=== PATIENT | female | born 1955 | race Caucasian/White ===

== ENCOUNTER 2020-04-15 11:22 | Outpatient (REF) | payer OTHER, SELFPAY ==
[2020-04-15 13:52] LABS: Alanine Aminotransferase 26 U/L (0-31); Albumin Level 4.9 g/dL (3.5-5.0); Alkaline Phosphatase 68 U/L (39-117); Anion Gap 16 (12-20); Aspartate Amino Transferase 17 U/L (5-31); Bilirubin Total 0.4 mg/dL (0.0-1.0); Blood Urea Nitrogen 12 mg/dL (9-16); Calcium 10.1 mg/dL (8.4-10.2); Carbon Dioxide 28 mmol/L (22-29); Chloride 99 mmol/L (96-108); Estimated Glomerular Filt Rate > 60; Glucose Random 154 mg/dL (60-115); Potassium 4.6 mmol/l (3.3-5.1); Sodium 138 mmol/L (135-145); Total Protein 7.6 g/dL (6.5-8.0)
[2020-04-15 14:15] LABS: Vitamin D 25-OH Total 42.6 ng/mL (>30)
[2020-04-16 20:11] LABS: Calcium (PTHI) 10.1 mg/dL (8.6-10.4); PTHI 13 pg/mL (14-64)
== END 2020-04-15 11:23 | disposition home or self-care (01) ==
LOC: HO.LAB 11:22
PROVIDERS: PCP Family Medicine; Visit Provider Internal Medicine
DX: E21.0 Primary hyperparathyroidism (principal); E55.9 Vitamin D deficiency, unspecified; M85.89 Other specified disorders of bone density and structure, multiple sites
CPT/HCPCS: 80053; 82306; 83970

== ENCOUNTER → 2020-05-14 09:19 | Outpatient (BNVA) | payer OTHER, SELFPAY | PROVIDERS: PCP Family Medicine; Referring Provider Family Medicine; Visit Provider Nurse Practitioner | DX: K29.61 Other gastritis with bleeding (principal); R11.2 Nausea with vomiting, unspecified; K22.10 Ulcer of esophagus without bleeding; Z78.9 Other specified health status | CPT/HCPCS: 99212 ==

== ENCOUNTER → 2020-06-18 08:42 | Outpatient (BNVA) | payer OTHER, SELFPAY | PROVIDERS: PCP Family Medicine; Visit Provider Nurse Practitioner | DX: Z13.89 Encounter for screening for other disorder (principal) | CPT/HCPCS: Q3014 ==

== ENCOUNTER 2020-06-23 12:44 | Outpatient (REF) | payer OTHER, SELFPAY ==
--- NOTE | 2020-06-23 12:47 | CT_ITS ---
EXAMINATION: CT CHEST WITHOUT CONTRAST CLINICAL INFORMATION: Follow-up pulmonary nodules COMPARISON: Previous chest CT most recent December 2018 TECHNIQUE: Multidetector volumetric CT imaging of the chest was done. Axial MIP volume rendering provided. Sagittal and coronal reformatted images were obtained. This CT examination was performed using dose optimization techniques as appropriate, variously including the following: *Automated exposure control *Adjustment of mA and/or kV according to patient size (this includes techniques or standardized protocols for targeted exams where dose is matched to indication/reason for exam; i.e. extremities or head) *Use of iterative reconstruction technique DLP: 109 mGy-cm FINDINGS: LUNGS: There is evidence of emphysema. There are innumerable small calcified pulmonary nodules that are stable. Largest calcified pulmonary nodule measures 3 mm. There is a 4 mm noncalcified right lower lobe nodule axial image 255 series 5 that is new. This is triangular in shape and is possible this represents an intraparenchymal lymph node. MEDIASTINUM: There are new surgical clips in the superior mediastinum inferior to the thyroid gland. There are no enlarged hilar or mediastinal lymph nodes. The heart does not appear enlarged. There is no pericardial effusion. The thoracic aorta is normal in caliber. PLEURA: There is no pleural effusion. No pleural mass or thickening. AXILLA: No chest wall mass or enlarged axillary lymph nodes are seen. UPPER ABDOMEN: There is a 1.2 cm low-attenuation left adrenal lesion. Hounsfield units without contrast measure 2 and this probably represents a adenoma. This is unchanged. OSSEOUS STRUCTURES: Unremarkable CT/CT chest wo con IMPRESSION: Emphysema. Innumerable small calcified pulmonary nodules that are stable. New 4 mm noncalcified right lower lobe pulmonary nodule. Follow-up chest CT scan recommended.
== END 2020-06-23 12:45 | disposition home or self-care (01) ==
LOC: HO.CT 12:44
PROVIDERS: PCP Family Medicine; Visit Provider Family Medicine
DX: R91.1 Solitary pulmonary nodule (principal)
CPT/HCPCS: 71250

== ENCOUNTER → 2021-03-07 13:17 | Outpatient (BNVA) | payer OTHER, SELFPAY | PROVIDERS: PCP Family Medicine; Visit Provider Internal Medicine | DX: R91.8 Other nonspecific abnormal finding of lung field (principal); J44.9 Chronic obstructive pulmonary disease, unspecified; E21.3 Hyperparathyroidism, unspecified; E55.9 Vitamin D deficiency, unspecified; F17.210 Nicotine dependence, cigarettes, uncomplicated; Z79.899 Other long term (current) drug therapy | CPT/HCPCS: 99202 ==

== ENCOUNTER → 2021-04-06 08:28 | Outpatient (BNVA) | payer OTHER, SELFPAY | PROVIDERS: PCP Family Medicine; Visit Provider Internal Medicine | DX: Z13.89 Encounter for screening for other disorder (principal) | CPT/HCPCS: Q3014 ==

== ENCOUNTER → 2021-04-11 13:29 | Outpatient (BNVA) | payer OTHER, SELFPAY | PROVIDERS: PCP Family Medicine; Visit Provider Internal Medicine ==

== ENCOUNTER 2021-04-11 14:28 | Outpatient (REF) | payer OTHER, SELFPAY ==
--- NOTE | 2021-04-11 17:08 | PFT_ITS ---
INDICATION: COPD. SPIROMETRY: The FEV1 to FVC 33% with an FEV1 of 1.08 L, which is 44% predicted, and FVC of 3.31 L, which is 104% predicted. Post bronchodilators, there was a significant improvement of the FEV1 by 15%. To note, the patient has significant small airways disease with [id number] of 14% predicted. Maximum voluntary ventilation only 41% predicted. LUNG VOLUMES: Total lung capacity 125% predicted with residual volume 168% predicted. DIFFUSION CAPACITY: DLCO of 36% predicted. COMPARISONS: None available. INTERPRETATION: There is an obstructive ventilatory defect consistent with severe COPD. There was a significant response to bronchodilators noted and significant small airways disease. Severe decrease in maximum voluntary ventilation secondary to deconditioning and also worsening dynamic inspiratory capacity. Lung volumes with significant air trapping and hyperinflation due to the COPD. In addition to that, the patient does have severe diffusion impairment. Clinical correlation warranted. MD RANDY Pedroza/MODSpencer / [id number]
== END 2021-04-11 14:29 | disposition home or self-care (01) ==
LOC: HO.RESP 14:28
PROVIDERS: PCP Family Medicine; Visit Provider Internal Medicine
DX: J44.9 Chronic obstructive pulmonary disease, unspecified (principal); R91.8 Other nonspecific abnormal finding of lung field; F17.200 Nicotine dependence, unspecified, uncomplicated
CPT/HCPCS: 94060; 94727; 94729; 99212

== ENCOUNTER → 2021-04-20 13:35 | Outpatient (BNVA) | payer OTHER, SELFPAY | PROVIDERS: PCP Family Medicine; Referring Provider Family Medicine; Visit Provider Internal Medicine Cardiovascular Disease | DX: R06.00 Dyspnea, unspecified (principal) | CPT/HCPCS: 93005; 99212 ==

== ENCOUNTER → 2021-05-12 13:41 | Outpatient (BNVA) | payer OTHER, SELFPAY | PROVIDERS: PCP Family Medicine; Visit Provider Internal Medicine | DX: J44.9 Chronic obstructive pulmonary disease, unspecified (principal); J30.9 Allergic rhinitis, unspecified; R91.8 Other nonspecific abnormal finding of lung field; F17.200 Nicotine dependence, unspecified, uncomplicated; Z79.899 Other long term (current) drug therapy; Z71.6 Tobacco abuse counseling | CPT/HCPCS: 99212 ==

== ENCOUNTER 2021-06-21 12:56 | Outpatient (REF) | payer OTHER, SELFPAY ==
--- NOTE | ~2021-06-21 | MM_ITS ---
EXAMINATION: BONE DENSITOMETRY CLINICAL INDICATION: Other specified disorders of bone density and structure. COMPARISON: Baseline BD dated 06/20/2019. TECHNIQUE: Using a [employer] DXA System (software version: 13.1) manufactured by [employer], dual-energy x-ray absorptiometry was performed of the lumbar spine, left hip and left forearm radius 33%. The images are of good technical quality. Summary results are attached. FINDINGS: AP SPINE L1-L4: Current: BMD 1.133 g/cm2, Z-score 1.2, T-score -0.4, normal, 5.1% increase from baseline (<5% change is not significant). Baseline: BMD 1.078 g/cm2. LEFT FEMUR, NECK: Current: BMD 0.792 g/cm2, Z-score -0.3, T-score -1.8, osteopenia. Baseline: BMD 0.719 g/cm2. LEFT FEMUR, TOTAL: Current: BMD 0.886 g/cm2, Z-score 0.3, T-score -1.0, normal, 10.1% increase from baseline (<5% change is not significant). Baseline: BMD 0.805 g/cm2. LEFT FOREARM RADIUS 33%: BMD 0.758 g/cm2, Z-score -0.1, T-score -1.5, osteopenia, 1.9% increase from baseline (<5% change is not significant). Baseline: BMD 0.744 g/cm2. IDENTIFIED RISK FACTORS: Low calcium intake, tobacco use (current smoker), menopause. HISTORY OF FRACTURE: None listed. MEDICATIONS: None listed. MM/XR DEXA axial skeleton IMPRESSION: 1. DIAGNOSIS: Osteopenia based on the lowest T-score value of -1.8 in the femoral neck applying World Health Organization criteria. 2. 10-YEAR FRACTURE RISK PREDICTION, FRAX: Major osteoporotic fracture (clinical spine, forearm, hip or shoulder) 10.1%. Hip fracture 2.2%. 3. Treatment Recommendations: NOF guidelines recommend consideration for treatment in postmenopausal women and men age 50 and older presenting with the following: -A hip or vertebral (clinical or morphometric) fracture. -T-score less than or equal to -2.5 at the femoral neck or spine after appropriate evaluation to exclude secondary causes. -Low bone mass at the hip or spine and a 10-year fracture probability by FRAX of greater than or equal to 3% for hip fracture or greater than or equal to 20% for major osteoporotic fracture based on the [place] adapted WHO algorithm. 4. Other Recommendations: All treatment decisions require clinical judgment and consideration of individual patient factors, including patient preferences, comorbidities, previous drug use, risk factors not captured in the FRAX model (e.g. frailty, falls, vitamin D deficiency, increased bone turnover, interval significant decline in bone density) and possible under or overestimation of fracture risk by FRAX. Additional medical evaluation for secondary cause of low bone mineral density may be appropriate. FUTURE SCAN RECOMMENDATION: People with diagnosed cases of osteoporosis or at high risk for fracture should have regular bone mineral density tests. For patients eligible for Medicare, routine testing is allowed once every 2 years. The testing frequency can be increased to one year for patients who have rapidly progressing disease, those who are receiving or discontinuing medical therapy to restore bone mass, or have additional risk factors.
== END 2021-06-21 12:57 | disposition home or self-care (01) ==
LOC: HO.MAMMO 12:56
PROVIDERS: Visit Provider Internal Medicine
DX: Z13.820 Encounter for screening for osteoporosis (principal); M85.80 Other specified disorders of bone density and structure, unspecified site; Z78.0 Asymptomatic menopausal state
CPT/HCPCS: 77080

== ENCOUNTER 2021-08-10 12:49 | Outpatient (REF) | payer OTHER, SELFPAY ==
--- NOTE | ~2021-08-10 | CT_ITS ---
EXAMINATION: CT CHEST WITHOUT CONTRAST CLINICAL INFORMATION: Follow-up pulmonary nodules. COMPARISON: Chest 06/23/2020. TECHNIQUE: Multidetector volumetric CT imaging of the chest was done. Axial MIP volume rendering provided. Sagittal and coronal reformatted images were obtained. This CT examination was performed using dose optimization techniques as appropriate, variously including the following: *Automated exposure control *Adjustment of mA and/or kV according to patient size (this includes techniques or standardized protocols for targeted exams where dose is matched to indication/reason for exam; i.e. extremities or head) *Use of iterative reconstruction technique DLP: 173 mGy-cm FINDINGS: FRONT COUNTER ATTENDANT: Hyperinflated lungs. LUNGS: There is centrilobular emphysema without any acute pneumonic consolidation. There are multiple tlhwo-un-ealmil-sized calcified pulmonary nodules throughout both lungs, likely granulomas. There is a noncalcified new spiculated 7 mm lesion superior segment left lower lobe axial image 181/6, a noncalcified 4 mm speculated lesion left upper lobe laterally axial image 212/6, a 6 mm noncalcified nodule right lower lobe superior segment axial image 230/6 and previously it measured same size on last CT 251/5, a second noncalcified nodule on axial image 269/6 adjacent to it measures 5 mm on axial image 240/6. There is an ill-defined nodular density right lower lobe pleural-based measuring 1.6 cm. There are 2 smaller noncalcified nodules in the left lower lobe on axial image 119/6 and 417/6. Mild atelectasis in the lingula is noted. MEDIASTINUM: The thyroid lobes are symmetrical and normal. Central trachea and the bronchi appear widely patent. Benign-appearing lymph nodes in the mediastinum. No pericardial effusion seen. There is no cardiomegaly or calcified coronary vessels. PLEURA: There is no pleural effusion. No pleural mass or thickening. AXILLA: No abnormal lymph nodes. The chest wall is unremarkable. UPPER ABDOMEN: Visualized liver, spleen, pancreas and bilateral adrenal glands are unremarkable. OSSEOUS STRUCTURES: No gross bony abnormality seen. CT/CT chest wo con IMPRESSION: Multiple new noncalcified pulmonary nodules as described above. Multiple calcified granulomas are stable. No abnormal mediastinal or axillary lymphadenopathy seen. Fleischner guidelines were followed.
== END 2021-08-10 12:50 | disposition home or self-care (01) ==
LOC: HO.CT 12:49
PROVIDERS: Visit Provider Internal Medicine
DX: R91.8 Other nonspecific abnormal finding of lung field (principal); J44.9 Chronic obstructive pulmonary disease, unspecified
CPT/HCPCS: 71250

== ENCOUNTER → 2021-08-18 13:01 | Outpatient (BNVA) | payer OTHER, SELFPAY | PROVIDERS: PCP Family Medicine; Visit Provider Internal Medicine | DX: J44.9 Chronic obstructive pulmonary disease, unspecified (principal); J30.9 Allergic rhinitis, unspecified; R91.8 Other nonspecific abnormal finding of lung field; F17.200 Nicotine dependence, unspecified, uncomplicated | CPT/HCPCS: 94618; 99212 ==

== ENCOUNTER 2021-09-01 15:05 | Outpatient (REF) | payer OTHER, SELFPAY ==
--- NOTE | ~2021-09-01 | MM_ITS ---
EXAMINATION: MM SCREENING DIGITAL BREAST TOMOSYNTHESIS, BILATERAL CLINICAL INFORMATION: Screening. Asymptomatic. The lifetime risk of breast cancer based on the Tyrer-Cuzick Model is 5.4%. COMPARISON: Mammography: January 21, 2018 and studies dating back to February 05, 2012 TECHNIQUE: Digital breast tomosynthesis is performed in both the craniocaudal and mediolateral oblique views along with computer-aided detection (CAD). Synthesized 2D images are generated from the tomosynthesis. FINDINGS: There are scattered areas of fibroglandular density (ACR BI-RADS breast composition Category b). There are no significant masses, abnormal calcifications, or other abnormalities. MM/MM tomosynthesis screening BI IMPRESSION: There are no significant changes from prior study. ASSESSMENT: BI-RADS 1: Negative RECOMMENDATION: Routine annual mammography screening. This patient's information was entered into a reminder system with a target due date for their next mammogram.
== END 2021-09-01 15:06 | disposition home or self-care (01) ==
LOC: HO.MAMMO 15:05
PROVIDERS: Visit Provider Family Medicine
DX: Z12.31 Encounter for screening mammogram for malignant neoplasm of breast (principal)
CPT/HCPCS: 77063; 77067

== ENCOUNTER → 2021-10-04 13:43 | Outpatient (BNVA) | payer OTHER, SELFPAY | PROVIDERS: PCP Family Medicine; Visit Provider Internal Medicine | DX: R91.8 Other nonspecific abnormal finding of lung field (principal); R09.02 Hypoxemia; J44.9 Chronic obstructive pulmonary disease, unspecified; J30.9 Allergic rhinitis, unspecified; F17.200 Nicotine dependence, unspecified, uncomplicated; Z71.6 Tobacco abuse counseling | CPT/HCPCS: 99212 ==

== ENCOUNTER → 2021-10-17 13:05 | Outpatient (BNVA) | payer OTHER, SELFPAY | PROVIDERS: PCP Family Medicine; Visit Provider Internal Medicine Cardiovascular Disease | DX: I51.7 Cardiomegaly (principal); R06.00 Dyspnea, unspecified | CPT/HCPCS: 93005; 99212 ==

== ENCOUNTER → 2021-11-28 13:38 | Outpatient (BNVA) | payer OTHER, SELFPAY | PROVIDERS: PCP Family Medicine; Visit Provider Internal Medicine | DX: R91.8 Other nonspecific abnormal finding of lung field (principal); J30.9 Allergic rhinitis, unspecified; J44.9 Chronic obstructive pulmonary disease, unspecified; R09.02 Hypoxemia; F17.210 Nicotine dependence, cigarettes, uncomplicated | CPT/HCPCS: 99212 ==

== ENCOUNTER → 2021-11-30 12:29 | Outpatient (REF) | payer OTHER, SELFPAY ==
--- NOTE | 2021-11-30 12:31 | CA_ITS ---
Transthoracic Echocardiogram Patient (Last, First, Middle): Bonnie Shore P Gender: Female Date of : 1955 Age: 66 Procedure Date: 11/30/2021 Procedure Type: Transthoracic Echocardiogram Location: OP Height: 162.56 cm Weight: 63.5 kg BSA: 1.68 m2 Heart Rate: bpm BP: 108 / 60 mmHg Syrup Filterer: YR/TO Referring MD: Sergo Christensen MD Tree Marker: Sergo Christensen MD Symptoms: R06.00 - Dyspnea, unspecified Study Quality: Fair ECG Rhythm: Sinus Conclusions: - 1. Normal LV systolic function with grade 1 diastolic dysfunction 2. Normal cardiac valvular Doppler 3. Normal RV systolic pressure 4. No gross pericardial effusion Findings Left Ventricle Normal left ventricular size, thickness, and systolic function. The visually estimated ejection fraction is between 60-65%. Spectral Doppler is indicative of an impaired relaxation filling pattern. E/E prime ratio is <8, consistent with normal filling pressures. Evidence suggests grade I (mild) diastolic dysfunction. Right Ventricle Normal right ventricular cavity size and systolic function. Atria The left atrium is normal in size. There is no evidence of interatrial shunt. The right atrium is normal in size. Aortic Valve Normal aortic valve structure and function. There is no aortic valve stenosis. There is no aortic valve regurgitation. Mitral Valve Normal mitral valve structure and function. There is trace mitral valve regurgitation. There is no mitral valve stenosis. Pulmonic Valve The pulmonic valve was not well visualized. Tricuspid Valve Likely normal tricuspid valve structure and function. There is trace tricuspid valve regurgitation. The right ventricular systolic pressure is normal. The right ventricular systolic pressure is 13 mmHg. Normal right atrial pressure. There is no evidence of pulmonary hypertension. Great Vessels All visible segments of the aorta are normal in size. The pulmonary artery was not well visualized. Venous The inferior vena cava is normal in size and collapses greater than 50% with inspiration. Pericardium/Pleural There is no evidence of pericardial effusion. Measurements 2D Linear Measurements IVSd: 0.87 0.6-0.9/0.6-1.0 cm LVIDd: 3.36 3.9-5.3/4.2-5.9 cm LVIDd Index: 2.00 2.4-3.2/2.2-3.1 cm/m2 LVIDs: 2.52 2.0-3.6 cm LVPWd: 0.85 0.7-1.1 cm LA Diam: 2.80 2.7-3.8/3.0-4.0 cm LAIDs Index: 1.67 1.5-2.3 cm/m2 LV Mass: 96.65 67-162/88-224 g LV Mass Index: 57.53 43-95/49-115 g/m2 LVOT Diam: 2.00 3.0+(-)1.3 cm 2D Systolic Function EF 4C: 64.70 >55% EF 2C: 58.80 >55% EF BiP: 62.20 >55% Mitral Valve MV Pk E: 0.62 MV PK A: 0.78 MV Decel Time: 108.00 E/A: 0.80 E'Lateral: 8.27 E'Medial: 6.96 E/E' Med: 9.00 E/E' Lat: 7.50 PHT: 32.00 MVA PHT: 6.88 Decel O'Brien: 5.76 LVOT LVOT Diam: 2.00 LVOT Area: 3.14 Diastolic Function MV Pk E: 0.62 MV Pk A: 0.78 E/A: 0.80 E'Medial: 6.96 E/E' Med: 9.00 E' Laterial: 8.27 E/E' Lat: 7.50 Right Ventricle TAPSE (mm): 19.30 TVS' Gibson: 10.30 Tricuspid Valve TR Pk Gibson: 1.59 TR Pk Grad: 10.00 RA Press: 3.00 RVSP: 13.00 Great Vessels Aorta Sinus of Valsalva: 3.13 2.0-3.[address] Ridge: 2.90 1.7-3.4 cm Ao Asc: 3.10 2.1-3.4 cm Updated in Other Vendor System with Status of Final Olayinka Hernandez MD electronically signed on 12/01/2021 11:41:30 AM with status of Final
== END ==
LOC: HO.CARD 12:29
PROVIDERS: Visit Provider Internal Medicine Cardiovascular Disease
DX: R06.00 Dyspnea, unspecified (principal)
CPT/HCPCS: 93306

== ENCOUNTER 2022-01-10 12:59 | Outpatient (REF) | payer OTHER, SELFPAY ==
--- NOTE | ~2022-01-10 | CT_ITS ---
EXAMINATION: CT CHEST WITHOUT CONTRAST CLINICAL INFORMATION: Abnormal lung findings. COMPARISON: CT chest 08/10/2021. TECHNIQUE: Multidetector volumetric CT imaging of the chest was done. Axial MIP volume rendering provided. Sagittal and coronal reformatted images were obtained. This CT examination was performed using dose optimization techniques as appropriate, variously including the following: *Automated exposure control *Adjustment of mA and/or kV according to patient size (this includes techniques or standardized protocols for targeted exams where dose is matched to indication/reason for exam; i.e. extremities or head) *Use of iterative reconstruction technique DLP: 134 mGy-cm FINDINGS: EPIC BEACON ANALYST: Hyperinflated lungs. LUNGS: There is diffuse centrilobular emphysema. Previously seen. Previously seen 2 nodules adjacent to each other has now significantly increased in size and appears semisolid mass measuring 3 cm on axial image 306/7. There is a 4.4 mm nodule left upper lobe axial image 266/7, previously measured 4 mm. There is a 4 mm nodule right lower lobe adjacent to major fissure axial image 255/7 which has not changed since the previous study. Adjacent to that is a 1.1 cm nodule right lower lobe subpleural-based axial image 271/7 which has increased in size. Previously it measured 5 mm. There are numerous calcified nodules seen throughout both lungs which are stable. MEDIASTINUM: The thyroid lobes are symmetric and normal. The central trachea and bronchi are widely patent. Heart size and the great vessels are normal caliber. There are small shotty lymph nodes in the mediastinum. The largest nodule in the precarinal space measures 1.2 cm and is stable. No pericardial effusion seen. PLEURA: There is no pleural effusion. No pleural mass or thickening. AXILLA: No lymphadenopathy. UPPER ABDOMEN: Visualized liver, spleen and pancreas unremarkable. There is punctate calcification in the body of the pancreas and punctate calculi in the central gallbladder. OSSEOUS STRUCTURES: No lytic or sclerotic process seen. CT/CT chest wo con IMPRESSION: Interval significant increase in the right lower lobe 2 adjacent nodules now appearing as one big mass. There are additional noncalcified pulmonary nodules which are stable. Multiple calcified nodules throughout both lungs likely granulomatous disease is stable. There is a 1.2 cm lymph node right pretracheal space minimally bigger. Recommend biopsy of semisolid mass right lower lobe superior segment. Peripheral appearance and semisolid appearance as well as multiple peripherally-based lung nodules may represent bronchoalveolar or carcinoma with likely metastatic spread unless patient has a known primary elsewhere. Diffuse centrilobular emphysema.
== END 2022-01-10 13:00 | disposition home or self-care (01) ==
LOC: HO.CT 12:59
PROVIDERS: Visit Provider Internal Medicine
DX: R91.8 Other nonspecific abnormal finding of lung field (principal)
CPT/HCPCS: 71250

== ENCOUNTER → 2022-01-27 10:03 | Outpatient (BNVA) | payer OTHER, SELFPAY | PROVIDERS: PCP Family Medicine; Visit Provider Surgery | DX: R91.8 Other nonspecific abnormal finding of lung field (principal); F17.210 Nicotine dependence, cigarettes, uncomplicated | CPT/HCPCS: 99202 ==

== ENCOUNTER 2022-02-07 09:47 | Outpatient (REF) | payer OTHER, SELFPAY ==
--- NOTE | ~2022-02-07 | PE_ITS ---
EXAMINATION: Fluorine-18 FDG PET/CT Scan CLINICAL INDICATION: Initial treatment management. Pulmonary nodule. PROCEDURE: 76 minutes following the intravenous administration of 17.8 mCi of fluorine 18 FDG, images from the base of the skull to the mid thighs were obtained using a combined PET/CT scanner with CT scan based attenuation correction. No oral contrast was administered. No intravenous contrast was administered. Transverse, coronal, sagittal, and volume reconstruction projections were obtained. The patient's blood glucose as determined by a finger stick, was 183 mg/dl immediately prior to injection. Total CT exam dose-length product 1166.56 mGy-cm * These CT images were obtained using dose optimization techniques as appropriate, variously including the following: Automated exposure control * Adjustment of mA and/or kV according to patient size (this includes techniques or standardized protocols for targeted exams where dose is matched to indication/reason for exam; i.e. extremities or head) * Use of iterative reconstruction technique COMPARISON: No previous PET/CT scan is available for comparison. CT scan of the chest dated 01/10/[address] scan of the abdomen and pelvis dated 05/13/2007 are available for comparison. FINDINGS: (Slice numbers described in this report are numbered superiorly to inferiorly with slice #1 in the head) NECK AND VISUALIZED HEAD: No foci of abnormal FDG activity are noted. The distribution of FDG activity is physiological. There is no cervical lymphadenopathy. Metallic surgical clips are present in the left suprasternal notch region and posterolateral to the lower pole of the right thyroid lobe. THORAX: A 3 cm mass posteriorly in the right lower lobe visualized on the 01/10/[address] scan is much smaller in size now measuring 1.0 x 0.7 cm in largest transverse dimension on CT slice 152/223, and showing weak FDG activity, SUVmax 1.5, slice 154/223. Immediately superior to this there is a cluster of subcentimeter nodules, the largest measuring 0.9 x 0.6 cm in largest transverse dimensions and showing weak FDG activity, SUVmax 1.8, slice 159/223. These nodules do not appear significantly changed from 01/10/2022. Multiple additional subcentimeter nodules are present involving all lung sheffield, many but not all of which are calcified. The largest of these is in the superior segment of the left lower lobe and measures 0.8 x 0.5 cm in largest transverse dimensions. All of these are too small to be characterized on the FDG PET images. There are no additional foci of abnormal FDG activity present in the chest. There is no pleural or pericardial fluid, or pneumothorax. Diffuse emphysema is again noted, unchanged in appearance from prior studies. There is no mediastinal, supraclavicular, or axillary lymphadenopathy. A 1.2 x 0.6 cm precarinal lymph node is unchanged in appearance from 01/10/2022 and is not enlarged by size criteria and shows no abnormal FDG activity. ABDOMEN AND PELVIS: No foci of abnormal FDG activity are present in the abdomen or pelvis. There is diffuse FDG activity of varying intensities present throughout the gastrointestinal tract without a suspicious focal component and likely physiological. There is diverticulosis without evidence of diverticulitis. The hollow viscera are otherwise unremarkable. The liver is unremarkable. The spleen is mildly enlarged measuring 12.7 cm in largest dimension in the coronal projection. The gallbladder is unremarkable. There is a 0.5 cm nonobstructing densely calcified calculus in the lower pole of the left kidney. The kidneys are otherwise unremarkable. The adrenal glands and pancreas are unremarkable. There is no retroperitoneal, mesenteric, pelvic or inguinal lymphadenopathy. The pelvic organs are unremarkable. MUSCULOSKELETAL: There are no foci of abnormal FDG activity in the osseous structures. There are mild degenerative changes in the spine but no suspicious sclerotic or lytic lesions are present. VASCULAR: Vascular calcifications are noted. PET/PET CT fusion skull to thigh IMPRESSION: 1. There is been a significant diminution in size of the right lower lobe mass visualized on the 01/10/[address] scan. This is weakly FDG avid. The weak FDG activity and marked change in size suggests this is a resolving inflammatory lesion. Continued monitoring with diagnostic CT imaging in approximately 3 months is recommended for follow-up. 2. Multiple additional subcentimeter pulmonary nodules are present as described above, unchanged from 01/10/2022. These are all too small to be well characterized on the FDG PET images, with weak FDG activity associated with a single nodule within a cluster of nodules in the right lower lobe as described above. Continued monitoring of these also with diagnostic CT imaging in approximately 3 months is recommended. 3. No additional abnormalities suspicious for metastatic or other malignant lesions are noted. 4. Nephrolithiasis.
== END 2022-02-07 09:48 | disposition home or self-care (01) ==
LOC: HO.PET 09:47
PROVIDERS: Visit Provider Surgery
DX: Z13.89 Encounter for screening for other disorder (principal)

== ENCOUNTER 2022-02-09 11:01 | Outpatient (REF) | payer OTHER, SELFPAY ==
--- NOTE | 2022-02-09 13:07 | PFT_ITS ---
Forced vital capacity 93%, FEV1 37%, FEV1/FVC ratio is 31. YHC84-03 11% and MVV 37%. Post bronchodilator therapy, there is a slight improvement in FEV1 and [id number]. Total lung capacity 117% and residual volume 148%. Diffusion capacity 40%. CONCLUSION: Very severe obstructive airway disorder with evidence of hyperinflation and air trapping. Only minimal improvement after bronchodilator therapy is noted. MD TAMIE Scott/ANDREW / [id number]
== END 2022-02-09 11:02 | disposition home or self-care (01) ==
LOC: HO.RESP 11:01
PROVIDERS: PCP Family Medicine; Visit Provider Internal Medicine
DX: R06.00 Dyspnea, unspecified (principal); R91.8 Other nonspecific abnormal finding of lung field; J44.9 Chronic obstructive pulmonary disease, unspecified; F17.200 Nicotine dependence, unspecified, uncomplicated
CPT/HCPCS: 94060; 94727; 94729

== ENCOUNTER 2022-02-24 10:05 | Outpatient (REF) | payer OTHER, SELFPAY ==
[2022-02-24 10:39] LABS: Hematocrit 38.7 % (37.0-47.0); Hemoglobin 13.1 g/dl (12.0-16.0); Mean Corpuscular HGB Conc 33.9 g/dl (31.0-35.0); Mean Corpuscular Volume 85.6 fL (80.0-98.0); Mean Platelet Volume 10.5 fL (9.4-12.3); Platelet Count 169 X10*3/uL (160-400); Red Blood Count 4.52 X10*6/uL (4.20-5.50); Red Cell Distribution Width 13.6 % (11.0-16.0); White Blood Count 8.6 X10*3/uL (4.8-10.8)
[2022-02-24 10:47] LABS: Estimated Average Glucose 180 mg/dL; Hemoglobin A1c % 7.9 %
[2022-02-24 11:07] LABS: Alanine Aminotransferase 29 U/L (0-31); Albumin Level 4.6 g/dL (3.5-5.0); Alkaline Phosphatase 62 U/L (39-117); Aspartate Amino Transferase 19 U/L (5-31); Bilirubin Direct 0.4 mg/dL (0.0-0.5); Bilirubin Total 0.7 mg/dL (0.0-1.0); Cholesterol 65 mg/dL; HDL Cholesterol 34 mg/dL; LDL Cholesterol Calculated 12 mg/dl; Total Protein 7.2 g/dL (6.5-8.0); Triglycerides 95 mg/dL
[2022-02-24 11:16] LABS: Alanine Aminotransferase 29 U/L (0-31); Albumin Level 4.6 g/dL (3.5-5.0); Alkaline Phosphatase 61 U/L (39-117); Anion Gap 17 (12-20); Aspartate Amino Transferase 19 U/L (5-31); Bilirubin Total 0.7 mg/dL (0.0-1.0); Blood Urea Nitrogen 11 mg/dL (9-16); Carbon Dioxide 23 mmol/L (22-29); Chloride 102 mmol/L (96-108); Estimated Glomerular Filt Rate > 60; Glucose Random 217 mg/dL (60-115); Phosphorus 4.2 mg/dL (2.7-4.5); Potassium 4.4 mmol/L (3.3-5.1); Sodium 138 mmol/L (135-145); Total Protein 7.2 g/dL (6.5-8.0)
[2022-02-24 11:32] LABS: Free T4 (Free Thyroxine) 0.88 ng/dL (0.71-1.85)
[2022-02-24 12:12] LABS: Creatinine Urine 102.24 mg/dL; Microalbum/Creatinine Ratio Ur 71.4 ug/mg cr
[2022-02-26 12:52] LABS: Calcium (PTHI) 8.9 mg/dL (8.6-10.4); PTHI 88 pg/mL (16-77)
[2022-02-27 13:42] LABS: Alpha Fetoprotein 2.5 ng/mL
== END 2022-02-24 10:06 | disposition home or self-care (01) ==
LOC: HO.LAB 10:05
PROVIDERS: Internal Medicine; PCP Family Medicine; Visit Provider Family Medicine
DX: E11.9 Type 2 diabetes mellitus without complications (principal); E55.9 Vitamin D deficiency, unspecified; I10 Essential (primary) hypertension; K76.0 Fatty (change of) liver, not elsewhere classified; R91.8 Other nonspecific abnormal finding of lung field
CPT/HCPCS: 36415; 80053; 80061; 80076; 82043; 82105; 82248; 82306; 83036; 83970; 84100; 84439; 84443; 85027; 99212

== ENCOUNTER → 2022-04-04 13:45 | Outpatient (BNVA) | payer OTHER, SELFPAY | PROVIDERS: PCP Family Medicine; Visit Provider Internal Medicine | DX: E21.3 Hyperparathyroidism, unspecified (principal); E55.9 Vitamin D deficiency, unspecified; M85.80 Other specified disorders of bone density and structure, unspecified site | CPT/HCPCS: 99212 ==

== ENCOUNTER 2022-04-04 14:30 | Emergency (ER) | payer OTHER, SELFPAY ==
--- NOTE | ~2022-04-04 | XR_ITS ---
EXAMINATION: XR CHEST CLINICAL INFORMATION: Short of breath. COPD. COMPARISON: 11/09/2019 TECHNIQUE: Frontal view of the chest was obtained. FINDINGS: Median sternotomy wires overlie the chest. The lungs are well expanded. There is no focal consolidation, edema, or effusion. No pneumothorax. The cardiomediastinal silhouette is within normal limits. No acute osseous abnormality. XR/XR chest 1V IMPRESSION: No acute pulmonary finding.
[2022-04-04 14:41] VITALS: BP 138/72; BP 141/70; PULSE 105; PULSE 107; RESP 20; TEMP 37; O2SAT 92; O2SAT 93; BMI 25.7
--- NOTE | 2022-04-04 14:48 | ECG_ITS ---
Test Reason : tachycardia Blood Pressure : / mmHG Vent. Rate : 096 BPM Atrial Rate : 096 BPM P-R Int : 230 ms QRS Dur : 080 ms QT Int : 364 ms P-R-T Axes : 077 068 042 degrees QTc Int : 459 ms Sinus rhythm with 1st degree A-V block Otherwise normal ECG When compared with ECG of 09-NOV-2019 12:30, No significant change was found Referred By: Celena Crews Electronically Signed By:ARCHANA HASTINGS
--- NOTE | 2022-04-04 14:50 | ED.SOB ---
HPI - SOB/Dyspnea General Chief Complaint: Dyspnea Stated Complaint: HIGH HEART RATE Time Seen by Provider: 04/04/22 14:41 Source: patient and EMS Mode of arrival: EMS Limitations: no limitations History of Present Illness HPI Narrative: Patient comes to the emergency room from Dr. Siddiqi's office. Patient was in for routine follow-up for hyperparathyroidism. Patient reported that she has been feeling very short of breath with any exertion for the last couple weeks. Patient is known to have COPD, she stop smoking. Patient denies any fever or chills, no increased sputum. However, patient states that she has been using her inhaler and nebulizationsand it is more often. Patient denies chest pain or abdominal pain Related Data Home Medications Medication Instructions Recorded Confirmed albuterol sulfate 2.5 mg/3 mL mg inhalation 03/07/21 04/04/22 (0.083 %) solution for nebulization blood sugar diagnostic (FreeStyle #10 ea 03/07/21 04/04/22 Lite Strips) blood-glucose meter (FreeStyle #1 ea 03/07/21 04/04/22 [place] Lite kit) cetirizine 10 mg tablet 10 mg PO DAILY 03/07/21 04/04/22 docusate sodium 100 mg capsule 100 mg PO BID PRN constipation 03/07/21 04/04/22 lisinopril 2.5 mg tablet 2.5 mg PO DAILY 03/07/21 04/04/22 metformin 500 mg tablet 1,000 mg PO 03/07/21 04/04/22 methadone 10 mg tablet 35 mg PO DAILY 03/07/21 04/04/22 rosuvastatin 40 mg tablet (Crestor) 40 mg PO DAILY 03/07/21 04/04/22 triamcinolone acetonide 55 mcg 2 spray intranasal DAILY 03/07/21 04/04/22 nasal spray aerosol (Nasacort) umeclidinium 62.5 mcg/actuation 1 inh inhalation DAILY 03/07/21 04/04/22 blister powder for inhalation (Incruse Ellipta) zolpidem 10 mg tablet 10 mg PO BEDTIME PRN insomnia 03/07/21 04/04/22 naproxen 500 mg tablet (Naprosyn) 500 mg PO BID PRN 04/11/21 04/04/22 albuterol sulfate 90 mcg/actuation 2 puff inhalation Q4H PRN 10/17/21 04/04/22 aerosol inhaler fluticasone 100 mcg-salmeterol 50 1 inh inhalation BID 04/04/22 04/04/22 mcg/dose blistr powdr for inhalation (Wixela Inhub) fluticasone propionate 220 2 puff inhalation BID 04/04/22 04/04/22 mcg/actuation HFA aerosol inhaler (Flovent HFA) sennosides 8.6 mg tablet (Natural 8.6 mg PO BEDTIME 04/04/22 04/04/22 Senna Laxative) Previous Rx's Medication Instructions Recorded famotidine 20 mg tablet (Pepcid) 40 mg PO DAILY #60 tabs 05/14/20 fluticasone 500 mcg-salmeterol 50 1 ea PO BID #60 ea 02/02/22 mcg/dose blistr powdr for inhalation (Wixela Inhub) azithromycin 250 mg tablet See Rx Instructions PO .COMPLEX #6 04/04/22 tabs cholecalciferol (vitamin D3) 1,250 1,250 mcg PO QWEEK 8 weeks #8 caps 04/04/22 mcg (50,000 unit) capsule cholecalciferol (vitamin D3) 50 50 mcg PO DAILY 30 days #30 caps 04/04/22 mcg (2,000 unit) capsule prednisone 50 mg tablet 50 mg PO DAILY #5 tabs 04/04/22 Allergies Allergy/AdvReac Type Severity Reaction Status Date / Time No Known Allergies Allergy Verified 04/04/22 13:54 [No Known Allergies*] Review of Systems Review of Systems: Constitutional : No Weight loss, No Fever, No Chills, No Night Sweats, No Fatigue, No Malaise ENT/Mouth : No Hearing loss, No Ear Pain, No Nasal Congestion, No Sinus Pain, No Hoarseness, No sore throat, No Rhinorrhea, No Swallowing Difficulty Eyes: No Eye Pain, No Swelling, No Redness, No Foreign Body, No Discharge, No Vision Changes Cardiovascular : No Chest Pain, No SOB, complaining of Dyspnea on Exertion, No Orthopnea, No Edema, No Palpitations Respiratory : Complaining of chronic cough, dyspnea on exertion, no orthopnea Gastrointestinal : No Nausea, No Vomiting, No Diarrhea, No Constipation, No abdominal Pain, No Hematochezia, No Melena Genitourinary : no irregular bleeding, No Dysuria, No Urinary Frequency, No Hematuria, No Urinary Incontinence, No Urgency, No Flank Pain, No Urinary Flow Changes, No Hesitancy Musculoskeletal : No joint pain, No Myalgias, No Joint Swelling Skin : No Skin Lesions, No rash Neuro : No Weakness, No Numbness, No Paresthesias, No Loss of Consciousness, No Dizziness, No Headache Psych : No Anxiety/Panic, No Depression, No SI/HI/AH/VH, No Social Issues, Heme/Lymph: No Bruising, No Bleeding,No Lymphadenopathy Endocrine : No Polyuria, No Polydipsia, No Temperature Intolerance [facility] Past Medical History Medical History Allergic rhinitis COPD (chronic obstructive pulmonary disease) Diabetes mellitus type 2, controlled Exercise hypoxemia History of colonic polyps Hyperlipidemia Hyperparathyroidism Methadone maintenance therapy patient Osteopenia (~2018) Personal history of nicotine dependence Pulmonary nodules Statin intolerance Vitamin D deficiency Surgical History History of History of colonoscopy History of esophagogastroduodenoscopy (EGD) History of parathyroidectomy History of tonsillectomy History of tubal ligation History of vocal cord polypectomy Family History Family History Father Myocardial infarction Heart disease Lung disease Mother COPD (chronic obstructive pulmonary disease) Tumor of thyroid Maternal Aunt Cancer Stomach cancer Maternal Aunt Stomach cancer Sister Gallstones Acute pancreatitis Myocardial infarction Social History Social History Alcohol intake: never Patient Tobacco Use Status: Current everyday Tobacco user Cigarette Packs Per Day: 0.5 Cigarettes Per Day: 10.0 Years Smoked: 50 +/- Advance Directives: No Physical Exam Vital Signs: Vital Signs: Last Vital Signs Temp 98.6 F 04/04/22 14:41 Pulse 100 04/04/22 18:54 Resp 22 H 04/04/22 18:54 BP 121/48 L 04/04/22 16:52 Pulse Ox 93 04/04/22 18:54 O2 Del Method 04/04/22 18:54 O2 Flow Rate 2 04/04/22 16:52 BMI result Body Mass Index 25.7 Const: Other: Appearance: Alert. Oriented X3. No acute distress. Eyes: Pupils equal, round and reactive to light. ENT: Pharynx normal. Neck: Normal inspection. Neck supple. No lymph nodes noted. No crepitus CVS: Normal heart rate and rhythm. Pulses normal. Normal S1 and S2 Respiratory: No respiratory distress. Patient has significantly diminished breath sounds, no wheezing Abdomen: Soft and nontender. No rigidity. No distention. Skin: Skin warm and dry. Normal skin color. Normal skin turgor. Extremities: No lower extremity edema. No Lacerations. No Rash Neuro: Oriented X 3. No motor deficit. No sensory deficit. Moving all extremities. No slurred speech. CN 2 through 12 grossly intact Psych: calm, cooperative, normal affect Course Course Course Narrative: Patient is getting a breathing treatment at this time, all of labs and imaging pending. Patient received 5 units of insulin for hyperglycemia Patient's white blood cell count within normal limits, normal blood pressure, no fever. Lactic acid is 2.9 likely secondary to nebulization treatments. Sepsis is not suspected chest x-ray pending. Chest x-ray negative. Patient was ambulated around the emergency room, oxygen saturation stayed between 92-94% on room air, no desaturations, no significant shortness of breath. Patient ready for discharge. MDM - SOB/Dyspnea Lab Data Result diagrams: 04/04/22 15:24 04/04/22 15:24 Labs: Lab Results 04/04/22 04/04/22 04/04/22 Range/Units 15:24 15:24 15:24 WBC 6.9 (4.8-10.8) X10*3/uL RBC 4.44 (4.20-5.50) X10*6/uL Hgb 12.7 (12.0-16.0) g/dl Hct 38.2 (37.0-47.0) % MCV 86.0 (80.0-98.0) fL MCH 28.6 (27.0-33.0) pg MCHC 33.2 (31.0-35.0) g/dl RDW 13.7 (11.0-16.0) % Plt Count 146 L (160-400) X10*3/uL MPV 10.2 (9.4-12.3) fL Immature Gran % (Auto) 0.4 (0.0-0.4) % Neut % (Auto) 61.2 (45-73) % Lymph % (Auto) 25.6 (20-40) % [place] % (Auto) 11.2 H (2-11) % Eos % (Auto) 1.2 (0-4) % Baso % (Auto) 0.4 (0-2) % Lymph # (Auto) 1.8 (1.2-4.9) X10*3/uL [place] # (Auto) 0.8 (0.1-1.2) X10*3/uL Eos # (Auto) 0.1 (0.0-0.4) X10*3/uL Baso # (Auto) 0.0 (0.0-0.2) X10*3/uL Abs Immat Gran (auto) 0.03 (0.00-0.03) X10*3/uL Absolute Neuts (auto) 4.2 (2.0-8.3) x10*3/uL Absolute Nucleated RBC 0.000 (0.0-0.012) X10*3/uL Nucleated RBC % (auto) 0.0 (0.0-0.2) /100WBC PT 12.7 (10.0-13.1) SEC INR 1.1 (0.9-1.1) VBG pH (7.32-7.43) VBG pCO2 mmHg VBG pO2 mmHg VBG HCO3 (22-26) mmol/L VBG O2 Saturation % VBG Base Excess mmol/L Sodium 139 (135-145) mmol/L Potassium 4.5 (3.3-5.1) mmol/L Chloride 98 (96-108) mmol/L Carbon Dioxide 26 (22-29) mmol/L Anion Gap 20 (12-20) BUN 12 (9-16) mg/dL Creatinine 0.81 (0.5-1.4) mg/dL Estim Creat Clear Calc 64.7 Estimated GFR > 60 POC Glucose (60-115) mg/dL Random Glucose 366 H* (60-115) mg/dL Lactic Acid (0.5-2.0) mmol/L Calcium 9.6 D (8.4-10.2) mg/dL Total Bilirubin 0.6 (0.0-1.0) mg/dL Direct Bilirubin 0.3 (0.0-0.5) mg/dL AST 18 (5-31) U/L ALT 27 (0-31) U/L Alkaline Phosphatase 75 D (39-117) U/L Troponin I High Sens (<3.5-17.0) ng/L B-Natriuretic Peptide (<100) pg/mL Total Protein 7.4 (6.5-8.0) g/dL Albumin 4.6 (3.5-5.0) g/dL COVID-19 (SEN) (Negative) COVID-19 Clin Com 04/04/22 04/04/22 04/04/22 Range/Units 15:24 15:24 15:30 WBC (4.8-10.8) X10*3/uL RBC (4.20-5.50) X10*6/uL Hgb (12.0-16.0) g/dl Hct (37.0-47.0) % MCV (80.0-98.0) fL MCH (27.0-33.0) pg MCHC (31.0-35.0) g/dl RDW (11.0-16.0) % Plt Count (160-400) X10*3/uL MPV (9.4-12.3) fL Immature Gran % (Auto) (0.0-0.4) % Neut % (Auto) (45-73) % Lymph % (Auto) (20-40) % [place] % (Auto) (2-11) % Eos % (Auto) (0-4) % Baso % (Auto) (0-2) % Lymph # (Auto) (1.2-4.9) X10*3/uL [place] # (Auto) (0.1-1.2) X10*3/uL Eos # (Auto) (0.0-0.4) X10*3/uL Baso # (Auto) (0.0-0.2) X10*3/uL Abs Immat Gran (auto) (0.00-0.03) X10*3/uL Absolute Neuts (auto) (2.0-8.3) x10*3/uL Absolute Nucleated RBC (0.0-0.012) X10*3/uL Nucleated RBC % (auto) (0.0-0.2) /100WBC PT (10.0-13.1) SEC INR (0.9-1.1) VBG pH 7.31 L (7.32-7.43) VBG pCO2 58 mmHg VBG pO2 35 mmHg VBG HCO3 30 H (22-26) mmol/L VBG O2 Saturation 49.0 % VBG Base Excess 2.4 mmol/L Sodium (135-145) mmol/L Potassium (3.3-5.1) mmol/L Chloride (96-108) mmol/L Carbon Dioxide (22-29) mmol/L Anion Gap (12-20) BUN (9-16) mg/dL Creatinine (0.5-1.4) mg/dL Estim Creat Clear Calc Estimated GFR POC Glucose (60-115) mg/dL Random Glucose (60-115) mg/dL Lactic Acid 2.9 H* (0.5-2.0) mmol/L Calcium (8.4-10.2) mg/dL Total Bilirubin (0.0-1.0) mg/dL Direct Bilirubin (0.0-0.5) mg/dL AST (5-31) U/L ALT (0-31) U/L Alkaline Phosphatase (39-117) U/L Troponin I High Sens < 3.5 (<3.5-17.0) ng/L B-Natriuretic Peptide < 10 (<100) pg/mL Total Protein (6.5-8.0) g/dL Albumin (3.5-5.0) g/dL COVID-19 (SEN) (Negative) COVID-19 Clin Com 04/04/22 04/04/22 Range/Units 15:42 16:48 WBC (4.8-10.8) X10*3/uL RBC (4.20-5.50) X10*6/uL Hgb (12.0-16.0) g/dl Hct (37.0-47.0) % MCV (80.0-98.0) fL MCH (27.0-33.0) pg MCHC (31.0-35.0) g/dl RDW (11.0-16.0) % Plt Count (160-400) X10*3/uL MPV (9.4-12.3) fL Immature Gran % (Auto) (0.0-0.4) % Neut % (Auto) (45-73) % Lymph % (Auto) (20-40) % [place] % (Auto) (2-11) % Eos % (Auto) (0-4) % Baso % (Auto) (0-2) % Lymph # (Auto) (1.2-4.9) X10*3/uL [place] # (Auto) (0.1-1.2) X10*3/uL Eos # (Auto) (0.0-0.4) X10*3/uL Baso # (Auto) (0.0-0.2) X10*3/uL Abs Immat Gran (auto) (0.00-0.03) X10*3/uL Absolute Neuts (auto) (2.0-8.3) x10*3/uL Absolute Nucleated RBC (0.0-0.012) X10*3/uL Nucleated RBC % (auto) (0.0-0.2) /100WBC PT (10.0-13.1) SEC INR (0.9-1.1) VBG pH (7.32-7.43) VBG pCO2 mmHg VBG pO2 mmHg VBG HCO3 (22-26) mmol/L VBG O2 Saturation % VBG Base Excess mmol/L Sodium (135-145) mmol/L Potassium (3.3-5.1) mmol/L Chloride (96-108) mmol/L Carbon Dioxide (22-29) mmol/L Anion Gap (12-20) BUN (9-16) mg/dL Creatinine (0.5-1.4) mg/dL Estim Creat Clear Calc Estimated GFR POC Glucose 305 H (60-115) mg/dL Random Glucose (60-115) mg/dL Lactic Acid (0.5-2.0) mmol/L Calcium (8.4-10.2) mg/dL Total Bilirubin (0.0-1.0) mg/dL Direct Bilirubin (0.0-0.5) mg/dL AST (5-31) U/L ALT (0-31) U/L Alkaline Phosphatase (39-117) U/L Troponin I High Sens (<3.5-17.0) ng/L B-Natriuretic Peptide (<100) pg/mL Total Protein (6.5-8.0) g/dL Albumin (3.5-5.0) g/dL COVID-19 (SEN) Negative (Negative) COVID-19 Clin Com See Note Imaging Data Chest x-ray: Radiologist's impression: FINDINGS: Median sternotomy wires overlie the chest. The lungs are well expanded. There is no focal consolidation, edema, or effusion. No pneumothorax. The cardiomediastinal silhouette is within normal limits. No acute osseous abnormality. XR/XR chest 1V IMPRESSION: No acute pulmonary finding. Discharge Plan Discharge Clinical Impression: COPD (chronic obstructive pulmonary disease), Hyperglycemia Patient Disposition: Home, Self-Care Instructions: COPD (Chronic Obstructive Pulmonary Disease) (ED) Additional Instructions: Please follow-up with your primary care physician tomorrow. If you have any worsening or new symptoms, please return to the emergency room or call 911 Prescriptions: New prednisone 50 mg tablet 50 mg PO DAILY Qty: 5 0RF azithromycin 250 mg tablet See Rx Instructions .ROUTE .COMPLEX Qty: 6 0RF Rx Instructions: For 250 mg dose pack: take 500 mg today (day 1), then 250 mg for 4 days (days 2-5) No Action famotidine [Pepcid] 20 mg tablet 40 mg PO DAILY Qty: 60 6RF fluticasone propion-salmeterol [Wixela Inhub] 500-50 mcg/dose blister with device 1 ea PO BID Qty: 60 3RF lisinopril 2.5 mg tablet 2.5 mg PO DAILY cetirizine 10 mg tablet 10 mg PO DAILY Incruse Ellipta 62.5 mcg/actuation blister with device 1 inh inhalation DAILY albuterol sulfate 2.5 mg /3 mL (0.083 %) solution for nebulization inhalation docusate sodium 100 mg capsule 100 mg PO BID PRN (Reason: constipation) metformin 500 mg tablet 1,000 mg PO (DME) blood-glucose meter [FreeStyle [place] Lite] Kit See Rx Instructions Not Applicable DAILY Qty: 1 Rx Instructions: As directed zolpidem 10 mg tablet 10 mg PO BEDTIME PRN (Reason: insomnia) (DME) FreeStyle Lite Strips Strip See Rx Instructions Not Applicable BID Qty: 10 Rx Instructions: As directed methadone 10 mg tablet 35 mg PO DAILY triamcinolone acetonide [Nasacort] 55 mcg aerosol,spray 2 spray intranasal DAILY Rx Instructions: administer into each nostril rosuvastatin [Crestor] 40 mg tablet 40 mg PO DAILY naproxen [Naprosyn] 500 mg tablet 500 mg PO BID PRN sennosides [Natural Senna Laxative] 8.6 mg tablet 8.6 mg PO BEDTIME fluticasone propion-salmeterol [Wixela Inhub] 100-50 mcg/dose blister with device 1 inh inhalation BID fluticasone propionate [Flovent HFA] 220 mcg/actuation HFA aerosol inhaler 2 puff inhalation BID cholecalciferol (vitamin D3) 50 mcg (2,000 unit) capsule 50 mcg PO DAILY 30 Days Qty: 30 11RF cholecalciferol (vitamin D3) 1,250 mcg (50,000 unit) capsule 1,250 mcg PO QWEEK 56 Days Qty: 8 0RF albuterol sulfate 90 mcg/actuation HFA aerosol inhaler 2 puff inhalation Q4H PRN
[2022-04-04 15:04] VITALS: PULSE 101; RESP 15; O2SAT 96
[2022-04-04] MEDS: Albuterol Sulfate (0.083%) 2.5 MG/3 ML VIAL.NEB 10 MG INHALE (15:04)
[2022-04-04] MEDS: 0.9 % Sodium Chloride 1,000 ML 999 ML IVCONT (15:30)
[2022-04-04 15:31] LABS: MANUAL DIFF FLAG NO
[2022-04-04] MEDS: methylPREDNISolone Sod Succ 125 MG/2 ML VIAL IVPUSH (15:31)
[2022-04-04 15:36] LABS: VBG Base Excess 2.4 mmol/L; VBG HCO3 30 mmol/L (22-26); VBG pCO2 58 mmHg; VBG pH 7.31 (7.32-7.43); VBG pO2 35 mmHg
[2022-04-04 15:37] LABS: Venous Blood Gas Refer to POC result
[2022-04-04 15:38] LABS: Basophils Percent Auto 0.4 % (0-2); Eosinophils Absolute Auto 0.1 X10*3/uL (0.0-0.4); Eosinophils Percent Auto 1.2 % (0-4); Hematocrit 38.2 % (37.0-47.0); Hemoglobin 12.7 g/dl (12.0-16.0); Imm Gran Abs Auto 0.03 X10*3/uL (0.00-0.03); Imm Gran Pct Auto 0.4 % (0.0-0.4); Lymphocytes Absolute Auto 1.8 X10*3/uL (1.2-4.9); Lymphocytes Percent Auto 25.6 % (20-40); Mean Corpuscular HGB Conc 33.2 g/dl (31.0-35.0); Mean Corpuscular Hemoglobin 28.6 pg (27.0-33.0); Mean Platelet Volume 10.2 fL (9.4-12.3); Monocytes Absolute Auto 0.8 X10*3/uL (0.1-1.2); Monocytes Percent Auto 11.2 % (2-11); Neutrophils Absolute Auto 4.2 x10*3/uL (2.0-8.3); Neutrophils Percent Auto 61.2 % (45-73); Platelet Count 146 X10*3/uL (160-400); Red Blood Count 4.44 X10*6/uL (4.20-5.50); Red Cell Distribution Width 13.7 % (11.0-16.0); White Blood Count 6.9 X10*3/uL (4.8-10.8)
[2022-04-04 15:49] LABS: Lactic Acid 2.9 mmol/L (0.5-2.0)
[2022-04-04 15:54] LABS: B Type Natriuretic Peptide < 10 pg/mL (<100); Troponin-I High Sensitivity < 3.5 ng/L (<3.5-17.0)
[2022-04-04 15:58] LABS: INTERNATIONAL NORM RATIO 1.1 (0.9-1.1); Prothrombin Time 12.7 SEC (10.0-13.1)
[2022-04-04 16:00] LABS: Alanine Aminotransferase 27 U/L (0-31); Albumin Level 4.6 g/dL (3.5-5.0); Alkaline Phosphatase 75 U/L (39-117); Anion Gap 20 (12-20); Aspartate Amino Transferase 18 U/L (5-31); Bilirubin Direct 0.3 mg/dL (0.0-0.5); Bilirubin Total 0.6 mg/dL (0.0-1.0); Blood Urea Nitrogen 12 mg/dL (9-16); Calcium 9.6 mg/dL (8.4-10.2); Carbon Dioxide 26 mmol/L (22-29); Chloride 98 mmol/L (96-108); Creatinine Clr Calc Pharmacy 64.7; Estimated Glomerular Filt Rate > 60; Glucose Random 366 mg/dL (60-115); Potassium 4.5 mmol/L (3.3-5.1); Sodium 139 mmol/L (135-145); Total Protein 7.4 g/dL (6.5-8.0)
[2022-04-04 16:20] LABS: COVID-19 Test Negative (Negative)
[2022-04-04 16:51] LABS: Glucose, Whole Blood 305 mg/dL (60-115)
[2022-04-04 16:52] VITALS: BP 121/48; PULSE 105; RESP 20; O2SAT 95
[2022-04-04] MEDS: Insulin Regular, Human 100 UNIT/ML 3 ML VIAL 10 UNIT IVPUSH (16:53)
[2022-04-04 17:29] LABS: Reflex Lactate? Lactic Acid Added
[2022-04-04 18:54] VITALS: PULSE 100; RESP 22; O2SAT 93
[2022-04-04 19:02] VITALS: BP 105/49; PULSE 106; O2SAT 91
[2022-04-04 19:10] LABS: Glucose, Whole Blood 341 mg/dL (60-115)
== END 2022-04-04 19:34 | disposition home or self-care (01) ==
PROVIDERS: Emergency Provider Emergency Medicine; PCP Family Medicine
DX: J44.9 Chronic obstructive pulmonary disease, unspecified (principal); E11.65 Type 2 diabetes mellitus with hyperglycemia; R06.02 Shortness of breath; F17.210 Nicotine dependence, cigarettes, uncomplicated; Z20.822 Contact with and (suspected) exposure to COVID-19; Z71.6 Tobacco abuse counseling; Z79.899 Other long term (current) drug therapy
CPT/HCPCS: 36415; 71045; 80048; 80076; 82803; 82947; 83605; 83880; 84484; 85025; 85610; 87040; 87635; 93005; 94640; 96361; 96374; 96375; 99284; 99285; J2930

== ENCOUNTER → 2022-04-19 14:03 | Outpatient (BNVA) | payer OTHER, SELFPAY | PROVIDERS: PCP Family Medicine; Referring Provider Family Medicine; Visit Provider Internal Medicine Cardiovascular Disease | DX: R00.0 Tachycardia, unspecified (principal); I51.7 Cardiomegaly; R06.00 Dyspnea, unspecified; J44.9 Chronic obstructive pulmonary disease, unspecified | CPT/HCPCS: 93005; 99212 ==

== ENCOUNTER 2022-06-16 13:36 | Outpatient (REF) | payer OTHER, SELFPAY ==
--- NOTE | ~2022-06-16 | CT_ITS ---
EXAMINATION: CT CHEST WITHOUT CONTRAST CLINICAL INFORMATION: Right lower lobe mass. COMPARISON: PET/CT 02/07/[address] chest 01/10/2022. TECHNIQUE: Multidetector volumetric CT imaging of the chest was done. Axial MIP volume rendering provided. Sagittal and coronal reformatted images were obtained. This CT examination was performed using dose optimization techniques as appropriate, variously including the following: *Automated exposure control *Adjustment of mA and/or kV according to patient size (this includes techniques or standardized protocols for targeted exams where dose is matched to indication/reason for exam; i.e. extremities or head) *Use of iterative reconstruction technique DLP: 122 mGy-cm FINDINGS: NUT ORCHARDIST: Hyperinflated lungs without any acute process. LUNGS: There is diffuse centrilobular emphysematous changes of both lungs. There are several 2-3 mm calcified nodules seen throughout both lungs. The index semisolid 3 cm nodule right lower lobe on the previous exam 304/7, now measures as a solitary small nodule as 4 mm on axial image 300/5. Previously seen 1.1 cm subpleural nodule right lower lobe image 272/7 now measures 1 cm on axial image 272/5. Two smaller nodules in the right lower lobe superior segment measuring 4 mm axial image 241/5 and axial image 250/5 are stable. A 7 mm nodule left lower lobe superior segment image 174/5 is same size as before. There are two new nodules a 10 x 0.5 mm nodule right upper lobe axial image 121/5 and a subpleural-based 1 cm nodule right lower lobe axial image 367/5. MEDIASTINUM: The thyroid lobes are asymmetrical but normal. The central trachea and the bronchi are widely patent. Heart size and the great vessels are normal caliber. Small mediastinal lymph nodes are stable. CORONARY ARTERY CALCIFICATION: None visualized on this study. PLEURA: There is no pleural effusion. No pleural mass or thickening. AXILLA: No lymphadenopathy. UPPER ABDOMEN: Visualized liver, spleen, pancreas and right adrenal gland are unremarkable. There is left adrenal 8 mm nodule. OSSEOUS STRUCTURES: No aggressive lytic or sclerotic process. CT/CT chest wo IV con IMPRESSION: The index semisolid nodule right lower lobe on previous exam has significantly improved. The adjacent reticular stranding as well has improved. There is now a small 4 mm pulmonary nodule in its place . There are additional smaller nodules seen previously in both lower lobes which are stable. There are two new solid nodules measuring 1 cm in the right upper lobe and right lower lobe. Multiple calcified 2-3 mm nodules are stable. Small mediastinal lymph nodes are stable.
== END 2022-06-16 13:37 | disposition home or self-care (01) ==
LOC: HO.CT 13:36
PROVIDERS: Visit Provider Surgery
DX: R91.8 Other nonspecific abnormal finding of lung field (principal)
CPT/HCPCS: 71250

== ENCOUNTER → 2022-06-23 10:20 | Outpatient (BNVA) | payer OTHER, SELFPAY | PROVIDERS: PCP Family Medicine; Visit Provider Surgery | DX: R91.8 Other nonspecific abnormal finding of lung field (principal) | CPT/HCPCS: 99212 ==

== ENCOUNTER 2022-07-20 06:54 | Day surgery (SDC) | payer OTHER, SELFPAY ==
[2022-07-17 14:20] VITALS: BMI 23.1
--- NOTE | 2022-07-19 08:48 | P.CONAN_ITS ---
Documented by User: Kati Schreiber NP 07/19/22 08:53 [facility] Active Problems Active Problems: All Active Problems (Updated 04/19/22 @ 18:12 by Sergo Christensen MD) Sinus tachycardia (Acute) Right lower lobe lung mass (Acute) Pulmonary nodules (Acute) COPD (chronic obstructive pulmonary disease) (Acute) Exercise hypoxemia (Acute) Dyspnea on exertion (Acute) Personal history of nicotine dependence (Acute) Biatrial enlargement (Acute) Allergic rhinitis (Acute) Osteopenia (Acute ~2019) Erosive gastritis with hemorrhage (Acute) Nausea and vomiting (Acute) Erosive esophagitis (Acute) Vitamin D deficiency (Acute) Past Medical History Medical History Allergic rhinitis COPD (chronic obstructive pulmonary disease) Diabetes mellitus type 2, controlled Exercise hypoxemia History of colonic polyps Hyperlipidemia Hyperparathyroidism Methadone maintenance therapy patient Osteopenia (~2019) Personal history of nicotine dependence Pulmonary nodules Statin intolerance Vitamin D deficiency Family History Family History Father Myocardial infarction Heart disease Lung disease Mother COPD (chronic obstructive pulmonary disease) Tumor of thyroid Maternal Aunt Cancer Stomach cancer Maternal Aunt Stomach cancer Sister Gallstones Acute pancreatitis Myocardial infarction Surgical History Surgical History History of History of colonoscopy History of esophagogastroduodenoscopy (EGD) History of parathyroidectomy History of tonsillectomy History of tubal ligation History of vocal cord polypectomy Social History Social History Are you a primary home care and home health aides teacher to a significant other at home: No Do you presently have visiting nurse or other home services: Yes ([employer] 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) Alcohol intake: never Patient Tobacco Use Status: Former Tobacco user Quit Date: 12/2021 Tobacco use type: Cigarette Cigarette Packs Per Day: 0.5 Cigarettes Per Day: 10.0 Years Smoked: 50 Smoked in Last 30 Days: No Have you been hit, kicked, punched, or otherwise hurt by someone within the past year? If so, by whom?: No Are you DNR?: No Advance Directives: No (will bring dos) Advance Directives Information Provided: Yes Advance Directives on File: No Recently lost weight without trying: No Nutrition Risks: Dental problems Meds Allergies Allergy/AdvReac Type Severity Reaction Status Date / Time No Known Allergies Allergy Verified 07/17/22 14:20 [No Known Allergies*] Home Medications Medication Instructions Recorded Confirmed Last Taken Type albuterol sulfate 2.5 mg/3 mL mg inhalation 03/07/21 06/23/22 Unknown History (0.083 %) solution for nebulization blood sugar diagnostic (FreeStyle #10 ea 03/07/21 06/23/22 Unknown History Lite Strips) blood-glucose meter (FreeStyle #1 ea 03/07/21 06/23/22 Unknown History [place] Lite kit) cetirizine 10 mg tablet 10 mg PO DAILY 03/07/21 07/17/22 Unknown History docusate sodium 100 mg capsule 100 mg PO BID PRN constipation 03/07/21 07/17/22 Unknown History lisinopril 2.5 mg tablet 2.5 mg PO DAILY 03/07/21 07/17/22 Unknown History rosuvastatin 40 mg tablet (Crestor) 40 mg PO DAILY 03/07/21 07/17/22 Unknown History triamcinolone acetonide 55 mcg 2 spray intranasal DAILY 03/07/21 07/17/22 Unknown History nasal spray aerosol (Nasacort) umeclidinium 62.5 mcg/actuation 1 inh inhalation DAILY 03/07/21 07/17/22 Unknown History blister powder for inhalation (Incruse Ellipta) zolpidem 10 mg tablet 10 mg PO BEDTIME PRN insomnia 03/07/21 07/17/22 Unknown History naproxen 500 mg tablet (Naprosyn) 500 mg PO BID PRN 04/11/21 06/23/22 Unknown History albuterol sulfate 90 mcg/actuation 2 puff inhalation Q4H PRN 10/17/21 07/17/22 Unknown History aerosol inhaler Shortness Of Breath Or Wheezing fluticasone propionate 220 2 puff inhalation BID 04/04/22 07/17/22 Unknown History mcg/actuation HFA aerosol inhaler (Flovent HFA) sennosides 8.6 mg tablet (Natural 8.6 mg PO BID 04/04/22 07/17/22 Unknown History Senna Laxative) metformin 500 mg tablet 1,000 mg PO DAILY 04/19/22 07/17/22 Unknown History methadone 10 mg tablet 40 mg PO DAILY 04/19/22 07/17/22 Unknown History omeprazole 40 mg capsule,delayed 40 mg PO DAILY 04/19/22 07/17/22 Unknown History release aspirin 81 mg chewable tablet 81 mg PO DAILY 07/17/22 07/17/22 07/17/22 08:00 History Exam Exam Date and Time: July 19, 2022 0848 Height,Weight and Vital Signs: Height 5 ft 4 in Weight 61.235 kg Pertinent Lab Results Pertinent Lab Results: Laboratory Tests 04/04/22 04/04/22 15:24 15:24 WBC 6.9 Hgb 12.7 Hct 38.2 Plt Count 146 L Sodium 139 Potassium 4.5 Chloride 98 Carbon Dioxide 26 BUN 12 Creatinine 0.81 Narrative Narrative: EKG 04/2022 sinus tachycardia 170 beats per minute, normal axis, biatrial enlargement, QT interval is 429 milliseconds ECHO 11/2021 Conclusions: - 1. Normal LV systolic function with grade 1 diastolic? dysfunction? 2. Normal cardiac valvular Doppler ? 3. Normal RV systolic pressure ? 4. No gross pericardial effusion ?? Assessment and Plan Assessment Anesthesia Assessment: Chart Reviewed Documented by User: Jeannine Ivy MD 07/20/22 07:52 PMF Past Medical History Medical History Allergic rhinitis COPD (chronic obstructive pulmonary disease) Diabetes mellitus type 2, controlled Exercise hypoxemia History of colonic polyps Hyperlipidemia Hyperparathyroidism Methadone maintenance therapy patient Osteopenia (~2018) Personal history of nicotine dependence Pulmonary nodules Statin intolerance Vitamin D deficiency Functional capacity: independent ambulation Patient : No Family History Family History Father Myocardial infarction Heart disease Lung disease Mother COPD (chronic obstructive pulmonary disease) Tumor of thyroid Maternal Aunt Cancer Stomach cancer Maternal Aunt Stomach cancer Sister Gallstones Acute pancreatitis Myocardial infarction Family history of problems with anesthesia: No Surgical History Surgical History History of History of colonoscopy History of esophagogastroduodenoscopy (EGD) History of parathyroidectomy History of tonsillectomy History of tubal ligation History of vocal cord polypectomy History of Problems with Anesthesia: No Social History Social History Are you a primary home care and home health aides teacher to a significant other at home: No Do you presently have visiting nurse or other home services: Yes ([employer] SPECIALIST 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) Alcohol intake: never Patient Tobacco Use Status: Former Tobacco user Quit Date: 12/2021 Tobacco use type: Cigarette Cigarette Packs Per Day: 0.5 Cigarettes Per Day: 10.0 Years Smoked: 50 Smoked in Last 30 Days: No Have you been hit, kicked, punched, or otherwise hurt by someone within the past year? If so, by whom?: No Are you DNR?: No Advance Directives: No (will bring dos) Advance Directives Information Provided: Yes Advance Directives on File: No Recently lost weight without trying: No Nutrition Risks: Dental problems Meds Allergies Allergy/AdvReac Type Severity Reaction Status Date / Time No Known Allergies Allergy Verified 07/17/22 14:20 [No Known Allergies*] Home Medications Medication Instructions Recorded Confirmed Last Taken Type albuterol sulfate 2.5 mg/3 mL mg inhalation 03/07/21 06/23/22 Unknown History (0.083 %) solution for nebulization blood sugar diagnostic (FreeStyle #10 ea 03/07/21 06/23/22 Unknown History Lite Strips) blood-glucose meter (FreeStyle #1 ea 03/07/21 06/23/22 Unknown History [place] Lite kit) cetirizine 10 mg tablet 10 mg PO DAILY 03/07/21 07/17/22 Unknown History docusate sodium 100 mg capsule 100 mg PO BID PRN constipation 03/07/21 07/17/22 Unknown History lisinopril 2.5 mg tablet 2.5 mg PO DAILY 03/07/21 07/17/22 Unknown History rosuvastatin 40 mg tablet (Crestor) 40 mg PO DAILY 03/07/21 07/17/22 Unknown History triamcinolone acetonide 55 mcg 2 spray intranasal DAILY 03/07/21 07/17/22 Unknown History nasal spray aerosol (Nasacort) umeclidinium 62.5 mcg/actuation 1 inh inhalation DAILY 03/07/21 07/17/22 Unknown History blister powder for inhalation (Incruse Ellipta) zolpidem 10 mg tablet 10 mg PO BEDTIME PRN insomnia 03/07/21 07/17/22 Unknown History naproxen 500 mg tablet (Naprosyn) 500 mg PO BID PRN 04/11/21 06/23/22 Unknown History albuterol sulfate 90 mcg/actuation 2 puff inhalation Q4H PRN 10/17/21 07/17/22 Unknown History aerosol inhaler Shortness Of Breath Or Wheezing fluticasone propionate 220 2 puff inhalation BID 04/04/22 07/17/22 Unknown History mcg/actuation HFA aerosol inhaler (Flovent HFA) sennosides 8.6 mg tablet (Natural 8.6 mg PO BID 04/04/22 07/17/22 Unknown History Senna Laxative) metformin 500 mg tablet 1,000 mg PO DAILY 04/19/22 07/17/22 Unknown History methadone 10 mg tablet 40 mg PO DAILY 04/19/22 07/17/22 Unknown History omeprazole 40 mg capsule,delayed 40 mg PO DAILY 04/19/22 07/17/22 Unknown History release aspirin 81 mg chewable tablet 81 mg PO DAILY 07/17/22 07/17/22 07/17/22 08:00 History Exam Airway Mallampati Class: II TM Dist: >3cm Neck ROM: Full Heart: RRR Lungs: CTA Assessment and Plan Final Anesthetic Review Family History of Problems with Anesthesia: No History of Problems with Anesthesia: No ASA Class: III Final Preanesthetic Review: Meds/Allgs Chart Reviewed, Consent Obtained/Reviewed and Anes Risks/Benef Reviewed Patient Risk: Intermediate Procedure Risk: Low Anesthetic Plan Anesthetic Plan: GA Disposition: Standard PACU
[2022-07-20 07:44] VITALS: BP 125/78; PULSE 108; RESP 20; TEMP 36.8; O2SAT 97
[2022-07-20 07:46] LABS: Amphetamine Screen Urine Not Detected (Not Detect); Barbiturates, Urine Not Detected (Not Detect); Benzodiazepines Screen Urine Not Detected (Not Detect); Cannabinoid Screen Urine Not Detected (Not Detect); Cocaine Screen Urine Not Detected (Not Detect); Fentanyl, urine Not Detected (Not Detect); Opiate Screen Urine Not Detected (Not Detect); Phencyclidine Screen Urine Not Detected (Not Detect)
[2022-07-20 07:47] LABS: Glucose, Whole Blood 207 mg/dL (60-115)
--- NOTE | 2022-07-20 07:59 | MHC.SHP ---
Pre-Procedural Eval Section A Date of Service: 07/20/22 The patient is an INPATIENT: No Changes since office visit: No Cold of Flu in the past 2 weeks, No New Medical Problems, No Changes in Medication and No Patient answered all questions The History & Physical has been completed within 30 days and I have reviewed it.: No Section B Chief Complaint: Other nonspecific abnormal finding of lung field Details of Present Illness: 67 y/o woman with waxing and waning pulmonary nodules Relevant Family History (Specify if Yes): No Relevant Social History: None Present Medications: see Short Stay Collaborative assessment Medical History: Significant History Allergies: Allergies Allergy/AdvReac Type Severity Reaction Status Date / Time No Known Allergies Allergy Verified 07/17/22 14:20 [No Known Allergies*] Review of Systems Sugical H&P ROS: Negative: Constitution, Cardiovascular, Respiratory, Neurological, Psychiatric, Hem-Onc, Allergic/Immunologic and Gastrointestinal Exam Surgical H&P Exam: Normal: HEENT, Normal: Heart, Normal: Lungs, Normal: Extremities, Normal: Abdomen and Normal: Skin Plan Diagnosis/Plan: Change (Pulmonary nodules, will plan to perform bronchoscopy) I have reviewed the history and physical and performed a pertinent physical examination on my patient. No changes have occurred unless specified. Time Spent With Patient Time: Total time managing care of this patient today ____ minutes.
[2022-07-20] MEDS: Lactated Ringers 1,000 ML 100 ML IVCONT (08:01)
[2022-07-20 09:26] VITALS: BP 103/45; PULSE 116; RESP 16; TEMP 36.2; O2SAT 97
[2022-07-20 09:31] VITALS: BP 107/54; PULSE 101; RESP 17; O2SAT 96
[2022-07-20 09:36] VITALS: BP 103/54; PULSE 96; RESP 17; O2SAT 94
[2022-07-20 09:41] VITALS: BP 99/50; PULSE 105; RESP 18; O2SAT 95
--- NOTE | 2022-07-20 09:50 | HO.POSTANES ---
Post Anesthesia Evaluation Post Anesthesia Evaluation Vital Signs: Vital Signs Temp Pulse Resp BP Pulse Ox O2 Del Method O2 Flow Rate 07/20/22 09:41 105 H 18 99/50 L 95 Nasal Cannula 2 07/20/22 09:36 96 17 103/54 L 94 Shovel Mask 10 07/20/22 09:31 101 H 17 107/54 L 96 Shovel Mask 10 07/20/22 09:26 97.2 F 116 H 16 103/45 L 97 Nasal Cannula 2 07/20/22 07:44 98.2 F 108 H 20 125/78 97 Nasal Cannula FiO2 07/20/22 09:41 07/20/22 09:36 35 07/20/22 09:31 35 07/20/22 09:26 07/20/22 07:44 Anesthesia: General LMA Mental Status: Awake Pain Control: Satisfactory Nausea/Vomiting: None Hydration: Adequate Anesthesia-Related Issues: No Anes. Related Issues
[2022-07-20 10:00] VITALS: BP 126/63; PULSE 106; RESP 18; O2SAT 95
--- NOTE | 2022-07-20 10:08 | P.BOP_ITS ---
Brief Operative Note Date of Service: 07/20/22 Pre-op diagnosis: pulmonary nodules Post-op diagnosis: other (suppurative bronchitis, abnormal vocal cords, pulmonary nodules) Procedure: Bronchoscopy with washings and brushings Implants: Surgeon: Oc You MD Anesthesia: GLMA Was an Quality System Manager used for this Procedure?: No Estimated blood loss (mL): 0 Condition: stable Disposition: same day
--- NOTE | 2022-07-20 21:07 | OP_ITS ---
SURGEON: Oc You MD PREOPERATIVE DIAGNOSIS: Pulmonary nodules. POSTOPERATIVE DIAGNOSIS: PROCEDURE PERFORMED: ESTIMATED BLOOD LOSS: COMPLICATIONS: ANESTHESIA: LMA. ASSISTANTS: SPECIMENS: PROCEDURE: Bronchoscopy. POSTOPERATIVE DIAGNOSES: Suppurative bronchitis, pulmonary nodules in addition to abnormal vocal cords. SAFETY ADVISOR: None. DESCRIPTION OF PROCEDURE: After the patient was adequately sedated, LMA in place. Flexible digital bronchoscope was inserted over the LMA to the level of the vocal cords. The vocal cords were moving symmetrically to the midline, although appeared to be irregular in appearance. After instilling additional lidocaine, the bronchoscope was then passed through vocal cords to the level of the trachea. A significant amount of purulent secretions at the level of the mid trachea. Lidocaine was administered at that point. The bronchoscope was navigated to the entire tracheobronchial tree. The patient has significantly friable airways from her bronchitis, moderate degree to extensive purulent secretions throughout the airways bilaterally and also in the central airways. Again, no endobronchial lesions noted. The bronchoscope was navigated to the right lower lobe where both cytologic and micro brush was introduced into that area and sent to the appropriate locations. Then, using saline therapeutic cleaning of the airways were completed. Therapeutic suctioning of all the mucus from all the subsegments with significant plugging of the airways. After the clearing of the mucus, the airways again were expected again. No endobronchial lesions noted. The bronchoscope was then removed. The total endoscopic time approximately 50 minutes. Patient tolerated the procedure well, vital signs were stable. INTERPRETATION: 1. Successful therapeutic suctioning of the airways. 2. Status post bilateral bronchial washings. 3. Status post right lower lobe cytologic and microscopic brushings. No complications noted. Oc You MD MR/MODL / [id number]
== END 2022-07-20 10:25 | disposition home or self-care (01) ==
PROVIDERS: Nurse Practitioner; PCP Family Medicine; Visit Provider Hospitalist
PROC: 0BJ08ZZ Inspection of Tracheobronchial Tree, Via Natural or Artificial Opening Endoscopic (ICD-10-PCS; CPT 31622; principal; 2022-07-20 08:30)
DX: J41.1 Mucopurulent chronic bronchitis (principal); R91.8 Other nonspecific abnormal finding of lung field; J38.3 Other diseases of vocal cords; R09.02 Hypoxemia; E11.9 Type 2 diabetes mellitus without complications; E78.5 Hyperlipidemia, unspecified; Z79.51 Long term (current) use of inhaled steroids; Z79.84 Long term (current) use of oral hypoglycemic drugs; Z79.899 Other long term (current) drug therapy; Z79.891 Long term (current) use of opiate analgesic; Z87.891 Personal history of nicotine dependence; Z99.81 Dependence on supplemental oxygen
CPT/HCPCS: 31623; 31645; 80307; 82947; 87070; 87077; 87102; 87147; 87185; 87186; 87205; 88112; 88305; J0171; J1100; J2250; J2370; J2405; J3010

== ENCOUNTER → 2022-07-24 15:00 | Outpatient (BNVA) | payer OTHER, SELFPAY | PROVIDERS: PCP Family Medicine; Visit Provider Internal Medicine | DX: J41.1 Mucopurulent chronic bronchitis (principal); A49.01 Methicillin susceptible Staphylococcus aureus infection, unspecified site; R09.02 Hypoxemia; R91.8 Other nonspecific abnormal finding of lung field; J30.9 Allergic rhinitis, unspecified; F17.210 Nicotine dependence, cigarettes, uncomplicated; Z79.891 Long term (current) use of opiate analgesic | CPT/HCPCS: 99212 ==

== ENCOUNTER 2022-09-12 14:57 | Outpatient (REF) | payer OTHER, SELFPAY ==
--- NOTE | ~2022-09-12 | MM_ITS ---
EXAMINATION: MM SCREENING DIGITAL BREAST TOMOSYNTHESIS, BILATERAL CLINICAL INFORMATION: Screening. Asymptomatic. The lifetime risk of breast cancer based on the Tyrer-Cuzick Model is 5%. COMPARISON: Mammography: 09/01/2021, 01/21/2018, 04/11/2016 TECHNIQUE: Digital breast tomosynthesis is performed in both the craniocaudal and mediolateral oblique views along with computer-aided detection (CAD). Synthesized 2D images are generated from the tomosynthesis. FINDINGS: There are scattered areas of fibroglandular density (ACR BI-RADS breast composition Category b). There are no significant masses, abnormal calcifications, or other abnormalities. Parenchymal pattern is similar to prior studies. There is no developing density or architectural abnormality. The axilla and skin contours are unremarkable. No significant changes. MM/MM tomosynthesis screening BI IMPRESSION: No mammographic evidence of malignancy. ASSESSMENT: BI-RADS 1: Negative RECOMMENDATION: Routine annual mammography screening. This patient's information was entered into a reminder system with a target due date for their next mammogram.
== END 2022-09-12 14:58 | disposition home or self-care (01) ==
LOC: HO.MAMMO 14:57
PROVIDERS: PCP Family Medicine; Visit Provider Family Medicine
DX: Z12.31 Encounter for screening mammogram for malignant neoplasm of breast (principal)
CPT/HCPCS: 77063; 77067

== ENCOUNTER → 2022-09-14 14:55 | Outpatient (BNVA) | payer OTHER, SELFPAY | PROVIDERS: PCP Family Medicine; Visit Provider Internal Medicine | DX: J44.9 Chronic obstructive pulmonary disease, unspecified (principal); R91.8 Other nonspecific abnormal finding of lung field; R09.02 Hypoxemia; J30.9 Allergic rhinitis, unspecified | CPT/HCPCS: 99212 ==

== ENCOUNTER → 2022-10-11 09:41 | Outpatient (BNVA) | payer OTHER, SELFPAY | PROVIDERS: PCP Family Medicine; Visit Provider Physician Assistant | DX: M70.20 Olecranon bursitis, unspecified elbow (principal) | CPT/HCPCS: 99202 ==

== ENCOUNTER 2022-10-13 09:38 | Outpatient (REF) | payer OTHER, SELFPAY ==
--- NOTE | ~2022-10-13 | US_ITS ---
EXAMINATION: US ABDOMEN COMPLETE CLINICAL INFORMATION: Fatty liver. COMPARISON: Renal ultrasound 08/07/2019. Ultrasound abdomen complete 01/21/2018. TECHNIQUE: Real-time imaging of the abdominal viscera. FINDINGS: PANCREAS: Normal. ABDOMINAL AORTA: The proximal, mid, and distal segments are normal in caliber. INFERIOR VENA CAVA: Visualized portions are normal. LIVER: The liver is normal in size. The liver contour is normal. Increased parenchymal echogenicity with area of sparing adjacent to gallbladder fossa. No focal hepatic lesion. There is no intrahepatic biliary duct dilatation seen. GALLBLADDER: Echogenic bile. The gallbladder is physiologically distended without evidence of stones, polyps, wall thickening or pericholecystic fluid. COMMON BILE DUCT: Mildly dilated measuring 0.8 cm in diameter. RIGHT KIDNEY: Normal. No hydronephrosis. No renal calculi or focal parenchymal lesions. The kidney measures 9.3 cm in maximum dimension. LEFT KIDNEY: Normal. No hydronephrosis. No renal calculi or focal parenchymal lesions. The kidney measures 10.2 cm in maximum dimension. SPLEEN: Normal. The spleen measures 12.0 cm in maximum dimension. FREE FLUID: None. US/US abdomen complete IMPRESSION: 1. Increased hepatic parenchymal echogenicity suggesting hepatic steatosis with areas of focal sparing adjacent to gallbladder fossa. 2. Echogenic sludge in the gallbladder. No evidence of acute cholecystitis by ultrasound. 3. The common bile duct is mildly dilated. If an obstructive abnormality such as choledocholithiasis is suspected, correlation with MRCP could be obtained.
[2022-10-13 11:03] LABS: Alanine Aminotransferase 24 U/L (0-31); Albumin Level 4.6 g/dL (3.5-5.0); Alkaline Phosphatase 72 U/L (39-117); Anion Gap 15 (12-20); Aspartate Amino Transferase 18 U/L (5-31); Bilirubin Total 0.6 mg/dL (0.0-1.0); Blood Urea Nitrogen 13 mg/dL (9-16); Calcium 9.2 mg/dL (8.4-10.2); Carbon Dioxide 27 mmol/L (22-29); Chloride 103 mmol/L (96-108); Estimated Glomerular Filt Rate > 60; Glucose Random 181 mg/dL (60-115); Phosphorus 3.9 mg/dL (2.7-4.5); Potassium 4.7 mmol/L (3.3-5.1); Sodium 140 mmol/L (135-145); Total Protein 6.9 g/dL (6.5-8.0)
[2022-10-13 11:18] LABS: Vitamin D 25-OH Total 74.8 ng/mL (>30)
[2022-10-17 08:04] LABS: Calcium (PTHI) 9.6 mg/dL (8.6-10.4); PTHI 25 pg/mL (16-77)
== END 2022-10-13 09:39 | disposition home or self-care (01) ==
LOC: HO.US 09:38
PROVIDERS: Absent Provider Internal Medicine; PCP Family Medicine; Visit Provider Family Medicine
DX: M85.80 Other specified disorders of bone density and structure, unspecified site (principal); E55.9 Vitamin D deficiency, unspecified; K76.0 Fatty (change of) liver, not elsewhere classified
CPT/HCPCS: 36415; 76700; 80053; 82306; 83970; 84100

== ENCOUNTER 2023-01-15 14:53 | Outpatient (AMB) | payer OTHER, SELFPAY ==
[2023-01-15 15:19] VITALS: BP 110/62; PULSE 104; O2SAT 94; BMI 24.5
--- NOTE | 2023-01-15 15:19 | MHC.OFFVIS ---
Intake Vital Signs 01/15/23 15:19 Height 5 ft 4 in Weight 143 lb BMI 24.5 BP 110/62 Blood Pressure Location Lt brachial Position Sitting Pulse 104 H Pulse Source Pulse Oximeter Pulse Oximetry (%) 94 Oxygen Delivery Method Room Air Intake Visit Reasons: COPD Intake Note: pt is here for follow up and states she had a ruff 2 weeks with weather but better today, she is wondering about repeat ct scan, and biopsy results again, can you explain all those results again to pt. Moisture Meter Operator Required: No Allergies No Known Allergies [No Known Allergies*] Allergy (Verified 01/15/23 15:42) Medication List - Last Reconciled 01/15/23 by Merna Purcell MD albuterol sulfate mg inhalation albuterol sulfate 90 mcg/actuation 2 puffs inhalation Q4H PRN aspirin 81 mg PO DAILY blood sugar diagnostic (FreeStyle Lite Strips) As directed blood-glucose meter (FreeStyle [place] Lite kit) As directed cetirizine 10 mg PO DAILY docusate sodium 100 mg PO BID PRN fluticasone propion-salmeterol 500-50 mcg/dose (Wixela Inhub) 1 ea inhalation BID lisinopril 2.5 mg PO DAILY metformin 1,000 mg PO DAILY methadone 40 mg PO DAILY naproxen (Naprosyn) 500 mg PO BID PRN omeprazole 40 mg PO DAILY rosuvastatin (Crestor) 40 mg PO DAILY sennosides (Natural Senna Laxative) 8.6 mg PO BID triamcinolone acetonide (Nasacort) 2 sprays intranasal DAILY umeclidinium 62.5 mcg/actuation (Incruse Ellipta) 1 inh inhalation DAILY zolpidem 10 mg PO BEDTIME PRN Do you need a note to return to daycare/school/sports/work: No HPI COPD HPI Details This 67 years old female, past smoker, with diagnosis of COPD, and multiple lung nodules, . Comes for follow-up after 3 months She has had bronchoscopy with bronchial washing in July 2022 and the results were benign, negative for malignant cells, suggesting inflammatory process. Last CT scan of the chest in June 2022 showed that the pulmonary nodule in right lower lobe had significantly improved and there was a 4 mm pulmonary nodule in its place. Two new nodules 1 cm in size in the right upper lobe and right lower lobe were noted. Multiple calcified 2-3 mm nodules were all stable. Patient continues to be concerned about these nodules. Breathing has been fairly stable, except for increased shortness of breath and chest congestion during the past several weeks in hot and humid weather, Luckily she has had no chest infection. She does not smoke anymore.( QUIT IN DECEMBER 2021 ) [facility] Medical History Allergic rhinitis Chronic suppurative bronchitis COPD (chronic obstructive pulmonary disease) Diabetes mellitus type 2, controlled Exercise hypoxemia History of colonic polyps Hyperlipidemia Hyperparathyroidism Methadone maintenance therapy patient Osteopenia (~2019) Personal history of nicotine dependence Pulmonary nodules Statin intolerance Vitamin D deficiency Surgical History History of History of colonoscopy History of esophagogastroduodenoscopy (EGD) History of parathyroidectomy History of tonsillectomy History of tubal ligation History of vocal cord polypectomy Family History Father Myocardial infarction Heart disease Lung disease Mother COPD (chronic obstructive pulmonary disease) Tumor of thyroid Maternal Aunt Cancer Stomach cancer Maternal Aunt Stomach cancer Sister Gallstones Acute pancreatitis Myocardial infarction Social History Are you a primary manager care management to a significant other at home: No Do you presently have visiting nurse or other home services: Yes (MEDICAL IMAGING DIRECTOR 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) Alcohol intake: never Patient Tobacco Use Status: Former Tobacco user Quit Date: 12/2021 Tobacco use type: Cigarette Cigarette Packs Per Day: 0.5 Cigarettes Per Day: 10.0 Years Smoked: 50 Current occupational status: unemployed Current occupation: right handed Review of Systems Const All systems reviewed & are unremarkable except as noted in HPI and below Eyes Reports no additional complaints ENT Reports nasal congestion (Intermittent especially in the morning) Card Denies chest pain, Denies irregular heart rhythm and Denies leg edema Resp Reports as per HPI GI Reports no additional complaints Reports no additional complaints and Reports urinary urgency Musc Reports back pain Skin/Breast Reports system reviewed and no additional complaints, except as documented Neuro Reports no additional complaints Psych Reports anxiety Physical Exam Vital Signs: Last Vital Signs Pulse 104 H 01/15/23 15:19 BP 110/62 01/15/23 15:19 Pulse Ox 94 01/15/23 15:19 Oxygen Delivery Method Room Air 01/15/23 15:19 BMI result Body Mass Index 24.5 Const General: comfortable, no acute distress, alert and awake Orientation/consciousness: patient oriented x3 HEENT Head: Yes normal to inspection General nose exam: No nasal polyps present and No nasal discharge present Face and sinus: Yes sinuses nontender Mouth: oropharynx normal Throat: Yes posterior oropharynx normal Eyes General: appearance normal, both eyes and all related structures Neck Neck: Yes normal visual inspection, Yes no lymphadenopathy, Yes trachea midline and Yes no JVD Thyroid: Thyroid normal Chest Chest palpation & inspection: normal inspection of the chest, normal palpation of entire chest wall and no tenderness Resp Other: PERCUSSION NOTE RESONANT, BREATH SOUNDS ARE DISTANT ON BOTH SIDES WITH PROLONGED EXPIRATORY PHASE. BUT NO WHEEZES RHONCHI OR CREPITATIONS ARE HEARD TODAY. Cardio Palpation: normal PMI Rate: regular rate Rhythm: regular rhythm Heart sounds: no gallops and no murmurs GI Palpation (GI): Soft to palpation, nontender, No hepatosplenomegaly present and no masses Auscultation: normal bowel sounds Back/Spine/Pelvis Thoracic/Lumbar Spine: thoracic and lumbar spine normal to inspection Skin General skin exam: no rashes or lesions noted Neuro General: patient oriented x3 and no focal motor deficits Cranial nerves: Yes CN's II-XII intact bilaterally Extrem General: Yes normal to inspection, Yes no clubbing, cyanosis or edema and Yes no calf tenderness Psych Appearance: grossly normal and well kempt Speech and movement: Normal speech and movement present Results Reviewed Results Reviewed: Results of the most recent CT scan of the chest and bronchoscopy were reviewed with the patient. Assessment & Plan Assessment & Plan (1) COPD (chronic obstructive pulmonary disease): Comment: PATIENT DOES HAVE CHRONIC OBSTRUCTIVE PULMONARY DISEASE RELATED TO HER LONG-TIME SMOKING. TX: WIXELA 500-51 INHALATION B.I.D. INCRUSE ELLIPTA 1 INHALATION DAILY ALBUTEROL HFA 2 PUFFS Q 4-6 HOURS P.R.N.. ALBUTEROL HFA 2 PUFFS Q 6 HRS PRN Code(s): J44.9 - Chronic obstructive pulmonary disease, unspecified (2) Pulmonary nodules: Comment: PATIENT IS THE BEING FOLLOWED BY, ANNUAL LUNG SCREENING PROGRAM. PULMONARY NODULES SEEM TO BE BENIGN AT THIS TIME ACTUALLY ONE PARTICULAR NODULE IN THE RIGHT LOWER LOBE HAS DECREASED IN SIZE. BEING WATCHED FOR 2 NEW NODULES, 1 CM IN SIZE, IN RIGHT UPPER LOBE AND RIGHT LOWER LOBE. Code(s): R91.8 - Other nonspecific abnormal finding of lung field (3) Exercise hypoxemia: Comment: SHE IS KNOWN TO HAVE EXERCISE INDUCED HYPOXEMIA. TX: Continue to use O2 2 L/minute when outdoors, and when doing any physical activity in the house. Code(s): R09.02 - Hypoxemia (4) Allergic rhinitis: Comment: She has a mild degree of allergic rhinitis. She may use Cetrizine 10 mg once a day on a p.r.n. basis. Code(s): J30.9 - Allergic rhinitis, unspecified (5) Chronic suppurative bronchitis: Comment: PER BRONCHOSCOPY SHE DID HAVE LOT OF SECRETIONS AND THE CULTURE GREW COMBINATION OF STAPH AUREUS AND HAEM.INFUENZI . PATIENT WAS TREATED WITH DOXYCYCLINE 100 B.I.D. TO CONTINUE FOR 3 WEEKS. Code(s): J41.1 - Mucopurulent chronic bronchitis Coding Level of Care Code Est Pt Level 4 (52436) Diagnoses COPD (chronic obstructive pulmonary disease) J44.9 Pulmonary nodules R91.8 Exercise hypoxemia R09.02 Allergic rhinitis J30.9 Chronic suppurative bronchitis J41.1
== END 2023-01-15 15:53 | disposition home or self-care (01) ==
PROVIDERS: PCP Family Medicine; Visit Provider Internal Medicine
DX: J44.9 Chronic obstructive pulmonary disease, unspecified (principal); R91.8 Other nonspecific abnormal finding of lung field; R09.02 Hypoxemia; J30.9 Allergic rhinitis, unspecified; J41.1 Mucopurulent chronic bronchitis
CPT/HCPCS: 99214

== ENCOUNTER → 2023-01-15 14:53 | Outpatient (BNVA) | payer OTHER, SELFPAY | PROVIDERS: Visit Provider Internal Medicine | DX: J44.9 Chronic obstructive pulmonary disease, unspecified (principal); J41.1 Mucopurulent chronic bronchitis; R91.8 Other nonspecific abnormal finding of lung field; R09.02 Hypoxemia; J30.9 Allergic rhinitis, unspecified | CPT/HCPCS: 99212 ==

== ENCOUNTER 2023-01-22 08:58 | Outpatient (AMB) | payer OTHER, SELFPAY ==
--- NOTE | 2023-01-22 08:58 | MHC.OFFVIS ---
Intake Intake Visit Reasons: F/U Osteoporosis and Hyperparathyroidism Allergies No Known Allergies [No Known Allergies*] Allergy (Verified 01/22/23 09:42) Medication List - Last Reconciled 01/22/23 by Chata Walker, DO albuterol sulfate mg inhalation albuterol sulfate 90 mcg/actuation 2 puffs inhalation Q4H PRN aspirin 81 mg PO DAILY blood sugar diagnostic (FreeStyle Lite Strips) As directed blood-glucose meter (FreeStyle [place] Lite kit) As directed cetirizine 10 mg PO DAILY docusate sodium 100 mg PO BID PRN fluticasone propion-salmeterol 500-50 mcg/dose (Wixela Inhub) 1 ea inhalation BID lisinopril 2.5 mg PO DAILY metformin 1,000 mg PO DAILY methadone 40 mg PO DAILY naproxen (Naprosyn) 500 mg PO BID PRN omeprazole 40 mg PO DAILY rosuvastatin (Crestor) 40 mg PO DAILY sennosides (Natural Senna Laxative) 8.6 mg PO BID triamcinolone acetonide (Nasacort) 2 sprays intranasal DAILY umeclidinium 62.5 mcg/actuation (Incruse Ellipta) 1 inh inhalation DAILY zolpidem 10 mg PO BEDTIME PRN HPI HPI Comments History of Present Illness Details 67 YO F with PMHx T2DM, HTN, HLD who is seen in F/U for Hyperparathyroidism who is now s/p parathyroidectomy. ?First noted to have high calcium January 2019 with Total Calcium of 10.7. Labs were repeated 03/28/19 with Total Calcium 10.9, no Albumin assessed, PTH of 39, Cr of 0.68 with GFR >60, and iCAL of 5.4. Vitamin D was checked 01/27/19 and was 35.1. She does have a history of hypovitaminosis D and required high dose replacement. In the past (2006) she had low calcium levels. ?Labs were then repeated and this confirmed Primary Hyperparathyroidism 06/12/19 with Total Calcium 10.8. Albumin 4.9, iCal 5.7, PTH 44, Vitamin D 40.6. 24 hour urine Calcium was also elevated to 355. ?She was referred to Dr. Ziggy Milian and underwent a surgical parathyroidectomy 02/16/2020. 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 Intraoperative PTH declined from 50-15, indicating cure. ?Currently not using Calcium. She has 2 servings of dietary calcium daily. Not taking Vitamin D. She completed high dose replacement. PTH was found to be elevated with low Vitamin D postoperatively. She completed high dose Vitamin D replacement and her PTH normalized. ?Kidney stones: ?Denies ?Osteoporosis: ?Has Osteopenia. ?History of [place] use: ?Never used ?Biotin use: ?Denies ?Family history of high calcium or kidney stones: ?Brother with 1 episode of kidney stones ?Renal imaging: ?2017 US abdomen with no evidence of nephrolithiasis ?DEXA: 06/21/2021 FINDINGS: AP SPINE L1-L4: Current: BMD 1.133 g/cm2, Z-score 1.2, T-score -0.4, normal, 5.1% increase from baseline (<5% change is not significant). Baseline: BMD 1.078 g/cm2. LEFT FEMUR, NECK: Current: BMD 0.792 g/cm2, Z-score -0.3, T-score -1.8, osteopenia. Baseline: BMD 0.719 g/cm2. LEFT FEMUR, TOTAL: Current: BMD 0.886 g/cm2, Z-score 0.3, T-score -1.0, normal, 10.1% increase from baseline (<5% change is not significant). Baseline: BMD 0.805 g/cm2. LEFT FOREARM RADIUS 33%: BMD 0.758 g/cm2, Z-score -0.1, T-score -1.5, osteopenia, 1.9% increase from baseline (<5% change is not significant). Baseline: BMD 0.744 g/cm2. ? Labs: Laboratory Tests 10/13/22 10/13/22 10:23 10:23 Creatinine 0.66 Estimated GFR > 60 Calcium 9.2 Albumin 4.6 25-OH Vitamin D To jacoby 74.8 PTH Intact 25 Calcium (PTH Intac t) 9.6 PFSH Medical History Allergic rhinitis Chronic suppurative bronchitis COPD (chronic obstructive pulmonary disease) Diabetes mellitus type 2, controlled Exercise hypoxemia History of colonic polyps Hyperlipidemia Hyperparathyroidism Methadone maintenance therapy patient Osteopenia (~2018) Personal history of nicotine dependence Pulmonary nodules Statin intolerance Vitamin D deficiency Surgical History History of History of colonoscopy History of esophagogastroduodenoscopy (EGD) History of parathyroidectomy History of tonsillectomy History of tubal ligation History of vocal cord polypectomy Family History Father Myocardial infarction Heart disease Lung disease Mother COPD (chronic obstructive pulmonary disease) Tumor of thyroid Maternal Aunt Cancer Stomach cancer Maternal Aunt Stomach cancer Sister Gallstones Acute pancreatitis Myocardial infarction Social History Are you a primary career discovery teacher to a significant other at home: No Do you presently have visiting nurse or other home services: Yes (THERAPEUTIC SUPPORT STAFF 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) Alcohol intake: never Patient Tobacco Use Status: Former Tobacco user Quit Date: 12/2021 Tobacco use type: Cigarette Cigarette Packs Per Day: 0.5 Cigarettes Per Day: 10.0 Years Smoked: 50 Current occupational status: unemployed Current occupation: right handed Assessment & Plan Assessment & Plan (1) Hyperparathyroidism: Code(s): E21.3 - Hyperparathyroidism, unspecified Plan: Patient with a history of hyperparathyroidism, S/P parathyroidectomy 02/16/2020. Labs revealedevidence of secondary hyperparathyroidism which resolved with high dose Vitamin D replacement. She is now off Vitamin D. Will repeat levels now to reassess. She will then F/U with her PCP for further management as no further Endocrine intervention is required. All of her questions were answered. She is in agreement with this plan of care. I spent 20 minutes in reviewing the record, seeing the patient and documenting in the medical record, including 5 minutes on the phone with the Patient. (2) Vitamin D deficiency: Code(s): E55.9 - Vitamin D deficiency, unspecified Plan: Will repeat levels now to reassess. (3) Osteopenia: Onset Date: ~2018 Code(s): M85.80 - Other specified disorders of bone density and structure, unspecified site Plan: BMD did reveal significant improvements in the hip. Will continue to monitor off treatment at this time as she is no longer in the osteoporotic range. Orders: Orders Comprehensive Met. Panel 10/13/22 M85.80 - Other specified disorders of bone density and structure, unspecified site Phosphorus 10/13/22 M85.80 - Other specified disorders of bone density and structure, unspecified site PTHI 10/13/22 M85.80 - Other specified disorders of bone density and structure, unspecified site Vitamin D 25-OH Total 10/13/22 E55.9 - Vitamin D deficiency, unspecified Comprehensive Met. Panel Today M85.80 - Other specified disorders of bone density and structure, unspecified site Phosphorus Today M85.80 - Other specified disorders of bone density and structure, unspecified site PTHI Today M85.80 - Other specified disorders of bone density and structure, unspecified site Vitamin D 25-OH Total Today E55.9 - Vitamin D deficiency, unspecified Telehealth Telehealth Location of provider rendering services: practice address Location of patient: address on file Patient Identification confirmed using: Name, : Yes Telehealth method: voice only Patient verbally consented to treatment: Yes Patient verbally consented to billing insurance company: Yes Patient informed of any privacy concerns related to visit: Yes Coding Level of Care Code Tele Est Pt Level 3 (41375) Diagnoses Hyperparathyroidism E21.3 Vitamin D deficiency E55.9 Osteopenia M85.80
== END 2023-01-23 16:30 | disposition home or self-care (01) ==
LOC: HO.ENCR 08:58
PROVIDERS: PCP Family Medicine; Visit Provider Internal Medicine
DX: E21.3 Hyperparathyroidism, unspecified (principal); E55.9 Vitamin D deficiency, unspecified; M85.80 Other specified disorders of bone density and structure, unspecified site
CPT/HCPCS: 99443

== ENCOUNTER → 2023-01-22 08:58 | Outpatient (BNVA) | payer OTHER, SELFPAY | PROVIDERS: PCP Family Medicine; Visit Provider Internal Medicine ==

== ENCOUNTER 2023-02-05 09:24 | Outpatient (REF) | payer OTHER, SELFPAY ==
--- NOTE | ~2023-02-05 | US_ITS ---
EXAMINATION: US ABDOMEN COMPLETE CLINICAL INFORMATION: Dilated CBD, follow up. COMPARISON: Ultrasound abdomen complete 10/13/2022. Ultrasound retroperitoneal limited (renal only) 08/07/2019. TECHNIQUE: Real-time imaging of the abdominal viscera. FINDINGS: PANCREAS: The pancreatic duct measures 0.2 cm. ABDOMINAL AORTA: The proximal, mid, and distal segments are normal in caliber. INFERIOR VENA CAVA: Visualized portions are normal. LIVER: The liver is normal in size. The liver contour is normal. There is increased liver echogenicity. No focal hepatic lesion. There is no intrahepatic biliary duct dilatation seen. GALLBLADDER: There is echogenic bile in the fundus. The gallbladder is physiologically distended without evidence of stones, polyps, wall thickening or pericholecystic fluid. COMMON BILE DUCT: Normal in caliber measuring 0.5 cm in diameter. RIGHT KIDNEY: Normal. No hydronephrosis. No renal calculi or focal parenchymal lesions. The kidney measures 10.3 cm in maximum dimension. LEFT KIDNEY: Normal. No hydronephrosis. No renal calculi or focal parenchymal lesions. The kidney measures 11.3 cm in maximum dimension. SPLEEN: Normal. The spleen measures 12.2 cm in maximum dimension. FREE FLUID: None. US/US abdomen complete IMPRESSION: Echogenic bile but no gallstones. Mild hepatic steatosis without focal lesion. Rest of the abdominal ultrasound is unremarkable.
== END 2023-02-05 09:25 | disposition home or self-care (01) ==
LOC: HO.US 09:24
PROVIDERS: PCP Family Medicine; Visit Provider Family Medicine
DX: R93.5 Abnormal findings on diagnostic imaging of other abdominal regions, including retroperitoneum (principal)
CPT/HCPCS: 76700

== ENCOUNTER 2023-04-25 12:30 | Outpatient (AMB) | payer OTHER, SELFPAY ==
--- NOTE | 2023-04-25 12:46 | MHC.OFFVIS ---
Intake Vital Signs 04/25/23 12:47 Height 5 ft 4 in Weight 143 lb 4.807 oz BMI 24.6 BP 120/70 Blood Pressure Location Lt brachial Position Sitting Pulse 107 H Intake Visit Reasons: 1 yr f/up Intake Note: 1 year follow-up with ekg feeling ok Director Of Managed Care Required: No Allergies No Known Allergies [No Known Allergies*] Allergy (Verified 01/22/23 09:42) Medication List - Last Reconciled 04/25/23 by Sergo Christensen MD albuterol sulfate mg inhalation albuterol sulfate 90 mcg/actuation 2 puffs inhalation Q4H PRN aspirin 81 mg PO DAILY blood sugar diagnostic (FreeStyle Lite Strips) As directed blood-glucose meter (FreeStyle [place] Lite kit) As directed cetirizine 10 mg PO DAILY docusate sodium 100 mg PO BID PRN fluticasone propion-salmeterol 500-50 mcg/dose (Wixela Inhub) 1 ea inhalation BID lisinopril 2.5 mg PO DAILY metformin 1,000 mg PO DAILY methadone 40 mg PO DAILY naproxen (Naprosyn) 500 mg PO BID PRN omeprazole 40 mg PO DAILY rosuvastatin (Crestor) 40 mg PO DAILY sennosides (Natural Senna Laxative) 8.6 mg PO BID triamcinolone acetonide (Nasacort) 2 sprays intranasal DAILY umeclidinium 62.5 mcg/actuation (Incruse Ellipta) 1 inh inhalation DAILY zolpidem 10 mg PO BEDTIME PRN HPI HPI Comments History of Present Illness Details 68-year-old female with background history of tobacco abuse and COPD. she is here for follow-up. She has severe COPD and had exercise related hypoxemia and has been started on oxygen therapy. She has advanced COPD. She has stopped smoking at this stage. She has recent ER visit for COPD exacerbation. She is tachycardic. She is not feeling any palpitations. She is saying her breathing is at baseline. She is using oxygen as needed as before. She does not use oxygen at night. 04/25/2023: She returns for follow-up. She is saying her breathing is at baseline. No chest discomfort. She has advanced COPD and is on supplemental oxygen. She is following with pulmonology. [facility] Medical History Allergic rhinitis Chronic suppurative bronchitis COPD (chronic obstructive pulmonary disease) Diabetes mellitus type 2, controlled Exercise hypoxemia History of colonic polyps Hyperlipidemia Hyperparathyroidism Methadone maintenance therapy patient Osteopenia (~2019) Personal history of nicotine dependence Pulmonary nodules Statin intolerance Vitamin D deficiency Surgical History History of History of colonoscopy History of esophagogastroduodenoscopy (EGD) History of parathyroidectomy History of tonsillectomy History of tubal ligation History of vocal cord polypectomy Family History Father Myocardial infarction Heart disease Lung disease Mother COPD (chronic obstructive pulmonary disease) Tumor of thyroid Maternal Aunt Cancer Stomach cancer Maternal Aunt Stomach cancer Sister Gallstones Acute pancreatitis Myocardial infarction Social History Are you a primary home care music therapist to a significant other at home: No Do you presently have visiting nurse or other home services: Yes (DIEING 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 MACHINE OPERATOR 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) Alcohol intake: never Patient Tobacco Use Status: Former Tobacco user Quit Date: 12/2021 Tobacco use type: Cigarette Cigarette Packs Per Day: 0.5 Cigarettes Per Day: 10.0 Years Smoked: 50 Current occupational status: unemployed Current occupation: right handed Review of Systems Const Denies chills, Denies fatigue, Denies fever(s), Denies frequent falls, Denies weakness, Denies weight gain and Denies weight loss ENT Denies dizziness Card Denies chest pain, Denies leg edema, Denies lightheadedness, Denies palpitations, Denies dyspnea, Denies dyspnea on exertion, Denies orthopnea and Denies other (loss of consciousness) Resp Denies cough, Denies dyspnea and Denies dyspnea on exertion GI Denies hematochezia and Denies change in stool character Musc Denies abnormal gait, Denies muscle weakness, Denies numbness, Denies radiating pain into limb and Denies tingling Neuro Denies abnormal gait, Denies dizziness, Denies frequent falls, Denies numbness, Denies tingling and Denies weakness Endo Denies fatigue and Denies palpitations Physical Exam Vital Signs: Last Vital Signs Pulse 107 H 04/25/23 12:47 BP 120/70 04/25/23 12:47 BMI result Body Mass Index 24.6 GENERAL APPEARANCE: in no acute distress, pleasant. NECK: no carotid bruit, no jugular venous distention. SKIN: no suspicious lesions, warm and dry. HEART: no murmurs, regular rate and rhythm. LUNGS: Diminished breath sounds bilaterally. ABDOMEN: soft, nontender. EXTREMITIES: no edema. PERIPHERAL PULSES: equal. NEUROLOGIC: No gross deficits, AAO X 3 Office Procedures EKG Details: Sinus tachycardia 107 beats per minute, right atrial enlargement, cannot rule out septal infarct, QTC 448 milliseconds. [id number], Complete Assessment & Plan Assessment & Plan (1) COPD (chronic obstructive pulmonary disease): Code(s): J44.9 - Chronic obstructive pulmonary disease, unspecified (2) Dyspnea on exertion: Code(s): R06.00 - Dyspnea, unspecified (3) Sinus tachycardia: Code(s): R00.0 - Tachycardia, unspecified (4) Biatrial enlargement: Code(s): I51.7 - Cardiomegaly Plan Pleasant 68-year-old female who is here for follow-up. She has COPD and is on oxygen. Dyspnea on exertion is likely due to COPD. Her echocardiography has not shown any evidence of pulmonary hypertension. Denying any chest discomfort. She is stable from cardiovascular point of view. Her main issue is COPD and dyspnea is mostly due to that. I have explained to her that she will benefit from pulmonary rehabilitation and she will discuss this with Dr. Purcell. Thank you for allowing me to participate in the care of your patient. Please feel free to contact me if you have any questions. Coding Level of Care Code Est Pt Level 3 (79254) Diagnoses COPD (chronic obstructive pulmonary disease) J44.9 Dyspnea on exertion R06.00 Sinus tachycardia R00.0 Biatrial enlargement I51.7 CPT Codes EKG - CPT: 65913-[id number], Complete ([id number])
[2023-04-25 12:47] VITALS: BP 120/70; PULSE 107; BMI 24.6
== END 2023-04-25 13:06 | disposition home or self-care (01) ==
PROVIDERS: PCP Family Medicine; Visit Provider Internal Medicine Cardiovascular Disease
DX: J44.9 Chronic obstructive pulmonary disease, unspecified (principal); R06.00 Dyspnea, unspecified; R00.0 Tachycardia, unspecified; I51.7 Cardiomegaly
CPT/HCPCS: 93010; 99213

== ENCOUNTER 2023-04-25 12:30 | Outpatient (REF) | payer OTHER, SELFPAY ==
[2023-04-25 14:51] LABS: Vitamin D 25-OH Total 21.9 ng/mL (>30)
[2023-04-25 14:55] LABS: Anion Gap 16 (12-20)
[2023-04-25 15:00] LABS: Alanine Aminotransferase 39 U/L (0-31); Albumin Level 4.8 g/dL (3.5-5.0); Alkaline Phosphatase 58 U/L (39-117); Aspartate Amino Transferase 31 U/L (5-31); Bilirubin Total 0.5 mg/dL (0.0-1.0); Blood Urea Nitrogen 13 mg/dL (9-16); Calcium 10.1 mg/dL (8.4-10.2); Carbon Dioxide 26 mmol/L (22-29); Chloride 100 mmol/L (96-108); Estimated Glomerular Filt Rate > 60; Glucose Random 217 mg/dL (60-115); Phosphorus 4.1 mg/dL (2.7-4.5); Potassium 5.1 mmol/L (3.3-5.1); Sodium 137 mmol/L (135-145)
[2023-04-27 18:32] LABS: Calcium (PTHI) 9.8 mg/dL (8.6-10.4); PTHI 35 pg/mL (16-77)
== END 2023-04-25 12:31 | disposition home or self-care (01) ==
LOC: HO.LAB 12:30
PROVIDERS: Absent Provider Internal Medicine; PCP Family Medicine; Visit Provider Internal Medicine Cardiovascular Disease
DX: J44.9 Chronic obstructive pulmonary disease, unspecified (principal); R00.0 Tachycardia, unspecified; I51.7 Cardiomegaly; M85.80 Other specified disorders of bone density and structure, unspecified site; E55.9 Vitamin D deficiency, unspecified; Z79.899 Other long term (current) drug therapy; Z99.81 Dependence on supplemental oxygen; Z87.891 Personal history of nicotine dependence
CPT/HCPCS: 36415; 80053; 82306; 83970; 84100; 93005; 99212

== ENCOUNTER 2023-05-01 14:01 | Outpatient (AMB) | payer OTHER, SELFPAY ==
[2023-05-01 14:17] VITALS: BP 120/70; PULSE 97; O2SAT 94; BMI 24.7
--- NOTE | 2023-05-01 14:17 | A.OFFVIS_ITS ---
Intake Vital Signs 05/01/23 14:17 Height 5 ft 4 in Weight 144 lb BMI 24.7 BP 120/70 Blood Pressure Location Lt brachial Position Sitting Pulse 97 Pulse Oximetry (%) 94 Oxygen Delivery Method Nasal Cannula Oxygen Flow Rate 1 Intake Visit Reasons: copd Intake Note: pt is here for follow up and states she is doing okay with breathing, can go off her oxygen at times, she always brings it with her. She is wondering if she would be a candidate of pulmonary rehab. [employer] Book Board Attendant Required: No Allergies No Known Allergies [No Known Allergies*] Allergy (Verified 05/01/23 14:43) Medication List - Last Reconciled 05/01/23 by Merna Purcell MD albuterol sulfate mg inhalation albuterol sulfate 90 mcg/actuation 2 puffs inhalation Q4H PRN aspirin 81 mg PO DAILY blood sugar diagnostic (FreeStyle Lite Strips) As directed blood-glucose meter (FreeStyle [place] Lite kit) As directed cetirizine 10 mg PO DAILY docusate sodium 100 mg PO BID PRN fluticasone propion-salmeterol 500-50 mcg/dose (Wixela Inhub) 1 ea inhalation BID lisinopril 2.5 mg PO DAILY metformin 1,000 mg PO BID methadone 40 mg PO DAILY naproxen (Naprosyn) 500 mg PO BID PRN omeprazole 40 mg PO DAILY rosuvastatin (Crestor) 40 mg PO DAILY sennosides (Natural Senna Laxative) 8.6 mg PO DAILY triamcinolone acetonide (Nasacort) 2 sprays intranasal DAILY PRN umeclidinium 62.5 mcg/actuation (Incruse Ellipta) 1 inh inhalation DAILY zolpidem 10 mg PO BEDTIME PRN Do you need a note to return to daycare/school/sports/work: No HPI copd HPI Details This 68 years old female, is a case of severe obstructive pulmonary disorder, She is on maximal medical treatment including oxygen supplementation. Currently remains stable but gets short of breath on minimal exertion. She has intermittent cough. Feels Deconditioned and is requesting to go for pulmonary rehab program. At present does not have any infection. She uses O2 2 L/minute with any outdoor excursions, and also intermittently at home. Unfortunately still smoking about 10 cigarettes a day. [facility] Medical History Chronic suppurative bronchitis Personal history of nicotine dependence History of colonic polyps Methadone maintenance therapy patient Hyperlipidemia Diabetes mellitus type 2, controlled Exercise hypoxemia Allergic rhinitis Osteopenia (~2019) Pulmonary nodules COPD (chronic obstructive pulmonary disease) Statin intolerance Hyperparathyroidism Vitamin D deficiency Surgical History History of vocal cord polypectomy History of tubal ligation History of History of tonsillectomy History of parathyroidectomy History of colonoscopy History of esophagogastroduodenoscopy (EGD) Family History Father Myocardial infarction Heart disease Lung disease Mother COPD (chronic obstructive pulmonary disease) Tumor of thyroid Maternal Aunt Cancer Stomach cancer Maternal Aunt Stomach cancer Sister Gallstones Acute pancreatitis Myocardial infarction Social History Are you a primary animal caretaker supervisor to a significant other at home: No Do you presently have visiting nurse or other home services: Yes ([employer] 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) Alcohol intake: never Patient Tobacco Use Status: Former Tobacco user Quit Date: 12/2021 Tobacco use type: Cigarette Cigarette Packs Per Day: 0.5 Cigarettes Per Day: 10.0 Years Smoked: 50 Current occupational status: unemployed Current occupation: right handed Review of Systems Const All systems reviewed & are unremarkable except as noted in HPI and below Eyes Reports no additional complaints ENT Reports nasal congestion (Intermittent especially in the morning) Card Denies chest pain, Denies irregular heart rhythm and Denies leg edema Resp Reports as per HPI GI Reports no additional complaints Reports no additional complaints and Reports urinary urgency Musc Reports back pain Skin/Breast Reports system reviewed and no additional complaints, except as documented Neuro Reports no additional complaints Psych Reports anxiety Physical Exam Vital Signs: Last Vital Signs Pulse 97 05/01/23 14:17 BP 120/70 05/01/23 14:17 Pulse Ox 94 05/01/23 14:17 Oxygen Delivery Method Nasal Cannula 05/01/23 14:17 Oxygen Flow Rate 1 05/01/23 14:17 BMI result Body Mass Index 24.7 Const General: comfortable, no acute distress, alert and awake Orientation/consciousness: patient oriented x3 HEENT Head: Yes normal to inspection General nose exam: No nasal polyps present and No nasal discharge present Face and sinus: Yes sinuses nontender Mouth: oropharynx normal Throat: Yes posterior oropharynx normal Eyes General: appearance normal, both eyes and all related structures Neck Neck: Yes normal visual inspection, Yes no lymphadenopathy, Yes trachea midline and Yes no JVD Thyroid: Thyroid normal Chest Chest palpation & inspection: normal inspection of the chest, normal palpation of entire chest wall and no tenderness Resp Other: PERCUSSION NOTE RESONANT, BREATH SOUNDS ARE DISTANT ON BOTH SIDES WITH PROLONGED EXPIRATORY PHASE. BUT NO WHEEZES RHONCHI OR CREPITATIONS ARE HEARD TODAY. Cardio Palpation: normal PMI Rate: regular rate Rhythm: regular rhythm Heart sounds: no gallops and no murmurs GI Palpation (GI): Soft to palpation, nontender, No hepatosplenomegaly present and no masses Auscultation: normal bowel sounds Back/Spine/Pelvis Thoracic/Lumbar Spine: thoracic and lumbar spine normal to inspection Skin General skin exam: no rashes or lesions noted Neuro General: patient oriented x3 and no focal motor deficits Cranial nerves: Yes CN's II-XII intact bilaterally Extrem General: Yes normal to inspection, Yes no clubbing, cyanosis or edema and Yes no calf tenderness Psych Appearance: grossly normal and well kempt Speech and movement: Normal speech and movement present Results Reviewed Results Reviewed: PULMONARY FUNCTION TEST ON 07/14/2016 WAS CONSISTENT WITH VERY SEVERE OBSTRUCTIVE AIRWAY DISORDER AND GOOD RESPONSE TO BRONCHODILATOR THERAPY. ASTHMA/COPD OVERLAP SYNDROME. PULMONARY FUNCTION TEST ON 02/09/2022 : AGAIN VERY SEVERE OBSTRUCTIVE AIRWAY DISORDER AND MINIMAL RESPONSE TO BRONCHODILATOR THERAPY. THERE WAS EVIDENCE OF HYPERINFLATION AND AIR TRAPPING, AND DLCO ONLY 40 Assessment & Plan Assessment & Plan (1) COPD (chronic obstructive pulmonary disease): Comment: SHE IS KNOWN TO HAVE SEVERE OBSTRUCTIVE SLEEP APNEA FOR THE PAST MANY YEARS. AT PRESENT RELATIVELY STABLE BUT HER FUNCTIONAL CAPACITY IS QUITE LOW. TX : INCRUSE ELLIPTA 1 INHALATION DAILY WIXELA 500-51 INHALATION B.I.D. ALBUTEROL HFA 2 PUFFS Q 4-6 HOURS P.R.N. Code(s): J44.9 - Chronic obstructive pulmonary disease, unspecified (2) Dyspnea on exertion: Comment: SHE HAS INCREASED DYSPNEA ON EXERTION WHICH IS SECONDARY TO ADVANCED CHRONIC OBSTRUCTIVE PULMONARY DISEASE. SHE IS SOMEWHAT DE-CONDITIONED , AND WOULD BENEFIT FROM PULMONARY REHAB PROGRAM. I WILL REFER HER FOR THE REHAB PROGRAM. Code(s): R06.00 - Dyspnea, unspecified (3) Chronic suppurative bronchitis: Comment: PER BRONCHOSCOPY SHE DID HAVE LOT OF SECRETIONS AND THE CULTURE GREW COMBINATION OF STAPH AUREUS AND HAEM.INFUENZI . PATIENT WAS TREATED WITH DOXYCYCLINE 100 B.I.D. TO CONTINUE FOR 3 WEEKS. AT PRESENT THERE IS NO ACTIVE INFECTION. Code(s): J41.1 - Mucopurulent chronic bronchitis (4) Pulmonary nodules: Comment: PATIENT IS THE BEING FOLLOWED BY, ANNUAL LUNG SCREENING PROGRAM. PULMONARY NODULES SEEM TO BE BENIGN AT THIS TIME ACTUALLY ONE PARTICULAR NODULE IN THE RIGHT LOWER LOBE HAS DECREASED IN SIZE. BEING WATCHED FOR 2 NEW NODULES, 1 CM IN SIZE, IN RIGHT UPPER LOBE AND RIGHT LOWER LOBE. Code(s): R91.8 - Other nonspecific abnormal finding of lung field Orders: Orders Pulmonary Rehab Today J44.9 - Chronic obstructive pulmonary disease, unspecified, R06.00 - Dyspnea, unspecified, R09.02 - Hypoxemia Coding Level of Care Code Est Pt Level 3 (57821) Diagnoses COPD (chronic obstructive pulmonary disease) J44.9 Dyspnea on exertion R06.00 Chronic suppurative bronchitis J41.1 Pulmonary nodules R91.8
== END 2023-05-01 14:44 | disposition home or self-care (01) ==
PROVIDERS: PCP Family Medicine; Visit Provider Internal Medicine
DX: J44.9 Chronic obstructive pulmonary disease, unspecified (principal); R06.00 Dyspnea, unspecified; R91.8 Other nonspecific abnormal finding of lung field
CPT/HCPCS: 99213

== ENCOUNTER → 2023-05-01 14:01 | Outpatient (BNVA) | payer OTHER, SELFPAY | PROVIDERS: PCP Family Medicine; Visit Provider Internal Medicine | DX: J44.9 Chronic obstructive pulmonary disease, unspecified (principal); J41.1 Mucopurulent chronic bronchitis; R91.8 Other nonspecific abnormal finding of lung field; R06.00 Dyspnea, unspecified | CPT/HCPCS: 99212 ==

== ENCOUNTER 2023-05-16 09:35 | Outpatient (REF) | payer OTHER, SELFPAY ==
[2023-05-16 14:23] LABS: Vitamin B12 320 pg/mL (200-900)
== END 2023-05-16 09:36 | disposition home or self-care (01) ==
LOC: HO.HMGCLDS 09:35
PROVIDERS: PCP Family Medicine; Visit Provider Family Medicine
DX: E11.9 Type 2 diabetes mellitus without complications (principal)
CPT/HCPCS: 36415; 82607

== ENCOUNTER 2023-07-16 13:31 | Outpatient (AMB) | payer OTHER, SELFPAY ==
[2023-07-16 13:43] VITALS: BP 130/60; PULSE 107; O2SAT 95; BMI 24.0
--- NOTE | 2023-07-16 13:43 | A.OFFVIS_ITS ---
Intake Vital Signs 07/16/23 13:43 Height 5 ft 4 in Weight 139 lb 15.896 oz BMI 24.0 BP 130/60 Blood Pressure Location Lt brachial Position Sitting Pulse 107 H Pulse Source Pulse Oximeter Pulse Oximetry (%) 95 Oxygen Delivery Method Nasal Cannula Oxygen Flow Rate 2 Intake Visit Reasons: copd Intake Note: pt is here for follow and would like a good explanation on what is going on with her lungs, she feels the issue that started with pain on right side and feels like her lungs are pressing on her ribs and would like to know why, and does she need a repeat ct scan? [employer] P[employer] Inspector Required: No Allergies No Known Allergies [No Known Allergies*] Allergy (Verified 07/16/23 14:18) Medication List - Last Reconciled 07/16/23 by Merna Purcell MD albuterol sulfate mg inhalation albuterol sulfate 90 mcg/actuation 2 puffs inhalation Q4H PRN aspirin 81 mg PO DAILY blood sugar diagnostic (FreeStyle Lite Strips) As directed blood-glucose meter (FreeStyle [place] Lite kit) As directed cetirizine 10 mg PO DAILY docusate sodium 100 mg PO BID PRN fluticasone propion-salmeterol 500-50 mcg/dose (Wixela Inhub) 1 ea inhalation BID lisinopril 2.5 mg PO DAILY metformin 1,000 mg PO BID methadone 40 mg PO DAILY naproxen (Naprosyn) 500 mg PO BID PRN omeprazole 40 mg PO DAILY rosuvastatin (Crestor) 40 mg PO DAILY sennosides (Natural Senna Laxative) 8.6 mg PO DAILY triamcinolone acetonide (Nasacort) 2 sprays intranasal DAILY PRN umeclidinium 62.5 mcg/actuation (Incruse Ellipta) 1 inh inhalation DAILY zolpidem 10 mg PO BEDTIME PRN Do you need a note to return to daycare/school/sports/work: No HPI copd HPI Details 68 years old female, with diagnosis of a dvanced chronic obstructive pulmonary disease, and pulmonary nodules, is here for follow-up. She is participating in pulmonary rehab program and feels much better. Continues to use her regular medical regimen which keeps COPD under control. She is also using O2 2 L/minute 24 hours a day. She is concerned about the pulmonary nodules, for which she has been followed up by Dr. Mikel Yates , who has now moved to [facility]. Last CT scan of the chest was in June 2022, showing that previous nodules had improved in size, But she was left with 2 pulmonary nodules 1 cm in size 1 in the right upper lobe and 2nd 1 in the right lower lobe, which were of concern. Patient had bronchoscopy and bronchial washing by Dr. Oc You. In July 2022. The findings were benign, no evidence of malignant cells. She did have some finding of him of Hemph influenza and staph aureous , treated with 3 weeks course of doxycycline. ,At present she is doing very well , with her usual mild cough, and shortness of breath on exertion. [facility] [place] Medical History Chronic suppurative bronchitis Personal history of nicotine dependence History of colonic polyps Methadone maintenance therapy patient Hyperlipidemia Diabetes mellitus type 2, controlled Exercise hypoxemia Allergic rhinitis Osteopenia (~2018) Pulmonary nodules COPD (chronic obstructive pulmonary disease) Statin intolerance Hyperparathyroidism Vitamin D deficiency Surgical History History of vocal cord polypectomy History of tubal ligation History of History of tonsillectomy History of parathyroidectomy History of colonoscopy History of esophagogastroduodenoscopy (EGD) Family History Father Myocardial infarction Heart disease Lung disease Mother COPD (chronic obstructive pulmonary disease) Tumor of thyroid Maternal Aunt Cancer Stomach cancer Maternal Aunt Stomach cancer Sister Gallstones Acute pancreatitis Myocardial infarction Social History Are you a primary home care administrator to a significant other at home: No Do you presently have visiting nurse or other home services: Yes (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 RETINAL [employer]IOGRAPHER 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) Alcohol intake: never Patient Tobacco Use Status: Former Tobacco user Quit Date: 12/2021 Tobacco use type: Cigarette Cigarette Packs Per Day: 0.5 Cigarettes Per Day: 10.0 Years Smoked: 50 Current occupational status: unemployed Current occupation: right handed Review of Systems Const All systems reviewed & are unremarkable except as noted in HPI and below Eyes Reports no additional complaints ENT Reports nasal congestion (Intermittent especially in the morning) Card Denies chest pain, Denies irregular heart rhythm and Denies leg edema Resp Reports as per HPI GI Reports no additional complaints Reports no additional complaints and Reports urinary urgency Musc Reports back pain Skin/Breast Reports system reviewed and no additional complaints, except as documented Neuro Reports no additional complaints Psych Reports anxiety Physical Exam Vital Signs: Last Vital Signs Pulse 107 H 07/16/23 13:43 BP 130/60 07/16/23 13:43 Pulse Ox 95 07/16/23 13:43 Oxygen Delivery Method Nasal Cannula 07/16/23 13:43 Oxygen Flow Rate 2 07/16/23 13:43 BMI result Body Mass Index 24.0 Const General: comfortable, no acute distress, alert and awake Orientation/consciousness: patient oriented x3 HEENT Head: Yes normal to inspection General nose exam: No nasal polyps present and No nasal discharge present Face and sinus: Yes sinuses nontender Mouth: oropharynx normal Throat: Yes posterior oropharynx normal Eyes General: appearance normal, both eyes and all related structures Neck Neck: Yes normal visual inspection, Yes no lymphadenopathy, Yes trachea midline and Yes no JVD Thyroid: Thyroid normal Chest Chest palpation & inspection: normal inspection of the chest, normal palpation of entire chest wall and no tenderness Resp Other: PERCUSSION NOTE RESONANT, BREATH SOUNDS ARE DISTANT ON BOTH SIDES WITH PROLONGED EXPIRATORY PHASE. BUT NO WHEEZES RHONCHI OR CREPITATIONS ARE HEARD TODAY. Cardio Palpation: normal PMI Rate: regular rate Rhythm: regular rhythm Heart sounds: no gallops and no murmurs GI Palpation (GI): Soft to palpation, nontender, No hepatosplenomegaly present and no masses Auscultation: normal bowel sounds Back/Spine/Pelvis Thoracic/Lumbar Spine: thoracic and lumbar spine normal to inspection Skin General skin exam: no rashes or lesions noted Neuro General: patient oriented x3 and no focal motor deficits Cranial nerves: Yes CN's II-XII intact bilaterally Extrem General: Yes normal to inspection, Yes no clubbing, cyanosis or edema and Yes no calf tenderness Psych Appearance: grossly normal and well kempt Speech and movement: Normal speech and movement present Results Reviewed Results Reviewed: I reviewed the findings of her previous CT scan in June 2022, as well as findings of bronchoscopy in July 2022. Assessment & Plan Assessment & Plan (1) COPD (chronic obstructive pulmonary disease): Comment: SHE IS KNOWN TO HAVE SEVERE OBSTRUCTIVE SLEEP APNEA FOR THE PAST MANY YEARS. AT PRESENT RELATIVELY STABLE BUT HER FUNCTIONAL CAPACITY HAS IMPROVED SINCE SHE IS IN PULMONARY REHAB PROGRAM. Code(s): J44.9 - Chronic obstructive pulmonary disease, unspecified Plan: CONTINUE : WIXELA 500-51 INHALATION B.I.D. INCRUSE ELLIPTA 1 INHALATION DAILY ALBUTEROL HFA 2 PUFFS Q 4-6 HOURS P.R.N./ ALTERNATING WITH ALBUTEROL SOLUTION IN THE NEBULIZER Q 4-6 HOURS P.R.N.. CONTINUE. PULMONARY REHAB PROGRAM (2) Pulmonary nodules: Comment: PATIENT HAS HAD PULMONARY NODULES IN BOTH LUNGS. PREVIOUS CT SCAN IN JUNE 2022 HAD SHOWN SOME NODULES IMPROVED IN SIZE, SUGGESTING INFLAMMATORY ETIOLOGY. STILL BEING WATCHED FOR 2 NEW NODULES, 1 CM IN SIZE, IN RIGHT UPPER LOBE AND RIGHT LOWER LOBE. IT IS MORE THAN 1 YEAR I WILL ORDER A REPEAT CT SCAN OF THE CHEST. Code(s): R91.8 - Other nonspecific abnormal finding of lung field Plan: ABOVE (3) Exercise hypoxemia: Comment: SHE IS KNOWN TO HAVE EXERCISE INDUCED HYPOXEMIA. TX: Continue to use O2 2 L/minute when outdoors, and when doing any physical activity in the house. Code(s): R09.02 - Hypoxemia Plan: ADVISE CAN YOU USING OXYGEN 2 L/MINUTE, WHEN DOING ANY PHYSICAL WORK Orders: Orders CT chest wo IV con Today J44.9 - Chronic obstructive pulmonary disease, unspecified, R91.8 - Other nonspecific abnormal finding of lung field Coding Level of Care Code Est Pt Level 4 (80478) Diagnoses COPD (chronic obstructive pulmonary disease) J44.9 Pulmonary nodules R91.8 Exercise hypoxemia R09.02
== END 2023-07-16 14:18 | disposition home or self-care (01) ==
PROVIDERS: PCP Family Medicine; Visit Provider Internal Medicine
DX: J44.9 Chronic obstructive pulmonary disease, unspecified (principal); R91.8 Other nonspecific abnormal finding of lung field; R09.02 Hypoxemia
CPT/HCPCS: 99214

== ENCOUNTER → 2023-07-16 13:31 | Outpatient (BNVA) | payer OTHER, SELFPAY | PROVIDERS: PCP Family Medicine; Visit Provider Internal Medicine | DX: J44.9 Chronic obstructive pulmonary disease, unspecified (principal); R91.8 Other nonspecific abnormal finding of lung field; R09.02 Hypoxemia | CPT/HCPCS: 99212 ==

== ENCOUNTER 2023-08-13 07:26 | Outpatient (REF) | payer OTHER, SELFPAY ==
--- NOTE | ~2023-08-13 | CT_ITS ---
EXAMINATION: CT CHEST WITHOUT CONTRAST CLINICAL INFORMATION: Follow-up pulmonary nodules. COMPARISON: 06/16/2022 TECHNIQUE: Multidetector volumetric CT imaging of the chest was done. Axial MIP volume rendering provided. Sagittal and coronal reformatted images were obtained. This CT examination was performed using dose optimization techniques as appropriate, variously including the following: *Automated exposure control *Adjustment of mA and/or kV according to patient size (this includes techniques or standardized protocols for targeted exams where dose is matched to indication/reason for exam; i.e. extremities or head) *Use of iterative reconstruction technique DLP: 141 mGy-cm FINDINGS: LUNGS: Moderate to marked centrilobular emphysema. Numerous calcified pulmonary nodules. Central airways are patent. 3 mm nodule right upper lobe on image 201. Spiculated nodule superior segment left lower lobe measuring 6 mm on image 258. 4 mm nodule right lower lobe on image 327. 4 mm nodule right lower lobe on image 337. 1.0 cm right lower lobe nodule on image 336. 5 mm right lower lobe nodule on image 396. 4 mm right lower lobe nodule on image 384. 1.0 cm subpleural nodule right lower lobe on image 377. 8 mm right lower lobe nodule on image 363. 5 mm left lower lobe nodule on image 368. 9 mm elongated nodule right lower lobe on image 517. 3 mm nodule right lower lobe on image 465. MEDIASTINUM: No bulky axillary, hilar or mediastinal lymphadenopathy. Great vessels are of normal caliber. Heart size is normal. No pericardial effusion. Surgical clips in the anterior neck inferior to the thyroid gland. CORONARY ARTERY CALCIFICATION: None visualized on this study. PLEURA: There is no pleural effusion. No pleural mass or thickening. UPPER ABDOMEN: Unremarkable. OSSEOUS STRUCTURES: No destructive bone lesions. CT/CT chest wo IV con IMPRESSION: Waxing and waning bilateral pulmonary nodules. The largest nodules measure 1 cm in the right lower lobe. A 6 mm spiculated nodule in the superior segment left lower lobe appears slightly smaller. Continued close imaging surveillance is advised. PET/CT may be considered to assess FDG avidity.
== END 2023-08-13 07:27 | disposition home or self-care (01) ==
LOC: HO.CT 07:26
PROVIDERS: PCP Family Medicine; Visit Provider Internal Medicine
DX: J44.9 Chronic obstructive pulmonary disease, unspecified (principal); R91.8 Other nonspecific abnormal finding of lung field
CPT/HCPCS: 71250

== ENCOUNTER 2023-09-25 15:21 | Outpatient (REF) | payer OTHER, SELFPAY | END 2023-09-25 15:22 | disposition home or self-care (01) | LOC: HO.MAMMO 15:21 | PROVIDERS: PCP Family Medicine; Visit Provider Family Medicine | DX: Z12.31 Encounter for screening mammogram for malignant neoplasm of breast (principal) | CPT/HCPCS: 77063; 77067 ==

== ENCOUNTER → 2023-09-25 15:45 | Outpatient (BNV) | payer OTHER, SELFPAY | PROVIDERS: PCP Family Medicine; Visit Provider Radiology Diagnostic Radiology | DX: Z12.31 Encounter for screening mammogram for malignant neoplasm of breast (principal) | CPT/HCPCS: 77063; 77067 ==

== ENCOUNTER 2023-10-08 13:30 | Outpatient (AMB) | payer OTHER, SELFPAY ==
[2023-10-08 13:46] VITALS: BP 104/62; PULSE 107; O2SAT 96; BMI 23.5
--- NOTE | 2023-10-08 13:46 | A.OFFVIS_ITS ---
Intake Vital Signs 10/08/23 13:46 Height 5 ft 4 in Weight 136 lb 10.986 oz BMI 23.5 BP 104/62 Blood Pressure Location Lt brachial Position Sitting Pulse 107 H Pulse Source Pulse Oximeter Pulse Oximetry (%) 96 Oxygen Delivery Method Nasal Cannula Oxygen Flow Rate 2 Intake Visit Reasons: copd Intake Note: pt is here for follow up and states she has been feeling really good. 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 Allergies No Known Allergies [No Known Allergies*] Allergy (Verified 10/08/23 14:23) Medication List - Last Reconciled 10/08/23 by Merna Purcell MD albuterol sulfate mg inhalation albuterol sulfate 90 mcg/actuation 2 puffs inhalation Q4H PRN aspirin 81 mg PO DAILY blood sugar diagnostic (FreeStyle Lite Strips) As directed blood-glucose meter (FreeStyle [place] Lite kit) As directed cetirizine 10 mg PO DAILY docusate sodium 100 mg PO BID PRN empagliflozin (Jardiance) 10 mg PO DAILY fluticasone propion-salmeterol 500-50 mcg/dose (Wixela Inhub) 1 ea inhalation BID lisinopril 2.5 mg PO DAILY metformin 1,000 mg PO BID methadone 40 mg PO DAILY naproxen (Naprosyn) 500 mg PO BID PRN omeprazole 40 mg PO DAILY rosuvastatin (Crestor) 40 mg PO DAILY sennosides (Natural Senna Laxative) 8.6 mg PO DAILY triamcinolone acetonide (Nasacort) 2 sprays intranasal DAILY PRN umeclidinium 62.5 mcg/actuation (Incruse Ellipta) 1 inh inhalation DAILY zolpidem 10 mg PO BEDTIME PRN Do you need a note to return to daycare/school/sports/work: No HPI copd HPI Details MACO IS 68 YEARS OLD FEMALE WITH ADVANCED CHRONIC OBSTRUCTIVE PULMONARY DISEASE AND OXYGEN DEPENDENT. She comes after 3 months for follow-up. Overall she is doing better and has remained stable. She stopped going for pulmonary rehab because she is afraid that she gets over tired. She is trying to do exercises at home. She has only occasional cough. Gets short of breath if she walks fast. She remains on oxygen 24 hours a day. She is using her inhalers regularly, and uses the albuterol only as needed. [facility] Medical History Chronic suppurative bronchitis Personal history of nicotine dependence History of colonic polyps Methadone maintenance therapy patient Hyperlipidemia Diabetes mellitus type 2, controlled Exercise hypoxemia Allergic rhinitis Osteopenia (~2019) Pulmonary nodules COPD (chronic obstructive pulmonary disease) Statin intolerance Hyperparathyroidism Vitamin D deficiency Surgical History History of vocal cord polypectomy History of tubal ligation History of History of tonsillectomy History of parathyroidectomy History of colonoscopy History of esophagogastroduodenoscopy (EGD) Family History Father Myocardial infarction Heart disease Lung disease Mother COPD (chronic obstructive pulmonary disease) Tumor of thyroid Maternal Aunt Cancer Stomach cancer Maternal Aunt Stomach cancer Sister Gallstones Acute pancreatitis Myocardial infarction Social History Are you a primary customer care associate to a significant other at home: No Do you presently have visiting nurse or other home services: Yes (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) Alcohol intake: never Patient Tobacco Use Status: Former Tobacco user Quit Date: 12/2021 Tobacco use type: Cigarette Cigarette Packs Per Day: 0.5 Cigarettes Per Day: 10.0 Years Smoked: 50 Current occupational status: unemployed Current occupation: right handed Review of Systems Const All systems reviewed & are unremarkable except as noted in HPI and below Eyes Reports no additional complaints ENT Reports nasal congestion (Intermittent especially in the morning) Card Denies chest pain, Denies irregular heart rhythm and Denies leg edema Resp Reports as per HPI GI Reports no additional complaints Reports no additional complaints and Reports urinary urgency Musc Reports back pain Skin/Breast Reports system reviewed and no additional complaints, except as documented Neuro Reports no additional complaints Psych Reports anxiety Physical Exam Vital Signs: Last Vital Signs Pulse 107 H 10/08/23 13:46 BP 104/62 10/08/23 13:46 Pulse Ox 96 10/08/23 13:46 Oxygen Delivery Method Nasal Cannula 10/08/23 13:46 Oxygen Flow Rate 2 10/08/23 13:46 BMI result Body Mass Index 23.5 Const General: comfortable, no acute distress, alert and awake Orientation/consciousness: patient oriented x3 HEENT Head: Yes normal to inspection General nose exam: No nasal polyps present and No nasal discharge present Face and sinus: Yes sinuses nontender Mouth: oropharynx normal Throat: Yes posterior oropharynx normal Eyes General: appearance normal, both eyes and all related structures Neck Neck: Yes normal visual inspection, Yes no lymphadenopathy, Yes trachea midline and Yes no JVD Thyroid: Thyroid normal Chest Chest palpation & inspection: normal inspection of the chest, normal palpation of entire chest wall and no tenderness Resp Other: PERCUSSION NOTE RESONANT, BREATH SOUNDS ARE DISTANT ON BOTH SIDES WITH PROLONGED EXPIRATORY PHASE. BUT NO WHEEZES RHONCHI OR CREPITATIONS ARE HEARD TODAY. Cardio Palpation: normal PMI Rate: regular rate Rhythm: regular rhythm Heart sounds: no gallops and no murmurs GI Palpation (GI): Soft to palpation, nontender, No hepatosplenomegaly present and no masses Auscultation: normal bowel sounds Back/Spine/Pelvis Thoracic/Lumbar Spine: thoracic and lumbar spine normal to inspection Skin General skin exam: no rashes or lesions noted Neuro General: patient oriented x3 and no focal motor deficits Cranial nerves: Yes CN's II-XII intact bilaterally Extrem General: Yes normal to inspection, Yes no clubbing, cyanosis or edema and Yes no calf tenderness Psych Appearance: grossly normal and well kempt Speech and movement: Normal speech and movement present Results Reviewed Results Reviewed: CT SCAN OF THE CHEST ON 08/13, SHOWED SMALL VEXING AND WANING PULMONARY NODULES, . 2 LARGER NODULES WERE FOLLOWS 1 CM RIGHT LOWER LOBE, UNCHANGED. 6 MM SPICULATED NODULE IN LEFT LOWER LOBE SLIGHTLY SMALLER THAN BEFORE. Assessment & Plan Assessment & Plan (1) COPD (chronic obstructive pulmonary disease): Comment: SHE IS KNOWN TO HAVE SEVERE OBSTRUCTIVE SLEEP APNEA FOR THE PAST MANY YEARS. AT PRESENT RELATIVELY STABLE BUT HER FUNCTIONAL CAPACITY did improve when she was in pulmonary rehab program but she quit before completing the whole course. She claims that she is doing well on her current medical regimen. Code(s): J44.9 - Chronic obstructive pulmonary disease, unspecified Plan: WIXELA 500-51 INHALATION B.I.D. .INCRUSE ELLIPTA 1 INHALATION DAILY ALBUTEROL HFA 2 PUFFS Q 4-6 HOURS P.R.N. (2) Pulmonary nodules: Comment: PATIENT HAS HAD PULMONARY NODULES IN BOTH LUNGS. PREVIOUS CT SCAN IN JUNE 2022 HAD SHOWN SOME NODULES IMPROVED IN SIZE, SUGGESTING INFLAMMATORY ETIOLOGY. STILL BEING WATCHED FOR 2 NEW NODULES, 1 CM IN SIZE, IN RIGHT UPPER LOBE AND IS 6 MM SPICULATED NODULE IN THE SUPERIOR SEGMENT OF LEFT LOWER LOBE, Code(s): R91.8 - Other nonspecific abnormal finding of lung field Plan: CONTINUE CLOSE FOLLOW-UP (3) Allergic rhinitis: Comment: She has a mild degree of allergic rhinitis. Code(s): J30.9 - Allergic rhinitis, unspecified Plan: She may use Cetrizine 10 mg once a day on a p.r.n. basis. (4) Personal history of nicotine dependence: Comment: (onset ~16, 1ppd x 50yrs, 50pyh - quit 12/2021) Code(s): Z87.891 - Personal history of nicotine dependence Plan: COMMENDED FOR HAVING STOP SMOKING COMPLETELY AND URGE THAT SHE SHOULD NOT GO BACK TO SMOKING AT ALL. Coding Level of Care Code Est Pt Level 3 (98976) Diagnoses COPD (chronic obstructive pulmonary disease) J44.9 Pulmonary nodules R91.8 Allergic rhinitis J30.9 Personal history of nicotine dependence Z87.891
== END 2023-10-08 14:22 | disposition home or self-care (01) ==
PROVIDERS: PCP Family Medicine; Visit Provider Internal Medicine
DX: J44.9 Chronic obstructive pulmonary disease, unspecified (principal); R91.8 Other nonspecific abnormal finding of lung field; J30.9 Allergic rhinitis, unspecified; Z87.891 Personal history of nicotine dependence
CPT/HCPCS: 99213

== ENCOUNTER → 2023-10-08 13:30 | Outpatient (BNVA) | payer OTHER, SELFPAY | PROVIDERS: PCP Family Medicine; Visit Provider Internal Medicine | DX: J44.9 Chronic obstructive pulmonary disease, unspecified (principal); R91.8 Other nonspecific abnormal finding of lung field; J30.9 Allergic rhinitis, unspecified; Z87.891 Personal history of nicotine dependence; Z99.81 Dependence on supplemental oxygen | CPT/HCPCS: 99212 ==

== ENCOUNTER 2023-10-15 10:55 | Outpatient (REF) | payer OTHER, SELFPAY ==
[2023-10-15 14:05] LABS: Basophils Percent Auto 0.3 % (0-2); Eosinophils Absolute Auto 0.3 X10*3/uL (0.0-0.4); Eosinophils Percent Auto 3.2 % (0-4); Hematocrit 40.7 % (37.0-47.0); Hemoglobin 13.3 g/dl (12.0-16.0); Imm Gran Abs Auto 0.03 X10*3/uL (0.00-0.03); Imm Gran Pct Auto 0.3 % (0.0-0.4); Lymphocytes Absolute Auto 2.3 X10*3/uL (1.2-4.9); Lymphocytes Percent Auto 26.7 % (20-40); MANUAL DIFF FLAG SCAN; Mean Corpuscular HGB Conc 32.7 g/dl (31.0-35.0); Mean Corpuscular Hemoglobin 27.5 pg (27.0-33.0); Mean Corpuscular Volume 84.1 fL (80.0-98.0); Mean Platelet Volume 11.5 fL (9.4-12.3); Monocytes Absolute Auto 0.8 X10*3/uL (0.1-1.2); Monocytes Percent Auto 9.1 % (2-11); Neutrophils Absolute Auto 5.2 x10*3/uL (2.0-8.3); Neutrophils Percent Auto 60.4 % (45-73); PLT CLUMP 1; Red Blood Count 4.84 X10*6/uL (4.20-5.50); Red Cell Distribution Width 14.8 % (11.0-16.0); SCAN SMEAR FLAG 1
[2023-10-15 14:08] LABS: White Blood Count 8.6 X10*3/uL (4.8-10.8)
[2023-10-15 14:10] LABS: Estimated Average Glucose 105 mg/dL; Hemoglobin A1c % 5.3 % (<6.0)
[2023-10-15 14:27] LABS: Platelet Count 186 X10*3/uL (160-400)
[2023-10-15 14:28] LABS: SLIDE REVIEW VERIFIED
[2023-10-15 14:41] LABS: Alanine Aminotransferase 20 U/L (0-31); Albumin Level 4.5 g/dL (3.5-5.0); Alkaline Phosphatase 63 U/L (39-117); Anion Gap 15 (12-20); Aspartate Amino Transferase 17 U/L (5-31); Bilirubin Direct 0.2 mg/dL (0.0-0.5); Bilirubin Total 0.4 mg/dL (0.0-1.0); Blood Urea Nitrogen 20 mg/dL (9-16); Calcium 9.5 mg/dL (8.4-10.2); Carbon Dioxide 23 mmol/L (22-29); Chloride 104 mmol/L (96-108); Cholesterol 81 mg/dL (<200); Estimated Glomerular Filt Rate > 60; Glucose Random 138 mg/dL (60-115); HDL Cholesterol 32 mg/dL (>40); LDL Cholesterol Calculated 30 mg/dL (<100); Phosphorus 4.1 mg/dL (2.7-4.5); Potassium 4.3 mmol/L (3.3-5.1); Sodium 138 mmol/L (135-145); Total Protein 8.1 g/dL (6.5-8.0); Triglycerides 97 mg/dL (<150)
[2023-10-15 14:42] LABS: Free T4 (Free Thyroxine) 0.82 ng/dL (0.71-1.85); Vitamin D 25-OH Total 18.3 ng/mL (>30)
[2023-10-18 20:53] LABS: Alpha Fetoprotein 2.4 ng/mL
== END 2023-10-15 10:56 | disposition home or self-care (01) ==
LOC: HO.HMGCLDS 10:55
PROVIDERS: PCP Family Medicine; Visit Provider Family Medicine
DX: E11.9 Type 2 diabetes mellitus without complications (principal); I10 Essential (primary) hypertension; K76.0 Fatty (change of) liver, not elsewhere classified
CPT/HCPCS: 36415; 80048; 80061; 80076; 82105; 82306; 83036; 84100; 84439; 84443; 85025

== ENCOUNTER 2023-10-18 14:06 | Outpatient (REF) | payer OTHER, SELFPAY ==
[2023-10-24 15:46] LABS: Creatinine Urine 57.76 mg/dL; Microalbum/Creatinine Ratio Ur 27.7 ug/mg cr (<30)
== END 2023-10-18 14:07 | disposition home or self-care (01) ==
LOC: HO.HMGCLNP 14:06
PROVIDERS: Visit Provider Family Medicine
DX: Z13.89 Encounter for screening for other disorder (principal)
CPT/HCPCS: 82043; 82570

== ENCOUNTER 2023-12-31 13:44 | Outpatient (AMB) | payer OTHER, SELFPAY ==
[2023-12-31 14:20] VITALS: BP 118/68; PULSE 118; O2SAT 94
--- NOTE | 2023-12-31 14:20 | A.OFFVIS_ITS ---
Vital Signs 12/31/23 14:20 BP 118/68 Blood Pressure Location Lt brachial Position Sitting Pulse 118 H Pulse Source Pulse Oximeter Pulse Oximetry (%) 94 Oxygen Delivery Method Nasal Cannula Oxygen Flow Rate 2 Intake Visit Reasons: 6minute walk for poc Intake Note: 6 min walk for poc. Patient uses O2 at 2L continuously. Tank Washer Required: No Accompanied by: Self / Same As Patient Allergies No Known Allergies [No Known Allergies*] Allergy (Verified 10/08/23 14:23) [facility] Medical History Chronic suppurative bronchitis Personal history of nicotine dependence History of colonic polyps Methadone maintenance therapy patient Hyperlipidemia Diabetes mellitus type 2, controlled Exercise hypoxemia Allergic rhinitis Osteopenia (~2018) Pulmonary nodules COPD (chronic obstructive pulmonary disease) Statin intolerance Hyperparathyroidism Vitamin D deficiency Surgical History History of vocal cord polypectomy History of tubal ligation History of History of tonsillectomy History of parathyroidectomy History of colonoscopy History of esophagogastroduodenoscopy (EGD) Family History Father Myocardial infarction Heart disease Lung disease Mother COPD (chronic obstructive pulmonary disease) Tumor of thyroid Maternal Aunt Cancer Stomach cancer Maternal Aunt Stomach cancer Sister Gallstones Acute pancreatitis Myocardial infarction Social History Are you a primary career services assistant to a significant other at home: No Do you presently have visiting nurse or other home services: Yes (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) Alcohol intake: never Patient Tobacco Use Status: Former Tobacco user Tobacco use type: Cigarette Cigarette Packs Per Day: 0.5 Cigarettes Per Day: 10.0 Years Smoked: 50 Current occupational status: unemployed Current occupation: right handed Physical Exam Vital Signs: Last Vital Signs Pulse 118 H 12/31/23 14:20 BP 118/68 12/31/23 14:20 Pulse Ox 94 12/31/23 14:20 Oxygen Delivery Method Nasal Cannula 12/31/23 14:20 Oxygen Flow Rate 2 12/31/23 14:20 Office Procedures 6 Minute Walk Time:: 14:00 SPO2 % at rest: 93 Pulse at rest: 112 SPO2 % during excercise: 88 Pulse during excercise: 120 SPO2 % after excercise: 94 Pulse after excercise: 114 Distance in yards walked: 120 Miquel Score: 7 Performance Observations:: Patient walked on level ground unassisted at moderate pace (without O2) After approx 40 yards O2 saturation dropped to 88 with pulse of 120. Stopped to rest and O2 applied POC setting of 2 recovered to 91%. After just 15 more yards O2 saturation was back to 88%. POC increased to setting 3. O2 saturation recovered to 93%. Patient was able to complete the 6 minute walk maintaining O2 saturation of 93-94%. Patient required the use of supplemental O2 and qualified for POC at setting 3. 40948 - 6 Minute Walk Assessment & Plan Assessment & Plan (1) COPD (chronic obstructive pulmonary disease): Comment: SHE IS KNOWN TO HAVE SEVERE OBSTRUCTIVE SLEEP APNEA FOR THE PAST MANY YEARS. AT PRESENT RELATIVELY STABLE BUT HER FUNCTIONAL CAPACITY did improve when she was in pulmonary rehab program but she quit before completing the whole course. She claims that she is doing well on her current medical regimen. Code(s): J44.9 - Chronic obstructive pulmonary disease, unspecified Category: Medical Plan: 6 minutes walk test (2) Exercise hypoxemia: Comment: SHE IS KNOWN TO HAVE EXERCISE INDUCED HYPOXEMIA. [place]: Continue to use O2 2 L/minute when outdoors, and when doing any physical activity in the house. Code(s): R09.02 - Hypoxemia Category: Medical Plan: 6 minutes walk test Plan Patient was here for 6 minutes walk test Orders: Orders AMB 6 minute walk 12/31/23 J44.9 - Chronic obstructive pulmonary disease, unspecified, R06.00 - Dyspnea, unspecified Coding Level of Care Code Est Pt Level 1 (70950) Diagnoses COPD (chronic obstructive pulmonary disease) J44.9 Exercise hypoxemia R09.02 CPT Codes Coding ([id number]) Comment Nurse visit only.
[2023-12-31 14:35] VITALS: PULSE 112; O2SAT 93
== END 2023-12-31 14:25 | disposition home or self-care (01) ==
PROVIDERS: PCP Family Medicine; Visit Provider Internal Medicine
DX: J44.9 Chronic obstructive pulmonary disease, unspecified (principal)
CPT/HCPCS: 94618

== ENCOUNTER → 2023-12-31 13:44 | Outpatient (BNVA) | payer OTHER, SELFPAY | PROVIDERS: PCP Family Medicine; Visit Provider Internal Medicine | DX: J44.9 Chronic obstructive pulmonary disease, unspecified (principal); R09.02 Hypoxemia | CPT/HCPCS: 94618; 99211 ==

== ENCOUNTER 2024-02-07 13:54 | Outpatient (AMB) | payer OTHER, SELFPAY ==
--- NOTE | 2024-02-07 13:58 | MHC.OFFVIS ---
Intake Visit Reasons: COPD Intake Note: pt is here for follow up and states she is feeling okay but the weather is not good to her. Millinery Copyist Required: No Allergies No Known Allergies [No Known Allergies*] Allergy (Verified 02/07/24 14:04) Medication List - Last Reconciled 02/07/24 by Merna Purcell MD albuterol sulfate mg inhalation albuterol sulfate 90 mcg/actuation 2 puffs inhalation Q4H PRN aspirin 81 mg PO DAILY blood sugar diagnostic (FreeStyle Lite Strips) As directed blood-glucose meter (FreeStyle [place] Lite kit) As directed cetirizine 10 mg PO DAILY docusate sodium 100 mg PO BID PRN empagliflozin (Jardiance) 10 mg PO DAILY fluticasone propion-salmeterol 500-50 mcg/dose (Wixela Inhub) 1 inh inhalation BID lisinopril 2.5 mg PO DAILY metformin 1,000 mg PO BID methadone 40 mg PO DAILY naproxen (Naprosyn) 500 mg PO BID PRN omeprazole 40 mg PO DAILY rosuvastatin (Crestor) 40 mg PO DAILY sennosides (Natural Senna Laxative) 8.6 mg PO DAILY triamcinolone acetonide (Nasacort) 2 sprays intranasal DAILY PRN umeclidinium 62.5 mcg/actuation (Incruse Ellipta) 1 inh inhalation DAILY zolpidem 10 mg PO BEDTIME PRN Do you need a note to return to daycare/school/sports/work: No HPI HPI COPD: Details: THIS 68 YEARS OLD FEMALE IS HERE FOR 2 MONTHS FOLLOW-UP. SHE CLAIMS THAT HER BREATHING HAS BEEN RELATIVELY STABLE, BUT OF COURSE SHE IS SHORT OF BREATH ON MINIMAL EXERTION. SHE USES OXYGEN 2 L/MINUTE MOST OF THE TIME EXCEPT AT NIGHT AND ALSO WHEN RESTING AT HOME. USE OF PORTABLE OXYGEN HAS HELPED. SHE IS USING HER INHALERS REGULARLY. [facility] Medical History Chronic suppurative bronchitis Personal history of nicotine dependence History of colonic polyps Methadone maintenance therapy patient Hyperlipidemia Diabetes mellitus type 2, controlled Exercise hypoxemia Allergic rhinitis Osteopenia (~2019) Pulmonary nodules COPD (chronic obstructive pulmonary disease) Statin intolerance Hyperparathyroidism Vitamin D deficiency Surgical History History of vocal cord polypectomy History of tubal ligation History of History of tonsillectomy History of parathyroidectomy History of colonoscopy History of esophagogastroduodenoscopy (EGD) Family History Father Myocardial infarction Heart disease Lung disease Mother COPD (chronic obstructive pulmonary disease) Tumor of thyroid Maternal Aunt Cancer Stomach cancer Maternal Aunt Stomach cancer Sister Gallstones Acute pancreatitis Myocardial infarction Social History Are you a primary manager care management to a significant other at home: No Do you presently have visiting nurse or other home services: Yes (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) Alcohol intake: never Patient Tobacco Use Status: Former Tobacco user Tobacco use type: Cigarette Cigarette Packs Per Day: 0.5 Cigarettes Per Day: 10.0 Years Smoked: 50 Current occupational status: unemployed Current occupation: right handed Review of Systems Const All systems reviewed & are unremarkable except as noted in HPI and below Eyes Reports no additional complaints ENT Reports nasal congestion (Intermittent especially in the morning) Card Denies chest pain, Denies irregular heart rhythm and Denies leg edema Resp Reports as per HPI GI Reports no additional complaints Reports no additional complaints and Reports urinary urgency Musc Reports back pain Skin/Breast Reports system reviewed and no additional complaints, except as documented Neuro Reports no additional complaints Psych Reports anxiety Physical Exam Const General: comfortable, no acute distress, alert and awake Orientation/consciousness: patient oriented x3 HEENT Head: Yes normal to inspection General nose exam: No nasal polyps present and No nasal discharge present Face and sinus: Yes sinuses nontender Mouth: oropharynx normal Throat: Yes posterior oropharynx normal Eyes General: appearance normal, both eyes and all related structures Neck Neck: Yes normal visual inspection, Yes no lymphadenopathy, Yes trachea midline and Yes no JVD Thyroid: Thyroid normal Chest Chest palpation & inspection: normal inspection of the chest, normal palpation of entire chest wall and no tenderness Resp Other: PERCUSSION NOTE RESONANT, BREATH SOUNDS ARE DISTANT ON BOTH SIDES WITH PROLONGED EXPIRATORY PHASE. BUT NO WHEEZES RHONCHI OR CREPITATIONS ARE HEARD TODAY. Cardio Palpation: normal PMI Rate: regular rate Rhythm: regular rhythm Heart sounds: no gallops and no murmurs GI Palpation (GI): Soft to palpation, nontender, No hepatosplenomegaly present and no masses Auscultation: normal bowel sounds Back/Spine/Pelvis Thoracic/Lumbar Spine: thoracic and lumbar spine normal to inspection Skin General skin exam: no rashes or lesions noted Neuro General: patient oriented x3 and no focal motor deficits Cranial nerves: Yes CN's II-XII intact bilaterally Extrem General: Yes normal to inspection, Yes no clubbing, cyanosis or edema and Yes no calf tenderness Psych Appearance: grossly normal and well kempt Speech and movement: Normal speech and movement present Assessment & Plan Assessment & Plan (1) COPD (chronic obstructive pulmonary disease): Comment: SHE IS KNOWN TO HAVE SEVERE OBSTRUCTIVE PULMONARY DISEASE FOR THE PAST MANY YEARS. AT PRESENT RELATIVELY STABLE BUT HER FUNCTIONAL CAPACITY IS POOR . SHE HAD QUIT PULMONARY REHAB PROGRAM CLAIMING THAT IT DID NOT HELP. Code(s): J44.9 - Chronic obstructive pulmonary disease, unspecified Category: Medical Plan: CONTINUE THE PRESENT MEDICAL REGIMEN WHICH IS FOLLOWS: WIXELA 500-51 INHALATION B.I.D. .INCRUSE ELLIPTA 1 INHALATION DAILY ALBUTEROL HFA 2 PUFFS Q 6 HOURS P.R.N. (2) Exercise hypoxemia: Comment: SHE IS KNOWN TO HAVE EXERCISE INDUCED HYPOXEMIA. Code(s): R09.02 - Hypoxemia Category: Medical Plan: [place]: Continue to use O2 2 L/minute when outdoors, and when doing any physical activity in the house. (3) Allergic rhinitis: Comment: She has a mild degree of allergic rhinitis. Code(s): J30.9 - Allergic rhinitis, unspecified Category: Medical Plan: MAY USE LORATADINE 10 MG OR CETIRIZINE 10 MG ONCE A DAY P.R.N. (4) Pulmonary nodules: Comment: PATIENT HAS HAD PULMONARY NODULES IN BOTH LUNGS. PREVIOUS CT SCAN IN JUNE 2022 HAD SHOWN SOME NODULES IMPROVED IN SIZE, SUGGESTING INFLAMMATORY ETIOLOGY. STILL BEING WATCHED FOR 2 NEW NODULES, 1 CM IN SIZE, IN RIGHT UPPER LOBE AND A 6 MM SPICULATED NODULE IN THE SUPERIOR SEGMENT OF LEFT LOWER LOBE, Code(s): R91.8 - Other nonspecific abnormal finding of lung field Category: Medical Plan: CONTINUE WITH ANNUAL LUNG SCREENING PROGRAM Coding Level of Care Code Est Pt Level 3 (56586) Diagnoses COPD (chronic obstructive pulmonary disease) J44.9 Exercise hypoxemia R09.02 Allergic rhinitis J30.9 Pulmonary nodules R91.8
== END 2024-02-07 14:09 | disposition home or self-care (01) ==
PROVIDERS: PCP Family Medicine; Visit Provider Internal Medicine
DX: J44.9 Chronic obstructive pulmonary disease, unspecified (principal); R09.02 Hypoxemia; J30.9 Allergic rhinitis, unspecified; R91.8 Other nonspecific abnormal finding of lung field
CPT/HCPCS: 99213

== ENCOUNTER → 2024-02-07 13:54 | Outpatient (BNVA) | payer OTHER, SELFPAY | PROVIDERS: PCP Family Medicine; Visit Provider Internal Medicine | DX: J44.9 Chronic obstructive pulmonary disease, unspecified (principal); R09.02 Hypoxemia; J30.9 Allergic rhinitis, unspecified; R91.8 Other nonspecific abnormal finding of lung field | CPT/HCPCS: 99212 ==

== ENCOUNTER 2024-04-16 12:50 | Outpatient (AMB) | payer OTHER, SELFPAY ==
[2024-04-16 13:22] VITALS: BP 102/58; PULSE 108; O2SAT 95; BMI 22.5
--- NOTE | 2024-04-16 13:22 | MHC.OFFVIS ---
Vital Signs 04/16/24 13:22 Height 5 ft 4 in Weight 131 lb 2.801 oz BMI 22.5 BP 102/58 L Blood Pressure Location Lt brachial Position Sitting Pulse 108 H Pulse Source Pulse Oximeter Pulse Oximetry (%) 95 Oxygen Delivery Method Nasal Cannula Oxygen Flow Rate 2 Intake Visit Reasons: COPD Intake Note: pt is here for follow up and states only bad days with weather. Strategic Consultant Required: No Allergies No Known Allergies [No Known Allergies*] Allergy (Verified 02/07/24 14:04) Medication List - Last Reconciled 04/16/24 by Merna Purcell MD albuterol sulfate mg inhalation albuterol sulfate 90 mcg/actuation 2 puffs inhalation Q4H PRN aspirin 81 mg PO DAILY blood sugar diagnostic (FreeStyle Lite Strips) As directed blood-glucose meter (FreeStyle [place] Lite kit) As directed cetirizine 10 mg PO DAILY docusate sodium 100 mg PO BID PRN empagliflozin (Jardiance) 10 mg PO DAILY fluticasone propion-salmeterol 500-50 mcg/dose (Wixela Inhub) 1 inh inhalation BID lisinopril 2.5 mg PO DAILY methadone 40 mg PO DAILY naproxen (Naprosyn) 500 mg PO BID PRN omeprazole 40 mg PO DAILY rosuvastatin (Crestor) 40 mg PO DAILY sennosides (Natural Senna Laxative) 8.6 mg PO DAILY triamcinolone acetonide (Nasacort) 2 sprays intranasal DAILY PRN umeclidinium 62.5 mcg/actuation (Incruse Ellipta) 1 inh inhalation DAILY zolpidem 10 mg PO BEDTIME PRN Do you need a note to return to daycare/school/sports/work: No HPI HPI COPD: Details: Creatinine is 69 years old female, former smoker quit 1 year ago, has advanced COPD, requiring O2 supplementation. She is also being followed for pulmonary nodules. Doing very well, breathing status has remained stable. Luckily she has had no recent infection. She has lost about 5 lb of weight in the last 2 months, she claims that this is due to her new diabetic med Jardiance. Uses oxygen 2 L/minute with any physical activity and when she goes out. [facility] Medical History Chronic suppurative bronchitis Personal history of nicotine dependence History of colonic polyps Methadone maintenance therapy patient Hyperlipidemia Diabetes mellitus type 2, controlled Exercise hypoxemia Allergic rhinitis Osteopenia (~2019) Pulmonary nodules COPD (chronic obstructive pulmonary disease) Statin intolerance Hyperparathyroidism Vitamin D deficiency Surgical History History of vocal cord polypectomy History of tubal ligation History of History of tonsillectomy History of parathyroidectomy History of colonoscopy History of esophagogastroduodenoscopy (EGD) Family History Father Myocardial infarction Heart disease Lung disease Mother COPD (chronic obstructive pulmonary disease) Tumor of thyroid Maternal Aunt Cancer Stomach cancer Maternal Aunt Stomach cancer Sister Gallstones Acute pancreatitis Myocardial infarction Social History Are you a primary care team coordinator scheduler to a significant other at home: No Do you presently have visiting nurse or other home services: Yes (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[employer]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[employer] 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) Alcohol intake: never Patient Tobacco Use Status: Former Tobacco user Tobacco use type: Cigarette Cigarette Packs Per Day: 0.5 Cigarettes Per Day: 10.0 Years Smoked: 50 Current occupational status: unemployed Current occupation: right handed Review of Systems Const All systems reviewed & are unremarkable except as noted in HPI and below Eyes Reports no additional complaints ENT Reports nasal congestion (Intermittent especially in the morning) Card Denies chest pain, Denies irregular heart rhythm and Denies leg edema Resp Reports as per HPI GI Reports no additional complaints Reports no additional complaints and Reports urinary urgency Musc Reports back pain Skin/Breast Reports system reviewed and no additional complaints, except as documented Neuro Reports no additional complaints Psych Reports anxiety Physical Exam Vital Signs: Last Vital Signs Pulse 108 H 04/16/24 13:22 BP 102/58 L 04/16/24 13:22 Pulse Ox 95 04/16/24 13:22 Oxygen Delivery Method Nasal Cannula 04/16/24 13:22 Oxygen Flow Rate 2 04/16/24 13:22 BMI result Body Mass Index 22.5 Const General: comfortable, no acute distress, alert and awake Orientation/consciousness: patient oriented x3 HEENT Head: Yes normal to inspection General nose exam: No nasal polyps present and No nasal discharge present Face and sinus: Yes sinuses nontender Mouth: oropharynx normal Throat: Yes posterior oropharynx normal Eyes General: appearance normal, both eyes and all related structures Neck Neck: Yes normal visual inspection, Yes no lymphadenopathy, Yes trachea midline and Yes no JVD Thyroid: Thyroid normal Chest Chest palpation & inspection: normal inspection of the chest, normal palpation of entire chest wall and no tenderness Resp Other: PERCUSSION NOTE RESONANT, BREATH SOUNDS ARE DISTANT ON BOTH SIDES WITH PROLONGED EXPIRATORY PHASE. BUT NO WHEEZES RHONCHI OR CREPITATIONS ARE HEARD TODAY. Cardio Palpation: normal PMI Rate: regular rate Rhythm: regular rhythm Heart sounds: no gallops and no murmurs GI Palpation (GI): Soft to palpation, nontender, No hepatosplenomegaly present and no masses Auscultation: normal bowel sounds Back/Spine/Pelvis Thoracic/Lumbar Spine: thoracic and lumbar spine normal to inspection Skin General skin exam: no rashes or lesions noted Neuro General: patient oriented x3 and no focal motor deficits Cranial nerves: Yes CN's II-XII intact bilaterally Extrem General: Yes normal to inspection, Yes no clubbing, cyanosis or edema and Yes no calf tenderness Psych Appearance: grossly normal and well kempt Speech and movement: Normal speech and movement present Results Reviewed Results Reviewed: CT scan 08/13 24 Waxing and waning bilateral pulmonary nodules. The largest nodules measure 1 cm in the right lower lobe. A 6 mm spiculated nodule in the superior segment left lower lobe appears slightly smaller. Continued close imaging surveillance is advised. PET/CT may be considered to assess FDG avidity. Assessment & Plan Assessment & Plan (1) COPD (chronic obstructive pulmonary disease): Comment: SHE IS KNOWN TO HAVE SEVERE OBSTRUCTIVE PULMONARY DISEASE FOR THE PAST MANY YEARS. AT PRESENT RELATIVELY STABLE BUT HER FUNCTIONAL CAPACITY IS POOR . Code(s): J44.9 - Chronic obstructive pulmonary disease, unspecified Category: Medical Plan: Continue Wixela 500-51 inhalation b.i.d., Incruse Ellipta 1 inhalation daily, and albuterol HFA or via nebulizer Q 4-6 hours p.r.n. (2) Allergic rhinitis: Comment: She has a mild degree of allergic rhinitis. Code(s): J30.9 - Allergic rhinitis, unspecified Category: Medical Plan: May use cetirizine 10 mg once a day p.r.n. (3) Personal history of nicotine dependence: Comment: (onset ~16, 1ppd x 50yrs, 50pyh - quit 12/2021) Code(s): Z87.891 - Personal history of nicotine dependence Category: Medical Plan: Commended for not smoking, (4) Pulmonary nodules: Comment: PATIENT HAS HAD PULMONARY NODULES IN BOTH LUNGS. PREVIOUS CT SCAN IN JUNE 2022 HAD SHOWN SOME NODULES IMPROVED IN SIZE, SUGGESTING INFLAMMATORY ETIOLOGY. STILL BEING WATCHED FOR 2 NEW NODULES, 1 CM IN SIZE, IN RIGHT UPPER LOBE AND A 6 MM SPICULATED NODULE IN THE SUPERIOR SEGMENT OF LEFT LOWER LOBE, Code(s): R91.8 - Other nonspecific abnormal finding of lung field Category: Medical Plan: Recent weight loss, even though this is described as intentional. Previous 1 cm nodule in the right upper lobe, is worrisome I would order a follow-up CT scan of the chest . Orders: Orders CT chest wo IV con Today J44.9 - Chronic obstructive pulmonary disease, unspecified, R91.8 - Other nonspecific abnormal finding of lung field, Z87.891 - Personal history of nicotine dependence Coding Level of Care Code Est Pt Level 3 (87068) Diagnoses COPD (chronic obstructive pulmonary disease) J44.9 Allergic rhinitis J30.9 Personal history of nicotine dependence Z87.891 Pulmonary nodules R91.8
== END 2024-04-16 13:41 | disposition home or self-care (01) ==
PROVIDERS: PCP Family Medicine; Visit Provider Internal Medicine
DX: J44.9 Chronic obstructive pulmonary disease, unspecified (principal); J30.9 Allergic rhinitis, unspecified; Z87.891 Personal history of nicotine dependence; R91.8 Other nonspecific abnormal finding of lung field
CPT/HCPCS: 99213

== ENCOUNTER → 2024-04-16 12:50 | Outpatient (BNVA) | payer OTHER, SELFPAY | PROVIDERS: PCP Family Medicine; Visit Provider Internal Medicine | DX: J44.9 Chronic obstructive pulmonary disease, unspecified (principal); J30.9 Allergic rhinitis, unspecified; R91.8 Other nonspecific abnormal finding of lung field; F17.210 Nicotine dependence, cigarettes, uncomplicated; Z99.81 Dependence on supplemental oxygen | CPT/HCPCS: 99212 ==

== ENCOUNTER 2024-05-12 12:35 | Outpatient (AMB) | payer OTHER, SELFPAY ==
[2024-05-12 13:05] VITALS: BP 124/64; PULSE 85; BMI 22.8
--- NOTE | 2024-05-12 13:05 | MHC.OFFVIS ---
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 Required: No Accompanied by: Self / Same As Patient Allergies No Known Allergies [No Known Allergies*] Allergy (Verified 02/07/24 14:04) Medication List - Last Reconciled 05/12/24 by Sergo Christensen MD albuterol sulfate mg inhalation albuterol sulfate 90 mcg/actuation 2 puffs inhalation Q4H PRN aspirin 81 mg PO DAILY blood sugar diagnostic (FreeStyle Lite Strips) As directed blood-glucose meter (FreeStyle [place] Lite kit) As directed cetirizine 10 mg PO DAILY docusate sodium 100 mg PO BID PRN empagliflozin-metformin 5-500 mg (Synjardy) 1 tab PO BID fluticasone propion-salmeterol 500-50 mcg/dose (Wixela Inhub) 1 inh inhalation BID lisinopril 2.5 mg PO DAILY methadone 40 mg PO DAILY naproxen (Naprosyn) 500 mg PO BID PRN omeprazole 40 mg PO DAILY rosuvastatin (Crestor) 40 mg PO DAILY sennosides (Natural Senna Laxative) 8.6 mg PO DAILY triamcinolone acetonide (Nasacort) 2 sprays intranasal DAILY PRN umeclidinium 62.5 mcg/actuation (Incruse Ellipta) 1 inh inhalation DAILY zolpidem 10 mg PO BEDTIME PRN HPI Comments Details: 69-year-old female with background history of tobacco abuse and COPD. she is here for follow-up. She has severe COPD and had exercise related hypoxemia and has been started on oxygen therapy. She has advanced COPD. She has stopped smoking at this stage. She has recent ER visit for COPD exacerbation. She is tachycardic. She is not feeling any palpitations. She is saying her breathing is at baseline. She is using oxygen as needed as before. She does not use oxygen at night. 04/25/2023: She returns for follow-up. She is saying her breathing is at baseline. No chest discomfort. She has advanced COPD and is on supplemental oxygen. She is following with pulmonology. 05/12/2024: She is here for follow-up. She has stopped smoking and has been using oxygen with ambulation. Overall her respiratory status has been stable. She is still is short of breath with activities and requires oxygen. Blood pressure is well controlled. No chest discomfort. [facility] Medical History Chronic suppurative bronchitis Personal history of nicotine dependence History of colonic polyps Methadone maintenance therapy patient Hyperlipidemia Diabetes mellitus type 2, controlled Exercise hypoxemia Allergic rhinitis Osteopenia (~2019) Pulmonary nodules COPD (chronic obstructive pulmonary disease) Statin intolerance Hyperparathyroidism Vitamin D deficiency Surgical History History of vocal cord polypectomy History of tubal ligation History of History of tonsillectomy History of parathyroidectomy History of colonoscopy History of esophagogastroduodenoscopy (EGD) Family History Father Myocardial infarction Heart disease Lung disease Mother COPD (chronic obstructive pulmonary disease) Tumor of thyroid Maternal Aunt Cancer Stomach cancer Maternal Aunt Stomach cancer Sister Gallstones Acute pancreatitis Myocardial infarction Social History Are you a primary urgent care nurse practitioner to a significant other at home: No Do you presently have visiting nurse or other home services: Yes (QA 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) Alcohol intake: never Patient Tobacco Use Status: Former Tobacco user Tobacco use type: Cigarette Cigarette Packs Per Day: 0.5 Cigarettes Per Day: 10.0 Years Smoked: 50 Current occupational status: unemployed Current occupation: right handed Review of Systems Const Denies chills, Denies fatigue, Denies fever(s), Denies weight gain and Denies weight loss ENT Denies dizziness Card Denies chest pain, Denies leg edema, Denies lightheadedness, Denies palpitations, Denies dyspnea on exertion, Denies orthopnea and Denies other Resp Denies cough and Denies dyspnea on exertion GI Denies hematochezia and Denies change in stool character Musc Denies abnormal gait, Denies muscle weakness, Denies numbness, Denies radiating pain into limb and Denies tingling Neuro Denies abnormal gait, Denies dizziness, Denies numbness and Denies tingling Endo Denies fatigue and Denies palpitations Physical Exam Vital Signs: Last Vital Signs Pulse 85 05/12/24 13:05 BP 124/64 05/12/24 13:05 BMI result Body Mass Index 22.8 GENERAL APPEARANCE: in no acute distress, pleasant. NECK: no carotid bruit, no jugular venous distention. SKIN: no suspicious lesions, warm and dry. HEART: no murmurs, regular rate and rhythm. LUNGS: Diminished breath sounds bilaterally. ABDOMEN: soft, nontender. EXTREMITIES: no edema. PERIPHERAL PULSES: equal. NEUROLOGIC: No gross deficits, AAO X 3 Office Procedures EKG Details: Sinus rhythm 84 beats per minute, first-degree AV block with WA interval 210 milliseconds, septal infarct, QTC 447 milliseconds. 30180-[id number], Complete Assessment & Plan Assessment & Plan (1) Dyspnea on exertion: Comment: Code(s): R06.00 - Dyspnea, unspecified Category: Medical Plan [age] year female who has been a smoker for long time and has COPD. She is on supplemental oxygen. Previous echocardiography has not shown pulmonary hypertension. She has no chest discomfort. Her dyspnea is multifactorial due to COPD, deconditioning but underlying coronary disease can be a possibility. I have advised her to do a Lexiscan and we will arrange this for her. If any obvious issues noted on the Lexiscan then we will pursue further testing. She is getting treatment for lung disease with Dr. Purcell. She will see us back in few months. Thank you for allowing me to participate in the care of your patient. Please feel free to contact me if you have any questions. Orders: Orders CA lexiscan stress w jaswant Today R06.00 - Dyspnea, unspecified Coding Level of Care Code Est Pt Level 4 (06155) Diagnoses Dyspnea on exertion R06.00 CPT Codes EKG - CPT: 08312-[id number], Complete ([id number])
== END 2024-05-12 13:31 | disposition home or self-care (01) ==
LOC: HO.HCS 12:36
PROVIDERS: PCP Family Medicine; Visit Provider Internal Medicine Cardiovascular Disease
DX: R06.00 Dyspnea, unspecified (principal)
CPT/HCPCS: 93010; 99214

== ENCOUNTER → 2024-05-12 12:35 | Outpatient (BNVA) | payer OTHER, SELFPAY | PROVIDERS: PCP Family Medicine; Visit Provider Internal Medicine Cardiovascular Disease | DX: R06.00 Dyspnea, unspecified (principal); R94.31 Abnormal electrocardiogram [ECG] [EKG]; I44.0 Atrioventricular block, first degree | CPT/HCPCS: 93005; 99212 ==

== ENCOUNTER 2024-06-26 13:50 | Outpatient (REF) | payer OTHER, SELFPAY ==
[2024-06-26 17:30] LABS: CT PCR NOT DETECTED (Not Detect.); NG PCR NOT DETECTED (Not Detect.)
[2024-06-27 10:47] LABS: HPV 16,18/45 See PAP report
== END 2024-06-26 13:51 | disposition home or self-care (01) ==
LOC: HO.HHCLNP 13:50
PROVIDERS: Visit Provider Family Medicine
DX: Z01.419 Encounter for gynecological examination (general) (routine) without abnormal findings (principal)
CPT/HCPCS: 87491; 87591; 87624; 88175

== ENCOUNTER 2024-06-27 07:32 | Outpatient (REF) | payer OTHER, SELFPAY | END 2024-06-27 07:33 | disposition home or self-care (01) | LOC: HO.CT 07:32 | PROVIDERS: PCP Family Medicine; Visit Provider Internal Medicine | DX: R91.8 Other nonspecific abnormal finding of lung field (principal); J44.9 Chronic obstructive pulmonary disease, unspecified; Z87.891 Personal history of nicotine dependence | CPT/HCPCS: 71250 ==

== ENCOUNTER → 2024-06-27 07:34 | Outpatient (BNV) | payer OTHER, SELFPAY | PROVIDERS: PCP Family Medicine; Visit Provider Radiology Diagnostic Radiology | DX: R91.8 Other nonspecific abnormal finding of lung field (principal) | CPT/HCPCS: 71250 ==

== ENCOUNTER 2024-08-28 06:44 | Day surgery (SDC) | payer OTHER, SELFPAY ==
[2024-08-28] VITALS (16 sets, daily range): BP systolic 91–118; BP diastolic 47–59; PULSE 72–92; RESP 14–19; TEMP 36.2–36.6; O2SAT 93–97; BMI 23.5
--- NOTE | ~2024-08-28 | XR_ITS ---
EXAMINATION: XR CHEST CLINICAL INFORMATION: s/p right lung biopsy COMPARISON: None available. TECHNIQUE: Frontal view of the chest was obtained. FINDINGS: The cardiac, hilar, and mediastinal contours are normal. Lungs are hyperaerated bilaterally. There is increased size of the spiculated appearing lesion in the right posterior lower lobe, likely postbiopsy change. No pneumothorax or effusion. No focal osseous or soft tissue abnormality. XR/XR chest 1V IMPRESSION: No pneumothorax status post right lung biopsy. Electronically signed by: Da Kimble MD 08/28/2024 11:51 AM [facility]
--- NOTE | ~2024-08-28 | XR_ITS ---
EXAMINATION: XR CHEST CLINICAL INFORMATION: s/p right lung biopsy 2hr COMPARISON: August 28, 2024 at 10:14 AM. TECHNIQUE: Frontal view of the chest was obtained. FINDINGS: No gross pneumothorax. Stable appearance of the lungs and cardiomediastinal silhouette. . XR/XR chest 1V IMPRESSION: No gross pneumothorax. Follow-up as clinically indicated. Electronically signed by: Gabriel Mehta MD 08/28/2024 03:42 PM [facility]
--- NOTE | ~2024-08-28 | CT_ITS ---
Right lung mass PROCEDURES: 1. Limited preprocedure CT of the chest. Permanent images saved in PACS. 2. CT-guided biopsy and fine-needle aspiration of the right lung mass. 3. Limited postprocedure CT of the chest. Permanent images saved in PACS. CLINICIANS: Sam Umaña PA-C MEDICATIONS: -Versed 0.5 mg, Fentanyl 25 mcg, and lidocaine 1% 10 mL SQ -Antibiotics: None -For additional details, please see nursing flowsheet. COMPLICATIONS: None ESTIMATED BLOOD LOSS: < 5 ml CONTRAST: None SPECIMENS: 4 x 20 g cores were sent for pathology. 22-gauge aspiration was sent for cytology. MODERATE SEDATION TIME: 25 min PROCEDURE NOTE: The procedure, risks, benefits, and alternatives were carefully explained to the patient and written informed consent was obtained. The patient was placed in the left lateral decubitus position on the CT table. A timeout was performed. A limited CT of the chest was performed to localize the right lung mass and choose appropriate needle entry and trajectory. The patient was prepped and draped in usual sterile fashion. The skin and deeper soft tissues were anesthetized with lidocaine. Under CT guidance, a 19 gauge trocar needle was advanced to the right lung mass. A 20 gauge biopsy device was inserted through the trocar needle and advanced into the mass. A total of 4 cores were performed. The specimens were placed in formalin and sent to pathology. A 22-gauge Chiba needle was then inserted through the trocar needle and advanced into the mass. An aspiration was performed and sent for cytology. The needle was removed. A dry dressing was applied and secured with Tegaderm. A limited postprocedure CT of the chest was performed, which did not demonstrate any pneumothorax or hemothorax. There were no immediate complications. The patient was stable after the procedure and was transferred to the post anesthesia care unit. The procedure was done under moderate sedation with a dedicated nurse for monitoring of vital signs. CT/CT biopsy lung RT Impression: CT-guided right lung mass biopsy and fine-needle aspiration. This procedure was performed by Sam Umaña PA-C and supervised by Dr. Joseph. Electronically signed by: Sarthak Barone MD 09/16/2024 03:09 PM EDT
[2024-08-28 08:00] LABS: MANUAL DIFF FLAG NO
[2024-08-28 08:04] LABS: Glucose, Whole Blood 210 mg/dL (60-115)
[2024-08-28 08:06] LABS: Basophils Percent Auto 0.5 % (0-2); Eosinophils Absolute Auto 0.2 X10*3/uL (0.0-0.4); Eosinophils Percent Auto 3.1 % (0-4); Hematocrit 34.5 % (37.0-47.0); Hemoglobin 11.4 g/dl (12.0-16.0); Imm Gran Abs Auto 0.02 X10*3/uL (0.00-0.03); Imm Gran Pct Auto 0.3 % (0.0-0.4); Lymphocytes Absolute Auto 1.8 X10*3/uL (1.2-4.9); Lymphocytes Percent Auto 29.8 % (20-40); Mean Corpuscular Hemoglobin 27.9 pg (27.0-33.0); Mean Corpuscular Volume 84.4 fL (80.0-98.0); Mean Platelet Volume 10.5 fL (9.4-12.3); Monocytes Absolute Auto 0.7 X10*3/uL (0.1-1.2); Monocytes Percent Auto 11.1 % (2-11); Neutrophils Absolute Auto 3.2 x10*3/uL (2.0-8.3); Neutrophils Percent Auto 55.2 % (45-73); Platelet Count 173 X10*3/uL (160-400); Red Blood Count 4.09 X10*6/uL (4.20-5.50); Red Cell Distribution Width 14.2 % (11.0-16.0); White Blood Count 5.9 X10*3/uL (4.8-10.8)
[2024-08-28 08:10] LABS: Prothrombin Time 11.9 SEC (10.9-12.4)
--- NOTE | 2024-08-28 08:25 | MHC.SHP ---
Pre-Procedural Eval Section A - 24 Hr Update-Section A only Date of Service: 08/28/24 Section B - Complete if H&P > 30 days Chief Complaint: RT LUNG NODULE Details of Present Illness: 69 y/o female with right lung mass Relevant Social History: Tobacco Use Present Medications: see Short Stay Collaborative assessment Medical History: Significant History History of Previous Operations: Relevant previous surgery/procedure and date(s) Allergies: Allergies Allergy/AdvReac Type Severity Reaction Status Date / Time No Known Allergies Allergy Verified 08/28/24 07:48 [No Known Allergies*] Review of Systems Sugical H&P ROS: Negative: Constitution, Cardiovascular and Integumentary and Yes, Specify: Respiratory (chronic dyspnea) Exam Surgical H&P Exam: Normal: Heart and Normal: Neurological and Significant Findings: Lungs (diminished but clear) Plan 69 y/o female with right lung mass -CT right lung biopsy Time Spent With Patient Time: Total time managing care of this patient today ____ minutes.
[2024-08-28] MEDS: Acetaminophen 1,000 MG/100 ML PIGGYBACK 400 MG IV (08:40)
[2024-08-28] MEDS: Midazolam HCl 5 MG/ML VIAL IVPUSH (08:52)
[2024-08-28] MEDS: fentaNYL citrate/PF 100 MCG/2 ML VIAL 25 MCG IVPUSH (08:54)
== END 2024-08-28 12:09 | disposition home or self-care (01) ==
PROVIDERS: Physician Assistant Surgical; PCP Family Medicine; Visit Provider Internal Medicine
DX: C34.91 Malignant neoplasm of unspecified part of right bronchus or lung (principal); J41.1 Mucopurulent chronic bronchitis; J31.0 Chronic rhinitis; E11.9 Type 2 diabetes mellitus without complications; Z87.891 Personal history of nicotine dependence
CPT/HCPCS: 10009; 32408; 36415; 71045; 82947; 85025; 85610; 85730; 88112; 88173; 88305; 88312; 99152; 99153; J0131; J2003; J2250; J2310; J3010

== ENCOUNTER → 2024-08-28 10:15 | Outpatient (BNV) | payer OTHER, SELFPAY | PROVIDERS: PCP Family Medicine; Visit Provider Radiology Diagnostic Radiology | DX: R91.1 Solitary pulmonary nodule (principal) | CPT/HCPCS: 71045 ==

== ENCOUNTER → 2024-09-02 14:43 | Outpatient (BNVA) | payer OTHER, SELFPAY | PROVIDERS: PCP Family Medicine; Visit Provider Internal Medicine | DX: J44.9 Chronic obstructive pulmonary disease, unspecified (principal); R91.8 Other nonspecific abnormal finding of lung field; R09.2 Respiratory arrest; Z99.81 Dependence on supplemental oxygen; Z87.891 Personal history of nicotine dependence | CPT/HCPCS: 99212 ==

== ENCOUNTER 2024-09-02 14:46 | Outpatient (AMB) | payer OTHER, SELFPAY ==
[2024-09-02 14:57] VITALS: BP 120/62; PULSE 118; O2SAT 95; BMI 23.5
--- NOTE | 2024-09-02 14:57 | MHC.OFFVIS ---
Vital Signs 09/02/24 14:57 Height 5 ft 4 in Weight 136 lb 10.986 oz BMI 23.5 BP 120/62 Blood Pressure Location Lt brachial Position Sitting Pulse 118 H Pulse Source Pulse Oximeter Pulse Oximetry (%) 95 Oxygen Delivery Method Nasal Cannula Oxygen Flow Rate 2 Intake Visit Reasons: MONTANO Intake Note: pt is here for follow up visit, just the lung issue, has had increased shortness of breath. 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 Allergies No Known Allergies [No Known Allergies*] Allergy (Verified 09/02/24 15:18) Medication List - Last Reconciled 09/02/24 by Merna Purcell MD albuterol sulfate mg inhalation albuterol sulfate 90 mcg/actuation 2 puffs inhalation Q4H PRN aspirin 81 mg PO DAILY blood sugar diagnostic (FreeStyle Lite Strips) As directed blood-glucose meter (FreeStyle [place] Lite kit) As directed cetirizine 10 mg PO DAILY docusate sodium 100 mg PO BID PRN empagliflozin-metformin 5-500 mg (Synjardy) 1 tab PO BID fluticasone propion-salmeterol 500-50 mcg/dose (Wixela Inhub) 1 inh inhalation BID lisinopril 2.5 mg PO DAILY methadone 40 mg PO DAILY naproxen (Naprosyn) 500 mg PO BID PRN omeprazole 40 mg PO DAILY rosuvastatin (Crestor) 40 mg PO DAILY sennosides (Natural Senna Laxative) 8.6 mg PO DAILY triamcinolone acetonide (Nasacort) 2 sprays intranasal DAILY PRN umeclidinium 62.5 mcg/actuation (Incruse Ellipta) 1 inh inhalation DAILY zolpidem 10 mg PO BEDTIME PRN Do you need a note to return to daycare/school/sports/work: No HPI HPI MONTANO: Details: Bonnie Roberts, is 69 years old female with longstanding history of smoking, quit in 2021 . Has advanced chronic obstructive pulmonary disease, last PFT in 2021. Marisol heard has been doing fairly well on her current medical regimen, but does get short of breath on minimal exertion and uses O2 2 L/minute 24 hours a day. On her yearly lung screening she was found to have a nodule in right lower lobe , grown in size. PET CT at [facility], showed that the nodule in right lower lobe 1.6 cm x 2 cm, was FDG avid. , but no other nodules or lymph nodes were FDG avid. She has undergone percutaneous needle biopsy and unfortunately it is positive for squamous cell carcinoma. Bonnie comes in today for follow-up and to go over the PET scan results as well as biopsy results. [facility] Medical History GERD (gastroesophageal reflux disease) Chronic suppurative bronchitis Personal history of nicotine dependence History of colonic polyps Methadone maintenance therapy patient Hyperlipidemia Diabetes mellitus type 2, controlled Exercise hypoxemia Allergic rhinitis Osteopenia (~2018) Pulmonary nodules COPD (chronic obstructive pulmonary disease) Statin intolerance Hyperparathyroidism Vitamin D deficiency Surgical History History of vocal cord polypectomy History of tubal ligation History of History of tonsillectomy History of parathyroidectomy History of colonoscopy History of esophagogastroduodenoscopy (EGD) Family History Father Myocardial infarction Heart disease Lung disease Mother COPD (chronic obstructive pulmonary disease) Tumor of thyroid Maternal Aunt Cancer Stomach cancer Maternal Aunt Stomach cancer Sister Gallstones Acute pancreatitis Myocardial infarction Social History Are you a primary resident care aide to a significant other at home: No Do you presently have visiting nurse or other home services: Yes ([employer] 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) Alcohol intake: never Patient Tobacco Use Status: Former Tobacco user Tobacco use type: Cigarette Cigarette Packs Per Day: 0.5 Cigarettes Per Day: 10.0 Years Smoked: 50 Current occupational status: unemployed Current occupation: right handed Review of Systems Const All systems reviewed & are unremarkable except as noted in HPI and below Eyes Reports no additional complaints ENT Reports nasal congestion (Intermittent especially in the morning) Card Denies chest pain, Denies irregular heart rhythm and Denies leg edema Resp Reports as per HPI GI Reports no additional complaints Reports no additional complaints and Reports urinary urgency Musc Reports back pain Skin/Breast Reports system reviewed and no additional complaints, except as documented Neuro Reports no additional complaints Psych Reports anxiety Physical Exam Vital Signs: Last Vital Signs Pulse 118 H 09/02/24 14:57 BP 120/62 09/02/24 14:57 Pulse Ox 95 09/02/24 14:57 Oxygen Delivery Method Nasal Cannula 09/02/24 14:57 Oxygen Flow Rate 2 09/02/24 14:57 BMI result Body Mass Index 23.5 Const General: comfortable, no acute distress, alert and awake Orientation/consciousness: patient oriented x3 HEENT Head: Yes normal to inspection General nose exam: No nasal polyps present and No nasal discharge present Face and sinus: Yes sinuses nontender Mouth: oropharynx normal Throat: Yes posterior oropharynx normal Eyes General: appearance normal, both eyes and all related structures Neck Neck: Yes normal visual inspection, Yes no lymphadenopathy, Yes trachea midline and Yes no JVD Thyroid: Thyroid normal Chest Chest palpation & inspection: normal inspection of the chest, normal palpation of entire chest wall and no tenderness Resp Other: PERCUSSION NOTE RESONANT, BREATH SOUNDS ARE DISTANT ON BOTH SIDES WITH PROLONGED EXPIRATORY PHASE. BUT NO WHEEZES RHONCHI OR CREPITATIONS ARE HEARD TODAY. Cardio Palpation: normal PMI Rate: regular rate Rhythm: regular rhythm Heart sounds: no gallops and no murmurs GI Palpation (GI): Soft to palpation, nontender, No hepatosplenomegaly present and no masses Auscultation: normal bowel sounds Back/Spine/Pelvis Thoracic/Lumbar Spine: thoracic and lumbar spine normal to inspection Skin General skin exam: no rashes or lesions noted Neuro General: patient oriented x3 and no focal motor deficits Cranial nerves: Yes CN's II-XII intact bilaterally Extrem General: Yes normal to inspection, Yes no clubbing, cyanosis or edema and Yes no calf tenderness Psych Appearance: grossly normal and well kempt Speech and movement: Normal speech and movement present Results Reviewed Results Reviewed: Results of PET scan, and percutaneous needle biopsy are reviewed with the patient. ( as noted above in HPI) Assessment & Plan Assessment & Plan (1) COPD (chronic obstructive pulmonary disease): Comment: SHE IS KNOWN TO HAVE SEVERE OBSTRUCTIVE PULMONARY DISEASE FOR THE PAST MANY YEARS. AT PRESENT RELATIVELY STABLE BUT HER FUNCTIONAL CAPACITY IS POOR .. I WILL SCHEDULE HER FOR A REPEAT PULMONARY FUNCTION TEST, JUST IN CASE SHE IS GOING TO BE SCHEDULED FOR SURGERY. Code(s): J44.9 - Chronic obstructive pulmonary disease, unspecified Category: Medical Plan: CONTINUE WIXELA 500-51 INHALATION B.I.D. AND ALBUTEROL HFA 2 PUFFS Q 6 HOURS P.R.N.. ORDERED PULMONARY FUNCTION TEST. (2) Right lower lobe lung mass: Comment: IN ADDITION TO MULTIPLE SMALL PULMONARY NODULES SHE HAS 1 NODULE IN RIGHT LOWER LOBE WHICH HAS GROWN UP TO 2 CM X 1.8 X 1.7CM. IT IS FDG AVID, NO LYMPH NODES ARE OTHER NODULES ARE POSITIVE. PERCUTANEOUS NEEDLE BIOPSY POSITIVE FOR SQUAMOUS CELL CARCINOMA. Code(s): R91.8 - Other nonspecific abnormal finding of lung field Category: Medical Plan: DISCUSSED WITH THE PATIENT AND I TOLD HER THE OPTIONS FOR TREATMENT WOULD BE SURGICAL VS RADIATION THERAPY/CHEMO . OF COURSE IF SHE CAN HAVE RIGHT LOWER LOBECTOMY, BY SURGERY, THEN SHE MAY NEED SOME ADJUVANT CHEMOTHERAPY . HAVE ORDERED REPEAT PULMONARY FUNCTION TEST TO SEE IF SHE IS A CANDIDATE FOR SURGICAL PROCEDURE. THE PATIENT TELLS ME THAT IF SHE HAS TO HAVE SURGERY SHE WOULD PREFERRED TO GO TO [facility] TO HAVE SURGERY BY DR. LISSY CHATTERJEE . (3) Personal history of nicotine dependence: Comment: (onset ~16, 1ppd x 50yrs, 50pyh - quit 12/2021) Code(s): Z87.891 - Personal history of nicotine dependence Category: Medical Plan: ENCOURAGED NOT TO GO BACK TO SMOKING. (4) Exercise hypoxemia: Comment: SHE IS KNOWN TO HAVE EXERCISE INDUCED HYPOXEMIA. Code(s): R09.02 - Hypoxemia Category: Medical Plan: SHE IS ADVISED TO CONTINUE USING O2 2 L/MINUTE, WITH PORTABLE UNIT. Orders: Orders PFT pulmonary function test Today J44.9 - Chronic obstructive pulmonary disease, unspecified, R91.8 - Other nonspecific abnormal finding of lung field, Z87.891 - Personal history of nicotine dependence Coding Level of Care Code Est Pt Level 3 (73188) Diagnoses COPD (chronic obstructive pulmonary disease) J44.9 Right lower lobe lung mass R91.8 Personal history of nicotine dependence Z87.891 Exercise hypoxemia R09.02
--- OUTSIDE RECORDS SUMMARY | 2024-09-02 18:23 | XMS_ITS | Encounter Summary ---
Author Organization [employer] Address [address] [place] [address] Care Team Providers Care Neonatal Surgeon Name Role Phone Rahel Mesa DO Primary Care Provider [phone] Cammy Zapata PharmD Unavailable [phone] Reason for Visit * Reason Onset Date Comments Prior Authorization 05/24/2023 glucose bloo d (FREESTYLE LITE) test strip Encounter Details Date Type Department Care Team (Late st Contact Info) Description 05/24/2023 Telephone [facility] [address] [place], [place] [phone] Rahel Mesa DO [address] [place], [place] [phone] Prior Authorization (glucose blood (FREESTYLE LITE) test strip) Social History Tobacco Use Types Packs/Day Years Used Date Smoking Tobacco: Former Cigarettes Smokeless Tobacco: Former Alcohol Use Standard Drinks/Week Comments Never 0 (1 standard drink = 0.6 oz pur e alcohol) Depression Answer Date Recorded Patient Health Questionnaire-9 Score 0 09/25/2022 Housing Stability Answer Date Recorded What is your housing situation today? I have layne dean 04/23/[address] you li ve. Do you have problems with any of the following? None of the above 04/23/2023 Food Insecurity Answer Date Recorded Within the past 12 months, y ou worried that your food would run out before you got money to buy more: Never True 04/23/2023 Within the past 12 months,th e food you bought just didn't last and you didn't have enough money to get more: Never True Transportation Answer Date Recorded In the past 12 months, has l ack of transportation kept you from medical appts, meetings, work or from getting things needed for daily living? No 04/23/2023 Utilities Answer Date Recorded In the past 12 months, has t he electric, gas, oil or water company threatened to shut off services in your home? No 04/23/2023 Depression Answer Date Recorded Patient Health Questionnaire-2 Score 0 09/25/2022 Comments Unknown Sex and Gender Information Value Date Recorded Sex Assigned at Female 05/08/2022 10:16 AM EDT Legal Sex Female 10:16 AM EDT Gender Identity Female 05/08/2022 10:16 AM EDT Sexual Orientation Straight 05/08/2022 10 :16 AM EDT documented as of this encounter Miscellaneous Notes * Telephone Encounter - Sivan You - 06/14/2023 11:48 AM EST PA Form for CCA was generated and placed on provider desk for review ans signature. * Telephone Encounter - Crystal Gtz - 05/24/2023 12:21 PM EST Tc from pt requesting Prior Authorization for glucose blood (FREESTYLE LITE) test strip documented in this encounter Plan of Treatment Not on file documented as of this encounter Goals Goal Patient Goal Type Associated Problems Recent Progress Patient-Stated? Author Hemoglobin A1c < 7 Result Component 5.7( 4 10:26 AM EDT) No Dellogono, Sam, PharmD Record your blood sugar as directed Result Component No Puia, Cammy, PharmD documented as of this encounter Visit Diagnoses Not on filedocumented in this encounter Additional Health Concerns Assessment Noted Time PHQ-9 Depression Total Score: 0 09/26/19 23 10:18 AM EDT documented as of this encounter Care Teams Neonatal Surgeon Relationship Specialty Start Date End Date Rahel Mesa DO [address] [place] [id number] PCP - General Family Medicine 07/09/18 Cammy Zapata, Eder [address] [place] [phone] Pharmacist Internal Medicine 05/09/23 documented as of this encounter
--- OUTSIDE RECORDS SUMMARY | 2024-09-02 18:23 | XMS_ITS | Encounter Summary ---
Author Organization [employer] Address [address] [place] [address] Care Team Providers Care Commercial Driver Name Role Phone Rahel Mesa DO Primary Care Provider [phone] Cammy Zapata PharmD Unavailable [phone] Encounter Details Date Type Department Care Team (Late st Contact Info) Description 10/19/2023 Orders Only [facility] [address] [place], [place] [phone] ProviderVincent MD Social History Tobacco Use Types Packs/Day Years Used Date Smoking Tobacco: Former Cigarettes Smokeless Tobacco: Former Alcohol Use Standard Drinks/Week Comments Never 0 (1 standard drink = 0.6 oz pur e alcohol) Depression Answer Date Recorded Patient Health Questionnaire-9 Score 1 10/05/2023 Patient Health Questionnaire-9 Score 1 10/05/2023 Last PHQ-9: Questionnaire Data Not on file 0 10/05/2023 Housing Stability Answer Date Recorded What is your housing situation today? I have laynetello dean 10/05/[address] you li ve. Do you have problems with any of the following? None of the above 10/05/2023 Food Insecurity Answer Date Recorded Within the past 12 months, y ou worried that your food would run out before you got money to buy more: Never True 2023 Within the past 12 months,th e food you bought just didn't last and you didn't have enough money to get more: Sometimes True 10/05/2023 Transportation Answer Date Recorded In the past [...] Date Recorded Patient Health Questionnaire-2 Score 0 10/05/2023 Comments Unknown Sex and Gender Information Value Date Recorded Sex Assigned at Female 05/08/2022 10:16 AM EDT Legal Sex Female 10:16 AM EDT Gender Identity Female 05/08/2022 10:16 AM EDT Sexual Orientation Straight 05/08/2022 10 :16 AM EDT documented as of this encounter Plan of Treatment Not on file documented as of this encounter Goals Goal Patient Goal Type Associated Problems Recent Progress Patient-Stated? Author Hemoglobin A1c < 7 Result Component 5.7( 10:26 AM EDT) No Sam Chaney PharmD Record your blood sugar as directed Result Component No Cammy Zapata PharmD documented as of this encounter Procedures Procedure Name Priority Date/Time Associated Diagnosis Comments HM COLONOSCOPY Routine 08/19/2019 11:19 AM EST documented in this encounter Results * Hm Colonoscopy (08/19/2019 11:19 AM EST) us Historical Provider HEALTH MAINTENANCE Final Result documented in this encounter Visit Diagnoses Not on filedocumented in this encounter Additional Health Concerns Assessment Noted Time PHQ-9 Depression Total Score: 1 10/05/19 24 11:50 AM EDT documented as of this encounter Care Teams Commercial Driver Relationship Specialty Start Date End Date Rahel Mesa DO [address] [place] [address] PCP - General Family Medicine 07/09/18 Cammy Zapata, PharmD [address] [place] [address] Pharmacist Internal Medicine 05/09/23 documented as of this encounter
--- OUTSIDE RECORDS SUMMARY | 2024-09-02 18:23 | XMS_ITS | Encounter Summary ---
Author Organization [employer] Address [address] [place] [address] Care Team Providers Care Pupil Personnel Worker Name Role Phone Rahel Mesa DO Primary Care Provider + [phone] Cammy Zapata PharmD Unavailable [phone] Encounter Details Date Type Department Care Team (Latest Contact Info) Description 08/15/2024 Travel Social History Tobacco Use Types Packs/Day Years Used Date Smoking Tobacco: Former Cigarettes Smokeless Tobacco: Former Alcohol Use Standard Drinks/Week Comments Never 0 (1 standard drink = 0.6 oz pur e alcohol) Depression Answer Date Recorded Patient Health Questionnaire-9 Score 2 06/26/2024 Patient Health Questionnaire-9 Score 2 06/26/2024 Last PHQ-9: Questionnaire Data Not on file 1 08/27/2023 Housing Stability Answer Date Recorded What is your housing situation today? I have layne dean 10/05/[address] you [...] Answer Date Recorded Patient Health Questionnaire-2 Score 2 06/26/2024 Comments Unknown Sex and Gender Information Value [...] Zapata PharmD documented as of this encounter Visit Diagnoses Not on filedocumented in this encounter Additional Health Concerns Assessment Noted Time PHQ-9 Depression Total Score: 2 06/26/20 24 9:53 AM EST documented as of this encounter Care Teams Pupil Personnel Worker Relationship Specialty Start Date End Date Rahel Mesa DO [address] [place] [address] PCP - General Family Medicine 07/09/18 Cammy Zapata PharmD [address] [place] [address] Pharmacist Internal Medicine 05/09/23 documented as of this encounter
--- OUTSIDE RECORDS SUMMARY | 2024-09-02 18:23 | XMS_ITS | Clinical Summary ---
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 Name Role Phone Unavailable Primary Care Provider Unavailabl e Encounters Date Type Department Care Team Description 08/22/2024 3:30 PM EST - 08/22/2024 11:59 PM EST Hospital Encounter [facility] PET Scan [address] [place] [address] scan Discharge Disposition: Home or Self Care from Last 3 Months Medical History Medical History Date Comments Tobacco abuse 03/13/2012 DX:Tobacco abuse PTSD (post-traumatic stress disorder) 03/13/2012 DX:PTSD (post-traumatic stress disorder) Depression 03/13/2012 DX:Depression Polysubstance abuse ([facility]) 03/13/2012 DX :Polysubstance abuse ([facility]) COPD (chronic obstructive pu lmonary disease) ([facility]) 03/13/2012 DX:COPD (chronic obstructive pulmonary disease) ([facility]) Asthma 03/13/2012 DX:Asthma S/P tonsillectomy 03/13/2012 DX:S/P tonsill ectomy S/P tubal ligation 03/13/2012 DX:S/P tubal ligation Family History Medical History Relation Name Comments Heart attack Father fatal Heart attack Sister 1 Heart attack Uncle 1 fatal Relation Name Status Comments Father Sister 1 Sister 2 Uncle 1 Uncle 2 Social History Tobacco Use Types Packs/Day Years Used Date Smoking Tobacco: Every Day Alcohol Use Standard Drinks/Week Comments Not Asked 0 (1 standard drink = 0.6 oz pur e alcohol) Comments Unknown Sex and Gender Information Value Date Recorded Sex Assigned at Not on file Legal Sex Female 8:04 PM EST Gender Identity Not on file Sexual Orientation Not on file Obstetrics History Plan of Treatment Health Maintenance Due Date Last Done Comments Breast Cancer Screening 1955 Diabetes: Annual GFR (Glomerular Filtration Rate) 1956 Diabetes: Annual Foot Exam 1966 Diabetes: Annual Retina Eye Exam 1966 Hepatitis A Vaccines (2 of 2 - Risk 2-dose series) 01/30/2008 08/01/2007 Hepatitis B Vaccines (1 of 3 - Risk 3-dose series) 2016 Colorectal Cancer Screening: Colonoscopy 06/18/2022 Falls Risk Assessment 06/18/2022 Hepatitis C Screening 06/18/2022 Osteoporosis Screening (Bone Density Screening) 06/18/2022 Social Influencers of Health Screening 06/18/2022 Diabetes: Annual Urine Albumin-Creatinine Ratio (uACR) 08/22/2024 Hypertension/CHF/CAD Annual BMP Blood Test 08/22/2024 Diabetes: Blood Sugar Control Test (HGBA1C) 10/22/2024 04/23/2024 Depression Screening 06/26/2025 06/26/2024 Cholesterol Screening (Lipid Panel) 10/14/2028 10/15/2023 DTaP,Tdap,and Td Vaccines (4 - Td or Tdap) 06/26/2034 06/26/2024, 01/29/2014, 08/01/2007 Pneumococcal Vaccine: 50+ Years Completed 01/24/2023, 08/22/2021, 08/19/2013, Additional history exists RSV Immunization Patients 60+ Years Old Completed 06/20/2023 Zoster Vaccines Completed 06/29/2023, 10/07, 06/19/2018 COVID-19 Vaccine Completed 04/23/2024, 07/2022, 05/11/2022, Additional history exists Influenza Vaccine Completed 04/23/2024, , 05/11/2022, Additional history exists HIB Vaccines Aged Out No longer eligi ble based on patient's age to complete this topic HPV Vaccines Aged Out No longer eligi ble based on patient's age to complete this topic IPV Vaccines Aged Out No longer eligi ble based on patient's age to complete this topic MMR Vaccines Aged Out No longer eligi ble based on patient's age to complete this topic Meningococcal ACWY Vaccine Aged Out N o longer eligible based on patient's age to complete this topic Meningococcal B Vacine Aged Out No lo nger eligible based on patient's age to complete this topic RSV Immunization Patients Under 20 months Aged Out No longer eligible based on patient's age to complete this topic Varicella Vaccines Aged Out No longer eligible based on patient's age to complete this topic Procedures Procedure Name Priority Date/Time Associated Diagnosis Comments PET CT SKULL TO MID THIGH INITIAL Routine 08/22/2024 5:[address] scan from Last 3 Months Results * PET CT Skull to Mid Thigh Initial (08/22/2024 5:30 PM EST) Anatomical Region Laterality Modality Body Radiographic Susie ging 08/27/2024 3:30 AM EST Impressions 08/27/2024 4:18 AM EST 1. ??FDG avid pulmonary nodule in the right lower lobe suspicious for neoplasm 2. ??No FDG avid lymphadenopathy or osseous lesions Please note: The CT was acquired at a low radiation dose settings. ??The images are of nondiagnostic quality and used solely for purposes of attenuation correction and slice localization for the PET scan. ??If a diagnostic CT study is desired it must be ordered separately. -------- FINAL REPORT -------- Dictated By: Kelsey Guajardo Dictated Date: 08/27/2024 03:30 ET Assigned Physician: Kelsey Guajardo Reviewed and Electronically Signed By: Kelsey Guajardo Signed Date: 08/27/2024 04:18 ET Workstation ID: [id number] Transcribed By: Self Edit Transcribed Date: 08/27/2024 03:30 ET Narrative 08/27/2024 4:18 AM EST INDICATION: Spiculated mass right lower lobe seen on outside chest CT. TECHNIQUE: FDG PET-CT imaging was performed from the skull bases through the thighs in a single acquisition with data set reconstructed in axial, coronal, and sagittal planes at the computer workstation with fused data from both the PET imaging study and attenuation correction CT. The CT portion of the examination was done strictly for attenuation correction and is not a true diagnostic CT examination. DLP: ??391 mGy-cm Radiopharmaceutical: 11.0 mCi of F-18 FDG IV. Blood glucose: 86 mg/dl. COMPARISON: None. FINDINGS: HEAD AND NECK: No abnormal FDG activity. THORAX: 1.6 x 2.0 cm pulmonary nodule in the right lower lobe with calcification SUV Max 7.7. Other scattered bilateral smaller pulmonary nodules not demonstrating significant FDG activity due to small size. ??For example, 5 mm nodule in the left lower lobe SUV max 0.5 and 4 mm nodule in the right lower lobe laterally SUV max 0.8. ??Opacity/nodule in the lingula SUV max 0.8. No significant FDG avid thoracic lymphadenopathy. ??For example, right paratracheal SUV max 1.1 and subcarinal SUV max 1.4 (mediastinal blood pool SUV Max 2.4). Surgical clips near the thyroid gland. ABDOMEN/PELVIS: Diffuse bowel activity, likely physiologic. ??No FDG avid abdominal or pelvic lymphadenopathy. Diverticulosis. MUSCULOSKELETAL: No abnormal FDG activity. Procedure Note Kelsey Guajardo MD - 08/27/2024 INDICATION: Spiculated mass right lower lobe seen on outside chest CT. TECHNIQUE: FDG PET-CT imaging was performed from the skull bases throughthe thighs in a single acquisition with data set reconstructed in axial,coronal, and sagittal planes at the computer workstation with fused datafrom both the PET imaging study and attenuation correction CT. The CTportion of the examination was done strictly for attenuation correctionand is not a true diagnostic CT examination. DLP: 391 mGy-cm Radiopharmaceutical: 11.0 mCi of F-18 FDG IV. Blood glucose: 86 mg/dl. COMPARISON: None. FINDINGS: HEAD AND NECK: No abnormal FDG activity. THORAX: 1.6 x 2.0 cm pulmonary nodule in the right lower lobe withcalcification SUV Max 7.7. Other scattered bilateral smaller pulmonary nodules not demonstratingsignificant FDG activity due to small size. For example, 5 mm nodule inthe left lower lobe SUV max 0.5 and 4 mm nodule in the right lower lobelaterally SUV max 0.8. Opacity/nodule in the lingula SUV max 0.8. No significant FDG avid thoracic lymphadenopathy. For example, rightparatracheal SUV max 1.1 and subcarinal SUV max 1.4 (mediastinal bloodpool SUV Max 2.4). Surgical clips near the thyroid gland. ABDOMEN/PELVIS: Diffuse bowel activity, likely physiologic. No FDG avidabdominal or pelvic lymphadenopathy. Diverticulosis. MUSCULOSKELETAL: No abnormal FDG activity. IMPRESSION: 1. FDG avid pulmonary nodule in the right lower lobe suspicious forneoplasm 2. No FDG avid lymphadenopathy or osseous lesions Please note: The CT was acquired at a low radiation dose settings. The images are ofnondiagnostic quality and used solely for purposes of attenuationcorrection and slice localization for the PET scan. If a diagnostic CTstudy is desired it must be ordered separately. -------- FINAL REPORT -------- Dictated By: Kelsey Guajardo Dictated Date: 08/27/2024 03:30 ET Assigned Physician: Kelsey Guajardo Reviewed and Electronically Signed By: Kelsey Guajardo Signed Date: 08/27/2024 04:18 ET Workstation ID: [id number] Transcribed By: Self Edit Transcribed Date: 08/27/2024 03:30 ET Merna Purcell [facility] PROCEDURES Final Result from Last 3 Months
--- OUTSIDE RECORDS SUMMARY | 2024-09-02 18:23 | XMS_ITS | Encounter Summary ---
Author Organization [employer] Address [address] [place] [address] Care Team Providers Care Putaway Driver Name Role Phone Rahel Mesa DO Primary Care Provider [phone] Cammy Zapata PharmD Unavailable [phone] Encounter Details Date Type Department Care Team (Late st Contact Info) Description 07/05/2023 Abstract [facility] [address], [place] [phone] Rahel Mesa DO [address], [place] [phone] Social History Tobacco Use Types Packs/Day Years [...] Component 5.7( 10:26 AM EDT) No Sam Chaney, PharmD Record your blood sugar as directed Result Component No Cammy Zapata, PharmD documented as of this encounter Visit Diagnoses Not on filedocumented in this encounter Additional Health Concerns Assessment Noted Time PHQ-9 Depression Total Score: 0 09/26/19 23 10:18 AM EDT documented as of this encounter Care Teams Putaway Driver Relationship Specialty Start Date End Date Rahel Mesa DO [address] [place] [address] PCP - General Family Medicine 07/09/18 Cammy Zapata, PharmD [address] [place] [address] Pharmacist Internal Medicine 05/09/23 documented as of this encounter
--- OUTSIDE RECORDS SUMMARY | 2024-09-02 18:23 | XMS_ITS | Data Portability ---
Author Organization [employer] Address [address] [place] [address] Care Team Providers Care Independent Distributor Name Role Phone [facility] Referring Provider HIM CCA OTHER Assessment Encounter Date Assessment Date Assessment LastModified by Organization Details LastModified Time 01/03/2023 01/03/2023 I have reviewed and agree with the assessment and plan as documented by the licensed therapist. I provided real-time medical direction for this encounter and was immediately available to provide additional phone-based assistance as needed. 67F with history of heart disease, COPD, HTN, presents with urinary symptoms, history of UTI's in the past. No flank pain, no fever, slight dysuria. Vitals stable at baseline. U/A positive for leuks and nitrites. Glucose 179. Pt likely with UTI, will initiate antibiotics. No allergies, no renal history. For Bactrim. Patient given instructions to monitor symptoms and to seek medical attention if severe worsening pain, fever or new concerns. For f/u urine culture. [facility] Not available 01/03/2023 12:52:05 03/16/2023 03/16/2023 I provided real -time medical direction via phone for this encounter, and was available for additional phone based assistance as needed. I have reviewed and agree with the Assessment and Plan as documented by the Aeronautical Test Engineer. Patient given the opportunity to ask questions. Advised if develops CP/severe SOB/turning blue/ severe abd or flank pain/uncontrolle d n/v/d or black/bloody emesis or stool/ AMS/ syncope/ hi fever to call 911- verbalized understanding of instructions [email or web address] Not available 03/16/2023 17:14:27 02/04/2024 02/04/2024 Ms. Bonnie Shore is a 68yoF w/ a PmHx of COPD who is seen today for further evaluation of a pruritic rash. Ms. Shore reports that for the past year she has had an intermittent rash over her back and arms. She reports that the itching will come in waves but seems to be much worse at night. She denies fevers/chills or new environmental exposures. No one else at home has the rash. VSS for home oxygen use. Pictures upload rash show papules with excoriations. Concerned that this is mite related; bed bugs vs scabies, more likely bed bugs given area involved. Encouraged bagging mattresses/linen s or washing/drying in hot water/high heat. Will send permethrin given low risk/low cost and possibility of scabies given ?tracking noted on pictures. [facility] Not available 02/04/2024 14:08:26 Plan of Treatment Reminders Order Date Submit Date Provider Last Modified By Organization Details Last Modified Time Details Appointments None recorded. Lab culture, urine 2022 023 FELICIANO [facility] (Centralized Electronic Ordering - All Locations), Patient Can Go To The Location Of Their Choice, [id number] 3 07:54:12 urinalysis, dipstick 2022 023 [email or web address] 0 Main - [facility], [address] [place] [address], [phone], 3 17:10:22 BMP, serum or plasma 2022 023 [email or web address] 0 Main - [facility], [address] [place] [address], [address], 3 17:20:26 culture, urine 2022 023 FELICIANO [facility] (Centralized Electronic Ordering - All Locations), Patient Can Go To The Location Of Their Choice, [id number] 3 10:46:24 urinalysis, dipstick 2022 023 [email or web address] Main - [facility], [address] [place] [address], [phone], 3 12:52:08 Referral None recorded. Procedures None recorded. Surgeries None recorded. Imaging None recorded. Medication Orders permethrin 5 % topical cream 2023 024 [id number], [address] [place], [address], 4 14:05:45 Bactrim DS 800 mg-160 mg tablet 2022 023 [id number], [address] [place], [address], 3 17:11:22 Bactrim DS 800 mg-160 mg tablet 2022 023 [email or web address] [id number] [address] [place], [address], 3 17:11:20 Bactrim DS 800 mg-160 mg tablet 2022 023 [id number], [address] [place], [address], 3 12:52:10 Patient TargetsNo targets recorded. Patient InstructionsNo instructions recorded. Reason for Referral None Reported. Results Created Date Observation Date Name Description Value Unit Range Abnormal Flag Note LastModifiedBy Organization Detail LastModifiedTime 01/04/2001/03/2023 URINE CULTU RE specimen description URINE Not Available [facility] (Centralized Electronic Ordering - All Locations) Patient Can Go To The Location Of Their Choice, 01/05/2023 10:46:23 01/04/2001/03/2023 URINE CULTU RE special requests NONE Not Available [facility] (Centralized Electronic Ordering - All Locations) Patient Can Go To The Location Of Their Choice, 01/05/2023 10:46:23 01/04/2001/05/2023 URINE CULTU RE culture abnormal >100, 000 COL/M L ESCHE LILY A COLI These AST resul ts were perfo rmed on the Micro scan ID and AST syste m Not Available [facility] (Centralized Electronic Ordering - All Locations) Patient Can Go To The Location Of Their Choice, 01/05/2023 10:46:23 01/04/2001/05/2023 URINE CULTU RE report status FINAL 2022 Not Available [facility] (Centralized Electronic Ordering - All Locations) Patient Can Go To The Location Of Their Choice, 01/05/2023 10:46:23 01/04/2001/05/2023 URINE CULTU RE organism ORGAN ISM >100, 000 COL/M L ESCHE LILY A COLI These AST resul ts were perfo rmed on the Micro scan ID and AST syste m Not Available [facility] (Centralized Electronic Ordering - All Locations) Patient Can Go To The Location Of Their Choice, 01/05/2023 10:46:23 01/04/2001/05/2023 URINE CULTU RE method METHOD MIN. INHIB. CONC. (MCG/M L) Not Available [facility] (Centralized Electronic Ordering - All Locations) Patient Can Go To The Location Of Their Choice, 01/05/2023 10:46:23 01/04/2001/05/2023 URINE CULTU RE amoxicillin/ clavulanic acid AMOXIC ILLIN/ CLAVUL AN SUSCEP TIBLE susceptib le Not Available [facility] (Centralized Electronic Ordering - All Locations) Patient Can Go To The Location Of Their Choice, 01/05/2023 10:46:23 01/04/2001/05/2023 URINE CULTU RE ampicillin AMPICI LLIN SUSCEP TIBLE susceptib le Not Available [facility] (Centralized Electronic Ordering - All Locations) Patient Can Go To The Location Of Their Choice, 01/05/2023 10:46:23 01/04/2001/05/2023 URINE CULTU RE ampicillin/s ulbactam AMPICI LLIN/S ULBACT AM SUSCEP TIBLE susceptib le Not Available [facility] (Centralized Electronic Ordering - All Locations) Patient Can Go To The Location Of Their Choice, 01/05/2023 10:46:23 01/04/2001/05/2023 URINE CULTU RE cefazolin CEFAZO EVERETT SUSCEP TIBLE susceptib le Not Available [facility] (Centralized Electronic Ordering - All Locations) Patient Can Go To The Location Of Their Choice, 01/05/2023 10:46:23 01/04/2001/05/2023 URINE CULTU RE cefepime CEFEPI ME SUSCEP TIBLE susceptib le Not Available [facility] (Centralized Electronic Ordering - All Locations) Patient Can Go To The Location Of Their Choice, 01/05/2023 10:46:23 01/04/2001/05/2023 URINE CULTU RE ceftriaxone CEFTRI AXONE SUSCEP TIBLE susceptib le Not Available [facility] (Centralized Electronic Ordering - All Locations) Patient Can Go To The Location Of Their Choice, 01/05/2023 10:46:23 01/04/2001/05/2023 URINE CULTU RE ciprofloxaci n CIPROF LOXACI N SUSCEP TIBLE susceptib le Not Available [facility] (Centralized Electronic Ordering - All Locations) Patient Can Go To The Location Of Their Choice, 01/05/2023 10:46:23 01/04/2001/05/2023 URINE CULTU RE ertapenem ERTAPE NEM SUSCEP TIBLE susceptib le Not Available [facility] (Centralized Electronic Ordering - All Locations) Patient Can Go To The Location Of Their Choice, 01/05/2023 10:46:23 01/04/2001/05/2023 URINE CULTU RE gentamicin GENTAM ICIN SUSCEP TIBLE susceptib le Not Available [facility] (Centralized Electronic Ordering - All Locations) Patient Can Go To The Location Of Their Choice, 01/05/2023 10:46:23 01/04/2001/05/2023 URINE CULTU RE levofloxacin LEVOFL OXACIN SUSCEP TIBLE susceptib le Not Available [facility] (Centralized Electronic Ordering - All Locations) Patient Can Go To The Location Of Their Choice, 01/05/2023 10:46:23 01/04/2001/05/2023 URINE CULTU RE meropenem MEROPE NEM SUSCEP TIBLE susceptib le Not Available [facility] (Centralized Electronic Ordering - All Locations) Patient Can Go To The Location Of Their Choice, 01/05/2023 10:46:23 01/04/2001/05/2023 URINE CULTU RE nitrofuranto in NITROF URANTO IN SUSCEP TIBLE susceptib le Not Available [facility] (Centralized Electronic Ordering - All Locations) Patient Can Go To The Location Of Their Choice, 01/05/2023 10:46:23 01/04/20 23 01/05/2023 URINE CULTU RE piperacillin /tazobactam PIPERA CILLIN /TAZOB AC SUSCEP TIBLE susceptib le Not Available [facility] (Centralized Electronic Ordering - All Locations) Patient Can Go To The Location Of Their Choice, 01/05/2023 10:46:23 01/04/20 23 01/05/2023 URINE CULTU RE tetracycline TETRAC YCLINE SUSCEP TIBLE susceptib le Not Available [facility] (Centralized Electronic Ordering - All Locations) Patient Can Go To The Location Of Their Choice, 01/05/2023 10:46:23 01/04/20 23 01/05/2023 URINE CULTU RE trimeth/sulf amethox TRIMET H/SULF AMETHO X SUSCEP TIBLE susceptib le Not Available [facility] (Centralized Electronic Ordering - All Locations) Patient Can Go To The Location Of Their Choice, 01/05/2023 10:46:23 01/04/2001/03/2023 urina lysis , dipst ick Leukocytes positi ve Not Available Main - [facility] ed [address] [place] [address], [phone], 01/03/2023 12:50:05 01/04/2001/03/2023 urina lysis , dipst ick Nitrite positi ve Not Available [facility] ed [address] [place] [address], [phone], 01/03/2023 12:50:05 03/16/2003/16/2023 URINE CULTU RE specimen description URINE Not Available [facility] (Centralized Electronic Ordering - All Locations) Patient Can Go To The Location Of Their Choice, 03/18/2023 07:54:12 03/16/2003/16/2023 URINE CULTU RE special requests NONE Not Available [facility] (Centralized Electronic Ordering - All Locations) Patient Can Go To The Location Of Their Choice, 03/18/2023 07:54:12 03/16/2003/18/2023 URINE CULTU RE culture <10,00 0 COL/ML abnormal Not Available [facility] (Centralized Electronic Ordering - All Locations) Patient Can Go To The Location Of Their Choice, [facility] [place] 03/18/2023 07:54:12 03/16/2003/18/2023 URINE CULTU RE report status FINAL 2022 Not Available [facility] (Centralized Electronic Ordering - All Locations) Patient Can Go To The Location Of Their Choice, [facility] [place] 03/18/2023 07:54:12 03/16/20 23 03/16/2023 BMP, serum or plasm a BUN 13 Not Available Main - [facility] [address], [address], 03/16/2023 17:14:35 03/16/20 23 03/16/2023 BMP, serum or plasm a Ca ical 4.4 Not Available Main - [address], [address], 03/16/2023 17:14:35 03/16/20 23 03/16/2023 BMP, serum or plasm a CI- 94 Not Available Main - [facility] [address], [address], 03/16/2023 17:14:35 03/16/20 23 03/16/2023 BMP, serum or plasm a CRE 0.47 Not Available Main - [facility] [address], [address], 03/16/2023 17:14:35 03/16/20 23 03/16/2023 BMP, serum or plasm a GLU 187 Not Available Main - [facility] [address], [address], 03/16/2023 17:14:35 03/16/20 23 03/16/2023 BMP, serum or plasm a K+ 4.5 Not Available Main - [facility] [address], [address], 03/16/2023 17:14:35 03/16/20 23 03/16/2023 BMP, serum or plasm a Na+ 135 Not Available Main - [facility] [address], [address], 03/16/2023 17:14:35 03/16/20 23 03/16/2023 BMP, serum or plasm a tCO2 26 Not Available Main - [facility] [address], [address], 03/16/2023 17:14:35 03/16/20 23 03/16/2023 urina lysis , dipst ick Leukocytes +3 Not Available Main - [facility] [address] [place] [address], [address], 03/16/2023 17:08:15 03/16/20 23 03/16/2023 urina lysis , dipst ick Nitrite negati ve Not Available Main - [facility] [address], [address], 03/16/2023 17:08:15 03/16/20 23 03/16/2023 urina lysis , dipst ick Urobilinogen neg Not Available Main - [facility] [address] [place] [address], [address], 03/16/2023 17:08:15 03/16/20 23 03/16/2023 urina lysis , dipst ick Protein 3+ Not Available Main - [facility] [address], [address], 03/16/2023 17:08:15 03/16/20 23 03/16/2023 urina lysis , dipst ick pH 6.5 Not Available Main - [facility] [address], [address], 03/16/2023 17:08:15 03/16/20 23 03/16/2023 urina lysis , dipst ick Blood 3+ Not Available Main - [facility] [address], [address], 03/16/2023 17:08:15 03/16/20 23 03/16/2023 urina lysis , dipst ick Specific Nelson 1.005 Not Available Main - [facility] [address] [place] [address], [address], 03/16/2023 17:08:15 03/16/20 23 03/16/2023 urina lysis , dipst ick Ketone neg Not Available Main - [facility] [address], [address], 03/16/2023 17:08:15 03/16/20 23 03/16/2023 urina lysis , dipst ick Bilirubin neg Not Available Main - [facility] [address] [place] [address], [address], 03/16/2023 17:08:15 03/16/2003/16/2023 urina lysis , dipst ick Glucose neg Not Available Main - [facility] [address], [address], 03/16/2023 17:08:15 03/16/20 23 03/16/2023 urina lysis , dipst ick Appearance Clear yellow with some white clumpy sedime nt Not Available Main - [facility] [address] [place] [address], [address], 03/16/2023 17:08:15 03/16/20 23 03/16/2023 urina lysis , dipst ick Color Yellow Not Available Main - [facility] [address], [address], 03/16/2023 17:08:15 Result Notes None recorded. Medical Equipment None Reported. Allergies No known drug allergies Medications Name Sig Start Date Stop Date Status Note LastModified by Organization Details LastModified Time metformin 500 mg tablet TAKE 2 TABLETS BY MOUTH TWICE A DAY WITH MORNING AND EVENING MEALS active Not Available Not Available No t Available cetirizine 10 mg tablet TAKE 1 TABLET BY MOUTH EVERY DAY active Not Available Not Available No t Available azithromycin 250 mg tablet TAKE 2 TABLETS BY MOUTH TODAY, THEN TAKE 1 TABLET DAILY FOR 4 DAYS active Not Available Not Available No t Available fluconazole 150 mg tablet TAKE 1 TABLET BY MOUTH ONE TIME FOR 1 DOSE active Not Available Not Available No t Available senna 8.6 mg tablet TAKE 2 TABLETS BY MOUTH EVERY DAY NEEDED FOR CONSTIPATIO N active Not Available Not Available No t Available FreeStyle Lancets 28 gauge USE TO CHECK BLOOD SUGAR ONCE DAILY, DIRECTED. active Not Available Not Available No t Available permethrin 5 % topical cream THOROUGHLY MASSAGE INTO SKIN FROM HEAD TO FOOT SOLES ONCE&LEAVE FOR 8-14 HOURS THEN THOROUGHLY WASH active Not Available Not Available No t Available sulfamethoxa zole 800 mg-trimethop rim 160 mg tablet TAKE 1 TABLET BY MOUTH EVERY 12 HOURS FOR 5 DAYS active Not Available Not Available N ot Available aspirin 81 mg tablet,delay ed release TAKE 1 TABLET BY MOUTH ONCE DAILY. active Not Available Not Available No t Available doxycycline monohydrate 100 mg tablet TAKE 1 TAB ORALLY 2 TIMES A DAY FOR 21 DAYS active Not Available Not Available Not Available prednisone 50 mg tablet TAKE 1 TABLET BY MOUTH EVERY DAY active Not Available Not Available No t Available triamcinolon e acetonide 55 mcg nasal spray aerosol SPRAY 2 BY INHALATION ROUTE EVERY DAY active Not Available Not Available No t Available docusate sodium 100 mg capsule TAKE 1 CAPSULE BY MOUTH 2 TIMES EVERY DAY NEEDED NEEDED FOR CONSTIPATIO N active Not Available Not Available No t Available omeprazole 20 mg capsule,amy yed release TAKE 1 CAPSULES BY MOUTH BEFORE BREAKFAST DO NOT CRUSH, CHEW, OR SPLIT active Not Available Not Available No t Available zolpidem 10 mg tablet TAKE 1 TABLET BY MOUTH AT BEDTIME NEEDED FOR SLEEP active Not Available Not Available No t Available albuterol sulfate HFA 90 mcg/actuatio n aerosol inhaler INHALE 2 PUFFS EVERY 4 HOURS NEEDED FOR COUGH, WHEEZE, OR SHORTNESS OF BREATH active Not Available Not Available No t Available lisinopril 2.5 mg tablet TAKE 1 TABLET BY MOUTH EVERY DAY active Not Available Not Available No t Available rosuvastatin 40 mg tablet TAKE 1 TABLET BY MOUTH EVERY DAY active Not Available Not Available No t Available Alcohol Prep Pads USE 1 SWAB BY TOPICAL ROUTE ONCE DAILY PRIOR TO TESTING active Not Available Not Available N ot Available Flovent HFA 220 mcg/actuatio n aerosol inhaler TAKE 2 PUFFS BY MOUTH TWICE A DAY active Not Available Not Available No t Available OneTouch Verio test strips USE TO CHECK BLOOD SUGAR ONCE DAILY active Not Available Not Available No t Available Jardiance 10 mg tablet TAKE 1 TABLET BY MOUTH DAILY active Not Available Not Available Not Available Incruse Ellipta 62.5 mcg/actuatio n powder for inhalation INHALE 1 PUFF BY INHALATION ROUTE EVERY DAY AT THE SAME TIME EACH DAY active Not Available Not Available No t Available OneTouch Verio Flex Meter USE TO TEST BLOOD SUGAR EVERY DAY active Not Available Not Available No t Available nicotine (polacrilex) 2 mg buccal mini lozenge USE 1 LOZENGE BY MOUTH EVERY 8 HOURS DISSOLVED SLOWLY IN THE MOUTH active Not Available Not Available No t Available Synjardy XR 5 mg-1,000 mg tablet, extended release TAKE 2 TABLETS BY MOUTH WITH BREAKFAST. active Not Available Not Available N ot Available Wixela Inhub 500 mcg-50 mcg/dose powder for inhalation INHALE 1 DOSE BY MOUTH TWICE DAILY. RINSE MOUTH AFTER USE active Not Available Not Available No t Available OneTouch Delica Plus Lancet 33 gauge USE TO TEST BLOOD SUGAR EVERY DAY. active Not Available Not Available N ot Available Vitals Date Recorded Respiratory rate Body weight Heart rate Body temperature Oxygen saturation Oxygen saturation in Arterial blood by Pulse oximetry Systolic blood pressure Diastolic blood pressure Provider Name and Address Organization Details Last Updated DateTime 3 14 /min 02719.8 4 g 94 /min 97.3 [degF] 98 % 98 % 128 mm[Hg] 81 mm[Hg] Not Available [employer] 3 12:47:35 Date Recorded Oxygen saturation Oxygen saturation in Arterial blood by Pulse oximetry Inhaled oxygen flow rate Respiratory rate Body temperature Heart rate Systolic blood pressure Diastolic blood pressure Provider Name and Address Organization Details Last Updated DateTime 3 93 % 93 % 2 L/min 16 /min 98.8 [degF] 98 /min 115 mm[Hg] 80 mm[Hg] Not Available [employer] 3 16:56:56 Date Recorded Oxygen saturation Oxygen saturation in Arterial blood by Pulse oximetry Inhaled oxygen flow rate Heart rate Respiratory rate Body temperature Systolic blood pressure Diastolic blood pressure Provider Name and Address Organization Details Last Updated DateTime 4 94 % 94 % 2 L/min 91 /min 16 /min 97.1 [degF] 155 mm[Hg] 86 mm[Hg] Not Available [employer] 4 14:00:46 Social History None recorded. Functional Status None recorded. Mental Status None recorded. Family History Nothing Reported. Medical History No medical history recorded. Gynecological HistoryNo gynecological history recorded. Obstetrics History GPAL:G 0 P 0 0 0 0 Past Encounters Encounter ID Performer Location Encounter Start Date Encounter Closed Date Diagnosis/Indication Diagnosis SNOMED-CT Code Diagnosis ICD10 Code Diagnosis Note [id number] Norah Rios MD Main - [facility] [address] [place] [phone] 01/03/2023 12:47:29 01/04/2023 11:19:14 Dysuria 28123502 R30.0 Urinary symptoms [id number] 08 R39.9 [id number] Emily Reyes MD Main - [facility] [address] [place] [id number] 03/16/2023 16:56:46 03/17/2023 16:02:20 Urinary symptoms [id number] R39.9 Findings consistent with urinary tract infection. Records reviewed patient received Bactrim on 01/03/2023 urine culture revealed an E. coli that was Bactrim sensitive. Advised patient to stay well-hydra jaycee. She may have Tylenol 500 mg(which she has at home) every 5-6 hours as needed. Advised the Bactrim can make her sun sensitive so that she should wear a broad brimmed hat and SPF 45 or greater whenever out while on the antibiotic s. I advised follow-up with PCP at the beginning of next week and to call us over the weekend if she is not improving in 2 to 3 days. She verbalized understand ing of yang rosenberg to the medic [id number] Lizzie Moss MD Main - [facility] [address] [place] [id number] 02/04/2024 14:00:38 02/04/2024 18:05:27 Pruritic rash [id number] L28.2 Health Concerns Section Related Observation LastModified by Organization Detai ls LastModified Time None Recorded Concern Status LastModified by Organization Details LastModified Time None Recorded Advance Directives Directive None Recorded Payers Encounter Date Sequence Insurance Name Policy Number Policy Valentin Covered Member ID Valentin Member ID Guarantor Name 01/03/2023 1 [facility] - DOS ON OR AFTER 2022 - DUAL ELIGIBLE - [facility] [employer] (MEDICARE REPLACEMENT/ADV ANTAGE - HMO) Bonnie Shore [id number] Bonnie Shore 03/16/2023 1 [facility] - DOS ON OR AFTER 2022 - DUAL ELIGIBLE - [facility] [employer] (MEDICARE REPLACEMENT/ADV ANTAGE - HMO) Bonnie Shore [id number] Bonnie Shore 02/04/2024 1 [facility] - DOS ON OR AFTER 2022 - DUAL ELIGIBLE - [facility] [employer] (MEDICARE REPLACEMENT/ADV ANTAGE - HMO) Bonnie Shore [id number] Bonnie Shore Notes Date Note Type Note Provider Name and Address Organization Details Recorded Time 01/03/2023 text/html HPI: Patient with onset of UTI symptoms yesterday. Blood in urine noted last night. Improved with hydration. No fever or back pain. Pain returned this morning with frequency and burning. .................. .................. .................. .................. .................. .................. .................. ............... CRC Nursing Assessment: Comments: CRC RN did not require any additional information to process this visit. Norah Rios MD [address] [place] [address],[address], [place], [phone] [employer] 01/03/2023 12:52:19 03/16/2023 text/html CRC Nursing Assessment: Reason For Request: Pt reporting UTI a couple months back and states now she feels she has frequency alongside urinating blood, which started today. Pt states she's had some blood in the past with the UTI but nothing like she's seen before. Patient Reports: Frequent and increased urination with flank pain; Painful urination with or without fever; Inability to fully empty bladderDenies: Painful urination Chief Complaints: UTI/Pyelonephritis PMH: Heart Disease, Hypertension, COPD/Asthma, DiabetesAllergies: No KnownComments: Verified address / identity Member had a UTI and was on antibiotic and went away. Member noted some hematuria. Member has never had any post menopaused bleeding . Member having urgency . Member denies any abd/ back pain / Fever/ chills/ nausea / vomiting . .................. .................. .................. .................. .................. .................. .................. ............... Aeronautical Test Engineer Note From Leif Shields: Pt report urinary pressure, and bloody urine for 2 days. States that she recently was DX with a UTI apps 3 months ago. On scene vs taken POC labs done with UA done. C was called pt given bactrim and cleared .................. .................. .................. .................. .................. .................. .................. ............... Disposition: Fulfilled .SEGMD: As above. She has had several days of frequency and severe urgency which feels like her prior UTI. She has noticed hematuria for 2 days . She is denying back pain/ flank pain or dysuria to the medic and me. She denies fever, chills, nausea vomiting or diarrhea. Emily Reyes MD [address] [facility],[address], [place], [phone], [place] [employer] 03/16/2023 17:24:05 02/04/2024 text/html [facility] Nurse Triage Notes (Juli Giles): Reason For Request: Pt reporting a full back rash and notes it is traveling to her arms>very itchy> Chief Complaints: Rash PMH: Heart Disease, Hypertension, COPD/Asthma, Diabetes Allergies: No Known Comments: Back has a rash on her back that is spreading to her right arm. Rash to back started 1 year ago. Increased itching and spreading within the last months. Scabbed areas to right shoulder area. Applying vaseline to areas. No fever/chills. Patient states family was diagnosed with strep throat 1 month ago. Patient had a sore throat that resolved. .................. .................. .................. .................. .................. .................. .................. ............... Aeronautical Test Engineer Note From [employer] [facility]: Pt reports waxing and waining itchy rash on her back for several years. Pt notes over the past month the rash has gotten worse. Pt denies f/n/v/d and has not noticed any bugs in her apartment. Pt is alert, NAD. VSS. Afebrile. Non focal neuro exam. Normal gait. Rash on back and upper right right arm appears c/w a mite. Pt educated on prescription and ways to eliminate bed bugs. Pt advised to f/u with PCP. Red flags reviewed. .................. .................. .................. .................. .................. .................. .................. ............... Disposition: Fulfilled Lizzie Moss MD [address] [place] [address],[address], [place], [phone], [place] BLUNT 02/04/2024 14:22:17 OBGyn Episode No OBEpisode recorded.
--- OUTSIDE RECORDS SUMMARY | 2024-09-02 18:23 | XMS_ITS | Encounter Summary ---
Author Organization [employer] Address [address] [facility] [address] [place] [address] Care Team Providers Care Temporary Administrative Assistant Name Role Phone Rahel Mesa DO Primary Care Provider [phone] Sam Chaney PharmD Unavailable Unavail able Cammy Zapata PharmD Unavailable [phone] Reason for Visit * Reason Comments Med Refill Encounter Details Date Type Department Care Team (Late st Contact Info) Description 01/23/2023 Refill [facility] [address] [place], [place] [phone] Rahel Mesa DO [address] [place], [place] [phone] Social History Tobacco Use Types Packs/Day Years Used Date Smoking Tobacco: Some Days Cigarettes Alcohol Use Standard Drinks/Week Comments Never 0 (1 standard drink = 0.6 oz pur e alcohol) Depression Answer Date Recorded Patient Health Questionnaire-9 Score 0 09/25/2022 Depression Answer Date Recorded Patient Health Questionnaire-2 [...] Author Hemoglobin A1c < 7 Result Component 5.7(04/23/2024 10:26 AM EDT) No Sam Chaney, PharmD documented as of this encounter Visit Diagnoses Not on filedocumented in this encounter Additional Health Concerns Assessment Noted Time PHQ-9 Depression Total Score: 0 09/26/19 10:18 AM EDT documented as of this encounter Care Teams Temporary Administrative Assistant Relationship Specialty Start Date End Date Rahel Mesa DO [address] [place] [address] PCP - General Family Medicine 07/09/18 Sam Chaney, PharmD [address] [place] [address] Pharmacist Internal Medicine 08/11/22 05/08/23 Cammy Zapata PharmD [address] [place] [address] Pharmacist Internal Medicine 05/09/23 documented as of this encounter
--- OUTSIDE RECORDS SUMMARY | 2024-09-02 18:23 | XMS_ITS | Encounter Summary ---
Author Organization [employer] Address [address] [facility] [address] [place] [address] Care Team Providers Care Supervisor [place] Name Role Phone Rahel Mesa DO Primary Care Provider [phone] Cammy Zapata PharmD Unavailable [phone] Reason for Visit * Reason Onset Date Comments Med Refill 01/31/2024 Encounter Details Date Type Department Care Team (Late st Contact Info) Description 01/31/2024 Telephone [facility] [address] [place], [place] [phone] Rahel Mesa DO [address] [place], [place] [phone] Med Refill Social History Tobacco Use Types Packs/Day Years [...] your housing situation today? I have layne jermaine 10/05/[address] you li [...] encounter Miscellaneous Notes * Telephone Encounter - Rahel Arango LPN - 01/31/2024 12:16 PM EDT Medication pended to PCP. * Telephone Encounter - Alexei You - 01/31/2024 12:13 PM EDT TC from pt requesting medication refill. Medications needing refill: docusate sodium (Colace) 100 MG capsule To be sent to: [facility]/pharmacy #[id number] - [place], [place] - [facility] documented in this encounter Plan of Treatment [...] documented as of this encounter Care Teams Supervisor [place] Relationship Specialty Start Date End Date Rahel Mesa DO [address] [place], [place] [phone] PCP - General Family Medicine 07/09/18 Cammy Zapata, Eder [address] [place] [address] Pharmacist Internal Medicine 05/09/23 documented as of this encounter
--- OUTSIDE RECORDS SUMMARY | 2024-09-02 18:23 | XMS_ITS | Encounter Summary ---
Author Organization [facility] Address [id number] [place] [phone] Care Team Providers Care Jawbone Breaker Name Role Phone Unavailable Primary Care Provider Unavailabl e Reason for Referral * Imaging (Routine) - Pending Review Specialty Diagnoses / Procedures Referred By Ericka saleem Referred To Contact Radiology Diagnoses Abnormal CT scan Procedures PET CT Skull to Mid Thigh Initial Merna Purcell [address] [place] [address] Dr Marion [place] Phone: tel: fax: [facility] KIERRA Referral ID Status Reason Start Date Expiration Date V isits Requested Visits Authorized [id number] Pending Review 08/21/2024 08/21/2025 1 1 Reason for Visit * Imaging (Routine) - Pending Review Specialty Diagnoses / Procedures Referred By Ericka saleem Referred To Contact Radiology Diagnoses Abnormal CT scan Procedures PET CT Skull to Mid Thigh Initial Merna Purcell [address] [place] [address] Dr Marion [place] Phone: tel: fax: [facility] KIERRA Referral ID Status Reason Start Date Expiration Date V isits Requested Visits Authorized [id number] Pending Review 08/21/2024 08/21/2025 1 1 Encounter Details Date Type Department Care Team (Latest Contact Info) Description 08/22/2024 3:30 PM EST - 08/22/2024 11:59 PM EST Hospital Encounter [facility] PET Scan [address] [place] [address] scan Discharge Disposition: Home or Self Care Social History Tobacco Use Types Packs/Day Years Used Date Smoking Tobacco: Every Day Alcohol Use Standard Drinks/Week Comments Not Asked 0 (1 standard drink = 0.6 oz pur e alcohol) Comments Unknown Sex and Gender Information Value Date Recorded Sex Assigned at Not on file Legal Sex Female 8:04 PM EST Gender Identity Not on file Sexual Orientation Not on file documented as of this encounter Discharge Disposition Disposition Code Departure Means Destination Home or Self Care documented in this encounter Plan of Treatment Not on file documented as of this encounter Procedures Procedure Name Priority Date/Time Associated Diagnosis Comments PET CT SKULL TO MID THIGH INITIAL Routine 08/22/2024 5:[address] scan documented in this encounter Results * PET CT Skull to Mid [...] Signed Date: 08/27/2024 04:18 ET Workstation ID: [id number] Transcribed By: Self Edit Transcribed Date: 08/27/2024 [...] Signed Date: 08/27/2024 04:18 ET Workstation ID: [id number] Transcribed By: Self Edit Transcribed Date: 08/27/2024 03:30 ET [facility] Purcell [facility] Final Result documented in this encounter Visit Diagnoses Diagnosis Abnormal CT scan Other nonspecific (abnormal) findings on radiological and other examinations of body structure documented in this encounter Administered Medications Inactive Administered Medications - up to 3 most recent administrations Medication Order MAR Action Action Date Dose Rate Site F-18 FDG pet diag radio-isotope injection 11 millicurie 11 millicurie, intravenous, Once in imaging, Starting on Sun08/22/24 at 1600, For 1 dose Given 08/22/2024 3:45 PM EST 11 millicuries Right Antecubital documented in this encounter Orders Medications Ordered That Hardy ht Not Have Been Administered Count Last Ordered Date First Ordered Date F-18 FDG pet diag radio-isot ope injection 11 millicurie 1 08/22/2024 documented in this encounter
--- OUTSIDE RECORDS SUMMARY | 2024-09-02 18:23 | XMS_ITS | Encounter Summary ---
Author Organization [employer] Address [address] [facility] [address] [place] [address] Care Team Providers Care Automatic Teller Machine Servicer Name Role Phone Moshe Rahel Primary Care Provider [phone] Cammy Zapata PharmD Unavailable [phone] Encounter Details Date Type Department Care Team (Late st Contact Info) Description 08/15/2024 10:00 AM EST Office Visit [facility] [address] [place], [place] [phone] Sabino Emery MD [address] [place], [place] [phone] Pruritic rash (Primary Dx) Social History Tobacco Use Types Packs/Day Years [...] AM EDT documented as of this encounter Last Filed Vital Signs Vital Sign Reading Time Taken Comments Blood Pressure 149/74 08/15/2024 10:03 AM EST Pulse 110 08/15/2024 10:03 AM EST Temperature 35.8 ??C (96.4 ??F) 08/15/2024 10:[address] Respiratory Rate 13 08/15/2024 10:03 AM EST Oxygen Saturation - - Inhaled Oxygen Concentration - - Weight 61.9 kg (136 lb 6.4 oz) 08/15/2024 10:03 AM EST Height - - Body Mass Index 23.41 06/26/2024 9:33 AM EST documented in this encounter Progress Notes * Sabino Emery MD - 08/15/2024 10:00 AM EST Subjective Patient ID: Bonnie Shore is a 69 y.o. female who presents for No chief complaint on file.. HPI 69 yr old woman with recurring rash on her back since 8 months ago, associated with itching. No involvement o of other areas. She was using diprolene ointment. Review of Systems Constitutional: Negative for diaphoresis, fatigue and fever. HENT: Negative for ear discharge, ear pain, facial swelling and hearing loss. Respiratory: Negative for cough, choking, chest tightness and shortness of breath. Cardiovascular: Negative for chest pain and leg swelling. Gastrointestinal: Negative for abdominal distention, abdominal pain and anal bleeding. Endocrine: Negative for cold intolerance and heat intolerance. Genitourinary: Negative for enuresis, flank pain and frequency. Musculoskeletal: Negative for arthralgias, back pain and gait problem. Skin: Positive for rash. Neurological: Negative for dizziness, facial asymmetry and headaches. Psychiatric/Behavioral: Negative for agitation, behavioral problems and confusion. Objective Physical Exam Constitutional: Appearance: Normal appearance. HENT: Head: Normocephalic and atraumatic. Nose: Nose normal. Eyes: Pupils: Pupils are equal, round, and reactive to light. Pulmonary: Effort: Pulmonary effort is normal. Musculoskeletal: General: Normal range of motion. Cervical back: Normal range of motion. Skin: Comments: Multiple excoriations of upper and lower back Neurological: General: No focal deficit present. Mental Status: She is alert. Assessment/Plan Diagnoses and all orders for this visit: Pruritic rash Advised to apply Tac 0.1% cream with cerave . Use long acting antihistamine (nahum) may use hydroxyzine at night. discontinue diprolene ointment. - triamcinolone (Kenalog) 0.1 % cream; Apply topically if needed in the morning and at bedtime (pain and swelling). Mix with Cerave documented in this encounter Plan of Treatment Not on file documented as of this encounter Goals Goal Patient Goal Type Associated Problems Recent Progress Patient-Stated? Author Hemoglobin A1c < 7 Result Component 5.7( 4 10:26 AM EDT) No Sam Chaney, PharmD Record your blood sugar as directed Result Component No Cammy Zapata PharmD documented as of this encounter Visit Diagnoses Diagnosis Pruritic rash- Primary documented in this encounter Additional Health Concerns Assessment Noted Time PHQ-9 Depression Total Score: 2 06/26/20 24 9:53 AM EST documented as of this encounter Care Teams Automatic Teller Machine Servicer Relationship Specialty Start Date End Date Rahel Mesa DO [address] [place], [place] [phone] PCP - General Family Medicine 07/09/18 Cammy Zapata, PharmD [address] [place] [address] Pharmacist Internal Medicine 05/09/23 documented as of this encounter
--- OUTSIDE RECORDS SUMMARY | 2024-09-02 18:23 | XMS_ITS | Encounter Summary ---
Author Organization [employer] Address [address] [place] [address] Care Team Providers Care President Practicing Urologist Name Role Phone Rahel Mesa DO Primary Care Provider + [phone] Cammy Zapata PharmD Unavailable [phone] Encounter Details Date Type Department Care Team (Late st Contact Info) Description 08/28/2024 Orders Only GENERIC EXTERNAL DATA DEPARTMENT Provider, Generic External Data Social History Tobacco Use Types Packs/Day Years [...] t he electric, gas, oil or water [employer] threatened to shut off services in your [...] Procedure Name Priority Date/Time Associated Diagnosis Comments XR CHEST 1 VIEW Routine 08/28/2024 11:15 AM EST XR CHEST 1 VIEW Routine 08/28/2024 10:10 AM EST GOMORI METHENAMINE STAIN Routine 08/28/2024 9:23 AM EST CELL BLOCK Routine 08/28/2024 9:23 AM EST GLUCOSE, WHOLE BLOOD Routine 08/28/2024 7:59 AM EST CBC WITH AUTO DIFFERENTIAL Routine 08/28/2024 7:38 AM EST documented in this encounter Results * XR Chest 1 View (08/28/2024 11:15 AM EST) Anatomical Region Laterality Modality Chest Radiographic Susie ging 08/28/2024 11:1 5 AM EST Narrative 08/28/2024 3:45 PM EST ? [facility] ?[address] ?[place] [address] ?XRay Report ? Signed ? Patient: Silviano,Bonnie P ?MR#: [id number] ?? 005 ? : 1955 ?Acct:[id number] ? Age/Sex: 69 / F ?ADM Date: 02/20/25 ? Loc: HO.SSS ? Attending Dr: Merna Purcell MD ? Ordering Physician: Sam Umaña ?? Date of Service: 08/28/24 ?? Procedure(s): XR chest 1V ?? Accession Number(s): [id number] ? cc: Rahel Mesa DO; Sam Umaña ? EXAMINATION: ?? XR CHEST ? CLINICAL INFORMATION: ?? s/p right lung biopsy 2hr ? COMPARISON: ?? August 28, 2024 at 10:14 AM. ? TECHNIQUE: ?? Frontal view of the chest was obtained. ? FINDINGS: ?? No gross pneumothorax. ?? Stable appearance of the lungs and cardiomediastinal silhouette. . ? XR/XR chest 1V ?? IMPRESSION: ?? No gross pneumothorax. Follow-up as clinically indicated. ? Electronically signed by: ??Gabriel Mehta MD ??08/28/2024 03:42 PM ?? EST RP ? Dictated By: ?Gabriel Rod MD ? Signed By: ?<Electronically signed by Gabriel Swan MD in OV> ? 08/28/24 1542 ? DD/ 1115 ? TD/TT: 08/28/24 1129 ? Rim Fire Charger Operator: ? Procedure Note Nat, Image - 08/28/[address] [address] XRay Report Signed Patient: Bonnie Shore PMR#: [id number] 005 : 6Acct:[id number] Age/Sex: 69 / FADM Date: 08/28/24 Loc: HO.SSS Attending Dr: Merna Purcell MD Ordering Physician: Sam Umaña Date of Service: 08/28/24 Procedure(s): XR chest 1V Accession Number(s): [id number] cc: Rahel Mesa DO; Sam Umaña EXAMINATION: XR CHEST CLINICAL INFORMATION: s/p right lung biopsy 2hr COMPARISON: August 28, 2024 at 10:14 AM. TECHNIQUE: Frontal view of the chest was obtained. FINDINGS: No gross pneumothorax. Stable appearance of the lungs and cardiomediastinal silhouette. . XR/XR chest 1V IMPRESSION: No gross pneumothorax. Follow-up as clinically indicated. Electronically signed by: Gabriel Mehta MD 08/28/2024 03:42 PM EST RP Dictated By: Gabriel Rod MD Signed By: <Electronically signed by Gabriel Swan MDin OV> 08/28/24 1542 DD/ 1115 TD/TT: 08/28/24 1129 Rim Fire Charger Operator: [facility] External Provider IMG XR PROCEDURES Final Result * XR Chest 1 View (08/28/2024 10:10 AM EST) Anatomical Region Laterality Modality Chest Radiographic Susie ging 08/28/2024 10:1 0 AM EST Narrative 08/28/2024 11:54 AM EST ? [facility] ?[address] ?[place] [address] ?XRay Report ? Signed ? Patient: Bonnie Shore ?MR#: [id number] ?? 005 ? : 1955 ?Acct:[id number] ? Age/Sex: 69 / F ?ADM Date: 08/28/24 ? Loc: HO.SSS ? Attending Dr: eMrna Purcell MD ? Ordering Physician: Sam Umaña ?? Date of Service: 08/28/24 ?? Procedure(s): XR chest 1V ?? Accession Number(s): [id number] ? cc: Rahel Mesa DO; Sam Umaña ? EXAMINATION: ?? XR CHEST ? CLINICAL INFORMATION: ?? s/p right lung biopsy ? COMPARISON: ?? None available. ? TECHNIQUE: ?? Frontal view of the chest was obtained. ? FINDINGS: ?? The cardiac, hilar, and mediastinal contours are normal. ? Lungs are hyperaerated bilaterally. There is increased size of the ?? spiculated appearing lesion in the right posterior lower lobe, likely ?? postbiopsy change. ?? No pneumothorax or effusion. ? No focal osseous or soft tissue abnormality. ? XR/XR chest 1V ?? IMPRESSION: ?? No pneumothorax status post right lung biopsy. ? Electronically signed by: ??Da Kimble MD ??08/28/2024 11:51 AM EST RP ? Dictated By: ?Da Kimble MD ? Signed By: ?<Electronically signed by Da Kimble MD in OV> ?08/28/24 1151 ? DD/ 1010 ? TD/TT: 08/28/24 1022 ? Rim Fire Charger Operator: ? Procedure Note Donotuseinterpreter, Image - 08/28/[address] [address] XRay Report Signed Patient: Bonnie Shore PMR#: [id number] 005 : 6Acct:[id number] Age/Sex: 69 / FADM Date: 08/28/24 [facility]: [facility] Attending Dr: Merna Purcell MD Ordering Physician: Sam Umaña Date of Service: 08/28/24 Procedure(s): XR chest 1V Accession Number(s): [id number] cc: Rahel Mesa DO; Sam Umaña EXAMINATION: XR CHEST CLINICAL INFORMATION: s/p right lung biopsy COMPARISON: None available. TECHNIQUE: Frontal view of the chest was obtained. FINDINGS: The cardiac, hilar, and mediastinal contours are normal. Lungs are hyperaerated bilaterally. There is increased size of the spiculated appearing lesion in the right posterior lower lobe, likely postbiopsy change. No pneumothorax or effusion. No focal osseous or soft tissue abnormality. XR/XR chest 1V IMPRESSION: No pneumothorax status post right lung biopsy. Electronically signed by: Da Kimble MD 08/28/2024 11:51 AM EST Dictated By: Da Kimble MD Signed By: <Electronically signed by Da Kimble MD in OV> 08/28/24 1151 DD/ 1010 TD/TT: 08/28/24 1022 Rim Fire Charger Operator: us [facility] External Provider IMG XR PROCEDURES Final Result * Cell Block (08/28/2024 9:23 AM EST) 08/28/2024 9:23 AM EST 08/28/2024 9:45 AM EST Narrative [facility] - 09/02/2024 11:17 AM EST ----- ------- Name: Bonnie Shore ?Age/Sex: 69/F ? : 1955 Unit#: [id number] ?? Attend Dr: Merna Purcell MD ?Re08/28/24 ?Status: DEP SDC ? Location: HO.SSS ?Disch: ? ----- ------- SPEC : [id number] ? RECD: 08/28/24-944 ? STATUS: ??SOUT ? REQ NUM: [id number] ? ROSE MARY: 08/28/24 ? SUBM DR: Sam Umaña ? ENTERED: ??08/28/24 ?SP TYPE: Cytology ? OTHR DR: Merna Purcell MD ?Rahel Mesa DO ORDERED: ??Cell Block, Gross Micro L4, Cyto-enhanced ? Diagnosis ?? Lung, right mass, fine-needle aspiration: ??Positive for malignancy, consistent with ?? squamous cell carcinoma. ??See comment. ? Comment: ??Moderately cellular specimen consisting of few atypical squamous cells and ?? abundant degenerated cellular material. ??The cell block has a group of malignant ?? appearing squamous cells. ??Please also correlate with concurrent biopsy results ([id number]) ?? - similar findings. ?Clinical History Right lung mass, significant smoking history ? Material Received ?? Right lung mass - 4 x 20 g cores ? Gross Description Received is 38 cc of green collection fluid, containing multiple tissue fragments from which a ThinPrep slide and cell block are prepared. This case was reviewed intradepartmentally. Copies To: ?? Merna Purcell MD ?? [facility] ?? [address] ?? [place] ?? [phone] ?? Rahel Mesa DO ?? [facility] ?? [address] ?? [place] ?? [phone] ?? Sam Umaña ?? [address] ?? [place] [address] ?? [phone] ?? [email or web address] ? CONTINUED ON NEXT PAGE ----- ------- Name: Bonnie Shore ?Age/Sex: 69/F ? : 1955 Unit#: [id number] ?? Attend Dr: Merna Purcell MD ?Re08/28/24 ?Status: DEP SDC ? Location: HO.SSS ?Disch: ? ----- ------- SPEC : [id number] ? RECD: 08/28/24-944 ? STATUS: ??SOUT ? REQ NUM: [id number] ? ROSE MARY: 08/28/24-922 ? SUBM DR: Sam Umaña ? ENTERED: ??08/28/24-954 ?SP TYPE: Cytology ? OTHR DR: Merna Purcell MD ?Rahel Mesa DO ORDERED: ??Cell Block, Gross Micro L4, Cyto-enhanced ? ----- ------- Signed (signature on file) Raul Solomon MD 09/02/24 1117 ? ----- ------- ? END OF REPORT ? us Generic External Data Provider LAB CYTOLOGY GRANTE IRVIN Final Result [facility] [address] [place] [address] [phone] * Gomori Methenamine Stain (08/28/2024 9:23 AM EST) 08/28/2024 9:23 AM EST 08/28/2024 9:42 AM EST Narrative [facility] - 09/02/2024 11:17 AM EST ----- ------- Name: Bonnie Shore ?Age/Sex: 69/F ? : 1955 Unit#: [id number] ?? Attend Dr: Merna Purcell MD ?Re08/28/24 ?Status: DEP SDC ? Location: HO.SSS ?Disch: ? ----- ------- SPEC : [id number] ?RECD: 08/28/24-941 ? STATUS: ??SOUT ? REQ NUM: [id number] ? ROSE MARY: 08/28/24 ? SUBM DR: Sam Umaña ? ENTERED: ??08/28/24 ?SP TYPE: Surgical ? OTHR DR: Merna Purcell MD ?Rahel Mesa DO ORDERED: ??Gom Meth Stain, Acid Fast Stain, Gross Micro L4, Specials Gr. /3, PASF ? Diagnosis ?? Lung, right mass, biopsy: ??Squamous cell carcinoma, moderately differentiated. ??See ?? description and comment. ? Comment: ??The volume of tumor is small. ??Recommend ancillary testing on resection ?? specimen (as clinically appropriate). ??Please also correlate with concurrent cytology ?? results ([id number]) - similar findings. ?Clinical History Right lung mass, significant smoking hx ?Microscopic Description Microscopic sections reviewed. ? Material Received ?? Right lung mass-4x20 g cores ? Gross Description Received in formalin labeled ?right sided lung? are 4 minute to 0.35 cm in greatest dimension irregular shards and a thin and delicate cylindrical thread of hameed- elena and elena- pink tissue versus blood, submitted in toto in a cassette labeled A. ??CEDS This case was reviewed intradepartmentally; results discussed with Dr. Ramos on 09/02/2024. Copies To: ?? Merna Purcell MD ?? [facility] ?? [address] ?? [place] [address] ?? [phone] ?? Rahel Mesa DO ?? [facility] ?? [address] ?? [place] [address] ?? [phone] ? CONTINUED ON NEXT PAGE ----- ------- Name: Bonnie Shore ?Age/Sex: 69/F ? : 1955 Unit#: [id number] ?? Attend Dr: Merna Purcell MD ?Re08/28/24 ?Status: DEP SDC ? Location: HO.SSS ?Disch: ? ----- ------- SPEC : [id number] ?RECD: 08/28/24-941 ? STATUS: ??SOUT ? REQ NUM: [id number] ? ROSE MARY: 08/28/24 ? SUBM DR: Sam Umaña ? ENTERED: ??08/28/24 ?SP TYPE: Surgical ? OTHR DR: Merna Purcell MD ?Rahel Mesa DO ORDERED: ??Gom Meth Stain, Acid Fast Stain, Gross Micro L4, Specials Gr. 07/11, PASF ? Copies To: ??(Continued) ?? Sam Umaña ?? [address] [facility] [facility] ?? [place] [address] ?? [phone] ?? [email or web address] ----- ------- Signed (signature on file) Raul Solomon MD 09/02/24 1117 ? ----- ------- ? END OF REPORT ? Generic External Data Provider LAB MICROBIOLOGY - GENERAL ORDERABLES Final Result Performing Organization Address [facility] de Phone Number [facility] [address] [place] [address] [phone] * (ABNORMAL) Glucose, Whole Blood (08/28/2024 7:59 AM EST) [facility] Glucose, Whole Blood 210(H) 60 - 115 mg/dL [facility] Comment:METER #: [id number] 08/28/2024 7:59 AM EST 08/28/2024 8:03 AM EST Generic External Data Provider LAB BLOOD ORDERAB LES Final Result Performing Organization Address [facility] Phone Number [facility] [address] [place] [address] [phone] * (ABNORMAL) CBC auto differential (08/28/2024 7:38 AM EST) [facility] White Blood Count 5.9 4.8 - 10.8 X10*3/uL [facility] Red Blood Count 4.09(L) 4.20 - 5.50 X10*6/uL [facility] Hemoglobin 11.4(L) 12.0 - 16.0 g/dl [facility] Hematocrit 34.5(L) 37.0 - 47.0 % [facility] Mean Corpuscular Volume 84.4 80.0 - 98.0 fL [facility] Mean Corpuscular Hemoglobin 27.9 27.0 - 33.0 pg [facility] Mean Corpuscular HGB Conc 33.0 31.0 - 35.0 g/dl [facility] Red Cell Distribution Width 14.2 11.0 - 16.0 % [facility] Platelet Count 173 160 - 400 X10*3/uL [facility] Mean Platelet Volume 10.5 9.4 - 12.3 fL [facility] Neutrophils Percent Auto 55.2 45 - 73 % [facility] Imm Gran Pct Auto 0.3 0.0 - 0.4 % [facility] Lymphocytes Percent Auto 29.8 20 - 40 % [facility] Monocytes Percent Auto 11.1(H) 2 - 11 % [facility] Eosinophils Percent Auto 3.1 0 - 4 % [facility] Basophils Percent Auto 0.5 0 - 2 % [facility] NRBC Pct Auto 0.0 0.0 - 0.2 /100WBC [facility] Neutrophils Absolute Auto 3.2 2.0 - 8.3 x10*3/uL [facility] Imm Gran Abs Auto 0.02 0.00 - 0.03 X10*3/uL [facility] Lymphocytes Absolute Auto 1.8 1.2 - 4.9 X10*3/uL [facility] Monocytes Absolute Auto 0.7 0.1 - 1.2 X10*3/uL [facility] Eosinophils Absolute Auto 0.2 0.0 - 0.4 X10*3/uL [facility] Basophils Absolute Auto 0.0 0.0 - 0.2 X10*3/uL [facility] NRBC Abs Auto 0.000 0.0 - 0.012 X10*3/uL [facility] 08/28/2024 7:38 AM EST 08/28/2024 7:58 AM EST us Generic External Data Provider LAB BLOOD ORDERAB LES Final Result [facility] [address] [place] [address] [phone] documented in this encounter Visit Diagnoses Not on filedocumented in this encounter Additional Health Concerns Assessment Noted Time PHQ-9 Depression Total Score: 2 06/26/20 24 9:53 AM EST documented as of this encounter Care Teams President Practicing Urologist Relationship Specialty Start Date End Date Rahel Mesa DO [address] [place] [phone] PCP - General Family Medicine 07/09/18 Cammy Zapata, LindaD [address] [place] [phone] Pharmacist Internal Medicine 05/09/23 documented as of this encounter
--- OUTSIDE RECORDS SUMMARY | 2024-09-02 18:23 | XMS_ITS | Encounter Summary ---
Author Organization [employer] Address [address] [place] [address] Care Team Providers Care Blanking Machine Operator Name Role Phone Rahel Mesa DO Primary Care Provider [phone] Sam Chaney PharmD Unavailable Unavail able Cammy Zapata PharmD Unavailable Encounter Details Date Type Department Care Team (Late st Contact Info) Description 08/14/2022 Telephone [facility] [address] [place], [place] [phone] Rahel Mesa DO [address] [place] [address] Social History Tobacco Use Types Packs/Day Years [...] Orientation Straight 05/08/2022 10 :16 AM EDT COVID-19 Exposure Response Date Recorded In the last 10 days, have yo u been in contact with someone who was confirmed or suspected to have Coronavirus/COVID-19? No / Unsure 08/11/2022 2:34 PM EST documented as of this encounter Plan of Treatment Not on file documented as of this encounter Goals Goal Patient Goal Type Associated Problems Recent Progress Patient-Stated? Author Hemoglobin A1c < 7 Result Component 5.7(04/23/2024 10:26 AM EDT) No Sam Chaney, PharmD documented as of this encounter Visit Diagnoses Not on filedocumented in this encounter Care Teams Blanking Machine Operator Relationship Specialty Start Date End Date Rahel Mesa DO [address] [place] [address] PCP - General Family Medicine 07/09/18 Sam Chaney, PharmD [address] [place] [phone] Pharmacist Internal Medicine 08/11/22 05/08/23 Cammy Zapata PharmD [address] [place] [address] Pharmacist Internal Medicine 05/09/23 documented as of this encounter
--- OUTSIDE RECORDS SUMMARY | 2024-09-02 18:23 | XMS_ITS | Encounter Summary ---
Author Organization [employer] Address [address] [facility] [address] [place] [address] Care Team Providers Care Practicing Dermatologist Name Role Phone Rahel Mesa DO Primary Care Provider + [phone] Cammy Zapata PharmD Unavailable [phone] Encounter Details Date Type Department Care Team (Late st Contact Info) Description 06/27/2024 Orders Only [facility] External Provider, [facility] Social History Tobacco Use Types Packs/Day Years [...] Procedure Name Priority Date/Time Associated Diagnosis Comments CT CHEST WO CONTRAST Routine 06/27/2024 7:50 AM EST documented in this encounter Results * CT Chest w/o Contrast (06/27/2024 7:50 AM EST) Anatomical Region Laterality Modality Body, Chest Computed Tomogra phy 06/27/2024 7:50 AM EST Narrative 08/06/2024 1:18 PM EST ? [facility] ?[address] ?[place] [address] ? CT Scan Report ? Signed ? Patient: Silviano,Bonnie P ?MR#: [id number] ?? 005 ? : 1955 ?Acct:[id number] ? Age/Sex: 69 / F ?ADM Date: 12/20/24 ? Loc: HO.CT ? Attending Dr: Merna Purcell MD ? Ordering Physician: Merna Purcell MD ?? Date of Service: 06/27/24 ?? Procedure(s): CT chest wo IV con ?? Accession Number(s): [id number] ? cc: Merna Purcell MD; Rahel Mesa DO ? Report Number: ?? [id number]: Total DLP = ??112.00 mGy-cm ?? EXAMINATION: CT CHEST WITHOUT IV CONTRAST ? INDICATION: R91.8 - Other nonspecific abnormal finding of lung field ? COMPARISON: Comparison is made with the prior examination dated ?? 08/13/2023. ? TECHNIQUE: Helical CT scan of the chest was performed without ?? intravenous contrast. ??Coronal and sagittal reformatted images were ?? generated and reviewed. ? This CT exam was performed with one or more of the following dose ?? reduction techniques: automated exposure control, adjustment of the mA ?? and/or kV according to patient size, use of iterative reconstruction ?? technique. ? DLP: 112 mGy-cm ? CHEST: ? THYROID: The thyroid is unremarkable. ? LUNGS: There is moderate emphysema. Again seen are scattered calcified ?? granulomas in both lungs. The previously seen multiple adjacent nodules ?? in the right lower lobe have coalesced into a 2.0 x 1.8 x 1.7 cm ?? spiculated mass with internal calcifications. There is a new 3 mm ?? nodule in the right upper lobe (series 11, image 59). An additional new ?? 3 mm nodule is seen more inferiorly in the right upper lobe (series 11, ?? image 73). Again seen is a 3 mm nodule in the superior segment of the ?? left lower lobe (series 11, image 61). There is a stable 3 mm nodule in ?? the superior segment of the left lower lobe (series 11, image 97). ?? There is a new 6 mm nodule in the posteromedial left lower lobe (series ?? 11, image 94). An additional new 3-4 mm nodule seen in the left lower ?? lobe laterally (series 11, image 106). ? MEDIASTINUM: Again seen is a 1.1 cm precarinal lymph node. ? MILLICENT: Evaluation of the hilar regions is limited by lack of intravenous ?? contrast material. ? CARDIOVASCULATURE: The heart is normal in size. ??There is no ?? pericardial effusion. ??The thoracic aorta is normal in caliber. ? DEGREE OF CORONARY CALCIFICATION: ??none ? PLEURA: ??There is no pleural effusion. ??No pneumothorax. ? MAIN AIRWAYS: The mainstem bronchi and proximal branches are patent. ? AXILLA: There is no axillary lymphadenopathy. ? BONES AND SOFT TISSUES: Unremarkable ? UPPER ABDOMEN: The visualized portions of the liver, spleen, and ?? adrenals have an unremarkable appearance. ? CT/CT chest wo IV con ?? IMPRESSION: ?? Coalescence of the previously seen multiple right lower lobe nodules ?? into a 2.0 x 1.8 x 1.7 cm spiculated mass, highly suspicious for ?? neoplasm. This lesion is likely amenable to percutaneous biopsy. ?? Multiple additional new nodules in both lungs as described. ? These findings were discussed with Dr. Purcell on 08/06/2024 at 1:15 PM. ? Please note that while this study was performed on 06/27/2024, it is ?? only now submitted for interpretation, on 08/06/2024. ? Electronically signed by: ??Stephan Jimenez MD ??08/06/2024 01:16 PM EST ? Dictated By: ?Stephan Jimenez MD ? Signed By: ?<Electronically signed by Stephan Jimenez MD in OV> ?08/06/24 1316 ? DD/ 0750 ? TD/TT: 06/27/24 0814 ? Phototypesetting Equipment Monitor: ? Procedure Note Nat, Image - 08/06/[address] [id number] [address] Scan Report Signed Patient: Bonnie Shore PMR#: [id number] 005 : 6Acct:[id number] Age/Sex: 69 / FADM Date: 06/27/24 Loc: HO.CT Attending Dr: Merna Purcell MD Ordering Physician: Meran Purcell MD Date of Service: 06/27/24 Procedure(s): CT chest wo IV con Accession Number(s): [id number] cc: Merna Purcell MD; Rahel Mesa DO Report Number: [id number]: Total DLP = 112.00 mGy-cm EXAMINATION: CT CHEST WITHOUT IV CONTRAST INDICATION: R91.8 - Other nonspecific abnormal finding of lung field COMPARISON: Comparison is made with the prior examination dated 08/13/2023. TECHNIQUE: Helical CT scan of the chest was performed without intravenous contrast. Coronal and sagittal reformatted images were generated and reviewed. This CT exam was performed with one or more of the following dose reduction techniques: automated exposure control, adjustment of the mA and/or kV according to patient size, use of iterative reconstruction technique. DLP: 112 mGy-cm CHEST: THYROID: The thyroid is unremarkable. LUNGS: There is moderate emphysema. Again seen are scattered calcified granulomas in both lungs. The previously seen multiple adjacent nodules in the right lower lobe have coalesced into a 2.0 x 1.8 x 1.7 cm spiculated mass with internal calcifications. There is a new 3 mm nodule in the right upper lobe (series 11, image 59). An additional new 3 mm nodule is seen more inferiorly in the right upper lobe (series 11, image 73). Again seen is a 3 mm nodule in the superior segment of the left lower lobe (series 11, image 61). There is a stable 3 mm nodule in the superior segment of the left lower lobe (series 11, image 97). There is a new 6 mm nodule in the posteromedial left lower lobe (series 11, image 94). An additional new 3-4 mm nodule seen in the left lower lobe laterally (series 11, image 106). MEDIASTINUM: Again seen is a 1.1 cm precarinal lymph node. MILLICENT: Evaluation of the hilar regions is limited by lack of intravenous contrast material. CARDIOVASCULATURE: The heart is normal in size. There is no pericardial effusion. The thoracic aorta is normal in caliber. DEGREE OF CORONARY CALCIFICATION: none PLEURA: There is no pleural effusion. No pneumothorax. MAIN AIRWAYS: The mainstem bronchi and proximal branches are patent. AXILLA: There is no axillary lymphadenopathy. BONES AND SOFT TISSUES: Unremarkable UPPER ABDOMEN: The visualized portions of the liver, spleen, and adrenals have an unremarkable appearance. CT/CT chest wo IV con IMPRESSION: Coalescence of the previously seen multiple right lower lobe nodules into a 2.0 x 1.8 x 1.7 cm spiculated mass, highly suspicious for neoplasm. This lesion is likely amenable to percutaneous biopsy. Multiple additional new nodules in both lungs as described. These findings were discussed with Dr. Purcell on 08/06/2024 at 1:15 PM. Please note that while this study was performed on 06/27/2024, it is only now submitted for interpretation, on 08/06/2024. Electronically signed by: Stephan Jimenez MD 08/06/2024 01:16 PM EST RP Dictated By: Stephan Jimenez MD Signed By: <Electronically signed by Stephan Jimenez MD in OV> 08/06/24 1316 DD/ 0750 TD/TT: 06/27/24 0814 Phototypesetting Equipment Monitor: [facility] External Provider IMG CT PROCEDURES Edited Result - Final documented in this encounter Visit Diagnoses Not on filedocumented in this encounter Additional Health Concerns Assessment Noted Time PHQ-9 Depression Total Score: 2 06/26/20 24 9:53 AM EST documented as of this encounter Care Teams Practicing Dermatologist Relationship Specialty Start Date End Date Rahel Mesa DO [address] [place] [address] PCP - General Family Medicine 07/09/18 Cammy Zapata PharmD [address] [place] [address] Pharmacist Internal Medicine 05/09/23 documented as of this encounter
--- OUTSIDE RECORDS SUMMARY | 2024-09-02 18:23 | XMS_ITS | Clinical Summary ---
Author Organization [employer] Address [address] [place] [address] Care Team Providers Care Employment Coach Name Role Phone Moshe Rahel Primary Care Provider Cammy Zapata PharmD Unavailable Allergies No known active allergies Medications albuterol (2.5 MG/3ML) 0.083% nebulizer solution inhale 3 milliliter by nebulization route 4 times every day as needed 01/11/20 22 Active methadone (Dolophine) 10 MG tablet 40 mg. Active Blood Pressure kitIndications:Dx: HTN Check BP as directed 05/12/20 20 Active triamcinolone (Nasacort Allergy 24HR) 55 MCG/ACT nasal inhalerIndications :Seasonal allergic rhinitis, unspecified trigger spray 2 by inhalation route every day 50.7 g 08/10/19 23 Active Wixela Inhub 500-50 MCG/ACT aerosol powder USE 1 PUFF TWICE DAILY 04/30/20 22 Active nicotine polacrilex (Nicotine Mini) 2 MG lozengeIndications :Tobacco dependence TAKE 1 TABLET BY MOUTH EVERY 8 HOURS DISSOLVED SLOWLY IN THE MOUTH 81 lozenge 3 03/19/20 23 Active Alcohol Swabs (Alcohol Prep) padsIndications:Ty pe 2 diabetes mellitus without complication, without long-term current use of insulin (CMS/HCC) Use 1 swab by topical route once daily prior to SMBG 100 each 11 05/22/20 23 Active OneTouch Delica Lancets 33G misc USE TO TEST BLOOD SUGAR EVERY DAY 100 each 5 05/25/20 23 Active Blood Glucose Monitoring Suppl (OneTouch Verio) w/Device kit Use to check BS as directed once daily 1 kit 05/25/20 23 Active empagliflozin-metF ORMIN ER (Synjardy XR) 5-1000 MG 24 hr tabletIndications: Type 2 diabetes mellitus without complication, without long-term current use of insulin (CMS/HCC) Take 2 tablets by mouth with breakfast. 60 tablet 11 12/18/19 24 025 Active aspirin 81 MG EC tabletIndications: Type 2 diabetes mellitus without complication, without long-term current use of insulin (CMS/HCC) Take 1 tablet (81 mg) by mouth Once daily. 30 tablet 11 12/18/19 24 Active omeprazole (PriLOSEC) [address] capsule TAKE 1 CAPSULES BY MOUTH BEFORE BREAKFAST DO NOT CRUSH, CHEW, OR SPLIT 90 capsule 3 01/18/20 24 Active Incruse Ellipta 62.5 MCG/ACT aerosol powder INHALE 1 PUFF BY INHALATION ROUTE EVERY DAY AT THE SAME TIME EACH DAY 30 each 11 01/31/20 24 Active docusate sodium (Colace) 100 MG capsule TAKE 1 CAPSULE BY ORAL ROUTE 2 TIMES EVERY DAY NEEDED NEEDED FOR CONSTIPATION 180 capsule 1 01/31/20 24 Active albuterol 108 (90 Base) MCG/ACT inhaler INHALE 2 PUFFS EVERY 4 HOURS NEEDED FOR COUGH, WHEEZE, OR SHORTNESS OF BREATH 8.5 g 1 02/19/20 24 Active zolpidem (Ambien) 10 MG tabletIndications: Insomnia, unspecified type TAKE 1 TABLET BY MOUTH AT BEDTIME NEEDED FOR SLEEP 30 tablet 3 03/11/20 24 Active senna (Senokot) 8.6 MG tablet TAKE 2 TABLETS BY MOUTH EVERY DAY NEEDED FOR CONSTIPATION 180 tablet 1 04/22/20 24 Active diphenhydrAMINE (Benadryl Allergy) 25 MG tablet Take 1 tablet (25 mg) by mouth every 6 (six) hours if needed for itching. 60 tablet 1 04/24/20 24 Active cholecalciferol (Vitamin D-3) 50 MCG (2000 UT) capsule Take 1 capsule (50 mcg) by mouth Once per day. 30 capsule 11 04/24/20 24 Active betamethasone, augmented, (Diprolene) 0.05 % ointment Apply 4g twice a day to the affected areas (once in the morning and once at bedtime) 150 g 05/02/20 24 Active lisinopril 2.5 MG tabletIndications: Hypertension, unspecified type TAKE 1 TABLET BY MOUTH EVERY DAY 90 tablet 3 05/22/20 24 Active cetirizine (ZyrTEC) 10 MG tablet TAKE 1 TABLET BY MOUTH EVERY DAY 90 tablet 1 05/29/20 24 Active rosuvastatin (Crestor) 40 MG tabletIndications: Other hyperlipidemia TAKE 1 TABLET BY MOUTH EVERY DAY 90 tablet 3 07/21/19 25 Active triamcinolone (Kenalog) 0.1 % creamIndications:P ruritic rash Apply topically if needed in the morning and at bedtime (pain and swelling). Mix with Cerave 80 g 1 08/15/19 25 Active Active Problems Problem Noted Date Diagnosed Date Lung nodules 06/28/2022 Tobacco dependence 06/28/2022 Chronic gastroesophageal reflux disease 06/28/20 22 Status post parathyroidectomy 06/28/2022 Fatty liver 06/28/2022 Hyperparathyroidism 06/19/2022 Osteopenia 06/19/2022 Thyroid nodule 06/19/2022 Chronic obstructive lung disease 06/11/2015 Essential hypertension 06/11/2015 Hyperlipidemia 06/11/2015 Hypertriglyceridemia 06/11/2015 Mood disorder 06/11/2015 Opioid dependence 06/11/2015 Posttraumatic stress disorder 06/11/2015 Type 2 diabetes mellitus 06/11/2015 Resolved Problems Problem Noted Date Diagnosed Date Resolved Date Hypercalcemia 06/19/2022 06/28/2022 Steatosis of liver 06/11/2015 Tobacco dependence syndrome 06/11/2015 06/28/2022 Encounters Date Type Department Care Team Description 08/28/2024 Orders Only GENERIC EXTERNAL DATA DEPARTMENT Provider, Generic External Data 08/15/2024 10:00 AM EST Office Visit [facility] [address] [place] [phone] Sabino Emery MD Pruritic rash (Primary Dx) 08/15/2024 Travel 07/21/2024 Refill [facility] [address] [place] [address] Name, MD Oswaldo Other hyperlipidemia 06/27/2024 Orders Only [facility] External Provider, [facility] 06/26/2024 10:00 AM EST Procedure Visit [facility] [address] [place] [address] Rahel Mesa DO Encounter for cervical Pap smear with pelvic exam (Primary Dx); Type 2 diabetes mellitus without complication, without long-term current use of insulin ([facility]); Encounter for immunization 06/26/2024 Travel from Last 3 Months Immunizations Name Administration Dates Next Due Hep A, Adult 08/15/2023(Deferred: History of disease - Immune per titers, see PCP note 01/24/23),08/01/2007 Hep B, adult 08/15/2023(Deferred: History of disease - Immune per titers, see PCP note 01/24/23) Influenza High-dose Quadriva lent Preservative Free 05/11/2022 Influenza injectable quadriv alent IIV4 with preservative 04/04/2018,04/06/2016 Influenza injectable quadriv alent preservative free 05/09/2023,05/23/2021,05/18/2020,03/28,06/11/2015 Influenza, High Dose Seasona l, Preservative Free 04/23/2024 Influenza, IIV3, injectable 05/01/2014, 1,07/12/2010 Influenza, Split (incl. ulis alberto fied surface antigen) 07/12/2012 Pfizer Covid-19 Vaccine 12+ 04/23/2024,1 07/09/2022,10/01/2020,09/10 Pneumococcal Conjugate PCV 13 08/22/2021 Pneumococcal Conjugate PCV 20 01/24/2023 Pneumococcal Polysaccharide PPSV23 08/19/2013, RSV Bivalent 06/20/2023 TD (adult), 2 Lf tetanus tox oid, preservative free, adsorbed 08/01/2007 Tdap 06/26/2024,01/29/2014 Zoster, Recombinant 06/29/2023,10/18/2022 Zoster, live 06/19/2018 Social History Tobacco Use Types Packs/Day Years Used Date Smoking Tobacco: Former Cigarettes Smokeless Tobacco: Former Tobacco Cessation:Counseling Given: Not Answered Alcohol Use Standard Drinks/Week Comments Never 0 [...] Orientation Straight 05/08/2022 10 :16 AM EDT Last Filed Vital Signs Vital Sign Reading Time Taken Comments Blood Pressure 149/74 08/15/2024 10:03 AM EST Pulse 110 08/15/2024 10:03 AM EST Temperature 35.8 ??C (96.4 ??F) 08/15/2024 1 0:03 AM EST Respiratory Rate 13 08/15/2024 10:0 3 AM EST Oxygen Saturation 98% 06/26/2024 9:3 3 AM EST 2L O2 Nasal Cannula Inhaled Oxygen Concentration - - Weight 61.9 kg (136 lb 6.4 oz) 08/15/2024 10:03 AM EST Height 162.6 cm (5' 4 ) 06/26/2024 9:33 AM EST Body Mass Index 23.41 06/26/2024 9:33 AM EST Plan of Treatment Health Maintenance Due Date Last Done Comments CT Colonography 1955 FIT DNA/Cologuard 1955 FIT 1955 FOBT 1955 Sigmoidoscopy 1955 Diabetes: Foot Exam 1966 Eye Exam 1966 Alcohol/Substance Use Screening 1968 Diabetes: Hemoglobin A1C 07/24/2024 024, 12/18/2023, 10/15/2023, Additional history exists Mammogram 09/24/2024 09/25/2023, 03/0 01/2023, 09/12/2022, Additional history exists SDOH Screening 10/04/2024 10/05/2023 Lipid Panel 10/14/2024 10/15/2023, 05/18/2020 Diabetes: Urine Protein Screening 10/17/2024 10/18/2023, 10/18/2023, 02/24/2022, Additional history exists Depression Screening 06/26/2025 06/26/2024, 06/26/20 24 Tobacco Screening 08/15/2025 08/15/2024 Colonoscopy 08/19/2029 08/19/2019 Colorectal Cancer Screening 08/19/2029 DTaP/Tdap/Td Vaccines (3 - Td or Tdap) 06/26/2034 06/26/2024, 01/29/2014, 08/01/2007 Hepatitis A Vaccines Discontinued 08/01/2007 Hepatitis C Screening Completed 05/18/2020 Pneumococcal Vaccine: 50+ Years Completed 01/24/2023, 08/22/2021, 08/19/2013, Additional history exists RSV Patients and Patients Aged 60 years or older Completed 06/20/2023 Zoster Vaccines Completed 06/29/2023, 10/07, 06/19/2018 COVID-19 Vaccine Completed 04/23/2024, 07/2022, 05/11/2022, Additional history exists Influenza Vaccine Completed 04/23/2024, , 05/11/2022, Additional history exists HIB Vaccines Aged Out No longer eligi ble based on patient's age to complete this topic HPV Vaccines Aged Out No longer eligi ble based on patient's age to complete this topic Hepatitis B Vaccines Discontinued IPV Vaccines Aged Out No longer eligi ble based on patient's age to complete this topic Meningococcal Vaccine Aged Out No lucien pascual eligible based on patient's age to complete this topic RSV under 20 months Aged Out No longe r eligible based on patient's age to complete this topic Rotavirus Vaccines Aged Out No longer eligible based on patient's age to complete this topic Goals Goal Patient Goal Type Associated Problems Recent Progress Patient-Stated? Author Hemoglobin A1c < 7 Result Component 5.7( 10:26 AM EDT) No Sam Chaney, Eder Record your blood sugar as directed Result Component No Cammy Zapata PharmD Procedures Procedure Name Priority Date/Time Associated Diagnosis Comments XR CHEST 1 VIEW Routine 08/28/2024 11:15 AM EST XR CHEST 1 VIEW Routine 08/28/2024 10:10 AM EST CELL BLOCK Routine 08/28/2024 9:23 AM EST GOMORI METHENAMINE STAIN Routine 08/28/2024 9:23 AM EST GLUCOSE, WHOLE BLOOD Routine 08/28/2024 7:59 AM EST CBC WITH AUTO DIFFERENTIAL Routine 08/28/2024 7:[address] CHEST WO CONTRAST Routine 06/27/2024 7:50 AM EST PAP SMEAR Routine 06/26/2024 10:34 AM EST Encounter for cervical Pap smear with pelvic exam CHLAMYDIA/N. GONORRHOEAE RNA, TMA, UROGENITAL Routine 06/26/2024 10:34 AM EST Encounter for cervical Pap smear with pelvic exam POCT GLUCOSE Routine 06/26/2024 9:52 AM EST Type 2 diabetes mellitus without complication, without long-term current use of insulin ([facility]) POCT GLYCATED HEMOGLOBIN, TOTAL Routine 04/23/2024 10:26 AM EDT Type 2 diabetes mellitus without complication, without long-term current use of insulin (CMS/HCC) ALBUMIN, RANDOM URINE W/CREATININE Routine 10/18/2023 1:05 PM EDT Type 2 diabetes mellitus without complication, without long-term current use of insulin (CMS/HCC) LIPID PANEL, STANDARD Routine 10/15/2023 11:00 AM EDT Type 2 diabetes mellitus without complication, without long-term current use of insulin (CMS/HCC) BI MAMMOGRAM SCREENING TOMOSYNTHESIS BILATERAL Routine 09/25/2023 3:38 PM EDT ZZZ HISTORICAL HEPATITIS C AB W/REFL TO HCV RNA, QN, PCR Routine 05/18/2020 11:16 AM EST HM COLONOSCOPY Routine 08/19/2019 11:19 AM EST from Last 3 Months or Most Recently Relevant to Health Maintenance Results * XR Chest 1 View (08/28/2024 11:15 AM EST) Only the most recent of2 resultswithin the time period is included. Anatomical Region Laterality Modality Chest Radiographic Susie ging 08/28/2024 11:1 5 AM EST Narrative 08/28/2024 3:45 PM EST ? [facility] ?[address] ?[place] [address] ?XRay Report ? Signed ? Patient: Silviano,Bonnie P ?MR#: [id number] ?? 005 ? : 1955 ?Acct:[id number] ? Age/Sex: 69 / F ?ADM Date: 08/28/24 ? Loc: HO.SSS ? Attending Dr: Merna Purcell MD ? Ordering Physician: Sam Umaña ?? Date of Service: 08/28/24 ?? Procedure(s): XR chest 1V ?? Accession Number(s): [id number] ? cc: Rahel Mesa DO; Sam Umaña [...] DD/ 1115 ? TD/TT: 08/28/24 1129 ? Electrolog Operator: ? Procedure Note Donmarquez, Image - 08/28/[address] [address] XRay Report Signed Patient: Bonnie Shore PMR#: [id number] 005 : 1955cct:[id number] Age/Sex: 69 / FADM Date: 08/28/24 Loc: .[facility] Attending Dr: Merna Purcell MD Ordering Physician: Sam Umaña Date of Service: 08/28/24 Procedure(s): XR chest 1V Accession Number(s): [id number] cc: Rahel Mesa DO; Sam Umaña EXAMINATION: [...] Gabriel Mehta MD 08/28/2024 03:42 PM EST Dictated By: Gabrile Rod MD Signed By: <Electronically signed by Gabriel Swan MDin OV> 08/28/24 1542 DD/ 1115 TD/TT: 08/28/24 1129 Electrolog Operator: [facility] External Provider IMG XR PROCEDURES Final Result * Gomori Methenamine Stain (08/28/2024 9:23 AM EST) 08/28/2024 9:23 AM EST 08/28/2024 9:42 AM EST Narrative [facility] - 09/02/2024 11:17 AM EST ----- ------- Name: Bonnie Shore ?Age/Sex: 69/F ? : 1955 Unit#: [id number] ?? Attend Dr: Merna Purcell MD ?Re08/28/24 ?Status: DEP SDC ? Location: HO.SSS ?Disch: ? ----- ------- SPEC : [id number] ?RECD: 08/28/24-941 ? STATUS: ??SOUT ? REQ NUM: [id number] ? ROSE MARY: 08/28/24 ? SUBM DR: Sam Umaña ? ENTERED: ??08/28/24 ?SP TYPE: Surgical ? OTHR DR: Merna Purcell MD ?Rahel Mesa DO ORDERED: ??Gom Meth Stain, Acid Fast Stain, Gross Micro L4, Specials Gr. 1/3, PASF ? Diagnosis ?? Lung, right mass, biopsy: ??Squamous cell carcinoma, moderately differentiated. ??See ?? description and comment. ? Comment: ??The volume of tumor is small. ??Recommend ancillary testing on resection ?? specimen (as clinically appropriate). ??Please also correlate with concurrent cytology ?? results ([id number]) - similar findings. ?Clinical History Right lung [...] Copies To: ?? Merna Purcell MD ?? [facility] ?? [address] ?? [place] [address] ?? [phone] ?? Rahel Mesa DO ?? [facility] ?? [address] ?? [place] [address] ?? [phone] ? CONTINUED ON NEXT PAGE ----- ------- Name: Bonnie Shore ?Age/Sex: 69/F ? : 1955 Unit#: [id number] ?? Attend Dr: Merna Purcell MD ?Re08/28/24 ?Status: DEP SDC ? Location: HO.SSS ?Disch: ? ----- ------- SPEC : [id number] ?RECD: 08/28/24-941 ? STATUS: ??SOUT ? REQ NUM: [id number] ? ROSE MARY: 02 ? SUBM DR: Sam Umaña ? ENTERED: ??08/28/24-947 ?SP TYPE: Surgical ? OTHR DR: Merna Purcell MD ?Rahel Mesa DO ORDERED: ??Gom Meth Stain, Acid Fast Stain, Gross Micro L4, Specials Gr. 07/11, PASF ? Copies To: ??(Continued) ?? Sam Umaña ?? [address] ?? [place] [address] ?? [phone] ?? [email or web address] ----- ------- Signed (signature on file) Raul Solomon MD 09/02/24 1117 ? ----- ------- ? END OF REPORT ? us Generic External Data Provider LAB MICROBIOLOGY - GENERAL ORDERABLES Final Result [facility] [address] [place] [address] [phone] * Cell Block (08/28/2024 9:23 AM EST) 08/28/2024 9:23 AM EST 08/28/2024 9:45 AM EST Narrative [facility] - 09/02/2024 11:17 AM EST ----- ------- Name: Bonnie Shore ?Age/Sex: 69/F ? : 1955 Unit#: [id number] ?? Attend Dr: Merna Purcell MD ?Re08/28/24 ?Status: DEP SDC ? Location: HO.SSS ?Disch: ? ----- ------- SPEC : [id number] ? RECD: 08/28/24 ? STATUS: ??SOUT ? REQ NUM: [id number] ? ROSE MARY: 08/28/24 ? SUBM DR: [...] ??Please also correlate with concurrent biopsy results ([id number]) ?? - similar findings. ?Clinical History Right lung mass, significant smoking history ? Material Received ?? Right lung mass - 4 x 20 g cores ? Gross Description Received is 38 cc of green collection fluid, containing multiple tissue fragments from which a ThinPrep slide and cell block are prepared. This case was reviewed intradepartmentally. Copies To: ?? Merna Purcell MD ?? [facility] ?? [address] ?? [place] ?? [phone] ?? Rahel Mesa DO ?? [facility] ?? [address] ?? [place] ?? [phone] ?? Sam Umaña ?? [address] ?? [place] ?? [phone] ?? [email or web address] [employer] ? CONTINUED ON NEXT PAGE ----- ------- Name: Bonnie Shore ?Age/Sex: 69/F ? : 1955 Unit#: [id number] ?? Attend Dr: Merna Purcell MD ?Re08/28/24 ?Status: DEP SDC ? Location: HO.SSS ?Disch: ? ----- ------- SPEC : [id number] ? RECD: 08/28/24-944 ? STATUS: ??SOUT ? REQ NUM: [id number] ? ROSE MARY: 08/28/24 ? SUBM DR: Sam Umaña ? ENTERED: ??08/28/24 ?SP TYPE: Cytology ? OTHR DR: Merna Purcell MD ?Rahel Mesa DO ORDERED: ??Cell Block, Gross Micro L4, Cyto-enhanced ? ----- ------- Signed (signature on file) Raul Solomon MD 09/02/24 1117 ? ----- ------- ? END OF REPORT ? Generic External Data Provider LAB CYTOLOGY ORDE RABLES Final Result Performing Organization Address [facility] Co de Phone Number [facility] [address] [place] [address] [phone] * (ABNORMAL) Glucose, Whole Blood (08/28/2024 7:59 AM EST) [facility] Glucose, Whole Blood 210(H) 60 - 115 mg/dL [facility] Comment:METER #: [id number] 08/28/2024 7:59 AM EST 08/28/2024 8:03 AM EST Generic External Data Provider LAB BLOOD ORDERAB LES Final Result Performing Organization Address [facility] de Phone Number [facility] [address] [place] [address] [phone] * (ABNORMAL) CBC auto differential (08/28/2024 7:38 AM EST) [facility] White Blood Count 5.9 4.8 - 10.8 X10*3/uL [facility] Red Blood Count 4.09(L) 4.20 - 5.50 X10*6/uL [facility] Hemoglobin 11.4(L) 12.0 - 16.0 g/dl [facility] Hematocrit 34.5(L) 37.0 - 47.0 % [facility] Mean Corpuscular Volume 84.4 80.0 - 98.0 fL [facility] Mean Corpuscular Hemoglobin 27.9 27.0 - 33.0 pg [facility] Mean Corpuscular HGB Conc 33.0 31.0 - 35.0 g/dl [facility] Red Cell Distribution Width 14.2 11.0 - 16.0 % [facility] Platelet Count 173 160 - 400 X10*3/uL [facility] Mean Platelet Volume 10.5 9.4 - 12.3 fL [facility] Neutrophils Percent Auto 55.2 45 - 73 % [facility] Imm Gran Pct Auto 0.3 0.0 - 0.4 % [facility] Lymphocytes Percent Auto 29.8 20 - 40 % [facility] Monocytes Percent Auto 11.1(H) 2 - 11 % [facility] Eosinophils Percent Auto 3.1 0 - 4 % [facility] Basophils Percent Auto 0.5 0 - 2 % [facility] NRBC Pct Auto 0.0 0.0 - 0.2 /100WBC [facility] Neutrophils Absolute Auto 3.2 2.0 - 8.3 x10*3/uL [facility] Imm Gran Abs Auto 0.02 0.00 - 0.03 X10*3/uL [facility] Lymphocytes Absolute Auto 1.8 1.2 - 4.9 X10*3/uL [facility] Monocytes Absolute Auto 0.7 0.1 - 1.2 X10*3/uL [facility] Eosinophils Absolute Auto 0.2 0.0 - 0.4 X10*3/uL [facility] Basophils Absolute Auto 0.0 0.0 - 0.2 X10*3/uL [facility] NRBC Abs Auto 0.000 0.0 - 0.012 X10*3/uL [facility] 08/28/2024 7:38 AM EST 08/28/2024 7:58 AM EST us Generic External Data Provider LAB BLOOD ORDERAB LES Final Result [facility] [address] [place] [address] [phone] * CT Chest w/o Contrast (06/27/2024 7:50 AM EST) Anatomical Region Laterality Modality Body, Chest Computed Tomogra phy 06/27/2024 7:50 AM EST Narrative 08/06/2024 1:18 PM EST ? [facility] ?[address] ?[place] [address] ? CT Scan Report ? Signed ? Patient: Silviano,Bonnie P ?MR#: [id number] ?? 005 ? : 1955 ?Acct:[id number] ? Age/Sex: 69 / F ?ADM Date: 06/27/24 ? Loc: HO.CT ? Attending Dr: Merna Purcell MD ? Ordering Physician: Merna Purcell MD ?? Date of Service: 06/27/24 ?? Procedure(s): CT chest wo IV con ?? Accession Number(s): [id number] ? cc: Merna Purcell MD; Rahel Mesa DO ? Report Number: ?? [id number]: Total DLP = ??112.00 mGy-cm ?? EXAMINATION: [...] ??Stephan Jimenez MD ??08/06/2024 01:16 PM EST ?? RP ? Dictated By: ?Stephan Jimenez MD ? Signed By: ?<Electronically signed by Stephan Jimenez MD in OV> ?08/06/24 1316 ? DD/ 0750 ? TD/TT: 06/27/24 0814 ? Electrolog Operator: ? Procedure Note Donotuseinterpreter, Image - 08/06/[address] [address] [address] Scan Report Signed Patient: Bonnie Shore PMR#: [id number] [birth year] : 6Acct:[id number] Age/Sex: 69 / FADM Date: 06/27/24 Loc: HO.CT Attending Dr: Merna Purcell MD Ordering Physician: Merna Purcell MD Date of Service: 06/27/24 Procedure(s): CT chest wo IV con Accession Number(s): [id number] cc: Merna Purcell MD; Rahel Mesa DO Report Number: [id number]: Total DLP = 112.00 mGy-cm EXAMINATION: CT [...] Stephan Jimenez MD 08/06/2024 01:16 PM EST Dictated By: Stephan Jimenez MD Signed By: <Electronically signed by Stephan Jimenez MD in OV> 08/06/24 1316 DD/ 0750 TD/TT: 06/27/24 0814 Electrolog Operator: [facility] External Provider IMG CT PROCEDURES Edited Result - Final * Chlamydia/N. Gonorrhoeae RNA, TMA, Urogenitial (06/26/2024 10:34 AM EST) CT PCR NOT DETECTED Not Detect. [facility] Comment:A not detected test result does not exclude the possibilityof infection because test results can be affected byimproper specimen collection, concurrent antibiotic therapy,or the number of organisms in the specimen which may bebelow the sensitivity of the test. As with many diagnostictests, results from the Xpert CT/NG assay should beinterpreted in conjunction with other laboratory andclinical data available to the clinician.Xpert CT/NG performance has not been evaluated in patientsless than 14 years of age. The assay should not be used forthe evaluationof suspected sexual abuse or for other medico-legalindications. Additional testing is recommended in anycircumstance when false positive or false negative resultscould lead to adverse medical, social or psychologicalconsequences. NG PCR NOT DETECTED Not Detect. [facility] Comment:A not detected test result does not exclude the possibilityof infection because test results can be affected byimproper specimen collection, concurrent antibiotic therapy,or the number of organisms in the specimen which may bebelow the sensitivity of the test. As with many diagnostictests, results from the Xpert CT/NG assay should beinterpreted in conjunction with other laboratory andclinical data available to the clinician.Xpert CT/NG performance has not been evaluated in patientsless than 14 years of age. The assay should not be used forthe evaluationof suspected sexual abuse or for other medico-legalindications. Additional testing is recommended in anycircumstance when false positive or false negative resultscould lead to adverse medical, social or psychologicalconsequences. Swab Vaginal structure / Unknown 06/26/2024 10:34 AM EST 06/26/2024 1:54 PM EST Narrative [facility] - 06/26/2024 5:30 PM EST Vaginal us Rahel Mesa DO LAB MICROBIOLOGY - GENERAL O RDERABLES Final Result [facility] [address] [place] [phone] * Pap Smear (06/26/2024 10:34 AM EST) Swab Cervical swab / Unknown 06/26/2024 10:34 AM EST 06/27/2024 9:40 AM EST Narrative [facility] - 07/01/2024 12:35 PM EST ----- ------- Name: Bonnie Shore ?Age/Sex: 69/F ? : 1955 Unit#: [id number] ?? Attend Dr: Rahel Mesa DO ?Re06/26/24 ?Status: DEP REF ? Location: HO.TRUE ? Disch: ? ----- ------- SPEC : [id number] ?RECD: 06/27/24-939 ? STATUS: ??SOUT ? REQ NUM: [id number] ? ROSE MARY: 06/26/24-1033 ? SUBM DR: Rahel Mesa DO ? ENTERED: ??06/27/24-1010 ?SP TYPE: Pap Smr ?OTHR : ? ORDERED: ??Pap Smear ? Interpretation ?? Satisfactory for evaluation. ?? Negative for intraepithelial lesion or malignancy. ?? Atrophic. ?? Obscuring inflammation. ? HPV High Risk: ??Negative ? HPV Genotyping 16: ??Negative ?? HPV Genotyping 18: ??Negative ?Clinical Information LMP: Postmenopausal Previous PAP test: Unknown date, WNL ? Material Received ?? ThinPrep-Cervical ----- ------- Signed (signature on file) ENE Gibson (ASCP) 07/01/24 1235 ? ----- ------- ? END OF REPORT ? us Rahel Jurcsak DO LAB CYTOLOGY ORDERABLES Bushra l Result [facility] [address] [place] [address] [phone] * (ABNORMAL) POCT Glucose (06/26/2024 9:52 AM EST) Glucose Blood, POC 231(A) 60 - 200 mg/dL QC Media Lot # [id number] Lot# Expiration Date 963 Blood Capillary blood specimen / Unknown 06/26/2024 9:52 AM EST Rahel Mesa DO POINT OF CARE TEST ENTER/ASHA T ORDERABLES Final Result * POCT HGB A1C (04/23/2024 10:26 AM EDT) Hemoglobin A1C 5.7 4.0 - 6.0 % [employer] Media Lot # [id number] Lot# Expiration Date Blood 04/23/2024 10:2 6 AM EDT Rahel Mesa DO POINT OF CARE TEST ENTER/ASHA T ORDERABLES Final Result * Albumin, Random Urine W/Creatinine (10/18/2023 1:05 PM EDT) Creatinine, Urine 57.76 mg/dL [facility] Microalbumin Urine 16.0 mg/L [facility] Microalbum Creatinine Ratio Ur 27.7 <30 ug/mg cr [facility] Comment:Albumin/Creatinine R atio Reference Ranges: Normal: < 30 ug/mg creatinine Microalbuminuria: 30 - 300 ug/mg creatinineClinical Albuminuria: > 300 ug/mg creatinine Urine (Urine, Random) 10/18/2023 1:05 PM EDT 10/18/2023 4:00 PM EDT Rahel Mesa DO LAB URINE ORDERABLES Final R esult [facility] [address] [place] [address] [phone] * (ABNORMAL) Lipid Panel, Standard (10/15/2023 11:00 AM EDT) Triglycerides 97 <150 mg/dL [facility] Comment:Desirable Triglyceri de: less than 150 mg/dLBorderline High Triglyceride 150-199 mg/dLHigh Triglyceride: 200-499 mg/dLVery High Triglyceride: greater than or equal to 5OO mg/dL Cholesterol 81 <200 mg/dL [facility] Comment:Desirable Cholestero l: less than 200 mg/dLBorderline High Cholesterol: 200-239 mg/dLHigh Cholesterol: greater than 239 mg/dL LDL Cholesterol Calculated 30 <100 mg/dL [facility] Comment:Desirable LDL: less than 100 mg/dLNear Optimal/Above Optimal LDL: 110- 129 mg/dLBorderline High LDL: 130-159 mg/dLHigh LDL: 160-189 mg/dLVery High LDL: greater than or equal to 190 mg/dL HDL Cholesterol 32(L) >40 mg/dL [facility] Comment:Desirable HDL: great er than 40 mg/dL Note: This HDL assay may give artificially low results in patients with liver disease. Blood Venous blood specimen / Unknown 10/15/2023 11:00 AM EDT 10/15/2023 2:00 PM EDT Rahel Mesa DO LAB BLOOD ORDERABLES Final R esult Performing Organization Address City/[facility]/ZIP Co de Phone Number [facility] [address] [place] [address] [phone] * BI Mammogram Screening Tomosynthesis Bilateral (09/25/2023 3:38 PM EDT) Anatomical Region Laterality Modality Breast Bilateral Mammography 09/25/2023 3:38 PM EDT Narrative 10/16/2023 11:24 PM EDT ? [facility] ? [address] ?[place] [address] ? Mammography Report ? Signed ? Patient: Silviano,Bonnie P ?MR#: [id number] ?? 005 ? : 1955 ?Acct:[id number] ? Age/Sex: 68 / F ?ADM Date: 09/25/23 ? Loc: HO.MAMMO ? Attending Dr: Rahel Mesa DO ? Ordering Physician: Rahel Mesa DO ?Results: 1N ?? egative ? Date of Service: 09/25/23 ?Follow Up: 1 Year From Orig ?? inal Mammogram ? Procedure(s): MM tomosynthesis screening BI ?? Accession Number(s): [id number] ? cc: Rahel Mesa DO ? EXAMINATION: ?? MM SCREENING DIGITAL BREAST TOMOSYNTHESIS, BILATERAL ? CLINICAL INFORMATION: ? Screening. Asymptomatic. ? COMPARISON: ?? Mammography: This study is compared with prior exams dating back to ?? 2018. ? TECHNIQUE: ?? Digital breast tomosynthesis is performed in both the craniocaudal and ?? mediolateral oblique views along with computer-aided detection (CAD). ?? Synthesized 2D images are generated from the tomosynthesis. ? FINDINGS: ?? There are scattered areas of fibroglandular density (ACR BI-RADS breast ?? composition Category b). ? There are no significant masses, abnormal calcifications, or other ?? abnormalities. ? MM/MM tomosynthesis screening BI ?? IMPRESSION: ?? No mammographic evidence of malignancy. ? ASSESSMENT: ? BI-RADS BI-RADS 1 - Negative ? RECOMMENDATION: ?? Routine annual mammography screening. ? 1 year F/U ? This examination should not preclude the clinical evaluation of a ?? suspicious palpable abnormality. ? This patient's information was entered into a reminder system with a ?? target due date for their next mammogram. ? Dictated By: ?Cleo Pollack MD ? Signed By: ?<Electronically signed by Cleo Pollack MD in OV> ? 10/16/230 ? DD/ 1538 ? TD/TT: ? Electrolog Operator: ? Procedure Note Moe Johns - 10/16/2023 [place] [facility] [address] [place] [address] Mammography Report Signed Patient: Bonnie Shore PMR#: [id number] 005 : 6Acct:[id number] Age/Sex: 68 / FADM Date: 09/25/23 Loc: HO.MAMMO Attending Dr: Rahel Mesa DO Ordering Physician: Rahel Mesaults: 1N egative Date of Service: 09/25/23Follow Up: 1 Year From Orig inal Mammogram Procedure(s): MM tomosynthesis screening BI Accession Number(s): [id number] cc: Rahel Mesa DO EXAMINATION: MM SCREENING DIGITAL BREAST TOMOSYNTHESIS, BILATERAL CLINICAL INFORMATION: Screening. Asymptomatic. COMPARISON: Mammography: This study is compared with prior exams dating back to 2018. TECHNIQUE: Digital breast tomosynthesis is performed in both the craniocaudal and mediolateral oblique views along with computer-aided detection (CAD). Synthesized 2D images are generated from the tomosynthesis. FINDINGS: There are scattered areas of fibroglandular density (ACR BI-RADS breast composition Category b). There are no significant masses, abnormal calcifications, or other abnormalities. MM/MM tomosynthesis screening BI IMPRESSION: No mammographic evidence of malignancy. ASSESSMENT: BI-RADS BI-RADS 1 - Negative RECOMMENDATION: Routine annual mammography screening. 1 year F/U This examination should not preclude the clinical evaluation of a suspicious palpable abnormality. This patient's information was entered into a reminder system with a target due date for their next mammogram. Dictated By: Cleo Pollack MD Signed By: <Electronically signed by Cleo Pollack MD in OV> 10/16/23 2320 DD/ 1538 TD/TT: Electrolog Operator: Rahel Mesa DO IMG BI PROCEDURES Final Resu lt * HEPATITIS C AB W/REFL TO HCV RNA, QN, PCR (05/18/2020 11:16 AM EST) HEPATITIS C ANTIBODY NON-REACT TANNER NON-REACT TANNER [facility] INDEX 0.07 <1.00 [facility] Comment: ?? HCV antibody was non-reactive. There is no laboratory ?? evidence of HCV infection. ?? In most cases, no further action is required. However, if recent HCV exposure is suspected, a test for HCV RNA (test code 74617) is suggested. ?? For additional information please refer to http://[employer]/faq/VNJ89q2 (This link is being provided for informational/ educational purposes only.) ?? HEPATITIS C ANTIBODY NON-REACT TANNER NON-REACT [facility] INDEX 0.07 <1.00 [facility] Comment: ?? HCV antibody was non-reactive. There is no laboratory ?? evidence of HCV infection. ?? In most cases, no further action is required. However, if recent HCV exposure is suspected, a test for HCV RNA (test code 27562) is suggested. ?? For additional information please refer to http://[employer]/faq/ZTQ23i5 (This link is being provided for informational/ educational purposes only.) ?? HEPATITIS C ANTIBODY NON-REACT TANNER NON-REACT TANNER [facility] INDEX 0.07 <1.00 [facility] Comment: ?? HCV antibody was non-reactive. There is no laboratory ?? evidence of HCV infection. ?? In most cases, no further action is required. However, if recent HCV exposure is suspected, a test for HCV RNA (test code 94120) is suggested. ?? For additional information please refer to http://Hands[employer]/faq/VXI52c2 (This link is being provided for informational/ educational purposes only.) ?? HEPATITIS C ANTIBODY NON-REACT TANNER NON-REACT TANNER [facility] INDEX 0.07 <1.00 [facility] Comment: ?? HCV antibody was non-reactive. There is no laboratory ?? evidence of HCV infection. ?? In most cases, no further action is required. However, if recent HCV exposure is suspected, a test for HCV RNA (test code 39068) is suggested. ?? For additional information please refer to http://Bureau [employer]/faq/ITA24l3 (This link is being provided for informational/ educational purposes only.) ?? 05/18/2020 11:1 6 AM EST Rahel Mesa DO HISTORICAL/NON ORDERABLE LAB S Final Result [facility] [address] * Hm Colonoscopy (08/19/2019 11:19 AM EST) Historical Provider HEALTH MAINTENANCE Final Result from Last 3 Months or Most Recently Relevant to Health Maintenance Insurance [facility] Care Teams Employment Coach Relationship Specialty Start Date End Date Rahel Mesa DO [address] [place] [address] PCP - General Family Medicine 07/09/18 Cammy Zapata PharmD [address] [place] [address] Pharmacist Internal Medicine 05/09/23
== END 2024-09-02 15:15 | disposition home or self-care (01) ==
PROVIDERS: PCP Family Medicine; Visit Provider Internal Medicine
DX: J44.9 Chronic obstructive pulmonary disease, unspecified (principal); R91.8 Other nonspecific abnormal finding of lung field; Z87.891 Personal history of nicotine dependence; R09.02 Hypoxemia
CPT/HCPCS: 99213

== ENCOUNTER 2024-09-05 09:59 | Outpatient (REF) | payer OTHER, SELFPAY ==
--- NOTE | 2024-09-05 10:01 | PFT_ITS ---
Flows: FEV1: 43 % of predicted at 0.96 L FVC: 104 % of predicted at 3.01 L FEV1/FVC: 32 % Bronchodilator response: Present Volumes: Total lung capacity: 110 % of predicted at 5.50 L Residual volume: 139 % of predicted at 2.67 L Slow vital capacity: 92 % of predicted at 2.83 L Expiratory reserve volume: 123 % of predicted at 0.91 L Diffusion capacity: Severely decreased Impression: Severe obstructive ventilatory defect with positive bronchodilator response. Increased residual volume suggests air trapping. Decreased diffusion capacity suggests emphysema. MTDD
[2024-09-05 10:44] VITALS: PULSE 91
--- OUTSIDE RECORDS SUMMARY | 2024-09-05 11:02 | XMS_ITS | Encounter Summary ---
Author Organization [employer] Address [address] [place] [address] Care Team Providers Care [employer] Fishing Boat Crewman Name Role Phone Rahel Mesa DO Primary Care Provider + [phone] Cammy Zapata PharmD Unavailable [phone] Encounter Details Date Type Department Care [...] documented as of this encounter Care Teams [employer]ishing [employer] Crewman Relationship Specialty Start Date End Date Rahel Mesa DO [address] [place] [address] PCP - General Family Medicine 07/09/18 Cammy Zapata PharmD [address] [place] [address] Pharmacist Internal Medicine 05/09/23 documented as of this encounter
--- OUTSIDE RECORDS SUMMARY | 2024-09-05 11:02 | XMS_ITS | Encounter Summary ---
Author Organization [employer] Address [address] [place] [address] Care Team Providers Care Ore Storage Drier Name Role Phone Rahel Mesa DO Primary Care Provider + [phone] Cammy Zapata PharmD Unavailable Encounter Details Date Type Department Care Team (Late st Contact Info) Description 06/27/2024 Orders Only [facility] External Provider, [facility] Social History Tobacco Use Types Packs/Day Years [...] EST Narrative 08/06/2024 1:18 PM EST ? [facility] ?[address] ?[place] [address] ? CT Scan Report ? Signed ? Patient: Silviano,Bonnie P ?MR#: [id number] ?? 005 ? : 1955 ?Acct:[id number] ? Age/Sex: 69 / F ?ADM Date: 12/20/24 ? Loc: HO.CT ? Attending Dr: Merna Purcell MD ? Ordering Physician: Merna Purcell MD ?? Date of Service: 06/27/24 ?? Procedure(s): CT chest wo IV con ?? Accession Number(s): [id number] ? cc: Merna Purcell MD; Rahel Mesa DO ? Report Number: ?? [id number]: Total DLP = ??112.00 mGy-cm ?? EXAMINATION: [...] DD/ 0750 ? TD/TT: 06/27/24 0814 ? Mercerizer: ? Procedure Note Nat, Image - 08/06/[address] [address] [address] Scan Report Signed Patient: Bonnie Shore PMR#: [id number] 005 : 6Acct:[id number] Age/Sex: 69 / FADM Date: 06/27/24 Loc: HO.CT Attending Dr: Merna Purcell MD Ordering Physician: Merna Purcell MD Date of Service: 06/27/24 Procedure(s): CT chest wo IV con Accession Number(s): [id number] cc: Merna Purcell MD; Rahel Mesa DO Report Number: [id number]: Total DLP = 112.00 mGy-cm EXAMINATION: CT [...] 08/06/24 1316 DD/ 0750 TD/TT: 06/27/24 0814 Mercerizer: [facility] External Provider IMG CT PROCEDURES Edited Result - Final documented in this encounter Visit Diagnoses Not on filedocumented in this encounter Additional Health Concerns Assessment Noted Time PHQ-9 Depression Total Score: 2 06/26/20 24 9:53 AM EST documented as of this encounter Care Teams Ore Storage Drier Relationship Specialty Start Date End Date Rahel Mesa DO [address] [place] [address] PCP - General Family Medicine 07/09/18 Cammy Zapata PharmD [address] [place] [address] Pharmacist Internal Medicine 05/09/23 documented as of this encounter
--- OUTSIDE RECORDS SUMMARY | 2024-09-05 11:02 | XMS_ITS | Encounter Summary ---
Author Organization [employer] Address [address] [place] [address] Care Team Providers Care Risk Management Consultant Name Role Phone Moshe Rahel Primary Care Provider [phone] Cammy Zapata PharmD Unavailable [phone] Encounter Details Date Type Department Care Team (Late st Contact Info) Description 08/15/2024 10:00 AM EST Office Visit [facility] [address] [place], [place] [phone] Sabino Emery MD [address], [place] [phone] Pruritic rash (Primary Dx) Social History Tobacco [...] documented as of this encounter Care Teams Risk Management Consultant Relationship Specialty Start Date End Date Rahel Mesa DO [address], [place] [phone] PCP - General Family Medicine 07/09/18 Cammy Zapata, PharmD [address] [place] [address] Pharmacist Internal Medicine 05/09/23 documented as of this encounter
--- OUTSIDE RECORDS SUMMARY | 2024-09-05 11:02 | XMS_ITS | Encounter Summary ---
Author Organization [employer] Address [address] [place] [address] Care Team Providers Care Human Resources Department Supervisor Name Role Phone Rahel Mesa DO Primary Care Provider + [phone] Cammy Zapata PharmD Unavailable [phone] Encounter Details Date Type Department Care [...] t he electric, gas, oil or water [employer] threatened to shut off services in your [...] EST Narrative 08/28/2024 3:45 PM EST ? [facility] ?[address] ?[place] [address] ?XRay Report ? Signed ? Patient: Silviano,Bonnie P ?MR#: [id number] ?? 005 ? : 1955 ?Acct:[id number] ? Age/Sex: 69 / F ?ADM Date: 02/20/25 ? Loc: HO.SSS ? Attending Dr: Merna Purcell MD ? Ordering Physician: Sam Umaña ?? Date of Service: 08/28/24 ?? Procedure(s): XR chest 1V ?? Accession Number(s): [id number] ? cc: Rahel Mesa DO; Sam Umaña [...] DD/ 1115 ? TD/TT: 08/28/24 1129 ? Printing Film Stripper: ? Procedure Note Nat, Image - 08/28/[address] [address] XRay Report Signed Patient: Bonnie Shore PMR#: [id number] 005 : 6Acct:[id number] Age/Sex: 69 / FADM Date: 08/28/24 Loc: HO.SSS Attending Dr: Merna Purcell MD Ordering Physician: Sam Umaña Date of Service: 08/28/24 Procedure(s): XR chest 1V Accession Number(s): [id number] cc: Rahel Mesa DO; Sam Umaña EXAMINATION: [...] 08/28/24 1542 DD/ 1115 TD/TT: 08/28/24 1129 Printing Film Stripper: [facility] External Provider IMG XR PROCEDURES Final Result * XR Chest 1 View (08/28/2024 10:10 AM EST) Anatomical Region Laterality Modality Chest Radiographic Susie ging 08/28/2024 10:1 0 AM EST Narrative 08/28/2024 11:54 AM EST ? [facility] ?[address] ?[place] [address] ?XRay Report ? Signed ? Patient: Bonnie Shore ?MR#: [id number] ?? 005 ? : 1955 ?Acct:[id number] ? Age/Sex: 69 / F ?ADM Date: 08/28/24 ? Loc: HO.SSS ? Attending Dr: Merna Purcell MD ? Ordering Physician: Sam Umaña ?? Date of Service: 08/28/24 ?? Procedure(s): XR chest 1V ?? Accession Number(s): [id number] ? cc: Rahel Mesa DO; Sam Umaña [...] DD/ 1010 ? TD/TT: 08/28/24 1022 ? Printing Film Stripper: ? Procedure Note Donotuseinterpreter, Image - 08/28/[address] [address] XRay Report Signed Patient: Bonnie Shore PMR#: [id number] 005 : 6Acct:[id number] Age/Sex: 69 / FADM Date: 08/28/24 Loc: .[facility] Attending Dr: Merna Purcell MD Ordering Physician: Sam Umaña Date of Service: 08/28/24 Procedure(s): XR chest 1V Accession Number(s): [id number] cc: Rahel Mesa DO; Sam Umaña EXAMINATION: [...] 08/28/24 1151 DD/ 1010 TD/TT: 08/28/24 1022 Printing Film Stripper: us [facility] External Provider IMG XR PROCEDURES Final Result * Cell Block (08/28/2024 9:23 AM EST) 08/28/2024 9:23 AM EST 08/28/2024 9:45 AM EST Narrative [facility] - 09/02/2024 11:17 AM EST ----- ------- Name: Bonnie Shore ?Age/Sex: 69/F ? : 1955 Unit#: [id number] ?? Attend Dr: Merna Purcell MD ?Re08/28/24 ?Status: DEP SDC ? Location: HO.SSS ?Disch: ? ----- ------- SPEC : [id number] ? RECD: 08/28/24-944 ? STATUS: ??SOUT ? REQ NUM: [id number] ? ROSE MARY: 08/28/24 ? SUBM DR: [...] ??Please also correlate with concurrent biopsy results ([id number]) ?? - similar findings. ?Clinical History Right lung mass, significant smoking history ? Material Received ?? Right lung mass - 4 x 20 g cores ? Gross Description Received is 38 cc of green collection fluid, containing multiple tissue fragments from which a ThinPrep slide and cell block are prepared. This case was reviewed intradepartmentally. Copies To: ?? Merna Purcell MD ?? [facility] ?? [address] ?? [place] ?? [phone] ?? Rahel Mesa DO ?? [facility] ?? [address] ?? [place] ?? [phone] ?? Sam Umaña ?? [address] ?? [place] [address] ?? [phone] ?? [email or web address] ? CONTINUED ON NEXT PAGE ----- ------- Name: Bonnie Shore ?Age/Sex: 69/F ? : 1955 Unit#: [id number] ?? Attend Dr: Merna Purcell MD ?Re08/28/24 ?Status: DEP SDC ? Location: HO.SSS ?Disch: ? ----- ------- SPEC : [id number] ? RECD: 08/28/24-944 ? STATUS: ??SOUT ? REQ NUM: [id number] ? ROSE MARY: 08/28/24-922 ? SUBM DR: Sam Umaña ? ENTERED: ??08/28/24-954 ?SP TYPE: Cytology ? OTHR DR: Merna Purcell MD ?Rahel Mesa DO ORDERED: ??Cell Block, Gross Micro L4, Cyto-enhanced ? ----- ------- Signed (signature on file) Raul Solomon MD 09/02/24 1117 ? ----- ------- ? END OF REPORT ? us Generic External Data Provider LAB CYTOLOGY GRANTE IRVIN Final Result [facility] [address] [place] [address] [phone] * Gomori Methenamine Stain (08/28/2024 9:23 AM EST) 08/28/2024 9:23 AM EST 08/28/2024 9:42 AM EST Narrative [facility] - 09/02/2024 11:17 AM EST ----- ------- Name: Bonnie Shore ?Age/Sex: 69/F ? : 1955 Unit#: [id number] ?? Attend Dr: Merna Purcell MD ?Re08/28/24 ?Status: DEP SDC ? Location: HO.SSS ?Disch: ? ----- ------- SPEC : [id number] ?RECD: 08/28/24-941 ? STATUS: ??SOUT ? REQ NUM: [id number] ? ROSE MARY: 08/28/24 ? SUBM DR: [...] also correlate with concurrent cytology ?? results ([id number]) - similar findings. ?Clinical History Right lung [...] Copies To: ?? Merna Purcell MD ?? [facility] ?? [address] ?? [place] [address] ?? [phone] ?? Rahel Mesa DO ?? [facility] ?? [address] ?? [place] [address] ?? [phone] ? CONTINUED ON NEXT PAGE ----- ------- Name: Bonnie Shore ?Age/Sex: 69/F ? : 1955 Unit#: [id number] ?? Attend Dr: Merna Purcell MD ?Re08/28/24 ?Status: DEP SDC ? Location: HO.SSS ?Disch: ? ----- ------- SPEC : [id number] ?RECD: 08/28/24-941 ? STATUS: ??SOUT ? REQ NUM: [id number] ? ROSE MARY: 08/28/24 ? SUBM DR: Sam Umaña ? ENTERED: ??08/28/24 ?SP TYPE: Surgical ? OTHR DR: Merna Purcell MD ?Rahel Mesa DO ORDERED: ??Gom Meth Stain, Acid Fast Stain, Gross Micro L4, Specials Gr. 07/11, PASF ? Copies To: ??(Continued) ?? Sam Umaña ?? [address] ?? [place] [address] ?? [phone] ?? [email or web address] ----- ------- Signed (signature on file) Raul Solomon MD 09/02/24 1117 ? ----- ------- ? END OF REPORT ? Generic External Data Provider LAB MICROBIOLOGY - GENERAL ORDERABLES Final Result Performing Organization Address [facility] de Phone Number [facility] [address] [place] [address] [phone] * (ABNORMAL) Glucose, Whole Blood (08/28/2024 7:59 AM EST) [facility] Glucose, Whole Blood 210(H) 60 - 115 mg/dL [facility] Comment:METER #: [id number] 08/28/2024 7:59 AM EST 08/28/2024 8:03 AM EST Generic External Data Provider LAB BLOOD ORDERAB LES Final Result Performing Organization Address [facility] Phone Number [facility] [address] [place] [address] [phone] * (ABNORMAL) CBC auto differential (08/28/2024 7:38 AM EST) [facility] White Blood Count 5.9 4.8 - 10.8 X10*3/uL [facility] Red Blood Count 4.09(L) 4.20 - 5.50 X10*6/uL [facility] Hemoglobin 11.4(L) 12.0 - 16.0 g/dl [facility] Hematocrit 34.5(L) 37.0 - 47.0 % [facility] Mean Corpuscular Volume 84.4 80.0 - 98.0 fL [facility] Mean Corpuscular Hemoglobin 27.9 27.0 - 33.0 pg [facility] Mean Corpuscular HGB Conc 33.0 31.0 - 35.0 g/dl [facility] Red Cell Distribution Width 14.2 11.0 - 16.0 % [facility] Platelet Count 173 160 - 400 X10*3/uL [facility] Mean Platelet Volume 10.5 9.4 - 12.3 fL [facility] Neutrophils Percent Auto 55.2 45 - 73 % [facility] Imm Gran Pct Auto 0.3 0.0 - 0.4 % [facility] Lymphocytes Percent Auto 29.8 20 - 40 % [facility] Monocytes Percent Auto 11.1(H) 2 - 11 % [facility] Eosinophils Percent Auto 3.1 0 - 4 % [facility] Basophils Percent Auto 0.5 0 - 2 % [facility] NRBC Pct Auto 0.0 0.0 - 0.2 /100WBC [facility] Neutrophils Absolute Auto 3.2 2.0 - 8.3 x10*3/uL [facility] Imm Gran Abs Auto 0.02 0.00 - 0.03 X10*3/uL [facility] Lymphocytes Absolute Auto 1.8 1.2 - 4.9 X10*3/uL [facility] Monocytes Absolute Auto 0.7 0.1 - 1.2 X10*3/uL [facility] Eosinophils Absolute Auto 0.2 0.0 - 0.4 X10*3/uL [facility] Basophils Absolute Auto 0.0 0.0 - 0.2 X10*3/uL [facility] NRBC Abs Auto 0.000 0.0 - 0.012 X10*3/uL [facility] 08/28/2024 7:38 AM EST 08/28/2024 7:58 AM EST us Generic External Data Provider LAB BLOOD ORDERAB LES Final Result [facility] [address] [place] [address] [phone] documented in this encounter Visit Diagnoses Not on filedocumented in this encounter Additional Health Concerns Assessment Noted Time PHQ-9 Depression Total Score: 2 06/26/20 24 9:53 AM EST documented as of this encounter Care Teams Human Resources Department Supervisor Relationship Specialty Start Date End Date Rahel Mesa DO [address] [place] [address] PCP - General Family Medicine 07/09/18 Cammy Zapata, LindaD [address] [place] [address] Pharmacist Internal Medicine 05/09/23 documented as of this encounter
--- OUTSIDE RECORDS SUMMARY | 2024-09-05 11:03 | XMS_ITS | Encounter Summary ---
Author Organization [employer] Address [address] [place] [address] Care Team Providers Care Acquisitions Editor Name Role Phone Rahel Mesa DO Primary Care Provider [phone] Cammy Zapata PharmD Unavailable [phone] Encounter Details Date Type Department Care Team (Late st Contact Info) Description 07/05/2023 Abstract [facility] MEDICINE [address] [place], [place] [phone] Rahel Mesa DO [address] [place], [place] [phone] Social History Tobacco Use Types Packs/Day Years [...] documented as of this encounter Care Teams Acquisitions Editor Relationship Specialty Start Date End Date Rahel Mesa DO [address] [place] [address] PCP - General Family Medicine 07/09/18 Cammy Zapata, PharmD [address] [place] [address] Pharmacist Internal Medicine 05/09/23 documented as of this encounter
--- OUTSIDE RECORDS SUMMARY | 2024-09-05 11:03 | XMS_ITS | Clinical Summary ---
Author Organization [facility] Address [address] [place] [address] Phone Care Team Providers Care Squeegeer And Former Name Role Phone Unavailable Primary Care Provider Unavailabl e Encounters Date Type Department Care Team Description 08/22/2024 3:30 PM EST - 08/22/2024 11:59 PM EST Hospital Encounter PET Scan [address] [place] [address] scan Discharge Disposition: Home or Self Care from Last 3 Months Medical History Medical History Date Comments Tobacco abuse 03/13/2012 DX:Tobacco abuse PTSD (post-traumatic stress disorder) 03/13/2012 DX:PTSD (post-traumatic stress disorder) Depression 03/13/2012 DX:Depression Polysubstance abuse ([facility]) 03/13/2012 DX :Polysubstance abuse ([facility]) COPD (chronic obstructive pu lmonary disease) ([facility]) 03/13/2012 DX:COPD (chronic obstructive pulmonary disease) ([facility]) Asthma 03/13/2012 DX:Asthma S/P tonsillectomy 03/13/2012 DX:S/P [...] Signed Date: 08/27/2024 04:18 ET Workstation ID: [id number] Transcribed By: Self Edit Transcribed Date: 08/27/2024 [...] Signed Date: 08/27/2024 04:18 ET Workstation ID: [id number] Transcribed By: Self Edit Transcribed Date: 08/27/2024 03:30 ET Merna Purcell [facility] PROCEDURES Final Result from Last 3 Months
--- OUTSIDE RECORDS SUMMARY | 2024-09-05 11:03 | XMS_ITS | Data Portability ---
Author Organization [employer] Address [address] [place] [address] Care Team Providers Care Director Of Litigation Name Role Phone [facility] Referring Provider HIM [facility] OTHER Assessment Encounter Date Assessment Date Assessment LastModified by Organization Details LastModified Time 01/03/2023 01/03/2023 I have reviewed and agree with the assessment and plan as documented by the construction project manager. I provided real-time medical direction for this [...] Assessment and Plan as documented by the Program Consultant. Patient given the opportunity to ask questions. Advised if develops CP/severe SOB/turning blue/ severe abd or flank pain/uncontrolle d n/v/d or black/bloody emesis or stool/ AMS/ syncope/ hi fever to call 911- verbalized understanding of instructions Not available 03/16/2023 17:14:27 02/04/2024 02/04/2024 Ms. Bonnie Shore is a 68yoF w/ a PmHx of COPD who is seen today for further evaluation of a pruritic rash. Ms. Shroe reports that for the past year she [...] of scabies given ?tracking noted on pictures. [facility] Not available 02/04/2024 14:08:26 Plan of Treatment Reminders Order Date Submit Date Provider Last Modified By Organization Details Last Modified Time Details Appointments None recorded. Lab culture, urine 2022 023 [facility]ELIC[facility] (Centralized Electronic Ordering - All Locations), Patient Can Go To The Location Of Their Choice, [id number] 3 07:54:12 urinalysis, dipstick 2022 023 [email or web address] 0 Main - [facility], [address] [place] [address], [address], 3 17:10:22 BMP, serum or plasma 2022 023 [email or web address] 0 Main - [facility], [address] [place] [address], [address], 3 17:20:26 culture, urine 2022 023 [facility] (Centralized Electronic Ordering - All Locations), Patient Can Go To The Location Of Their Choice, [address] 3 10:46:24 urinalysis, dipstick 2022 023 [email or web address] Main - [facility], [address] [place] [address], [address], 3 12:52:08 Referral None recorded. Procedures None recorded. Surgeries None recorded. Imaging None recorded. Medication Orders permethrin 5 % topical cream 2023 024 [id number], [address] [place], [address], 4 14:05:45 Bactrim DS 800 mg-160 mg tablet 2022 023 [id number], [address] [place], [address], 3 17:11:22 Bactrim DS 800 mg-160 mg tablet 2022 023 [email or web address] [id number] [address] [place], [address], 3 17:11:20 Bactrim DS 800 mg-160 mg tablet 2022 023 [id number], [address] [place], [address], 3 12:52:10 Patient TargetsNo targets recorded. Patient [...] Leukocytes positi ve Not Available Main - [facility] ed [address] [place] [address], [address], 01/03/2023 12:50:05 01/04/2001/03/2023 urina lysis , dipst ick Nitrite positi ve Not Available [facility] - [facility] ed [address] [place] [address], [address], 01/03/2023 12:50:05 03/16/2003/16/2023 URINE CULTU RE specimen [...] Go To The Location Of Their Choice, [facility] 03/18/2023 07:54:12 03/16/2003/18/2023 URINE CULTU RE report status FINAL 2022 Not Available [facility] (Centralized Electronic Ordering - All Locations) Patient Can Go To The Location Of Their Choice, [facility] 03/18/2023 07:54:12 03/16/20 23 03/16/2023 BMP, serum or plasm a BUN 13 Not Available Main - [facility] [address], [address], 03/16/2023 17:14:35 03/16/20 23 03/16/2023 BMP, serum or plasm a Ca ical 4.4 Not Available Main - [address], [address], 03/16/2023 17:14:35 03/16/20 23 03/16/2023 BMP, serum or plasm a CI- 94 Not Available Main - [facility] [address], [address], 03/16/2023 17:14:35 03/16/20 23 03/16/2023 BMP, serum or plasm a CRE 0.47 Not Available Main - [facility] [address], [address], 03/16/2023 17:14:35 03/16/20 23 03/16/2023 BMP, serum or plasm a GLU 187 Not Available Main - [facility] [address], [address], 03/16/2023 17:14:35 03/16/20 23 03/16/2023 BMP, serum or plasm a K+ 4.5 Not Available Main - [facility] [address], [address], 03/16/2023 17:14:35 03/16/20 23 03/16/2023 BMP, serum or plasm a Na+ 135 Not Available Main - [facility] [address], [address], 03/16/2023 17:14:35 03/16/20 23 03/16/2023 BMP, serum or plasm a tCO2 26 Not Available Main - [facility] [address], [address], 03/16/2023 17:14:35 03/16/20 23 03/16/2023 urina lysis , dipst ick Leukocytes +3 Not Available Main - [facility] [address] [place] [address], [address], 03/16/2023 17:08:15 03/16/20 23 03/16/2023 urina lysis , dipst ick Nitrite negati ve Not Available Main - [facility] [address], [address], 03/16/2023 17:08:15 03/16/20 23 03/16/2023 urina lysis , dipst ick Urobilinogen neg Not Available Main - [facility] [address] [place] [address], [address], 03/16/2023 17:08:15 03/16/20 23 03/16/2023 urina lysis , dipst ick Protein 3+ Not Available Main - [facility] [address], [address], 03/16/2023 17:08:15 03/16/20 23 03/16/2023 urina lysis , dipst ick pH 6.5 Not Available Main - [facility] [address], [address], 03/16/2023 17:08:15 03/16/20 23 03/16/2023 urina lysis , dipst ick Blood 3+ Not Available Main - [facility] [address], [address], 03/16/2023 17:08:15 03/16/20 23 03/16/2023 urina lysis , dipst ick Specific [place] 1.005 Not Available Main - [facility] [address] [place] [address], [address], 03/16/2023 17:08:15 03/16/20 23 03/16/2023 urina lysis , dipst ick Ketone neg Not Available Main - [facility] [address], [address], 03/16/2023 17:08:15 03/16/20 23 03/16/2023 urina lysis , dipst ick Bilirubin neg Not Available Main - [facility] [address] [place] [address], [address], 03/16/2023 17:08:15 03/16/2003/16/2023 urina lysis , dipst ick Glucose neg Not Available Main - [facility] [address], [address], 03/16/2023 17:08:15 03/16/20 23 03/16/2023 urina lysis , dipst ick Appearance Clear yellow with some white clumpy sedime nt Not Available Main - [facility] [address] [place] [address], [address], 03/16/2023 17:08:15 03/16/20 23 03/16/2023 urina lysis , dipst ick Color Yellow Not Available Main - [facility] [address], [address], 03/16/2023 17:08:15 Result Notes None recorded. Medical [...] Details Last Updated DateTime 3 14 /min 31751.8 4 g 94 /min 97.3 [degF] 98 % 98 % 128 mm[Hg] 81 mm[Hg] Not Available [employer] 3 12:47:35 Date Recorded Oxygen saturation Oxygen saturation in Arterial blood by Pulse oximetry Inhaled oxygen flow rate Respiratory rate Body temperature Heart rate Systolic blood pressure Diastolic blood pressure Provider Name and Address Organization Details Last Updated DateTime 3 93 % 93 % 2 L/min 16 /min 98.8 [degF] 98 /min 115 mm[Hg] 80 mm[Hg] Not Available [employer] 3 16:56:56 Date Recorded Oxygen saturation Oxygen saturation in Arterial blood by Pulse oximetry Inhaled oxygen flow rate Heart rate Respiratory rate Body temperature Systolic blood pressure Diastolic blood pressure Provider Name and Address Organization Details Last Updated DateTime 4 94 % 94 % 2 L/min 91 /min 16 /min 97.1 [degF] 155 mm[Hg] 86 mm[Hg] Not Available [employer] 4 14:00:46 Social History None recorded. Functional Status None recorded. Mental Status None recorded. Family History Nothing Reported. Medical History No medical history recorded. Gynecological HistoryNo gynecological history recorded. Obstetrics History GPAL:G 0 P 0 0 0 0 Past Encounters Encounter ID Performer Location Encounter Start Date Encounter Closed Date Diagnosis/Indication Diagnosis SNOMED-CT Code Diagnosis ICD10 Code Diagnosis Note [id number] Norah Rios MD Main - [facility] [address] [place] [phone] 01/03/2023 12:47:29 01/04/2023 11:19:14 Dysuria 30045471 R30.0 Urinary symptoms 0544781 08 R39.9 [id number] Emily Reyes MD Main - [facility] [address] [place] [phone] 03/16/2023 16:56:46 03/17/2023 16:02:20 Urinary symptoms 165230122 R39.9 Findings consistent with urinary tract infection. [...] ing of yang rosenberg to the [facility] [id number] Lizzie Moss MD Main - [facility] [address] [place] [phone] 02/04/2024 14:00:38 02/04/2024 18:05:27 Pruritic rash 75073665 L28.2 Health Concerns Section Related Observation LastModified by Organization Detai ls LastModified Time None Recorded Concern Status LastModified by Organization Details LastModified Time None Recorded Advance Directives Directive None Recorded Payers Encounter Date Sequence Insurance Name Policy Number Policy Valentin Covered Member ID Valentin Member ID Guarantor Name 01/03/2023 1 [facility] - DOS ON OR AFTER 2022 - DUAL ELIGIBLE - INTERMEDIATE OPTIONS AND ONE CARE (MEDICARE REPLACEMENT/ADV ANTAGE - HMO) Bonnie Shore [id number] Bonnie Shore 03/16/2023 1 [facility] - DOS ON OR AFTER 2022 - DUAL ELIGIBLE - INTERMEDIATE OPTIONS AND ONE CARE (MEDICARE REPLACEMENT/ADV ANTAGE - HMO) Bonnie Shore [id number] Bonnie Shore 02/04/2024 1 [facility] - DOS ON OR AFTER 2022 - DUAL ELIGIBLE - INTERMEDIATE OPTIONS AND ONE CARE (MEDICARE REPLACEMENT/ADV ANTAGE - HMO) Bonnie Shore [id number] Bonnie Shore Notes Date Note Type Note [...] to process this visit. Norah Rios MD [address] [place] [address],[address], [place], [phone] [employer] 01/03/2023 12:52:19 03/16/2023 text/html CRC Nursing Assessment: [...] .................. .................. .................. .................. .................. .................. ............... Program Consultant Note From Leif Shields: Pt report urinary [...] vomiting or diarrhea. Emily Reyes MD [address] [facility],[address], [place], [address], [place] [employer] 03/16/2023 17:24:05 02/04/2024 text/html [facility] Nurse Triage Notes (Juli Giles): Reason For [...] .................. .................. .................. .................. .................. .................. ............... Program Consultant Note From Epifanio Washburn: Pt reports waxing [...] .................. ............... Disposition: Fulfilled Lizzie Moss MD [address] [place] [address],[address], [place], [address], [place] 02/04/2024 14:22:17 OBGyn Episode No OBEpisode recorded.
--- OUTSIDE RECORDS SUMMARY | 2024-09-05 11:03 | XMS_ITS | Encounter Summary ---
Author Organization [employer] Address [address] [place] [address] Care Team Providers Care Concrete Mixing Plant Laborer Name Role Phone Rahel Mesa DO Primary Care Provider [phone] Cammy Zapata PharmD Unavailable [phone] Reason for Visit * Reason Onset Date Comments Prior Authorization 05/24/2023 glucose bloo d (FREESTYLE LITE) test strip Encounter Details Date Type Department Care Team (Late st Contact Info) Description 05/24/2023 Telephone [facility] MEDICINE [address] [place], [place] [phone] Rahel Mesa DO [address] [place], [place] [phone] Prior Authorization (glucose blood (FREESTYLE LITE) test [...] documented as of this encounter Care Teams Concrete Mixing Plant Laborer Relationship Specialty Start Date End Date Rahel Mesa DO [address] [place] [address] PCP - General Family Medicine 07/09/18 Cammy Zapata, Eder [address] [place] [phone] Pharmacist Internal Medicine 05/09/23 documented as of this encounter
--- OUTSIDE RECORDS SUMMARY | 2024-09-05 11:03 | XMS_ITS | Encounter Summary ---
Author Organization [employer] Address [address] [place] [address] Care Team Providers Care Pipe Processor Name Role Phone Rahel Mesa DO Primary Care Provider [phone] Sam Chaney PharmD Unavailable Unavail able Cammy Zapata PharmD Unavailable Encounter Details Date Type Department Care Team (Late st Contact Info) Description 08/14/2022 Telephone [facility] MEDICINE [address] [place], [place] [phone] Rahel Mesa DO [address] [place] [address] Social History Tobacco Use Types Packs/Day Years [...] on filedocumented in this encounter Care Teams Pipe Processor Relationship Specialty Start Date End Date Rahel Mesa DO [address] [place] [address] PCP - General Family Medicine 07/09/18 Sam Chaney, PharmD [address] [place] [phone] Pharmacist Internal Medicine 08/11/22 05/08/23 Cammy Zapata PharmD [address] [place] [address] Pharmacist Internal Medicine 05/09/23 documented as of this encounter
--- OUTSIDE RECORDS SUMMARY | 2024-09-05 11:03 | XMS_ITS | Clinical Summary ---
Author Organization [employer] Address [address] [place] [address] Care Team Providers Care Regional Controller Name Role Phone Moshe Rahel Primary Care Provider [phone] Cammy Zapata PharmD Unavailable Allergies No known [...] Data 08/15/2024 10:00 AM EST Office Visit [facility] [address] [place] [phone] Sabino Emery MD Pruritic rash (Primary Dx) 08/15/2024 Travel 07/21/2024 Refill [facility] [address] [place] [address] Name, MD Oswaldo Other hyperlipidemia 06/27/2024 Orders Only [facility] External Provider, [facility] 06/26/2024 10:00 AM EST Procedure Visit [facility] [address] [place] [address] Rahel Mesa DO Encounter for cervical Pap smear with pelvic exam (Primary Dx); Type 2 diabetes mellitus without complication, without long-term current use of insulin ([facility]); Encounter for immunization 06/26/2024 Travel from Last [...] IIV3, injectable 05/01/2014, 1,07/12/2010 Influenza, Split (incl. luis alberto fied surface antigen) 07/12/2012 Pfizer Covid-19 [...] complication, without long-term current use of insulin ([facility]) POCT GLYCATED HEMOGLOBIN, TOTAL Routine 04/23/2024 10:26 [...] EST Narrative 08/28/2024 3:45 PM EST ? [facility] ?[address] ?[place] [address] ?XRay Report ? Signed ? Patient: Silviano,Bonnie P ?MR#: [id number] ?? 005 ? : 1955 ?Acct:[id number] ? Age/Sex: 69 / F ?ADM Date: 08/28/24 ? Loc: HO.SSS ? Attending Dr: Merna Purcell MD ? Ordering Physician: Sam Umaña ?? Date of Service: 08/28/24 ?? Procedure(s): XR chest 1V ?? Accession Number(s): [id number] ? cc: Rahel Mesa DO; Sam Umaña [...] DD/ 1115 ? TD/TT: 08/28/24 1129 ? Fire Equipment Operator: ? Procedure Note Donmarquez, Image - 08/28/[address] [address] XRay Report Signed Patient: Bonnie Shore PMR#: [id number] 005 : 1955cct:[id number] Age/Sex: 69 / FADM Date: 08/28/24 Loc: .[facility] Attending Dr: Merna Purcell MD Ordering Physician: Sam Umaña Date of Service: 08/28/24 Procedure(s): XR chest 1V Accession Number(s): [id number] cc: Rahel Mesa DO; Sam Umaña EXAMINATION: [...] MD 08/28/2024 03:42 PM EST Dictated By: Gabriel Rod MD Signed By: <Electronically signed by Gabriel Swan MDin OV> 08/28/24 1542 DD/ 1115 TD/TT: 08/28/24 1129 Fire Equipment Operator: [facility] External Provider IMG XR PROCEDURES Final Result * Gomori Methenamine Stain (08/28/2024 9:23 AM EST) 08/28/2024 9:23 AM EST 08/28/2024 9:42 AM EST Narrative [facility] - 09/02/2024 11:17 AM EST ----- ------- Name: Bonnie Shore ?Age/Sex: 69/F ? : 1955 Unit#: [id number] ?? Attend Dr: Merna Purcell MD ?Re08/28/24 ?Status: DEP SDC ? Location: HO.SSS ?Disch: ? ----- ------- SPEC : [id number] ?RECD: 08/28/24-941 ? STATUS: ??SOUT ? REQ NUM: [id number] ? ROSE MARY: 08/28/24 ? SUBM DR: [...] also correlate with concurrent cytology ?? results ([id number]) - similar findings. ?Clinical History Right lung [...] Copies To: ?? Merna Purcell MD ?? [facility] ?? [address] ?? [place] [address] ?? [phone] ?? Rahel Mesa DO ?? [facility] ?? [address] ?? [place] [address] ?? [phone] ? CONTINUED ON NEXT PAGE ----- ------- Name: Bonnie Shore ?Age/Sex: 69/F ? : 1955 Unit#: [id number] ?? Attend Dr: Merna Purcell MD ?Re08/28/24 ?Status: DEP SDC ? Location: HO.SSS ?Disch: ? ----- ------- SPEC : [id number] ?RECD: 08/28/24-941 ? STATUS: ??SOUT ? REQ NUM: [id number] ? ROSE MARY: 02 ? SUBM DR: Sam Umaña ? ENTERED: ??08/28/24-947 ?SP TYPE: Surgical ? OTHR DR: Merna Purcell MD ?Rahel Mesa DO ORDERED: ??Gom Meth Stain, Acid Fast Stain, Gross Micro L4, Specials Gr. 07/11, PASF ? Copies To: ??(Continued) ?? Sam Umaña ?? [address] ?? [place] [address] ?? [phone] ?? [email or web address] ----- ------- Signed (signature on file) Raul Solomon MD 09/02/24 1117 ? ----- ------- ? END OF REPORT ? us Generic External Data Provider LAB MICROBIOLOGY - GENERAL ORDERABLES Final Result [facility] [address] [place] [address] [phone] * Cell Block (08/28/2024 9:23 AM EST) 08/28/2024 9:23 AM EST 08/28/2024 9:45 AM EST Narrative [facility] - 09/02/2024 11:17 AM EST ----- ------- Name: Bonnie Shore ?Age/Sex: 69/F ? : 1955 Unit#: [id number] ?? Attend Dr: Merna Purcell MD ?Re08/28/24 ?Status: DEP SDC ? Location: HO.SSS ?Disch: ? ----- ------- SPEC : [id number] ? RECD: 08/28/24 ? STATUS: ??SOUT ? REQ NUM: [id number] ? ROSE MARY: 08/28/24 ? SUBM DR: [...] ??Please also correlate with concurrent biopsy results ([id number]) ?? - similar findings. ?Clinical History Right lung mass, significant smoking history ? Material Received ?? Right lung mass - 4 x 20 g cores ? Gross Description Received is 38 cc of green collection fluid, containing multiple tissue fragments from which a ThinPrep slide and cell block are prepared. This case was reviewed intradepartmentally. Copies To: ?? Merna Purcell MD ?? [facility] ?? [address] ?? [place] ?? [phone] ?? Rahel Mesa DO ?? [facility] ?? [address] ?? [place] ?? [phone] ?? Sam Umaña ?? [address] ?? [place] ?? [phone] ?? [email or web address] ? CONTINUED ON NEXT PAGE ----- ------- Name: Bonnie Shore ?Age/Sex: 69/F ? : 1955 Unit#: [id number] ?? Attend Dr: Merna Purcell MD ?Re08/28/24 ?Status: DEP SDC ? Location: HO.SSS ?Disch: ? ----- ------- SPEC : [id number] ? RECD: 08/28/24-944 ? STATUS: ??SOUT ? REQ NUM: [id number] ? ROSE MARY: 08/28/24 ? SUBM DR: [...] ORDE RABLES Final Result Performing Organization Address [facility] Co de Phone Number [facility] [address] [place] [address] [phone] * (ABNORMAL) Glucose, Whole Blood (08/28/2024 7:59 AM EST) [facility] Glucose, Whole Blood 210(H) 60 - 115 mg/dL [facility] Comment:METER #: [id number] 08/28/2024 7:59 AM EST 08/28/2024 8:03 AM EST Generic External Data Provider LAB BLOOD ORDERAB LES Final Result Performing Organization Address [facility] de Phone Number [facility] [address] [place] [address] [phone] * (ABNORMAL) CBC auto differential (08/28/2024 7:38 AM EST) [facility] White Blood Count 5.9 4.8 - 10.8 X10*3/uL [facility] Red Blood Count 4.09(L) 4.20 - 5.50 X10*6/uL [facility] Hemoglobin 11.4(L) 12.0 - 16.0 g/dl [facility] Hematocrit 34.5(L) 37.0 - 47.0 % [facility] Mean Corpuscular Volume 84.4 80.0 - 98.0 fL [facility] Mean Corpuscular Hemoglobin 27.9 27.0 - 33.0 pg [facility] Mean Corpuscular HGB Conc 33.0 31.0 - 35.0 g/dl [facility] Red Cell Distribution Width 14.2 11.0 - 16.0 % [facility] Platelet Count 173 160 - 400 X10*3/uL [facility] Mean Platelet Volume 10.5 9.4 - 12.3 fL [facility] Neutrophils Percent Auto 55.2 45 - 73 % [facility] Imm Gran Pct Auto 0.3 0.0 - 0.4 % [facility] Lymphocytes Percent Auto 29.8 20 - 40 % [facility] Monocytes Percent Auto 11.1(H) 2 - 11 % [facility] Eosinophils Percent Auto 3.1 0 - 4 % [facility] Basophils Percent Auto 0.5 0 - 2 % [facility] NRBC Pct Auto 0.0 0.0 - 0.2 /100WBC [facility] Neutrophils Absolute Auto 3.2 2.0 - 8.3 x10*3/uL [facility] Imm Gran Abs Auto 0.02 0.00 - 0.03 X10*3/uL [facility] Lymphocytes Absolute Auto 1.8 1.2 - 4.9 X10*3/uL [facility] Monocytes Absolute Auto 0.7 0.1 - 1.2 X10*3/uL [facility] Eosinophils Absolute Auto 0.2 0.0 - 0.4 X10*3/uL [facility] Basophils Absolute Auto 0.0 0.0 - 0.2 X10*3/uL [facility] NRBC Abs Auto 0.000 0.0 - 0.012 X10*3/uL [facility] 08/28/2024 7:38 AM EST 08/28/2024 7:58 AM EST us Generic External Data Provider LAB BLOOD ORDERAB LES Final Result [facility] [address] [place] [address] [phone] * CT Chest w/o Contrast (06/27/2024 7:50 AM EST) Anatomical Region Laterality Modality Body, Chest Computed Tomogra phy 06/27/2024 7:50 AM EST Narrative 08/06/2024 1:18 PM EST ? [facility] ?[address] ?[place] [address] ? CT Scan Report ? Signed ? Patient: Silviano,Bonnie P ?MR#: [id number] ?? 005 ? : 1955 ?Acct:[id number] ? Age/Sex: 69 / F ?ADM Date: 06/27/24 ? Loc: HO.CT ? Attending Dr: Merna Purcell MD ? Ordering Physician: Merna Purcell MD ?? Date of Service: 06/27/24 ?? Procedure(s): CT chest wo IV con ?? Accession Number(s): [id number] ? cc: Merna Purcell MD; Rahel Mesa DO ? Report Number: ?? [id number]: Total DLP = ??112.00 mGy-cm ?? EXAMINATION: [...] DD/ 0750 ? TD/TT: 06/27/24 0814 ? Fire Equipment Operator: ? Procedure Note Donotuseinterpreter, Image - 08/06/[address] [address] [address] Scan Report Signed Patient: Bonnie Shore PMR#: [id number] 005 : 6Acct:[id number] Age/Sex: 69 / FADM Date: 06/27/24 Loc: HO.CT Attending Dr: Merna Purcell MD Ordering Physician: Merna Purcell MD Date of Service: 06/27/24 Procedure(s): CT chest wo IV con Accession Number(s): [id number] cc: Merna Purcell MD; Rahel Mesa DO Report Number: [id number]: Total DLP = 112.00 mGy-cm EXAMINATION: CT [...] 08/06/24 1316 DD/ 0750 TD/TT: 06/27/24 0814 Fire Equipment Operator: [facility] External Provider IMG CT PROCEDURES Edited Result - Final * Chlamydia/N. Gonorrhoeae RNA, TMA, Urogenitial (06/26/2024 10:34 AM EST) CT PCR NOT DETECTED Not Detect. [facility] Comment:A not detected test result [...] psychologicalconsequences. NG PCR NOT DETECTED Not Detect. [facility] Comment:A not detected test result [...] AM EST 06/26/2024 1:54 PM EST Narrative [facility] - 06/26/2024 5:30 PM EST Vaginal us Rahel Mesa DO LAB MICROBIOLOGY - GENERAL O RDERABLES Final Result [facility] [address] [place] [phone] [phone] * Pap Smear (06/26/2024 10:34 AM EST) Swab Cervical swab / Unknown 06/26/2024 10:34 AM EST 06/27/2024 9:40 AM EST Narrative [facility] - 07/01/2024 12:35 PM EST ----- ------- Name: Bonnie Shore ?Age/Sex: 69/F ? : 1955 Unit#: [id number] ?? Attend Dr: Rahel Mesa DO ?Re06/26/24 ?Status: DEP REF ? Location: HO.TRUE ? Disch: ? ----- ------- SPEC : [id number] ?RECD: 06/27/24-939 ? STATUS: ??SOUT ? REQ NUM: [id number] ? ROSE MARY: 06/26/24-1033 ? SUBM DR: [...] DO LAB CYTOLOGY ORDERABLES Bushra l Result [facility] [address] [place] [address] [phone] * (ABNORMAL) POCT Glucose (06/26/2024 9:52 AM EST) Glucose Blood, POC 231(A) 60 - 200 mg/dL QC Media Lot # [id number] Lot# Expiration Date 929 Blood Capillary blood specimen / Unknown 06/26/2024 9:52 AM EST Rahel Mesa DO POINT OF CARE TEST ENTER/ASHA T ORDERABLES Final Result * POCT HGB A1C (04/23/2024 10:26 AM EDT) Hemoglobin A1C 5.7 4.0 - 6.0 % [employer] Lot # [id number] Lot# Expiration Date Blood 04/23/2024 10:2 6 AM EDT Rahel Mesa DO POINT OF CARE TEST ENTER/ASHA T ORDERABLES Final Result * Albumin, Random Urine W/Creatinine (10/18/2023 1:05 PM EDT) Creatinine, Urine 57.76 mg/dL [facility] Microalbumin Urine 16.0 mg/L [facility] Microalbum Creatinine Ratio Ur 27.7 <30 ug/mg cr [facility] Comment:Albumin/Creatinine R atio Reference Ranges: Normal: < 30 ug/mg creatinine Microalbuminuria: 30 - 300 ug/mg creatinineClinical Albuminuria: > 300 ug/mg creatinine Urine (Urine, Random) 10/18/2023 1:05 PM EDT 10/18/2023 4:00 PM EDT Rahel Mesa DO LAB URINE ORDERABLES Final R esult [facility] [address] [place] [address] [phone] * (ABNORMAL) Lipid Panel, Standard (10/15/2023 11:00 AM EDT) Triglycerides 97 <150 mg/dL [facility] Comment:Desirable Triglyceri de: less than 150 mg/dLBorderline High Triglyceride 150-199 mg/dLHigh Triglyceride: 200-499 mg/dLVery High Triglyceride: greater than or equal to 5OO mg/dL Cholesterol 81 <200 mg/dL [facility] Comment:Desirable Cholestero l: less than 200 mg/dLBorderline High Cholesterol: 200-239 mg/dLHigh Cholesterol: greater than 239 mg/dL LDL Cholesterol Calculated 30 <100 mg/dL [facility] Comment:Desirable LDL: less than 100 mg/dLNear Optimal/Above Optimal LDL: 110- 129 mg/dLBorderline High LDL: 130-159 mg/dLHigh LDL: 160-189 mg/dLVery High LDL: greater than or equal to 190 mg/dL HDL Cholesterol 32(L) >40 mg/dL [facility] Comment:Desirable HDL: great er than 40 mg/dL Note: This HDL assay may give artificially low results in patients with liver disease. Blood Venous blood specimen / Unknown 10/15/2023 11:00 AM EDT 10/15/2023 2:00 PM EDT Rahel Mesa DO LAB BLOOD ORDERABLES Final R esult Performing Organization Address City/[facility]/ZIP Co de Phone Number [facility] [address] [place] [address] [phone] * BI Mammogram Screening Tomosynthesis Bilateral (09/25/2023 3:38 PM EDT) Anatomical Region Laterality Modality Breast Bilateral Mammography 09/25/2023 3:38 PM EDT Narrative 10/16/2023 11:24 PM EDT ? [place] [facility] ? [address] ?[place] [address] ? Mammography Report ? Signed ? Patient: Silviano,Bonnie P ?MR#: [id number] ?? 005 ? : 1955 ?Acct:[id number] ? Age/Sex: 68 / F ?ADM Date: 09/25/23 ? Loc: HO.MAMMO ? Attending Dr: Rahel Mesa DO ? Ordering Physician: Rahel Mesa DO ?Results: 1N ?? egative ? Date of Service: 09/25/23 ?Follow Up: 1 Year From Orig ?? inal Mammogram ? Procedure(s): MM tomosynthesis screening BI ?? Accession Number(s): [id number] ? cc: Rahel Mesa DO ? EXAMINATION: [...] 10/16/230 ? DD/ 1538 ? TD/TT: ? Fire Equipment Operator: ? Procedure Note Moe Jonhs - 10/16/2023 [place] [facility] [address] [place] [address] Mammography Report Signed Patient: Bonnie Shore PMR#: [id number] 005 : 6Acct:[id number] Age/Sex: 68 / FADM Date: 09/25/23 Loc: HO.MAMMO Attending Dr: Rahel Mesa DO Ordering Physician: Rahel Mesaults: 1N egative Date of Service: 09/25/23Follow Up: 1 Year From Orig inal Mammogram Procedure(s): MM tomosynthesis screening BI Accession Number(s): [id number] cc: Rahel Mesa DO EXAMINATION: MM SCREENING [...] in OV> 10/16/23 2320 DD/ 1538 TD/TT: Fire Equipment Operator: Rahel Mesa DO IMG BI PROCEDURES Final Resu lt * HEPATITIS C AB W/REFL TO HCV RNA, QN, PCR (05/18/2020 11:16 AM EST) HEPATITIS C ANTIBODY NON-REACT TANNER NON-REACT [facility] INDEX 0.07 <1.00 [facility] Comment: ?? HCV antibody was non-reactive. There is no laboratory ?? evidence of HCV infection. ?? In most cases, no further action is required. However, if recent HCV exposure is suspected, a test for HCV RNA (test code 81921) is suggested. ?? For additional information please refer to http://Investorio.de/faq/WIQ21z2 (This link is being provided for informational/ educational purposes only.) ?? HEPATITIS C ANTIBODY NON-REACT [facility] NON-REACT [facility] INDEX 0.07 <1.00 [facility] Comment: ?? HCV antibody was non-reactive. There is no laboratory ?? evidence of HCV infection. ?? In most cases, no further action is required. However, if recent HCV exposure is suspected, a test for HCV RNA (test code 30100) is suggested. ?? For additional information please refer to http://[employer].Hometapper/faq/OVL42o3 (This link is being provided for informational/ educational purposes only.) ?? HEPATITIS C ANTIBODY NON-REACT TANNER NON-REACT [facility] INDEX 0.07 <1.00 [facility] Comment: ?? HCV antibody was non-reactive. There is no laboratory ?? evidence of HCV infection. ?? In most cases, no further action is required. However, if recent HCV exposure is suspected, a test for HCV RNA (test code 22845) is suggested. ?? For additional information please refer to http://[employer].Hometapper/faq/KDY78g4 (This link is being provided for informational/ educational purposes only.) ?? HEPATITIS C ANTIBODY NON-REACT TANNER NON-REACT T[facility] INDEX 0.07 <1.00 [facility] Comment: ?? HCV antibody was non-reactive. There is no laboratory ?? evidence of HCV infection. ?? In most cases, no further action is required. However, if recent HCV exposure is suspected, a test for HCV RNA (test code 55682) is suggested. ?? For additional information please refer to http://Investorio.de/faq/EQP41w8 (This link is being provided for informational/ educational purposes only.) ?? 05/18/2020 11:1 6 AM EST Rahel Mesa DO HISTORICAL/NON ORDERABLE LAB S Final Result [facility] [address] * Hm Colonoscopy (08/19/2019 11:19 AM EST) Historical Provider HEALTH MAINTENANCE Final Result from Last 3 Months or Most Recently Relevant to Health Maintenance Insurance [facility] Care Teams Regional Controller Relationship Specialty Start Date End Date Rahel Mesa DO [address] [place] [address] PCP - General Family Medicine 07/09/18 Cammy Zapata PharmD [address] [place] [address] Pharmacist Internal Medicine 05/09/23
--- OUTSIDE RECORDS SUMMARY | 2024-09-05 11:03 | XMS_ITS | Encounter Summary ---
Author Organization [employer] Address [address] [place] [address] Care Team Providers Care Tailercpa Name Role Phone Rahel Mesa DO Primary Care Provider [phone] Cammy Zapata PharmD Unavailable [phone] Encounter Details Date Type Department Care Team (Late st Contact Info) Description 10/19/2023 Orders Only [facility] [address] [place], [place] [phone] ProviderVincent MD Social History Tobacco Use Types [...] documented as of this encounter Care Teams Tailercpa Relationship Specialty Start Date End Date Rahel Mesa DO [address] [place] [address] PCP - General Family Medicine 07/09/18 Cammy Zapata, PharmD [address] [place] [address] Pharmacist Internal Medicine 05/09/23 documented as of this encounter
--- OUTSIDE RECORDS SUMMARY | 2024-09-05 11:03 | XMS_ITS | Encounter Summary ---
Author Organization [employer] Address [address] [place] [address] Care Team Providers Care Sr. Logistics Analyst Name Role Phone Rahel Mesa DO Primary Care Provider [phone] Cammy Zapata PharmD Unavailable [phone] Reason for Visit * Reason Onset Date Comments Med Refill 01/31/2024 Encounter Details Date Type Department Care Team (Late st Contact Info) Description 01/31/2024 Telephone [facility] [address] [place], [place] [phone] Rahel Mesa DO [address] [place], [place] [phone] Med Refill Social History Tobacco Use Types [...] 100 MG capsule To be sent to: [facility]/pharmacy #[id number] - [place], [place] - [facility] documented in this encounter Plan of Treatment [...] documented as of this encounter Care Teams Sr. Logistics Analyst Relationship Specialty Start Date End Date Rahel Mesa DO [address] [place], [place] [phone] PCP - General Family Medicine 07/09/18 Cammy Zapata, Eder [address] [place] [address] Pharmacist Internal Medicine 05/09/23 documented as of this encounter
--- OUTSIDE RECORDS SUMMARY | 2024-09-05 11:03 | XMS_ITS | Encounter Summary ---
Author Organization [employer] Address [address] [facility] [address] [place] [address] Care Team Providers Care Certified Breastfeeding Educator Name Role Phone Rahel Mesa DO Primary Care Provider [phone] Sam Chaney PharmD Unavailable Unavail able Cammy Zapata PharmD Unavailable Reason for Visit * Reason Comments Med Refill Encounter Details Date Type Department Care Team (Late st Contact Info) Description 01/23/2023 Refill [facility] [address] [place], [place] [phone] Rahel Mesa DO [address] [place], [place] [phone] Social History Tobacco Use Types Packs/Day Years [...] documented as of this encounter Care Teams Certified Breastfeeding Educator Relationship Specialty Start Date End Date Rahel Mesa DO [address] [place] [address] PCP - General Family Medicine 07/09/18 Sam Chaney, PharmD [address] [place] [address] Pharmacist Internal Medicine 08/11/22 05/08/23 Cammy Zapata PharmD [address] [place] [address] Pharmacist Internal Medicine 05/09/23 documented as of this encounter
--- OUTSIDE RECORDS SUMMARY | 2024-09-05 11:03 | XMS_ITS | Encounter Summary ---
Author Organization [facility] Address [address] [place] [phone] Care Team Providers Care Furnace Stock Inspector Name Role Phone Unavailable Primary Care Provider Unavailabl e Reason for Referral * Imaging (Routine) - Pending Review Specialty Diagnoses / Procedures Referred By Ericka saleem Referred To Contact Radiology Diagnoses Abnormal CT scan Procedures PET CT Skull to Mid Thigh Initial Merna Purcell [address] [place] [address] Dr [place] Phone: tel: fax: [facility] KIERRA Referral ID Status Reason Start Date Expiration Date V isits Requested Visits Authorized [id number] Pending Review 08/21/2024 08/21/2025 1 1 Reason for Visit * Imaging (Routine) - Pending Review Specialty Diagnoses / Procedures Referred By Ericka saleem Referred To Contact Radiology Diagnoses Abnormal CT scan Procedures PET CT Skull to Mid Thigh Initial Merna Purcell [address] [place] [address] Dr [place] Phone: tel: fax: [facility] KIERRA Referral ID Status Reason Start Date Expiration Date V isits Requested Visits Authorized [id number] Pending Review 08/21/2024 08/21/2025 1 1 Encounter Details Date Type Department Care Team (Latest Contact Info) Description 08/22/2024 3:30 PM EST - 08/22/2024 11:59 PM EST Hospital Encounter [facility] PET Scan [address] [place] [address] scan Discharge Disposition: [...] Signed Date: 08/27/2024 04:18 ET Workstation ID: [id number] Transcribed By: Self Edit Transcribed Date: 08/27/2024 [...] Signed Date: 08/27/2024 04:18 ET Workstation ID: [id number] Transcribed By: Self Edit Transcribed Date: 08/27/2024 03:30 ET [facility]erna Purcell [facility] PROCED[facility] Final Result documented in this encounter [...]
== END 2024-09-05 10:00 | disposition home or self-care (01) ==
LOC: HO.RESP 09:59
PROVIDERS: PCP Family Medicine; Visit Provider Internal Medicine
DX: J44.9 Chronic obstructive pulmonary disease, unspecified (principal); R91.8 Other nonspecific abnormal finding of lung field; Z87.891 Personal history of nicotine dependence
CPT/HCPCS: 94010; 94640; 94727; 94729

== ENCOUNTER → 2024-09-05 10:01 | Outpatient (BNV) | payer OTHER, SELFPAY | PROVIDERS: PCP Family Medicine; Visit Provider Internal Medicine Pulmonary Disease | DX: J44.9 Chronic obstructive pulmonary disease, unspecified (principal); R91.8 Other nonspecific abnormal finding of lung field; Z87.891 Personal history of nicotine dependence | CPT/HCPCS: 94060 ==

== ENCOUNTER 2024-09-30 14:51 | Outpatient (REF) | payer OTHER, SELFPAY ==
--- OUTSIDE RECORDS SUMMARY | 2024-09-30 18:34 | XMS_ITS | Clinical Summary ---
Author Organization [facility] Address [address] [place] [address] Phone Care Team Providers Care Personal Financial Counselor Name Role Phone FabiánRahel quan Primary Care Provider +1- [phone] Allergies No known active allergies Medications cetirizine (ZyrTEC) 10 mg tablet Take 1 tablet (10 mg total) by mouth 1 (one) time each day. Active docusate sodium (COLACE) 100 mg capsule TAKE 1 CAPSULE BY MOUTH 2 TIMES EVERY DAY NEEDED NEEDED FOR CONSTIPATION 4 Active Synjardy XR 5-1,000 mg tablet, IR - ER, biphasic 24hr TAKE 2 TABLETS BY MOUTH WITH BREAKFAST. 4 Active fluticasone propion-salmete roL (ADVAIR DISKUS) 500-50 mcg/dose diskus inhaler Inhale 1 Dose by mouth 2 (two) times a day. Active fluticasone HFA (Flovent HFA) 220 mcg/actuation inhaler Inhale 2 puffs by mouth 2 (two) times a day. Active lisinopriL (PRINIVIL,ZESTR IL) 2.5 mg tablet Take 1 tablet (2.5 mg total) by mouth 1 (one) time each day. 4 Active omeprazole (PriLOSEC) [address] capsule TAKE 1 CAPSULES BY MOUTH BEFORE BREAKFAST DO NOT CRUSH, CHEW, OR SPLIT Active rosuvastatin (CRESTOR) 40 mg tablet Take 1 tablet (40 mg total) by mouth 1 (one) time each day. 5 Active senna 8.6 mg tablet TAKE 2 TABLETS BY MOUTH EVERY DAY NEEDED FOR CONSTIPATION 4 Active triamcinolone (NASACORT) 55 mcg nasal inhaler SPRAY 2 BY [address] ROUTE EVERY DAY Active zolpidem (AMBIEN) 10 mg tablet Take 1 tablet (10 mg total) by mouth at bedtime as needed. Max Daily Amount: 10 mg Active umeclidinium (INCRUSE ELLIPTA) 62.5 mcg/actuation inhalation Inhale 1 puff by mouth 1 (one) time each day. Active methadone (DOLOPHINE) 10 mg tablet 4 tablets (40 mg total). 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 I had a long discussion with her about the findings on all of her imaging and pathology results as described in HPI. Unfortunately, there is not enough tissue for additional testing particularly PD-L1. I had a long discussion with her about lung nodules in general how their size, shape, and supervisor records change time affect her level of suspicion for malignancy. We also talked about the diagnosis, staging, and treatment of lung cancer which she seemed understand. The options here would be for a goal resection with a segmentectomy although she is on 2 L of oxygen already would carry some risk versus referral to radiation oncology for treatment. Another option would be to rebiopsy and see if he can get PD-L1 out of it with a navigational bronchoscopy. She wants to take some time to consider these options and will discuss this with her daughter. She will call us tomorrow with how she wants to proceed. She does seem to be leaning towards stereotactic radiation. All questions were answered. COPD (chronic obstructive pulmonary disease) Encounters Date Type Department Care Team Description 09/22/[address] [facility] Radiation Oncology [address] 2[address] [place] [address] Dorothea Badillo MA 09/18/2024 1:30 PM EDT Consult Thoracic Surgery - [place] [address] [place] [address] Mikel Yates MD Primary cancer of right lower lobe of lung (CMS/HCC) (Primary Dx); Chronic obstructive pulmonary disease, unspecified COPD type ([facility]) 08/22/2024 3:30 PM EST - 08/22/2024 11:59 PM EST Hospital Encounter [facility] PET Scan [address] [place] [address] scan Discharge Disposition: Home or Self Care from Last 3 Months Surgical History Surgery Date Site/Laterality Comments POLYPECTOMY Vocal Cord SECTION TUBAL LIGATION TONSILLECTOMY Medical History Medical History Date Comments Tobacco abuse 03/13/2012 DX:Tobacco abuse PTSD (post-traumatic stress disorder) 03/13/2012 DX:PTSD (post-traumatic stress disorder) Depression 03/13/2012 DX:Depression Polysubstance abuse 03/13/2012 DX:Polysubst ance abuse ([facility]) COPD (chronic obstructive pu lmonary disease) ([facility]) 03/13/2012 DX:COPD (chronic obstructive pulmonary disease) ([facility]) Asthma 03/13/2012 DX:Asthma S/P tonsillectomy 03/13/2012 DX:S/P tonsill ectomy S/P tubal ligation 03/13/2012 DX:S/P tubal ligation GERD (gastroesophageal reflux disease) Methadone maintenance therap y patient ([facility]) Statin intolerance Hyperthyroidism Pulmonary nodules Family History Medical History Relation Name Comments Heart attack Father fatal Lung disease Father Thyroid disease Mother Heart attack Sister 1 Heart attack Uncle 1 fatal Relation Name Status Comments Father Mother Sister 1 Sister 2 Uncle 1 Uncle 2 Social History Tobacco Use Types Packs/Day Years Used Date Smoking Tobacco: Every Day Tobacco Cessation:Ready to Q uit: Not Asked; Counseling Given: Not Answered Alcohol Use Standard Drinks/Week Comments Not Asked 0 (1 standard drink = 0.6 oz pur e alcohol) Comments Unknown Sex and Gender Information Value Date Recorded Sex Assigned at Not on file Legal Sex Female 8:04 PM EST Gender Identity Not on file Sexual Orientation Not on file Obstetrics History Last Filed Vital Signs Vital Sign Reading Time Taken Comments Blood Pressure 141/78 09/18/2024 2:13 PM EDT Pulse 97 09/18/2024 2:13 PM EDT Temperature 36.5 ??C (97.7 ??F) 09/18/2024 2:13 PM ED T Respiratory Rate 19 09/18/2024 2:13 PM EDT Oxygen Saturation 96% 09/18/2024 2:13 PM EDT 2lt o2 Inhaled Oxygen Concentration - - Weight 60 kg (132 lb 3.2 oz) 09/18/2024 2:13 PM EDT Height 162.6 cm (5' 4 ) 09/18/2024 2:13 PM EDT Body Mass Index 22.69 09/18/2024 2:13 PM EDT Plan of Treatment Upcoming Encounters Date Type Department Care Team (Late st Contact Info) Description 10/08/2024 8:[address] [facility] Radiation Oncology [address] [phone] 10/08/2024 9:[address] [facility] Radiation Oncology [address] [phone] Rahel Palafox MD [address] [place] [address] Health Maintenance Due Date Last Done Comments [...] Risk Assessment 06/18/2022 Hepatitis C Screening 06/18/2022 Medicare Annual Wellness Visit 06/18/2022 Osteoporosis Screening (Bone Density Screening) 06/18/2022 [...] Old Completed 06/20/2023 Zoster Vaccines Completed 06/29/2023, 04/1 08/2022, 06/19/2018 COVID-19 Vaccine Completed 04/23/2024, 07/2022, 05/11/2022, [...] Procedure Name Priority Date/Time Associated Diagnosis Comments NON-GYNECOLOGIC CYTOLOGY Routine 08/28/2024 11:[address] SKULL TO MID THIGH INITIAL Routine 08/22/2024 5:[address] scan from Last 3 Months Results * Non-gynecologic cytology (08/28/2024 11:49 AM EST) us Raul Solomon MD LAB CYTOLOGY ORDERABLES Fi nal Result * PET CT Skull to Mid Thigh [...] Signed Date: 08/27/2024 04:18 ET Workstation ID: [id number] Transcribed By: Self Edit Transcribed Date: 08/27/2024 [...] Signed Date: 08/27/2024 04:18 ET Workstation ID: [id number] Transcribed By: Self Edit Transcribed Date: 08/27/2024 03:30 ET Mandolarry Purcell IMG NM PROCEDURES Final Result from Last 3 Months Insurance [place] - [place] Member Subscriber Plan / Payer (Ef fective 2024-Present) Name:Bonnie Shore Relation to Subscriber:Self Name:Bonnie Shore Payer ID:[id number] Group ID:Not on file Type:Not on file Address: [facility] ATTN:CLAIMS [address] [place] [id number] [place] [address] Member Subscriber Plan / Payer (Ef fective 2022-Present) Name:Bonnie Shore Relation to Subscriber:Self Name:Bonnie Shore Payer ID:[id number] Group ID:Not on file Type:Not on file Address: [address] [place] [address] [employer] MED[employer] Member Subscriber Plan / Payer (Ef fective 2022-Present) Name:Bonnie Shore William Relation to Subscriber:Self Name:Bonnie Shore Payer ID:[id number] Group ID:[id number] Type:Not on file Address: [address] [place] [address] Care Teams Personal Financial Counselor Relationship Specialty Start Date End Date Rahel Mesa DO [address] [place] [address] PCP - General Family Medicine 09/18/24
--- OUTSIDE RECORDS SUMMARY | 2024-09-30 18:34 | XMS_ITS | Data Portability ---
Author Organization [facility] Address [address] [place] [address] Care Team Providers Care Maintenance And Operations Supervisor Name Role Phone [facility] Referring Provider HIM [facility] OTHER Assessment Encounter Date Assessment Date Assessment LastModified by Organization Details LastModified Time 01/03/2023 01/03/2023 I have reviewed and agree with the assessment and plan as documented by the watch assembler. I provided real-time medical direction for this [...] Assessment and Plan as documented by the Place Change Roof Bolter. Patient given the opportunity to ask questions. Advised if develops CP/severe SOB/turning blue/ severe abd or flank pain/uncontrolle d n/v/d or black/bloody emesis or stool/ AMS/ syncope/ hi fever to call 911- verbalized understanding of instructions [email or web address] Not available 03/16/2023 17:14:27 02/04/2024 02/04/2024 Ms. [...] of scabies given ?tracking noted on pictures. [facility] Not available 02/04/2024 14:08:26 Plan of Treatment Reminders Order Date Submit Date Provider Last Modified By Organization Details Last Modified Time Details Appointments None recorded. Lab culture, urine 2022 023 [facility] (Centralized Electronic Ordering - All Locations), Patient Can Go To The Location Of Their Choice, [id number] 3 07:54:12 urinalysis, dipstick 2022 023 [email or web address] 0 Main - [facility], [address] [place] [address], [address], 3 17:10:22 BMP, serum or plasma 2022 023 [email or web address] 0 Main - [facility], [address] [place] [address], [phone], 3 17:20:26 culture, urine 2022 023 [facility] (Centralized Electronic Ordering - All Locations), Patient Can Go To The Location Of Their Choice, [address] 3 10:46:24 urinalysis, dipstick 2022 023 [email or web address] Main - [facility], [address] [place] [address], [address], 3 12:52:08 Referral None recorded. Procedures None recorded. Surgeries None recorded. Imaging None recorded. Medication Orders permethrin 5 % topical cream 2023 024 [id number], [address] [place], [address], 4 14:05:45 Bactrim DS 800 mg-160 mg tablet 2022 023 [id number], [address] [place], [address], 3 17:11:22 Bactrim DS 800 mg-160 mg tablet 2022 023 [email or web address] [id number] [address] [place], [address], 3 17:11:20 Bactrim DS 800 mg-160 mg tablet 2022 023 [id number], [address] [place], [address], 3 12:52:10 Patient TargetsNo targets recorded. Patient [...] Leukocytes positi ve Not Available Main - [facility] ed [address] [place] [address], [phone], 01/03/2023 12:50:05 01/04/2001/03/2023 urina lysis , dipst ick Nitrite positi ve Not [facility] [address] [place] [address], [address], 01/03/2023 12:50:05 03/16/2003/16/2023 URINE CULTU RE specimen [...] BUN 13 Not Available Main - [facility] [address], [address], 03/16/2023 17:14:35 03/16/20 23 03/16/2023 BMP, serum or plasm a Ca ical 4.4 Not Available Main - [address], [address], 03/16/2023 17:14:35 03/16/20 23 03/16/2023 BMP, serum or plasm a CI- 94 Not Available Main - [facility] [address], [address], 03/16/2023 17:14:35 03/16/20 23 03/16/2023 BMP, serum or plasm a CRE 0.47 Not Available Main - [facility] [address], [address], 03/16/2023 17:14:35 03/16/20 23 03/16/2023 BMP, serum or plasm a GLU 187 Not Available Main - [facility] [address], [address], 03/16/2023 17:14:35 03/16/20 23 03/16/2023 BMP, serum or plasm a K+ 4.5 Not Available Main - [facility] [address], [address], 03/16/2023 17:14:35 03/16/20 23 03/16/2023 BMP, serum or plasm a Na+ 135 Not Available Main - [facility] [address], [address], 03/16/2023 17:14:35 03/16/20 23 03/16/2023 BMP, serum or plasm a tCO2 26 Not Available Main - [facility] [address], [address], 03/16/2023 17:14:35 03/16/20 23 03/16/2023 urina lysis , dipst ick Leukocytes +3 Not Available Main - [facility] [address] [place] [address], [phone], 03/16/2023 17:08:15 03/16/20 23 03/16/2023 urina lysis , dipst ick Nitrite negati ve Not Available Main - [facility] [address], [address], 03/16/2023 17:08:15 03/16/20 23 03/16/2023 urina lysis , dipst ick Urobilinogen neg Not Available Main - [facility] [address] [place] [address], [address], 03/16/2023 17:08:15 03/16/20 23 03/16/2023 urina lysis , dipst ick Protein 3+ Not Available Main - [facility] [address], [address], 03/16/2023 17:08:15 03/16/20 23 03/16/2023 urina lysis , dipst ick pH 6.5 Not Available Main - [facility] [address], [address], 03/16/2023 17:08:15 03/16/20 23 03/16/2023 urina lysis , dipst ick Blood 3+ Not Available Main - [facility] [address], [address], 03/16/2023 17:08:15 03/16/20 23 03/16/2023 urina lysis , dipst ick Specific [place] 1.005 Not Available Main - [facility] [address] [place] [address], [address], 03/16/2023 17:08:15 03/16/20 23 03/16/2023 urina lysis , dipst ick Ketone neg Not Available Main - [facility] [address], [address], 03/16/2023 17:08:15 03/16/20 23 03/16/2023 urina lysis , dipst ick Bilirubin neg Not Available Main - [facility] [address] [place] [address], [address], 03/16/2023 17:08:15 03/16/2003/16/2023 urina lysis , dipst ick Glucose neg Not Available Main - [facility] [address], [address], 03/16/2023 17:08:15 03/16/20 23 03/16/2023 urina lysis , dipst ick Appearance Clear yellow with some white clumpy sedime nt Not Available Main - [facility] [address] [place] [address], [address], 03/16/2023 17:08:15 03/16/20 23 03/16/2023 urina lysis , dipst ick Color Yellow Not Available Main - [facility] [address], [address], 03/16/2023 17:08:15 Result Notes None recorded. Medical [...] Details Last Updated DateTime 3 14 /min 43520.8 4 g 94 /min 97.3 [degF] 98 % 98 % 128 mm[Hg] 81 mm[Hg] Not Available [facility] 3 12:47:35 Date Recorded Oxygen saturation Oxygen saturation in Arterial blood by Pulse oximetry Inhaled oxygen flow rate Respiratory rate Body temperature Heart rate Systolic blood pressure Diastolic blood pressure Provider Name and Address Organization Details Last Updated DateTime 3 93 % 93 % 2 L/min 16 /min 98.8 [degF] 98 /min 115 mm[Hg] 80 mm[Hg] Not Available [facility] 3 16:56:56 Date Recorded Oxygen saturation Oxygen saturation in Arterial blood by Pulse oximetry Inhaled oxygen flow rate Heart rate Respiratory rate Body temperature Systolic blood pressure Diastolic blood pressure Provider Name and Address Organization Details Last Updated DateTime 4 94 % 94 % 2 L/min 91 /min 16 /min 97.1 [degF] 155 mm[Hg] 86 mm[Hg] Not Available [facility] 4 14:00:46 Social History None recorded. Functional Status None recorded. Mental Status None recorded. Family History Nothing Reported. Medical History No medical history recorded. Gynecological HistoryNo gynecological history recorded. Obstetrics History GPAL:G 0 P 0 0 0 0 Past Encounters Encounter ID Performer Location Encounter Start Date Encounter Closed Date Diagnosis/Indication Diagnosis SNOMED-CT Code Diagnosis ICD10 Code Diagnosis Note [id number] Norah Rios MD Main - [facility] [address] [place] [phone] 01/03/2023 12:47:29 01/04/2023 11:19:14 Dysuria 41225732 R30.0 Urinary symptoms 4794621 08 R39.9 [id number] Emily Reyes MD Main - [facility] [address] [place] [phone] 03/16/2023 16:56:46 03/17/2023 16:02:20 Urinary symptoms [id number] R39.9 Findings consistent with urinary tract infection. [...] ing of yang rosenberg to the medic [id number] Lizzie Moss MD Main - [facility] [address] [place] [phone] 02/04/2024 14:00:38 02/04/2024 18:05:27 Pruritic rash 68798173 L28.2 Health Concerns Section Related Observation LastModified by Organization Detai ls LastModified Time None Recorded Concern Status LastModified by Organization Details LastModified Time None Recorded Advance Directives Directive None Recorded Payers Encounter Date Sequence Insurance Name Policy Number Policy Valentin Covered Member ID Valentin Member ID Guarantor Name 01/03/2023 1 [facility] - DOS ON OR AFTER 2022 - DUAL ELIGIBLE - JAIL OPTIONS AND ONE CARE (MEDICARE REPLACEMENT/ADV ANTAGE - HMO) Bonnie Shore [id number] Bonnie Shore 03/16/2023 1 [facility] - DOS ON OR AFTER 2022 - DUAL ELIGIBLE - JAIL OPTIONS AND ONE CARE (MEDICARE REPLACEMENT/ADV ANTAGE - HMO) Bonnie Shore [id number] Bonnie Shore 02/04/2024 1 [facility] - DOS ON OR AFTER 2022 - DUAL ELIGIBLE - JAIL OPTIONS AND ONE CARE (MEDICARE REPLACEMENT/ADV ANTAGE - HMO) Bonnie Shore [id number] Bonnie Shore Notes Date Note Type Note [...] to process this visit. Norah Rios MD [address] [place] [address],[address], [place], [phone] 01/03/2023 12:52:19 03/16/2023 text/html CRC Nursing Assessment: [...] .................. .................. .................. .................. .................. .................. ............... Place Change Roof Bolter Note From Leif Shields: Pt report urinary [...] vomiting or diarrhea. Emily Reyes MD [address] [facility],[address], [place], [address], [place] 03/16/2023 17:24:05 02/04/2024 text/html [facility] Nurse Triage Notes (Juli Giles): Reason [...] .................. .................. .................. .................. .................. .................. ............... Place Change Roof Bolter Note From Epifanio Washburn: Pt reports waxing [...] .................. ............... Disposition: Fulfilled Lizzie Moss MD [address] [place] [address],[address], [place], [phone], [place] 02/04/2024 14:22:17 OBGyn Episode No OBEpisode recorded.
--- OUTSIDE RECORDS SUMMARY | 2024-09-30 18:34 | XMS_ITS | Encounter Summary ---
Author Organization [facility] Address [address] [place] [address] Care Team Providers Care Can Reconditioner Name Role Phone Rahel Mesa DO Primary Care Provider +1- [phone] Encounter Details Date Type Department Care Team (Late st Contact Info) Description 09/22/2024 Telephone [facility] Radiation Oncology [address] [place] [phone] Dorothea Badillo MA Social History Tobacco Use Types Packs/Day Years [...] on file documented as of this encounter Progress Notes * Dorothea Badillo MA - 09/22/2024 3:38 PM EDT Spoke with pt aware of consult appt date/time. documented in this encounter Plan of Treatment Upcoming Encounters Date Type Department Care Team (Late st Contact Info) Description 10/08/2024 8:30 AM EDT Appointment [facility] Radiation Oncology [address] [place] [phone] 10/08/2024 9:00 AM EDT Appointment [facility] Radiation Oncology [address] [place] [phone] Rahel Palafox MD [address] [place] [address] documented as of this encounter Visit Diagnoses Not on filedocumented in this encounter Care Teams Can Reconditioner Relationship Specialty Start Date End Date Rahel Mesa DO [address] [place] [address] PCP - General Family Medicine 09/18/24 documented as of this encounter
--- OUTSIDE RECORDS SUMMARY | 2024-09-30 18:34 | XMS_ITS | Encounter Summary ---
Author Organization [facility] Address [address] [place] [id number] Care Team Providers Care Game Technician Name Role Phone Rahel Mesa DO Primary Care Provider [phone] Reason for Referral * Consultation (Urgent) - Authorized Specialty Diagnoses / Procedures Referred By Ericka saleem Referred To Contact Radiation Oncology Diagnoses Primary cancer of right lower lobe of lung (CMS/HCC) Mikel Yates MD [address] [address] Phone: tel: fax: [facility] Radiation Oncology [address] [facility] [address] [place] [address] Phone: tel: fax: Referral ID Status Reason Start Date Expiration Date Visits Requested Visits Authorized [id number] Authorized Specialty Services Required 09/18/2024 09/18/2025 1 1 Reason for Visit * Reason Comments Lung Nodule Encounter Details Date Type Department Care Team (Late st Contact Info) Description 09/18/2024 1:30 PM EDT Consult Thoracic Surgery - [place] [address] [phone] Mikel Yates MD [address] [address] Primary cancer of right lower lobe of lung (CMS/HCC) (Primary Dx); Chronic obstructive pulmonary disease, unspecified COPD type (CMS/HCC) Social History Tobacco Use Types Packs/Day Years [...] on file documented as of this encounter Last Filed [...] Mass Index 22.69 09/18/2024 2:13 PM EDT documented in this encounter Progress Notes * Mikel Yates MD - 09/18/2024 3:16 PM EDTAssociated Problem(s): Primary cancer of right lower lobe of lung (CMS/HCC) 69-year-old woman with 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 I had a long discussion with her about the findings on all of her imaging and pathology results as described in HPI.Unfortunately, there is not enough tissue for additional testing particularly PD-L1. 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 We also talked about the diagnosis, staging, and treatment oflung cancer which she seemed understand. The options [...] towards stereotactic radiation. All questions were answered. * Miekl Yates MD - 09/18/2024 1:30 PM EDT NEW PATIENT CONSULTATION Name: Bonnie Shore : 1955 Date of Visit: 09/18/2024 Referring Physician: Merna Purcell MD Primary Care Physician: Rahel Mesa DO Chief Complaint Patient presents with Lung Nodule HPI Ms. Shore is a 69 y.o. female who presents for outpatient consultation regarding the management of squamous cell carcinoma right lower lobe of the lung. 69-year-old woman longtime smoker smoked a pack per day starting at age 16 up until about a year ago was in the screening program at [facility] had a CT scan of the chest done on 06/27/2024 reviewed and interpreted by me directly which shows a 1.6 x 2 cm right lower lobe nodule. PET scan was finally done in 08/22/2024 which showed SUV max of 7.7 of the lung nodule and no increased uptake elsewhere in the chest or outside of the chest. Eventually this was biopsied on 08/28/[address] guidance and proved to be squamous cell carcinoma but not enough tissue for any additional testing. She states she tolerated that relatively well. She did have pulmonary function testing on 09/08/2024 which showed an FEV1 of 35% of predicted and a DLCO VA of 38% of predicted. She reports generally feeling good health denies unintentional weight loss decreased appetite feverchills or soaking sweats. Denies chest pain cough or hemoptysis. She does get short of breath with activity and is on 2 L of oxygen at all times. She denies any new neurologic symptoms. Past Medical History: Diagnosis Date Asthma 03/13/2012 DX:Asthma COPD (chronic obstructive pulmonary disease) ([facility]) 03/13/2012 DX:COPD (chronic obstructive pulmonary disease) ([facility]) Depression 03/13/2012 DX:Depression GERD (gastroesophageal reflux disease) Hyperthyroidism Methadone maintenance therapy patient ([facility]) Polysubstance abuse ([facility]) 03/13/2012 DX:Polysubstance abuse ([facility]) PTSD (post-traumatic stress disorder) 03/13/2012 DX:PTSD (post-traumatic stress disorder) Pulmonary nodules S/P tonsillectomy 03/13/2012 DX:S/P tonsillectomy S/P tubal ligation 03/13/2012 DX:S/P tubal ligation Statin intolerance Tobacco abuse 03/13/2012 DX:Tobacco abuse @ALL@ Current Outpatient Medications Medication Sig Dispense Refill docusate sodium (COLACE) 100 mg capsule TAKE 1 CAPSULE BY MOUTH 2 TIMES EVERY DAY NEEDED NEEDED FOR CONSTIPATION lisinopriL (PRINIVIL,ZESTRIL) 2.5 mg tablet Take 1 tablet (2.5 mg total) by mouth 1 (one) time eachday. rosuvastatin (CRESTOR) 40 mg tablet Take 1 tablet (40 mg total) by mouth 1 (one) time each day. senna 8.6 mg tablet TAKE 2 TABLETS BY MOUTH EVERY DAY NEEDED FOR CONSTIPATION Synjardy XR 5-1,000 mg tablet, IR - ER, biphasic 24hr TAKE 2 TABLETS BY MOUTH WITH BREAKFAST. umeclidinium (INCRUSE ELLIPTA) 62.5 mcg/actuation inhalation Inhale 1 puff by mouth 1 (one) time each day. cetirizine (ZyrTEC) 10 mg tablet Take 1 tablet (10 mg total) by mouth 1 (one) time each day. fluticasone HFA (Flovent HFA) 220 mcg/actuation inhaler Inhale 2 puffs by mouth 2 (two) times a day. fluticasone propion-salmeteroL (ADVAIR DISKUS) 500-50 mcg/dose diskus inhaler Inhale 1 Dose by mouth 2 (two) times a day. methadone (DOLOPHINE) 10 mg tablet 4 tablets (40 mg total). omeprazole (PriLOSEC) [address] capsule TAKE 1 CAPSULES BY MOUTH BEFORE BREAKFAST DO NOT CRUSH, CHEW, OR SPLIT triamcinolone (NASACORT) 55 mcg nasal inhaler SPRAY 2 BY INHALATION ROUTE EVERY DAY zolpidem (AMBIEN) 10 mg tablet Take 1 tablet (10 mg total) by mouth at bedtime as needed. Max DailyAmount: 10 mg No current facility-administered medications for this visit. Social History Tobacco Use Smoking status: Every Day Social History Social History Narrative Not on file Family History Problem Relation Name Age of Onset Thyroid disease Mother Lung disease Father Heart attack Father 62 fatal Heart attack Sister 50 Heart attack Uncle 34 fatal Review of Systems General - Negative for: weight loss/gain, fatigue, fever, chills, weakness, difficulty sleeping Head - Negative for: headache, trauma Eyes - Negative for: acute vision change, blurred vision, double vision, eye pain, conjunctival erythema, eyelid pain/swelling/erythema Ears - Negative for: acute change in hearing, tinnitus, ear pain, ear drainage Nose - Negative for: nasal discharge, nosebleed, itching, sinus pain Mouth/Throat - Negative for: sore throat, swollen throat, dry mouth, hoarseness, dysphagia, odynophagia, oral lesions Neck - Negative for: pain, stiffness, swelling, mass/lumps, swollen glands Cardiovascular - Negative for: chest pain/pressure, exertional chest pain, palpitations, lightheadedness, dizziness, orthopnea, extremity edema Respiratory -as above Gastrointestinal - Negative for: abdominal pain, abdominal distention, bloating, nausea, vomiting, early satiety, diarrhea, constipation, BRBPR, melena, poor appetite Genitourinary - Negative for: dysuria, hematura, urinary frequency, urinary urgency, incontinence Musculoskeletal - Negative for: muscle or joint pain, stiffness, back pain, joint swelling or erythema Neurologic - Negative for: dizziness, seizures, weakness, numbness, tingling, tremor, dysarthria, facial droop Hematologic - Negative for: easy bruising, easy bleeding, ecchymosis, petechiae Endocrine - Negative for: polyuriua, polydipsia, heat or cold intolerance Lymphatic - Negative for: swollen nodes, unexplained lumps/bumps in neck/axillae/groin Skin - Negative for: rashes, lumps, itching, dryness, color change, hair/nail changes Psychiatric - Negative for: depression, anxiety, nervousness, stress, memory change, SI/HI Physical Exam Vitals: 09/18/24 1413 BP: (!) 141/78 BP Location: Left arm Patient Position: Sitting BP Cuff Size: Adult Pulse: 97 Resp: 19 Temp: 36.5 ??C (97.7 ??F) TempSrc: Temporal SpO2: 96% Weight: 60 kg (132 lb 3.2 oz) Height: 1.626 m (64 ) General: Patient is sitting comfortably in no acute distress, well developed, well nourished Head: Normocephalic, atraumatic, symmetric Eyes: Sclera anicteric, eyelids without edema or erythema, +EOMS intact ENT: Oral mucosa and tongue are moist without lesions or exudates Neck: Soft, supple, symmetric, trachea midline, no crepitus, no mass visualized or palpated Cardiovascular: Regular rate and rhythm, no murmur/rubs/gallops, BUE and BLE without edema, no calftenderness bilaterally Respiratory: Lungs CTAB, breathing nonlabored, speaking in full sentences, on room air. No use of accessory muscles. No obvious chest wall abnormality or deformity Gastrointestinal: Soft, non-tender, non-distended, +normoactive bowel sounds. Lymphatic: no cervical, supraclavicular, infraclavicular, or other lymphadenopathy noted Neurological: Alert and oriented x 3, neurologic exam is grossly normal Psychiatric: No agitation, appropriate affect Pathology Squamous cell carcinoma of the lung right lower lobe not enough for PD-L1 testing Micro / Labs Reviewed Radiology Reviewed and interpreted by me directly as above I personally viewed the following imaging studies, in addition to reviewing the dictated report from the reading radiologist Assessment/Plan Problem List Items Addressed This Visit Respiratory Primary cancer of right lower lobe of lung (CMS/HCC) - Primary 69-year-old woman with 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 I had a long discussion with her about the findings on all of her imaging and pathology results as described in HPI.Unfortunately, there is not enough tissue for additional testing particularly PD-L1. 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 We also talked about the diagnosis, staging, and treatment oflung cancer which she seemed understand. The options [...] towards stereotactic radiation. All questions were answered. Relevant Medications cetirizine (ZyrTEC) 10 mg tablet fluticasone propion-salmeteroL (ADVAIR DISKUS) 500-50 mcg/dose diskus inhaler fluticasone HFA (Flovent HFA) 220 mcg/actuation inhaler umeclidinium (INCRUSE ELLIPTA) 62.5 mcg/actuation inhalation Other Relevant Orders Ambulatory referral to Radiation Oncology COPD (chronic obstructive pulmonary disease) (CMS/HCC) Relevant Medications cetirizine (ZyrTEC) 10 mg tablet fluticasone propion-salmeteroL (ADVAIR DISKUS) 500-50 mcg/dose diskus inhaler fluticasone HFA (Flovent HFA) 220 mcg/actuation inhaler umeclidinium (INCRUSE ELLIPTA) 62.5 mcg/actuation inhalation Total time spent on date of this encounter: 63 minutes. Reviewing patient's chart, Independently reviewing current/past imaging, Visit with the patient, Counseling and educating patient/family on diagnosis, Discussion of ongoing management, Documenting clinical information in the patient's medical record, Coordinating care with other health intensive care nurse, and Discussion of surgical intervention and/or biopsy Mikel Yates MD on 09/18/2024 at 3:16 PM EDT CC: Merna Purcell MD Jennifer A Jurcsak, DO documented in this encounter Plan of Treatment Upcoming Encounters Date Type Department Care Team (Late st Contact Info) Description 10/08/2024 8:30 AM EDT Appointment [facility] Radiation Oncology [address] [phone] 10/08/2024 9:00 AM EDT Appointment [facility] Radiation Oncology [address] [phone] Rahel Palafox MD [address] [place] [address] Scheduled Referrals Name Type Priority Associated Diagnoses Order Schedule Ambulatory referral to Radiation Oncology Outpatient Referral Routine Primary cancer of right lower lobe of lung (CMS/HCC) 1 Occurrences starting 09/18/2024 until 09/18/2025 documented as of this encounter Visit Diagnoses Diagnosis Primary cancer of right lower lobe of lung (CMS/HCC)- Primary Chronic obstructive pulmonary disease, unspecified COPD type (CMS/[facility]) documented in this encounter Historical Medications * This list may reflect changes made after this encounter. methadone (DOLOPHINE) 10 mg tablet 4 tablets (40 mg total). umeclidinium (INCRUSE ELLIPTA) 62.5 mcg/actuation inhalation Inhale 1 puff by mouth 1 (one) time each day. 01/31/2024 zolpidem (AMBIEN) 10 mg tablet Take 1 tablet (10 mg total) by mouth at bedtime as needed. Max Daily Amount: 10 mg triamcinolone (NASACORT) 55 mcg nasal inhaler SPRAY 2 BY INHALATION ROUTE EVERY DAY senna 8.6 mg tablet TAKE 2 TABLETS BY MOUTH EVERY DAY NEEDED FOR CONSTIPATION 04/22/2024 rosuvastatin (CRESTOR) 40 mg tablet Take 1 tablet (40 mg total) by mouth 1 (one) time each day. 07/21/2024 omeprazole (PriLOSEC) [address] capsule TAKE 1 CAPSULES BY MOUTH BEFORE BREAKFAST DO NOT CRUSH, CHEW, OR SPLIT lisinopriL (PRINIVIL,ZESTRI L) 2.5 mg tablet Take 1 tablet (2.5 mg total) by mouth 1 (one) time each day. 05/22/2024 fluticasone HFA (Flovent HFA) 220 mcg/actuation inhaler Inhale 2 puffs by mouth 2 (two) times a day. fluticasone propion-salmeter oL (ADVAIR DISKUS) 500-50 mcg/dose diskus inhaler Inhale 1 Dose by mouth 2 (two) times a day. Synjardy XR 5-1,000 mg tablet, IR - ER, biphasic 24hr TAKE 2 TABLETS BY MOUTH WITH BREAKFAST. 12/18/2023 docusate sodium (COLACE) 100 mg capsule TAKE 1 CAPSULE BY MOUTH 2 TIMES EVERY DAY NEEDED NEEDED FOR CONSTIPATION 01/31/2024 cetirizine (ZyrTEC) 10 mg tablet Take 1 tablet (10 mg total) by mouth 1 (one) time each day. added in this encounter Care Teams Game Technician Relationship Specialty Start Date End Date Rahel Mesa DO [address] [place] [id number] PCP - General Family Medicine 09/18/24 documented as of this encounter
== END 2024-09-30 14:52 | disposition home or self-care (01) ==
LOC: HO.MAMMO 14:51
PROVIDERS: PCP Family Medicine; Visit Provider Family Medicine
DX: Z12.31 Encounter for screening mammogram for malignant neoplasm of breast (principal)
CPT/HCPCS: 77063; 77067

== ENCOUNTER → 2024-09-30 15:00 | Outpatient (BNV) | payer OTHER, SELFPAY | PROVIDERS: PCP Family Medicine; Visit Provider Internal Medicine | DX: Z12.31 Encounter for screening mammogram for malignant neoplasm of breast (principal) | CPT/HCPCS: 77063; 77067 ==

== ENCOUNTER → 2024-11-28 08:53 | Outpatient (REF) | payer OTHER, SELFPAY ==
--- NOTE | ~2024-11-28 | NM_ITS ---
Lexiscan Myocardial perfusion study Indication: Shortness of breath Technique: The patient was brought in for a Lexiscan perfusion study on November 28, 2024 and was injected 0.4 mg of Lexiscan intravenously. Within a minute of this injection 25 mCi of sestamibi was given intravenously. Images were obtained using the SPECT gamma camera interlaced with the gating device. Images were obtained in supine position. Resting perfusion study was performed on December 02, 2024. Patient was administered 25 mCi of sestamibi intravenously at rest. Images were then obtained in supine position. Images obtained without without CT attenuation. Total DLP 82 mGy-cm. Images were processed with the software and compared side to side in short axis, horizontal long axis and vertical long axis views. Findings: The stress perfusion study showed both attenuated as well as on attenuated corrected images show normal uptake of radiotracer in all segments of the LV myocardium. The gated study shows normal LV systolic function with calculated LVEF of greater than 70 %. LV cavity is normal in size. The gated study shows normal systolic wall thickening and contraction of segments. Resting study shows both attenuated as well as nonattenuated corrected images show mildly reduced uptake in the septum as well as the apex of the LV myocardium. No attenuated corrected images also show mildly reduced uptake in the inferior wall of the LV myocardium. Gating at rest reveals normal gated wall motion with ejection fraction at 63%. The findings are consistent with normal myocardial perfusion. NM/NM jaswant perf SPECT rest & str Impression: 1. Myocardial perfusion imaging study shows normal myocardial perfusion 2. Gated LVEF is 63% 3. Transient ischemic dilatation not present Nondiagnostic changes on EKG. Electronically signed by: Olayinka Hernandez MD 12/02/2024 04:44 PM EDT
--- NOTE | 2024-11-28 08:55 | CA_ITS ---
Acquisition Time: 2024-11-28 09:14:42 Total Exercise Time: 00:02:00 Test Indications: sob Medications: SEE H&P Protocol: LEXISCAN Max HR: 142 BPM 93% of Pred: 152 BPM Max BP: 144/68 mmHG Max Work Load: 1.0 METS Pharmacological stress test with Lexiscan while pt swings his legs in chair, with reports of SOB, 4/10 chest pressure, abdominal discomfort and nausea, without any arrythmias, with normotensive response to injection. Nondiagnostic EKG for ischemia. In recovery, pt treated with IVP Aminophylline 75 mg to reverse Lexiscan after which pt feeling back to baseline. Nuclear images pending. Test reviewed with Dr. Christensen. Referred By: Sergo Christensen Electronically Signed By: Harrison Euceda
--- OUTSIDE RECORDS SUMMARY | 2024-11-28 09:14 | XMS_ITS | Clinical Summary ---
Author Organization [employer] Address [address] [place] [address] [address] [place] [address] Care Team Providers Care Broadcast Producer Name Role Phone Lisbeth Mesanifer Primary Care Provider Cammy Zapata PharmD Unavailable [phone] Allergies No known active allergies Medications albuterol [...] complication, without long-term current use of insulin ([facility]) Use 1 swab by topical route once [...] BREATH 8.5 g 1 02/19/20 24 Active diphenhydrAMINE (Benadryl Allergy) 25 MG [...] Cerave 80 g 1 08/15/19 25 Active OneTouch Verio test stripIndications:T ype 2 diabetes mellitus without complication, without long-term current use of insulin (CMS/HCC) USE TO TEST BLOOD SUGAR EVERY DAY 100 strip 5 09/11/19 25 Active zolpidem (Ambien) 10 MG tabletIndications: Insomnia, unspecified type TAKE 1 TABLET BY MOUTH EVERY DAY AT BEDTIME NEEDED FOR SLEEP 30 tablet 3 10/09/19 25 Active senna (Senokot) 8.6 MG tablet TAKE 2 TABLETS BY MOUTH EVERY DAY NEEDED FOR CONSTIPATION 180 tablet 1 10/21/19 25 Active Active Problems Problem Noted Date [...] Hypercalcemia 06/19/2022 06/28/2022 Steatosis of liver 06/11/2015 2 Tobacco dependence syndrome 06/11/2015 06/28/2022 Encounters Date Type Department Care Team Description 11/18/2024 2:15 PM EDT Office Visit [facility] [address] [place] [address] [phone] Rahel Mesa DO Type 2 diabetes mellitus without complication, without long-term current use of insulin (CMS/HCC) (Primary Dx); Essential hypertension; Other hyperlipidemia; Fatty liver; Mood disorder (CMS/HCC); Chronic obstructive pulmonary disease, unspecified COPD type (CMS/HCC); Lung nodules; Chronic gastroesophageal reflux disease; Hoarseness; Rash; Healthcare maintenance 11/18/2024 Travel 11/17/2024 Travel 11/06/2024 Telephone [facility] [address] [facility] [address] [place], [place] [address] Rahel Mesa DO Appointment Request 10/19/2024 Refill [facility] [address], [place] [address] Rahel Mesa DO 10/18/2024 Refill [facility] [address] [facility] [place] [address] Rahel Mesa DO 10/07/2024 Refill [facility] [address] [facility] [address] [place] [place], [place] [address] Rahel Mesa DO Insomnia, unspecified type 09/30/2024 Orders Only [facility] [address], [place] [address] Rahel Mesa DO 09/09/2024 Refill [facility] [address] [facility] [address] [place] [address] Rahel Mesa DO Type 2 diabetes mellitus without complication, without long-term current use of insulin ([facility]) 09/05/2024 Telephone [facility] [place] [phone] Rahel Mesa DO Recall Appt. 09/05/2024 Travel from Last 3 Months Immunizations Immunization Administration Dates Next Due Hep A, Adult [...] Sign Reading Time Taken Comments Blood Pressure 146/78 11/18/2024 2:28 PM EDT Pulse 123 11/18/2024 2:28 PM EDT Temperature 36.1 ??C (97 ??F) 11/18/2024 2:28 PM EDT Respiratory Rate 12 11/18/2024 2:28 PM EDT Oxygen Saturation 93% 11/18/2024 2:28 PM EDT Inhaled Oxygen Concentration - - Weight 58.6 kg (129 lb 4 oz) 11/18/2024 2:28 PM EDT Height 162.6 cm (5' 4 ) 11/18/2024 2:28 PM EDT Body Mass Index 22.19 11/18/2024 2:28 PM EDT Plan of Treatment Health Maintenance Due Date Last Done Comments CT Colonography 1955 FIT DNA/Cologuard 1955 FIT 1955 FOBT 1955 Sigmoidoscopy 1956 Diabetes: Foot Exam 1966 Eye Exam 1966 Alcohol/Substance Use Screening 1968 SDOH Screening 10/04/2024 10/05/2023 Lipid Panel 10/14/2024 10/15/2023, 05/18/2020 Diabetes: Urine Protein Screening 10/17/2024 10/18/2023, 10/18/2023, 02/24/2022, Additional history exists COVID-19 Vaccine ( season) 2024 04/23/2024, 05/09/2023, 05/11/2022, Additional history exists Diabetes: Hemoglobin A1C 05/21/20252 025, 04/23/2024, 12/18/2023, Additional history exists Depression Screening 06/26/2025 06/26/2024, 06/26/20 24 Mammogram 09/30/2025 09/30/2024, 09/06, 09/12/2022, Additional history exists Tobacco Screening 11/18/2025 11/18/2024 Colonoscopy 08/19/2029 08/19/2019 Colorectal Cancer Screening 08/19/2029 DTaP/Tdap/Td Vaccines (3 - Td or Tdap) 06/26/2034 06/26/2024, 01/29/2014, 08/01/2007 Hepatitis A Vaccines Discontinued 08/01/2007 Hepatitis C Screening Completed 05/18/2020 Pneumococcal Vaccine: 50+ Years Completed 01/24/2023, 08/22/2021, 08/19/2013, Additional history exists RSV Patients and Patients Aged 60 years or older Completed 06/20/2023 Zoster Vaccines Completed 06/29/2023, 10/07, 06/19/2018 Influenza Vaccine Completed 04/23/2024, , 05/11/2022, Additional history exists HIB Vaccines Aged Out No longer eligi ble based on patient's age to complete this topic HPV Vaccines Aged Out No longer eligi ble based on patient's age to complete this topic Hepatitis B Vaccines Discontinued IPV Vaccines Aged Out No longer eligi ble based on patient's age to complete this topic Meningococcal B Vaccine Aged Out No l onger eligible based on patient's age to complete [...] Author Hemoglobin A1c < 7 Result Component 5.6( 3:11 PM EDT) No Sam Chaney, PharmHeather Record your blood sugar as directed Result Component No Cammy Zapata PharmD Procedures Procedure Name Priority Date/Time Associated Diagnosis Comments POCT GLYCATED HEMOGLOBIN, TOTAL Routine 11/18/2024 3:11 PM EDT Type 2 diabetes mellitus without complication, without long-term current use of insulin ([facility]) POCT GLUCOSE Routine 11/18/2024 2:29 PM EDT Type 2 diabetes mellitus without complication, without long-term current use of insulin (CMS/HCC) BI MAMMOGRAM SCREENING TOMOSYNTHESIS BILATERAL Routine 09/30/2024 2:56 PM EDT ALBUMIN, RANDOM URINE W/CREATININE Routine 10/18/2023 1:05 PM EDT Type 2 diabetes mellitus without complication, without long-term current use of insulin (CMS/HCC) LIPID PANEL, STANDARD Routine 10/15/2023 11:00 AM EDT Type 2 diabetes mellitus without complication, without long-term current use of insulin (CMS/HCC) ZZZ HISTORICAL HEPATITIS C AB W/REFL TO HCV RNA, QN, PCR Routine 05/18/2020 11:16 AM EST HM COLONOSCOPY Routine 08/19/2019 11:19 AM EST from Last 3 Months or Most Recently Relevant to Health Maintenance Results * POCT HGB A1C (11/18/2024 3:11 PM EDT) Hemoglobin A1C 5.6 4.0 - 6.0 % QC Media Lot # [id number] Lot# Expiration Date Blood 11/18/2024 3:11 PM EDT Rahel Mesa DO POINT OF CARE TEST ENTER/ASHA T ORDERABLES Final Result * POCT Glucose (11/18/2024 2:29 PM EDT) Glucose Blood, POC 194 60 - 200 mg/dL QC Media Lot # [id number] Lot# Expiration Date [id number] Blood Capillary blood specimen / Unknown 11/18/2024 2:29 PM EDT Rahel Mesa DO POINT OF CARE TEST ENTER/ASHA T ORDERABLES Final Result * BI Mammogram Screening Tomosynthesis Bilateral (09/30/2024 2:56 PM EDT) Anatomical Region Laterality Modality Breast Bilateral Mammography 09/30/2024 2:56 PM EDT Narrative 10/06/2024 5:59 PM EDT ? [facility] ? [address] ?[place], [place] [address] ?[phone] ? Mammography Report ? Signed ? Patient: Silviano,Bonnie P ?MR#: [id number] ?? 005 ? : 1955 ?Acct:[id number] ? Age/Sex: 69 / F ?ADM Date: 09/30/24 ? Loc: HO.MAMMO ? Attending Dr: Rahel Mesa DO ? Ordering Physician: Rahel Mesa DO ?Results: 1N ?? egative ? Date of Service: 09/30/24 ?Follow Up: 1 Year From Orig ?? inal Mammogram ? Procedure(s): MM tomosynthesis screening BI ?? Accession Number(s): [id number] ? cc: Rahel Mesa DO ? EXAMINATION: ?? MM SCREENING DIGITAL BREAST TOMOSYNTHESIS, BILATERAL ? CLINICAL INFORMATION: ? Screening. Asymptomatic. ? COMPARISON: ?? Mammography: Comparison is made with available priors ? TECHNIQUE: ?? Digital breast mammography with tomosynthesis is performed in both the ?? craniocaudal and mediolateral oblique views along with computer-aided ?? detection (CAD). ? FINDINGS: ?? There are scattered areas [...] due date for their next mammogram. ? Electronically signed by: ??Asiya Kirby DO ??10/06/2024 05:55 PM EDT ? Dictated By: ?Asiya Kirby DO ? Signed By: ?<Electronically signed by Asiya Kirby, DO in OV> ? 10/06/24 2315 ? DD/ 1456 ? TD/TT: 09/30/24 1513 ? Surgery Scheduling Coordinator: ? Procedure Note Donlinseyter, Image - 10/06/2024 [facility] [address] [place] [address] Mammography Report Signed Patient: Bonnie Shore PMR#: [id number] 005 : 6Acct:[id number] Age/Sex: 69 / FADM Date: 09/30/24 Loc: HO.MAMMO Attending Dr: Rahel Mesa DO Ordering Physician: Rahel Mesaults: 1N egative Date of Service: 09/30/24Follow Up: 1 Year From Orig inal Mammogram Procedure(s): MM tomosynthesis screening BI Accession Number(s): [id number] cc: Rahel Mesa DO EXAMINATION: MM SCREENING DIGITAL BREAST TOMOSYNTHESIS, BILATERAL CLINICAL INFORMATION: Screening. Asymptomatic. COMPARISON: Mammography: Comparison is made with available priors TECHNIQUE: Digital breast mammography with tomosynthesis is performed in both the craniocaudal and mediolateral oblique views along with computer-aided detection (CAD). FINDINGS: There are scattered areas of fibroglandular [...] target due date for their next mammogram. Electronically signed by: Asiya Kirby DO 10/06/2024 05:55 PM EDT RP Dictated By: Asiya Kirby DO Signed By: <Electronically signed by Asiya Kirby DO in OV> 10/06/24 1755 DD/ 1456 TD/TT: 09/30/24 1513 Surgery Scheduling Coordinator: Rahel Mesa DO IMG BI PROCEDURES Final Resu lt * Albumin, Random Urine W/Creatinine (10/18/2023 1:05 PM EDT) Creatinine, Urine 57.76 mg/dL [facility] Microalbumin Urine 16.0 mg/L [facility] Microalbum Creatinine Ratio Ur 27.7 <30 ug/mg cr [facility] Comment:Albumin/Creatinine R atio Reference Ranges: Normal: < 30 ug/mg creatinine Microalbuminuria: 30 - 300 ug/mg creatinineClinical Albuminuria: > 300 ug/mg creatinine Urine (Urine, Random) 10/18/2023 1:05 PM EDT 10/18/2023 4:00 PM EDT Rahel Mesa DO LAB URINE ORDERABLES Final R esult [facility] [address] [place] [phone] * (ABNORMAL) Lipid Panel, Standard (10/15/2023 11:00 AM EDT) Triglycerides 97 <150 mg/dL [facility] Comment:Desirable Triglyceri de: less than 150 mg/dLBorderline High Triglyceride 150-199 mg/dLHigh Triglyceride: 200-499 mg/dLVery High Triglyceride: greater than or equal to 5OO mg/dL Cholesterol 81 <200 mg/dL [facility] Comment:Desirable Cholestero l: less than 200 mg/dLBorderline High Cholesterol: 200-239 mg/dLHigh Cholesterol: greater than 239 mg/dL LDL Cholesterol Calculated 30 <100 mg/dL [facility] Comment:Desirable LDL: less than 100 mg/dLNear Optimal/Above Optimal LDL: 110- 129 mg/dLBorderline High LDL: 130-159 mg/dLHigh LDL: 160-189 mg/dLVery High LDL: greater than or equal to 190 mg/dL HDL Cholesterol 32(L) >40 mg/dL [facility] Comment:Desirable HDL: great er than 40 mg/dL Note: This HDL assay may give artificially low results in patients with liver disease. Blood Venous blood specimen / Unknown 10/15/2023 11:00 AM EDT 10/15/2023 2:00 PM EDT Rahel Mesa DO LAB BLOOD ORDERABLES Final R esult [facility] [address] [place] [phone] * HEPATITIS C AB W/REFL TO HCV RNA, QN, PCR (05/18/2020 11:16 AM EST) HEPATITIS C ANTIBODY NON-REACT TANNER NON-REACT TANNER [facility] INDEX 0.07 <1.00 [facility] Comment: ?? HCV antibody was non-reactive. There is no laboratory ?? evidence of HCV infection. ?? In most cases, no further action is required. However, if recent HCV exposure is suspected, a test for HCV RNA (test code 21713) is suggested. ?? For additional information please refer to http://education.[employer]/faq/INY91c2 (This link is being provided for informational/ educational purposes only.) ?? HEPATITIS C ANTIBODY NON-REACT TANNER NON-REACT TANNER [email or web address] INDEX 0.07 <1.00 [email or web address] Comment: ?? HCV antibody was non-reactive. There is no laboratory ?? evidence of HCV infection. ?? In most cases, no further action is required. However, if recent HCV exposure is suspected, a test for HCV RNA (test code 75993) is suggested. ?? For additional information please refer to http://[employer]/faq/UZT46s2 (This link is being provided for informational/ educational purposes only.) ?? HEPATITIS C ANTIBODY NON-REACT TANNER NON-REACT TANNER [email or web address] INDEX 0.07 <1.00 [email or web address] Comment: ?? HCV antibody was non-reactive. There is no laboratory ?? evidence of HCV infection. ?? In most cases, no further action is required. However, if recent HCV exposure is suspected, a test for HCV RNA (test code 75149) is suggested. ?? For additional information please refer to http://[employer]/faq/CSS05f1 (This link is being provided for informational/ educational purposes only.) ?? HEPATITIS C ANTIBODY NON-REACT TANNER NON-REACT TANNER [email or web address] INDEX 0.07 <1.00 [email or web address] Comment: ?? HCV antibody was non-reactive. There is no laboratory ?? evidence of HCV infection. ?? In most cases, no further action is required. However, if recent HCV exposure is suspected, a test for HCV RNA (test code 76462) is suggested. ?? For additional information please refer to http://[employer]/faq/XZJ60u9 (This link is being provided for informational/ educational purposes only.) ?? 05/18/2020 11:1 6 AM EST Rahel Mesa DO HISTORICAL/NON ORDERABLE LAB S Final Result [facility] [address] [place] [address], * Hm Colonoscopy (08/19/2019 11:19 AM EST) us Historical Provider HEALTH MAINTENANCE Final Result from Last 3 Months or Most Recently Relevant to Health Maintenance Insurance [facility] INTERMEDIATE OPTIONS (HMO D-SNP) [place] [id number] Care Teams Broadcast Producer Relationship Specialty Start Date End Date Rahel Mesa DO [address] [place] [address] PCP - General Family Medicine 07/09/18 Cammy Zapata PharmD [address] [place] [address] Pharmacist Internal Medicine 05/09/23
== END ==
LOC: HO.CARD 08:53
PROVIDERS: PCP Family Medicine; Visit Provider Internal Medicine Cardiovascular Disease
DX: R06.00 Dyspnea, unspecified (principal)
CPT/HCPCS: 78452; 93017; A9500; J0280; J2785

== ENCOUNTER → 2024-11-28 08:55 | Outpatient (BNV) | payer OTHER, SELFPAY | PROVIDERS: PCP Family Medicine | DX: R06.02 Shortness of breath (principal); R07.9 Chest pain, unspecified | CPT/HCPCS: 78452; 93016; 93018 ==

== ENCOUNTER 2024-12-16 13:54 | Outpatient (AMB) | payer OTHER, SELFPAY ==
[2024-12-16 14:04] VITALS: BP 130/72; PULSE 124; O2SAT 96; BMI 22.3
--- NOTE | 2024-12-16 14:04 | A.OFFVIS_ITS ---
Vital Signs 12/16/24 14:04 Height 5 ft 4 in Weight 130 lb 1.164 oz BMI 22.3 BP 130/72 Blood Pressure Location Lt brachial Position Sitting Pulse 124 H Pulse Source Pulse Oximeter Pulse Oximetry (%) 96 Oxygen Delivery Method Nasal Cannula Oxygen Flow Rate 2 Intake Visit Reasons: MONTANO Intake Note: pt is here for follow up and states she sometimes gets mucous in chest that is difficult to get out and makes it harder to breath until she brings it up, this happens approximately once a day. Neurology Physician Assistant Required: No Allergies No Known Allergies [No Known Allergies*] Allergy (Verified 12/16/24 14:09) Medication List - Last Reconciled 12/16/24 by Merna Purcell MD albuterol sulfate mg inhalation albuterol sulfate 90 mcg/actuation 2 puffs inhalation Q4H PRN aspirin 81 mg PO DAILY blood sugar diagnostic (FreeStyle Lite Strips) As directed blood-glucose meter (FreeStyle [place] Lite kit) As directed cetirizine 10 mg PO DAILY docusate sodium 100 mg PO BID PRN empagliflozin-metformin 5-500 mg (Synjardy) 1 tab PO BID fluticasone propion-salmeterol 500-50 mcg/dose (Wixela Inhub) 1 inh inhalation BID lisinopril 2.5 mg PO DAILY methadone 40 mg PO DAILY naproxen (Naprosyn) 500 mg PO BID PRN omeprazole 40 mg PO DAILY rosuvastatin (Crestor) 40 mg PO DAILY sennosides (Natural Senna Laxative) 8.6 mg PO DAILY umeclidinium 62.5 mcg/actuation (Incruse Ellipta) 1 inh inhalation DAILY zolpidem 10 mg PO BEDTIME PRN Do you need a note to return to daycare/school/sports/work: No HPI HPI MONTANO: Details: Bonnie Roberts, is 69 years old female with longstanding history of smoking, quit in 2021 . Has advanced chronic obstructive pulmonary disease, last PFT in 2021. Marisol heard has been doing fairly well on her current medical regimen, but does get short of breath on minimal exertion and uses O2 2 L/minute 24 hours a day. On her yearly lung screening she was found to have a nodule in right lower lobe , grown in size. PET CT at [facility], showed that the nodule in right lower lobe 1.6 cm x 2 cm, was FDG avid. , but no other nodules or lymph nodes were FDG avid. 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 She was referred for consultation with Dr.Laki Hale , who advised her that she was not a good surgical candidate, so referred her for radiation therapy. She was seen, by the Cancer group at [facility] , received 4 sessions of radiation therapy. . She tolerated that well After that she is staying fairly well with her usual shortness of breath on exertion, and intermittent cough. Uses oxygen 2 L/minute 24 hours a day and came in . With portable unit [facility] Medical History GERD (gastroesophageal reflux disease) Chronic suppurative bronchitis Personal history of nicotine dependence History of colonic polyps Methadone maintenance therapy patient Hyperlipidemia Diabetes mellitus type 2, controlled Exercise hypoxemia Allergic rhinitis Osteopenia (~2018) Pulmonary nodules COPD (chronic obstructive pulmonary disease) Statin intolerance Hyperparathyroidism Vitamin D deficiency Surgical History History of vocal cord polypectomy History of tubal ligation History of History of tonsillectomy History of parathyroidectomy History of colonoscopy History of esophagogastroduodenoscopy (EGD) Family History Father Myocardial infarction Heart disease Lung disease Mother COPD (chronic obstructive pulmonary disease) Tumor of thyroid Maternal Aunt Cancer Stomach cancer Maternal Aunt Stomach cancer Sister Gallstones Acute pancreatitis Myocardial infarction Social History Are you a primary urgent care technician to a significant other at home: No Do you presently have visiting nurse or other home services: Yes ([employer] 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) Alcohol intake: never Patient Tobacco Use Status: Former Tobacco user Tobacco use type: Cigarette Cigarette Packs Per Day: 0.5 Cigarettes Per Day: 10.0 Years Smoked: 50 Current occupational status: unemployed Current occupation: right handed Review of Systems Const All systems reviewed & are unremarkable except as noted in HPI and below Eyes Reports no additional complaints ENT Reports nasal congestion (Intermittent especially in the morning) Card Denies chest pain, Denies irregular heart rhythm and Denies leg edema Resp Reports as per HPI GI Reports no additional complaints Reports no additional complaints and Reports urinary urgency Musc Reports back pain Skin/Breast Reports system reviewed and no additional complaints, except as documented Neuro Reports no additional complaints Psych Reports anxiety Physical Exam Vital Signs: Last Vital Signs Pulse 124 H 12/16/24 14:04 BP 130/72 12/16/24 14:04 Pulse Ox 96 12/16/24 14:04 Oxygen Delivery Method Nasal Cannula 12/16/24 14:04 Oxygen Flow Rate 2 12/16/24 14:04 BMI result Body Mass Index 22.3 Const General: comfortable, no acute distress, alert and awake Orientation/consciousness: patient oriented x3 HEENT Head: Yes normal to inspection General nose exam: No nasal polyps present and No nasal discharge present Face and sinus: Yes sinuses nontender Mouth: oropharynx normal Throat: Yes posterior oropharynx normal Eyes General: appearance normal, both eyes and all related structures Neck Neck: Yes normal visual inspection, Yes no lymphadenopathy, Yes trachea midline and Yes no JVD Thyroid: Thyroid normal Chest Chest palpation & inspection: normal inspection of the chest, normal palpation of entire chest wall and no tenderness Resp Other: PERCUSSION NOTE RESONANT, BREATH SOUNDS ARE DISTANT ON BOTH SIDES WITH PROLONGED EXPIRATORY PHASE. BUT NO WHEEZES RHONCHI OR CREPITATIONS ARE HEARD TODAY. Cardio Palpation: normal PMI Rate: regular rate Rhythm: regular rhythm Heart sounds: no gallops and no murmurs GI Palpation (GI): Soft to palpation, nontender, No hepatosplenomegaly present and no masses Auscultation: normal bowel sounds Back/Spine/Pelvis Thoracic/Lumbar Spine: thoracic and lumbar spine normal to inspection Skin General skin exam: no rashes or lesions noted Neuro General: patient oriented x3 and no focal motor deficits Cranial nerves: Yes CN's II-XII intact bilaterally Extrem General: Yes normal to inspection, Yes no clubbing, cyanosis or edema and Yes no calf tenderness Psych Appearance: grossly normal and well kempt Speech and movement: Normal speech and movement present Assessment & Plan Assessment & Plan (1) COPD (chronic obstructive pulmonary disease): Comment: SHE IS KNOWN TO HAVE SEVERE OBSTRUCTIVE PULMONARY DISEASE FOR THE PAST MANY YEARS. Code(s): J44.9 - Chronic obstructive pulmonary disease, unspecified Category: Medical Plan: CONTINUE WIXELA 500-51 INHALATION B.I.D. AND ALBUTEROL 2 PUFFS Q 4-6 HOURS P.R.N. INCRUSE ELLIPTA 1 INHALATION DAILY (2) Right lower lobe lung mass: Comment: IN ADDITION TO MULTIPLE SMALL PULMONARY NODULES SHE HAD 1 NODULE IN RIGHT LOWER LOBE WHICH HAS GROWN UP TO 2 CM X 1.8 X 1.7CM. IT WAS FDG AVID. PERCUTANEOUS NEEDLE BIOPSY POSITIVE FOR SQUAMOUS CELL CARCINOMA. PATIENT WAS REFERRED TO THORACIC SURGEON, WHO DEEMED THAT SHE WAS NOT A SURGICAL CASE. AND REFERRED FOR RADIATION THERAPY . SHE HAS HAD 4 SESSIONS (PALLIATIVE SHE IS DOING WELL AT THIS TIME Code(s): R91.8 - Other nonspecific abnormal finding of lung field Category: Medical Plan: WILL CONTINUE TO WATCH THE OTHER NODULES (3) Allergic rhinitis: Comment: She has a mild degree of allergic rhinitis. Code(s): J30.9 - Allergic rhinitis, unspecified Category: Medical Plan: USE CETIRIZINE 10 MG ONCE A DAY PRN (4) Exercise hypoxemia: Comment: SHE IS KNOWN TO HAVE EXERCISE INDUCED HYPOXEMIA. CURRENTLY USING PORTABLE UNIT WITH A LIGHTWEIGHT CYLINDER 2 L/MINUTE. Code(s): R09.02 - Hypoxemia Category: Medical Plan: OK TO CONTINUE USING O2 2 L/MINUTE FOR OUTDOORS. DOES NOT NEED TO USE OXYGEN WHEN AT HOME Coding Level of Care Code Est Pt Level 3 (81375) Diagnoses COPD (chronic obstructive pulmonary disease) J44.9 Right lower lobe lung mass R91.8 Allergic rhinitis J30.9 Exercise hypoxemia R09.02
--- OUTSIDE RECORDS SUMMARY | 2024-12-16 16:33 | XMS_ITS | Clinical Summary ---
Author Organization [employer] Address [address] [place] [address] [address] [place] [address] Care Team Providers Care Fire Truck Driver Name Role Phone Lisbeth Mesanifer Primary Care [...] complication, without long-term current use of insulin ([facility]) Use 1 swab by topical route once [...] complication, without long-term current use of insulin ([facility]) USE TO TEST BLOOD SUGAR EVERY DAY [...] Encounters Date Type Department Care Team Description 11/28/2024 Orders Only [facility] External Provider, [facility] 11/18/2024 2:15 PM EDT Office Visit [facility] [address] [place] [id number] Rahel Mesa DO Type 2 diabetes mellitus without complication, without long-term current use of insulin ([facility]/H[facility]) (Primary Dx); Essential hypertension; Other hyperlipidemia; Fatty liver; Mood disorder (CMS/HCC); Chronic obstructive pulmonary disease, unspecified COPD type ([facility]); Lung nodules; Chronic gastroesophageal reflux disease; Hoarseness; Rash; Healthcare maintenance 11/18/2024 Travel 11/17/2024 Travel 11/06/2024 Telephone [facility] [address] [facility] [place] [address] Rahel Mesa DO Appointment Request 10/19/2024 Refill [facility] [address] [facility] [place] [address] Rahel Meas DO 10/18/2024 Refill [facility] [address] [facility] [place] [address] Rahel Mesa DO 10/07/2024 Refill [facility] [address] [facility] [place] [address] Rahel Mesa DO Insomnia, unspecified type 09/30/2024 Orders Only [facility] [address] [facility] [place] [address] Rahel Mesa DO from Last 3 Months Immunizations Immunization Administration [...] 05/11/2022, Additional history exists Diabetes: Hemoglobin A1C 05/21/2025 025, 04/23/2024, 12/18/2023, Additional history exists Depression [...] 5.6( 3:11 PM EDT) No Sam Chaney, Eder Record your blood sugar as directed Result Component No Cammy Zapata PharmD Procedures Procedure Name Priority Date/Time Associated Diagnosis Comments NM HEART PERFUSION SPECT STRESS AND REST Routine 11/28/2024 9:25 AM EDT POCT GLYCATED HEMOGLOBIN, TOTAL Routine 11/18/2024 3:11 PM EDT Type 2 diabetes mellitus without complication, without long-term current use of insulin ([facility]/HCC) POCT GLUCOSE Routine 11/18/2024 2:29 PM EDT [...] Recently Relevant to Health Maintenance Results * NM heart perfusion SPECT stress and rest (11/28/2024 9:25 AM EDT) Anatomical Region Laterality Modality Body Nuclear Medicine 11/28/2024 9:25 AM EDT Narrative 12/02/2024 4:46 PM EDT ? [facility] ?[address] ?[place] [address] ?Nuclear Medicine Report ? Signed ? Patient: Bonnie Shore ?MR#: [id number] ?? 005 ? : 1955 ?Acct:[id number] ? Age/Sex: 69 / F ?ADM Date: 11/28/24 ? Loc: HO.CARD ? Attending Dr: Sergo Christensen MD ? Ordering Physician: Sergo Christensen MD ?? Date of Service: 11/28/24 ?? Procedure(s): NM jaswant perf SPECT rest ?? str ?? Accession Number(s): [id number] ? cc: Rahel Mesa DO; Sergo Christensen MD ? Lexiscan Myocardial perfusion study ? Indication: ?? Shortness of breath ? Technique: ? The patient was brought in for a Lexiscan perfusion study on November 28, ?? 2024 and was injected 0.4 mg of Lexiscan intravenously. Within a minute ?? of this injection 25 mCi of sestamibi was given intravenously. Images ?? were obtained using the SPECT gamma camera interlaced with the gating ?? device. Images were obtained in supine position. ? Resting perfusion study was performed on December 02, 2024. Patient was ?? administered 25 mCi of sestamibi intravenously at rest. Images were ?? then obtained in supine position. ? Images obtained without without CT attenuation. Total DLP 82 mGy-cm. ? Images were processed with the software and compared side to side in ?? short axis, horizontal long axis and vertical long axis views. ? Findings: ? The stress perfusion study showed ??both attenuated as well as on ?? attenuated corrected images show normal uptake of radiotracer in all ?? segments of the LV myocardium. The gated study shows normal LV systolic ?? function with calculated LVEF of greater than 70 %. LV cavity is normal ?? in size. The gated study shows normal systolic ??wall thickening and ?? contraction of segments. ?? Resting study shows both attenuated as well as nonattenuated corrected ?? images show mildly reduced uptake in the septum as well as the apex of ?? the LV myocardium. No attenuated corrected images also show mildly ?? reduced uptake in the inferior wall of the LV myocardium. Gating at ?? rest reveals normal gated wall motion with ejection fraction at 63%. ? The findings are consistent with normal myocardial perfusion. ? NM/NM jaswant perf SPECT rest ?? str ?? Impression: ? 1. ??Myocardial perfusion imaging study shows normal myocardial perfusion ?? 2. ??Gated LVEF is 63% ?? 3. Transient ischemic dilatation not present ? Nondiagnostic changes on EKG. ? Electronically signed by: ??Olayinka Hernandez MD ??12/02/2024 04:44 PM EDT RP ? Dictated By: ?Olayinka Hernandez MD ? Signed By: ?<Electronically signed by Olayinka Hernandez MD in OV> ?12/02/24 1644 ? DD/ 4 ? TD/TT: 12/02/24 1425 ? System Development Manager: ? Procedure Note Moe Johns - 12/02/[address] [address] Nuclear Medicine Report Signed Patient: Bonnie Shore PMR#: [id number] 005 : 6Acct:[id number] Age/Sex: 69 / FADM Date: 11/28/24 Loc: HO.CARD Attending Dr: Sergo Christensen MD Ordering Physician: Sergo Christensen MD Date of Service: 11/28/24 Procedure(s): NM jaswant perf SPECT rest str Accession Number(s): [id number] cc: Rahel Mesa DO; Sergo Christensen MD Lexiscan Myocardial perfusion study Indication: Shortness of breath Technique: The patient was brought in for a Lexiscan perfusion study on November 28, 2024 and was injected 0.4 mg of Lexiscan intravenously. Within a minute of this injection 25 mCi of sestamibi was given intravenously. Images were obtained using the SPECT gamma camera interlaced with the gating device. Images were obtained in supine position. Resting perfusion study was performed on December 02, 2024. Patient was administered 25 mCi of sestamibi intravenously at rest. Images were then obtained in supine position. Images obtained without without CT attenuation. Total DLP 82 mGy-cm. Images were processed with the software and compared side to side in short axis, horizontal long axis and vertical long axis views. Findings: The stress perfusion study showed both attenuated as well as on attenuated corrected images show normal uptake of radiotracer in all segments of the LV myocardium. The gated study shows normal LV systolic function with calculated LVEF of greater than 70 %. LV cavity is normal in size. The gated study shows normal systolic wall thickening and contraction of segments. Resting study shows both attenuated as well as nonattenuated corrected images show mildly reduced uptake in the septum as well as the apex of the LV myocardium. No attenuated corrected images also show mildly reduced uptake in the inferior wall of the LV myocardium. Gating at rest reveals normal gated wall motion with ejection fraction at 63%. The findings are consistent with normal myocardial perfusion. NM/NM jaswant perf SPECT rest str Impression: 1. Myocardial perfusion imaging study shows normal myocardial perfusion 2. Gated LVEF is 63% 3. Transient ischemic dilatation not present Nondiagnostic changes on EKG. Electronically signed by: Olayinka Hernandez MD 12/02/2024 04:44 PM EDT Dictated By: Olayinka Hernandez MD Signed By: <Electronically signed by Olayinka Hernandez MD in OV> 05/27/25 1644 DD/ 0925 TD/TT: 12/02/24 1425 System Development Manager: [facility] External Provider IMG NM PROCEDURES Final Result * POCT HGB A1C (11/18/2024 3:11 PM EDT) Hemoglobin A1C 5.6 4.0 - 6.0 % QC Media Lot # [id number] Lot# Expiration Date Blood 11/18/2024 3:11 PM EDT Rahel Moshe DO POINT OF CARE TEST ENTER/ASHA T ORDERABLES Final Result * POCT Glucose (11/18/2024 2:29 PM EDT) Glucose Blood, POC 194 60 - 200 mg/dL QC Media Lot # [id number] Lot# Expiration Date [id number] Blood Capillary blood specimen / Unknown 11/18/2024 2:29 PM EDT Rahel Moshe DO POINT OF CARE TEST ENTER/ASHA T ORDERABLES Final Result * BI Mammogram Screening Tomosynthesis Bilateral (09/30/2024 2:56 PM EDT) Anatomical Region Laterality Modality Breast Bilateral Mammography 09/30/2024 2:56 PM EDT Narrative 10/06/2024 5:59 PM EDT ? [facility] [place] ? [address] ?[place] [address] ?[phone] ? Mammography Report ? Signed ? Patient: Silviano,Bonnie P ?MR#: [id number] ?? 005 ? : 1955 ?Acct:[id number] ? Age/Sex: 69 / F ?ADM Date: 03/25/25 ? Loc: HO.MAMMO ? Attending Dr: Rahel Mesa DO ? Ordering Physician: Rahel Mesa DO ?Results: 1N ?? egative ? Date of Service: 09/30/24 ?Follow Up: 1 Year From Orig ?? inal Mammogram ? Procedure(s): MM tomosynthesis screening BI ?? Accession Number(s): [id number] ? cc: Rahel Mesa DO ? EXAMINATION: [...] ??Asiya Kirby DO ??10/06/2024 05:55 PM EDT ?? RP ? Dictated By: ?Asiya Kirby DO ? Signed By: ?<Electronically signed by Asiya Kirby, DO in OV> ? 10/06/24 1755 ? DD/ 1456 ? TD/TT: 09/30/24 1513 ? System Development Manager: ? Procedure Note Donotuseinterpreter, Image - 10/06/2024 [facility] [address] [place] [address] Mammography Report Signed Patient: Bonnie Shore PMR#: [id number] 005 : 1955cct:[id number] Age/Sex: 69 / FADM Date: 09/30/24 Loc: HO.MAMMO Attending Dr: Rahel Mesa DO Ordering Physician: Rahel Mesaults: 1N egative Date of Service: 09/30/24Follow Up: 1 Year From Orig inal Mammogram Procedure(s): MM tomosynthesis screening BI Accession Number(s): [id number] cc: Rahel Mesa DO EXAMINATION: MM SCREENING [...] Asiya Kirby DO 10/06/2024 05:55 PM EDT Dictated By: Asiya Kirby DO Signed By: <Electronically signed by Asiya Kirby DO in OV> 10/06/24 1755 DD/ 1456 TD/TT: 09/30/24 1513 System Development Manager: Rahel Mesa DO IMG BI PROCEDURES Final Resu lt * Albumin, Random Urine W/Creatinine (10/18/2023 1:05 PM EDT) Creatinine, Urine 57.76 mg/dL [facility] Microalbumin Urine 16.0 mg/L [facility] Microalbum Creatinine Ratio Ur 27.7 <30 ug/mg cr [facility] Comment:Albumin/Creatinine R atio Reference Ranges: Normal: < 30 ug/mg creatinine Microalbuminuria: 30 - 300 ug/mg creatinineClinical Albuminuria: > 300 ug/mg creatinine Urine (Urine, Random) 10/18/2023 1:05 PM EDT 10/18/2023 4:00 PM EDT us Rahel Mesa DO LAB URINE ORDERABLES Final R esult [facility] [address] [place] [phone] * (ABNORMAL) Lipid Panel, Standard (10/15/2023 11:00 AM EDT) Triglycerides 97 <150 mg/dL [facility] Comment:Desirable Triglyceri de: less than 150 mg/dLBorderline High Triglyceride 150-199 mg/dLHigh Triglyceride: 200-499 mg/dLVery High Triglyceride: greater than or equal to 5OO mg/dL Cholesterol 81 <200 mg/dL [facility] Comment:Desirable Cholestero l: less than 200 mg/dLBorderline High Cholesterol: 200-239 mg/dLHigh Cholesterol: greater than 239 mg/dL LDL Cholesterol Calculated 30 <100 mg/dL [facility] Comment:Desirable LDL: less than 100 mg/dLNear Optimal/Above Optimal LDL: 110- 129 mg/dLBorderline High LDL: 130-159 mg/dLHigh LDL: 160-189 mg/dLVery High LDL: greater than or equal to 190 mg/dL HDL Cholesterol 32(L) >40 mg/dL [facility] Comment:Desirable HDL: great er than 40 mg/dL Note: This HDL assay may give artificially low results in patients with liver disease. Blood Venous blood specimen / Unknown 10/15/2023 11:00 AM EDT 10/15/2023 2:00 PM EDT us Rahel Mesa DO LAB BLOOD ORDERABLES Final R esult [facility] [address] [place] [address] [phone] * HEPATITIS C AB W/REFL TO HCV RNA, QN, PCR (05/18/2020 11:16 AM EST) HEPATITIS C ANTIBODY NON-REACT TANNER NON-REACT TANNER [facility] INDEX 0.07 <1.00 [facility] Comment: ?? HCV antibody was non-reactive. There is no laboratory ?? evidence of HCV infection. ?? In most cases, no further action is required. However, if recent HCV exposure is suspected, a test for HCV RNA (test code 59802) is suggested. ?? For additional information please refer to http://[employer]/faq/GYO14p8 (This link is being provided for informational/ educational purposes only.) ?? HEPATITIS C ANTIBODY NON-REACT TANNER NON-REACT TANNER [facility] INDEX 0.07 <1.00 [facility] Comment: ?? HCV antibody was non-reactive. There is no laboratory ?? evidence of HCV infection. ?? In most cases, no further action is required. However, if recent HCV exposure is suspected, a test for HCV RNA (test code 79227) is suggested. ?? For additional information please refer to http://[employer].Noom/faq/SDJ41x5 (This link is being provided for informational/ educational purposes only.) ?? HEPATITIS C ANTIBODY NON-REACT TANNER NON-REACT TANNER [facility] INDEX 0.07 <1.00 [facility] Comment: ?? HCV antibody was non-reactive. There is no laboratory ?? evidence of HCV infection. ?? In most cases, no further action is required. However, if recent HCV exposure is suspected, a test for HCV RNA (test code 17749) is suggested. ?? For additional information please refer to http://[employer]/faq/VGL04u2 (This link is being provided for informational/ educational purposes only.) ?? HEPATITIS C ANTIBODY NON-REACT TANNER NON-REACT TANNER [facility] INDEX 0.07 <1.00 [facility] Comment: ?? HCV antibody was non-reactive. There is no laboratory ?? evidence of HCV infection. ?? In most cases, no further action is required. However, if recent HCV exposure is suspected, a test for HCV RNA (test code 61014) is suggested. ?? For additional information please refer to http://[employer]/faq/MJU75d9 (This link is being provided for informational/ educational purposes only.) ?? 05/18/2020 11:1 6 AM EST Rahel Mesa DO HISTORICAL/NON ORDERABLE LAB S Final Result [facility] [address] * Hm Colonoscopy (08/19/2019 11:19 AM EST) Historical Provider HEALTH MAINTENANCE Final Result from Last 3 Months or Most Recently [place]vant [place] [address] [facility] [employer] (HMO D-SNP) Care Teams Fire Truck Driver Relationship Specialty Start Date End Date Rahel Mesa DO [address] [place] [address] PCP - General Family Medicine 07/09/18 Cammy Zapata PharmD [address] [place] [address] Pharmacist Internal Medicine 05/09/23
== END 2024-12-16 14:33 | disposition home or self-care (01) ==
LOC: HO.HPS 13:55
PROVIDERS: PCP Family Medicine; Visit Provider Internal Medicine
DX: J44.9 Chronic obstructive pulmonary disease, unspecified (principal); R91.8 Other nonspecific abnormal finding of lung field; J30.9 Allergic rhinitis, unspecified; R09.02 Hypoxemia
CPT/HCPCS: 99213

== ENCOUNTER → 2024-12-16 13:54 | Outpatient (BNVA) | payer OTHER, SELFPAY | PROVIDERS: PCP Family Medicine; Visit Provider Internal Medicine | DX: J44.9 Chronic obstructive pulmonary disease, unspecified (principal); R91.8 Other nonspecific abnormal finding of lung field; J30.9 Allergic rhinitis, unspecified; R09.02 Hypoxemia; Z99.81 Dependence on supplemental oxygen | CPT/HCPCS: 99212 ==

== ENCOUNTER 2025-03-26 15:09 | Outpatient (AMB) | payer OTHER, SELFPAY ==
[2025-03-26 15:15] VITALS: BP 120/58; PULSE 117; O2SAT 93; BMI 21.8
--- NOTE | 2025-03-26 15:15 | A.OFFVIS_ITS ---
Vital Signs 03/26/25 15:15 Height 5 ft 4 in Weight 126 lb 12.253 oz BMI 21.8 BP 120/58 L Blood Pressure Location Lt brachial Position Sitting Pulse 117 H Pulse Source Pulse Oximeter Pulse Oximetry (%) 93 Oxygen Delivery Method Nasal Cannula Oxygen Flow Rate 2 Intake Visit Reasons: COPD Intake Note: pt is here for follow up and states she is having some hard time getting the phlegm out, some increased in shortness of breath, and she is not moving around much. Logistics Specialist Required: No Allergies No Known Allergies (No Known Allergies*) Allergy (Verified 03/26/25 15:37) Medication List - Last Reconciled 03/26/25 by Merna Purcell MD albuterol sulfate mg inhalation albuterol sulfate 90 mcg/actuation 2 puffs inhalation Q4H PRN aspirin 81 mg PO DAILY blood sugar diagnostic (FreeStyle Lite Strips) As directed blood-glucose meter (FreeStyle [place] Lite kit) As directed cetirizine 10 mg PO DAILY docusate sodium 100 mg PO BID PRN empagliflozin-metformin 5-500 mg (Synjardy) 1 tab PO BID fluticasone propion-salmeterol 500-50 mcg/dose (Wixela Inhub) 1 inh inhalation BID lisinopril 2.5 mg PO DAILY methadone 40 mg PO DAILY naproxen (Naprosyn) 500 mg PO BID PRN omeprazole 40 mg PO DAILY rosuvastatin (Crestor) 40 mg PO DAILY sennosides (Natural Senna Laxative) 8.6 mg PO DAILY umeclidinium 62.5 mcg/actuation (Incruse Ellipta) 1 inh inhalation DAILY zolpidem 10 mg PO BEDTIME PRN HPI HPI COPD: Details: 70 YEARS OLD , WITH ADVANCED CHRONIC OBSTRUCTIVE PULMONARY DISEASE AND ALSO NEOPLASTIC NODULE RIGHT LOWER LOBE ( SQUAMOUS CELL CARCINOMA ) TREATED WITH RADIOTHERAPY. AWAITING TO HAVE FOLLOW-UP CT SCAN OF THE CHEST AT [facility] SHE IS HERE FOR HER ROUTINE FOLLOW-UP FOR COPD. SHE GETS SHORT OF BREATH ON WALKING AROUND AND ALSO HAS MILD INTERMITTENT COUGH. OTHERWISE DOING WELL. HAS LOST ABOUT 10 LB OF WEIGHT. [facility] Medical History GERD (gastroesophageal reflux disease) Chronic suppurative bronchitis Personal history of nicotine dependence History of colonic polyps Methadone maintenance therapy patient Hyperlipidemia Diabetes mellitus type 2, controlled Exercise hypoxemia Allergic rhinitis Osteopenia (~2019) Pulmonary nodules COPD (chronic obstructive pulmonary disease) Statin intolerance Hyperparathyroidism Vitamin D deficiency Surgical History History of vocal cord polypectomy History of tubal ligation History of History of tonsillectomy History of parathyroidectomy History of colonoscopy History of esophagogastroduodenoscopy (EGD) Family History Father Myocardial infarction Heart disease Lung disease Mother COPD (chronic obstructive pulmonary disease) Tumor of thyroid Maternal Aunt Cancer Stomach cancer Maternal Aunt Stomach cancer Sister Gallstones Acute pancreatitis Myocardial infarction Social History Are you a primary pharmacist critical care to a significant other at home: No Do you presently have visiting nurse or other home services: Yes ([employer] 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) Alcohol intake: never Patient Tobacco Use Status: Former Tobacco user Tobacco use type: Cigarette Cigarette Packs Per Day: 0.5 Cigarettes Per Day: 10.0 Years Smoked: 50 Current occupational status: unemployed Current occupation: right handed Review of Systems Const All systems reviewed & are unremarkable except as noted in HPI and below Eyes Reports no additional complaints ENT Reports nasal congestion (Intermittent especially in the morning) Card Denies chest pain, Denies irregular heart rhythm and Denies leg edema Resp Reports as per HPI GI Reports no additional complaints Reports no additional complaints and Reports urinary urgency Musc Reports back pain Skin/Breast Reports system reviewed and no additional complaints, except as documented Neuro Reports no additional complaints Psych Reports anxiety Physical Exam Vital Signs: Last Vital Signs Pulse 117 H 03/26/25 15:15 BP 120/58 L 03/26/25 15:15 Pulse Ox 93 03/26/25 15:15 Oxygen Delivery Method Nasal Cannula 03/26/25 15:15 Oxygen Flow Rate 2 03/26/25 15:15 BMI result Body Mass Index 21.8 Const General: comfortable, no acute distress, alert and awake Orientation/consciousness: patient oriented x3 HEENT Head: Yes normal to inspection General nose exam: No nasal polyps present and No nasal discharge present Face and sinus: Yes sinuses nontender Mouth: oropharynx normal Throat: Yes posterior oropharynx normal Eyes General: appearance normal, both eyes and all related structures Neck Neck: Yes normal visual inspection, Yes no lymphadenopathy, Yes trachea midline and Yes no JVD Thyroid: Thyroid normal Chest Chest palpation & inspection: normal inspection of the chest, normal palpation of entire chest wall and no tenderness Resp Other: PERCUSSION NOTE RESONANT, BREATH SOUNDS ARE DISTANT ON BOTH SIDES WITH PROLONGED EXPIRATORY PHASE. BUT NO WHEEZES RHONCHI OR CREPITATIONS ARE HEARD TODAY. Cardio Palpation: normal PMI Rate: regular rate Rhythm: regular rhythm Heart sounds: no gallops and no murmurs GI Palpation (GI): Soft to palpation, nontender, No hepatosplenomegaly present and no masses Auscultation: normal bowel sounds Back/Spine/Pelvis Thoracic/Lumbar Spine: thoracic and lumbar spine normal to inspection Skin General skin exam: no rashes or lesions noted Neuro General: patient oriented x3 and no focal motor deficits Cranial nerves: Yes CN's II-XII intact bilaterally Extrem General: Yes normal to inspection, Yes no clubbing, cyanosis or edema and Yes no calf tenderness Psych Appearance: grossly normal and well kempt Speech and movement: Normal speech and movement present Assessment & Plan Assessment & Plan (1) COPD (chronic obstructive pulmonary disease): Comment: SHE IS KNOWN TO HAVE SEVERE OBSTRUCTIVE PULMONARY DISEASE FOR THE PAST MANY YEARS. CURRENTLY STABLE WITHOUT ANY RECENT ACUTE EXACERBATIONS. Code(s): J44.9 - Chronic obstructive pulmonary disease, unspecified Category: Medical Plan: CONTINUE ADVAIR 500-51 INHALATION B.I.D.. ALBUTEROL HFA OR ALBUTEROL SOLUTION IN THE NEBULIZER Q 4-6 HOURS P.R.N. FOR ACUTE WHEEZING OR SHORTNESS OF BREATH.. INCRUSE ELLIPTA 1 INHALATION DAILY (2) Right lower lobe lung mass: Comment: IN ADDITION TO MULTIPLE SMALL PULMONARY NODULES SHE HAD 1 NODULE IN RIGHT LOWER LOBE WHICH HAS GROWN UP TO 2 CM X 1.8 X 1.7CM. IT WAS FDG AVID. PERCUTANEOUS NEEDLE BIOPSY POSITIVE FOR SQUAMOUS CELL CARCINOMA. PATIENT WAS REFERRED TO THORACIC SURGEON, WHO DEEMED THAT SHE WAS NOT A SURGICAL CASE. AND REFERRED FOR RADIATION THERAPY . SHE HAS COMPLETED THE COURSE OF RADIATION THERAPY. AWAITING CT SCAN FOR FOLLOW-UP Code(s): R91.8 - Other nonspecific abnormal finding of lung field Category: Medical Plan: FOLLOW-UP CT SCAN TO BE DONE AT [facility]. PATIENT ADVISED TO CONTINUE FOLLOW-UP WITH THE ONCOLOGY DEPARTMENT AT [facility] (3) Personal history of nicotine dependence: Comment: (onset ~16, 1ppd x 50yrs, 50pyh - quit 12/2021) Code(s): Z87.891 - Personal history of nicotine dependence Category: Medical Plan: ONCE AGAIN DISCUSSED THAT SHE SHOULD NOT GO BACK TO SMOKING AT ALL Coding Level of Care Code Est Pt Level 3 (13703) Diagnoses COPD (chronic obstructive pulmonary disease) J44.9 Right lower lobe lung mass R91.8 Personal history of nicotine dependence Z87.891
--- OUTSIDE RECORDS SUMMARY | 2025-03-26 16:43 | XMS_ITS | Encounter Summary ---
Author Organization [employer] Address [address] [place] [address] [address] [place] [address] Care Team Providers Care Intermediate Manager Name Role Phone Rahel Mesa DO Primary Care Provider [phone] DelSam madison PharmD Unavailable Unavail able Cammy Zapata PharmD Unavailable Reason for Visit * Reason Comments Med Refill Encounter Details Date Type Department Care Team (Late st Contact Info) Description 01/23/2023 Refill [facility] MED[facility]INE [address] [place], [place] [phone] Rahel Mesa DO [address] [place], [place] [phone] Social History Tobacco Use Types Packs/Day Years [...] Author Hemoglobin A1c < 7 Result Component 5.6(11/18/2024 3:11 PM EDT) No Dellogono Sam, PharmD documented as of this encounter Visit Diagnoses Not on filedocumented in this encounter Additional Health Concerns Assessment Noted Time PHQ-9 Depression Total Score: 0 09/26/19 10:18 AM EDT documented as of this encounter Care Teams Intermediate Manager Relationship Specialty Start Date End Date Rahel Mesa DO [address] [place] [address] PCP - General Family Medicine 07/09/18 Sam Chaney, LindaD [address] [place] [address] Pharmacist Internal Medicine 08/11/22 05/08/23 Cammy Zapata PharmD [address] [place] [address] Pharmacist Internal Medicine 05/09/23 documented as of this encounter
--- OUTSIDE RECORDS SUMMARY | 2025-03-26 16:43 | XMS_ITS | Encounter Summary ---
Author Organization [employer] Address [address] [place] [address] [address] [place] [address] Care Team Providers Care Vehicle Assembler Name Role Phone Rahel Mesa DO Primary Care Provider Sam Chaney PharmD Unavailable Unavail able Cammy Zapata PharmD Unavailable [phone] Encounter Details Date Type Department Care Team (Late st Contact Info) Description 08/14/[address] [facility] MEDICINE [address] [place], [place] [phone] Rahel Mesa DO [address] [place], [place] [phone] Social History Tobacco Use Types Packs/Day Years [...] Result Component 5.6(11/18/2024 3:11 PM EDT) No Sam Chaney, PharmD documented as of this encounter Visit Diagnoses Not on filedocumented in this encounter Care Teams Vehicle Assembler Relationship Specialty Start Date End Date Rahel Mesa DO [address] [place] [address] PCP - General Family Medicine 07/09/18 Sam Chaney, PharmD [address] [place] [address] Pharmacist Internal Medicine 08/11/22 05/08/23 Cammy Zpaata PharmD [address] [place] [address] Pharmacist Internal Medicine 05/09/23 documented as of this encounter
--- OUTSIDE RECORDS SUMMARY | 2025-03-26 16:43 | XMS_ITS | Encounter Summary ---
Author Organization [employer] Address [address] [facility] [address] [place] [address] Care Team Providers Care Bowling Alley Operator Name Role Phone Rahel Mesa DO Primary Care Provider [phone] Cammy Zapata PharmD Unavailable Encounter Details Date Type Department Care Team (Late st Contact Info) Description 07/05/2023 Abstract [facility] MEDICINE [address] [place], [place] [phone] Rahel Mesa DO [address] [place] [address] Social History Tobacco Use Types Packs/Day Years [...] 5.6( 3:11 PM EDT) No Sam Chaney, PharmD Record your blood sugar as directed Result Component No Cammy Zapata PharmD documented as of this encounter Visit Diagnoses Not on filedocumented in this encounter Additional Health Concerns Assessment Noted Time PHQ-9 Depression Total Score: 0 09/26/19 10:18 AM EDT documented as of this encounter Care Teams Bowling Alley Operator Relationship Specialty Start Date End Date Rahel Mesa DO [address] [place] [address] PCP - General Family Medicine 07/09/18 Cammy Zapata, PharmD [address] [place] [address] Pharmacist Internal Medicine 05/09/23 documented as of this encounter
--- OUTSIDE RECORDS SUMMARY | 2025-03-26 16:43 | XMS_ITS | Encounter Summary ---
Author Organization [employer] Address [address] [facility] [address] [place] [address] Care Team Providers Care Box Estimator Name Role Phone Rahel Mesa DO Primary Care Provider Cammy Zapata PharmD Unavailable Reason for Visit * Reason Comments Med Refill Encounter Details Date Type Department Care Team (Late st Contact Info) Description 10/18/[address] [facility] MEDICINE [address] [place], [place] [phone] Rahel Mesa DO [address] [place], [place] [phone] Social History Tobacco Use Types Packs/Day Years [...] Hemoglobin A1c < 7 Result Component 5.6( 5 3:11 PM EDT) No Sam Chaney PharmHeather Record your blood sugar as directed Result Component No Cammy Zapata PharmD documented as of this encounter Visit Diagnoses Not on filedocumented in this encounter Additional Health Concerns Assessment Noted Time PHQ-9 Depression Total Score: 2 06/26/20 24 9:53 AM EST documented as of this encounter Care Teams Box Estimator Relationship Specialty Start Date End Date Rahel Mesa DO [address] [place] [address] PCP - General Family Medicine 07/09/18 Cammy Zapata PharmD [address] [place] [address] Pharmacist Internal Medicine 05/09/23 documented as of this encounter
--- OUTSIDE RECORDS SUMMARY | 2025-03-26 16:43 | XMS_ITS | Encounter Summary ---
Author Organization [employer] Address [address] [facility] [address] [place] [address] Care Team Providers Care Senior Occupational Therapist Name Role Phone Rahel Mesa DO Primary Care Provider [phone] Cammy Zapata PharmD Unavailable [phone] Encounter Details Date Type Department Care Team (Late st Contact Info) Description 10/19/[address] [facility] MEDICINE [address] [place], [place] [phone] ProviderVincent MD Social History Tobacco Use Types [...] 5 3:11 PM EDT) No Sam Chaney PharmD Record your [...] documented as of this encounter Care Teams Senior Occupational Therapist Relationship Specialty Start Date End Date Rahel Mesa DO [address] [place] [address] PCP - General Family Medicine 07/09/18 Cammy Zapata, PharmD [address] [place] [address] Pharmacist Internal Medicine 05/09/23 documented as of this encounter
--- OUTSIDE RECORDS SUMMARY | 2025-03-26 16:43 | XMS_ITS | Encounter Summary ---
Author Organization [employer] Address [address] [facility] [address] [place] [address] Care Team Providers Care Senior Asic Design Engineer Name Role Phone Rahel Mesa DO Primary Care Provider Cammy Zapata PharmD Unavailable [phone] Reason for Visit * Reason Onset Date Comments Med Refill 01/31/2024 Encounter Details Date Type Department Care Team (Late st Contact Info) Description 01/31/2024 Telephone [facility] MEDICINE [address] [place], [place] [phone] Rahel Mesa DO [address] [place], [place] [phone] Med Refill Social History Tobacco Use Types [...] MG capsule To be sent to: [facility]/pharmacy #[id number] - [place], [place] - [address] [facility] documented in this encounter Plan of Treatment Not on file documented as of this encounter Goals Goal Patient Goal Type Associated Problems Recent Progress Patient-Stated? Author Hemoglobin A1c < 7 Result Component 5.6( 5 3:11 PM EDT) No DellogSam jeff, PharmD Record your blood sugar as directed Result Component No Cammy Zapata PharmD documented as of this encounter Visit Diagnoses Not on filedocumented in this encounter Additional Health Concerns Assessment Noted Time PHQ-9 Depression Total Score: 1 10/05/19 24 11:50 AM EDT documented as of this encounter Care Teams Senior Asic Design Engineer Relationship Specialty Start Date End Date Rahel Mesa DO [address] [place] [address] PCP - General Family Medicine 07/09/18 Cammy Zapata, Eder [address] [place] [address] Pharmacist Internal Medicine 05/09/23 documented as of this encounter
--- OUTSIDE RECORDS SUMMARY | 2025-03-26 16:43 | XMS_ITS | Clinical Summary ---
Author Organization [employer] Address [address] [place] [address] [address] [place] [address] Care Team Providers Care Patch Washer Name Role Phone Lisbeth Mesanifer Primary Care [...] complication, without long-term current use of insulin ([facility]) Use 1 swab by topical route once daily prior to SMBG 100 each 11 05/22/20 23 Active OneTouch Delica Lancets 33G misc USE TO TEST BLOOD SUGAR EVERY DAY 100 each 5 05/25/20 23 Active Blood Glucose Monitoring Suppl (OneTouch Verio) w/Device kit Use to check BS as directed once daily 1 kit 05/25/20 23 Active docusate sodium (Colace) 100 MG capsule [...] DAY 90 tablet 3 07/21/19 25 Active OneTouch Verio test stripIndications:T ype 2 diabetes mellitus without complication, without long-term current use of insulin ([facility]) USE TO TEST BLOOD SUGAR EVERY DAY 100 strip 5 09/11/19 25 Active zolpidem (Ambien) 10 MG tabletIndications: Insomnia, unspecified type TAKE 1 TABLET BY MOUTH EVERY DAY AT BEDTIME NEEDED FOR SLEEP 30 tablet 3 10/09/19 25 Active senna (Senokot) 8.6 MG tablet TAKE 2 TABLETS BY MOUTH EVERY DAY NEEDED FOR CONSTIPATION 180 tablet 1 10/21/19 25 Active Synjardy XR 5-1000 MG 24 hr tabletIndications: Type 2 diabetes mellitus without complication, without long-term current use of insulin ([facility]) TAKE 2 TABLETS BY MOUTH WITH BREAKFAST. 60 tablet 11 01/20/20 25 026 Active Aspirin Low Dose 81 MG EC tabletIndications: Type 2 diabetes mellitus without complication, without long-term current use of insulin (CMS/HCC) TAKE 1 TABLET BY MOUTH ONCE DAILY. 90 tablet 01/22/20 25 Active omeprazole (PriLOSEC) [address] capsule TAKE 1 CAPSULES BY MOUTH BEFORE BREAKFAST DO NOT CRUSH, CHEW, OR SPLIT 90 capsule 01/22/20 25 Active triamcinolone (Kenalog) 0.1 % creamIndications:P ruritic rash APPLY TOPICALLY IF NEEDED IN THE MORNING AND AT BEDTIME (PAIN AND SWELLING). MIX WITH CERAVE 60 g 1 01/27/20 25 Active Incruse Ellipta 62.5 MCG/ACT aerosol powder INHALE 1 PUFF BY INHALATION ROUTE EVERY DAY AT THE SAME TIME EACH DAY 30 each 02/20/20 25 Active Active Problems Problem Noted Date [...] Encounters Date Type Department Care Team Description 02/18/2025 Refill [facility] [address] [place] [address] Rahel Mesa DO 01/24/2025 Refill [facility] [address] [place] [address] Sabino Emery MD Pruritic rash 01/21/2025 Refill [facility] [address] [place], [place] [phone] Rahel Mesa DO Type 2 diabetes mellitus without complication, without long-term current use of insulin ([facility]) 01/17/2025 Refill [facility] [address] [place], [place] [phone] Rahel Mesa DO Type 2 diabetes mellitus without complication, without long-term current use of insulin ([facility]) from Last 3 Months Immunizations Immunization Administration [...] 123 11/18/2024 2:28 PM EDT Temperature 36.1 C (97 F) 11/18/2024 2:28 PM EDT Respiratory Rate 12 [...] Additional history exists COVID-19 Vaccine ( season) 2025 04/23/2024, 05/09/2023, 05/11/2022, Additional history exists Influenza Vaccine (#1) 2025 , 05/09/2023, 05/11/2022, Additional history exists Diabetes: Hemoglobin [...] 06/20/2023 Zoster Vaccines Completed 06/29/2023, 10/07, 06/19/2018 HIB Vaccines Aged Out No longer eligi [...] Component 5.6( 3:11 PM EDT) No Sam Chaney PharmD [...] PM EDT Narrative 10/06/2024 5:59 PM EDT Ethel [facility] [address] [place] [address] Mammography Report Signed Patient: Bonnie Shore MR#: [id number] 005 : 1955 Acct:[id number] Age/Sex: 69 / F ADM Date: 09/30/24 Loc: HO.MAMMO Attending Dr: Rahel Mesa DO Ordering Physician: Rahel Mesa DO Results: 1N egative Date of Service: 09/30/24 Follow Up: 1 Year From [facility] Mammogram Procedure(s): MM tomosynthesis screening BI Accession Number(s): [id number] cc: Rahel Mesa DO EXAMINATION: MM SCREENING [...] 10/06/24 1755 DD/ 1456 TD/TT: 09/30/24 1513 Construction Administrative Assistant: Procedure Note Donotuseinterpreter, Image - [facility] [address] [place] [address] Mammography Report Signed Patient: Bonnie Shore PMR#: [id number] 005 : 1955cct:[id number] Age/Sex: 69 / FADM Date: 09/30/24 Loc: HO.MAMMO Attending Dr: Rahel Mesa DO Ordering Physician: Rahel Mesaults: 1N egative Date of Service: 09/30/24Follow Up: 1 Year From Orig in[facility] Mammogram Procedure(s): MM tomosynthesis screening BI Accession Number(s): [id number] cc: Rahel Mesa DO EXAMINATION: MM SCREENING [...] 10/06/24 1755 DD/ 1456 TD/TT: 09/30/24 1513 Construction Administrative Assistant: Rahel Mesa DO IMG BI PROCEDURES Final Resu lt * Albumin, Random Urine W/Creatinine (10/18/2023 1:05 PM EDT) Creatinine, Urine 57.76 mg/dL [facility] Microalbumin Urine 16.0 mg/L [facility] Microalbum Creatinine Ratio Ur 27.7 <30 ug/mg cr [facility] Comment:Albumin/Creatinine R atio Reference Ranges: Normal: < 30 ug/mg creatinine Microalbuminuria: 30 - 300 ug/mg creatinineClinical Albuminuria: > 300 ug/mg creatinine Urine (Urine, Random) 10/18/2023 1:05 PM EDT 10/18/2023 4:00 PM EDT Rahel Mesa DO LAB URINE ORDERABLES Final R esult [facility] [address] [place] [phone] * (ABNORMAL) Lipid Panel, Standard (10/15/2023 11:00 AM EDT) Triglycerides 97 <150 mg/dL [facility] Comment:Desirable Triglyceri de: less than 150 mg/dLBorderline High Triglyceride 150-199 mg/dLHigh Triglyceride: 200-499 mg/dLVery High Triglyceride: greater than or equal to 5OO mg/dL Cholesterol 81 <200 mg/dL [facility] Comment:Desirable Cholestero l: less than 200 mg/dLBorderline High Cholesterol: 200-239 mg/dLHigh Cholesterol: greater than 239 mg/dL LDL Cholesterol Calculated 30 <100 mg/dL [facility] Comment:Desirable LDL: less than 100 mg/dLNear Optimal/Above Optimal LDL: 110- 129 mg/dLBorderline High LDL: 130-159 mg/dLHigh LDL: 160-189 mg/dLVery High LDL: greater than or equal to 190 mg/dL HDL Cholesterol 32(L) >40 mg/dL [facility] Comment:Desirable HDL: great er than 40 mg/dL Note: This HDL assay may give artificially low results in patients with liver disease. Blood Venous blood specimen / Unknown 10/15/2023 11:00 AM EDT 10/15/2023 2:00 PM EDT us Rahel Mesa DO LAB BLOOD ORDERABLES Final R esult [facility] [address] [place] [phone] * HEPATITIS C AB W/REFL TO HCV RNA, QN, PCR (05/18/2020 11:16 AM EST) HEPATITIS C ANTIBODY NON-REACT TANNER NON-REACT TANNER [facility] INDEX 0.07 <1.00 [facility] Comment: HCV antibody was non-reactive. There is no laboratory evidence of HCV infection. In most cases, no further action is required. However, if recent HCV exposure is suspected, a test for HCV RNA (test code 98255) is suggested. For additional information please refer to http://[employer].Cardeeo/faq/XDS38z4 (This link is being provided for informational/ educational purposes only.) HEPATITIS C ANTIBODY NON-REACT TANNER NON-REACT [facility] INDEX 0.07 <1.00 [facility] Comment: HCV antibody was non-reactive. There is no laboratory evidence of HCV infection. In most cases, no further action is required. However, if recent HCV exposure is suspected, a test for HCV RNA (test code 65248) is suggested. For additional information please refer to http://[employer].Cardeeo/faq/QMO30n2 (This link is being provided for informational/ educational purposes only.) HEPATITIS C ANTIBODY NON-REACT TANNER NON-REACT [facility] INDEX 0.07 <1.00 [facility] Comment: HCV antibody was non-reactive. There is no laboratory evidence of HCV infection. In most cases, no further action is required. However, if recent HCV exposure is suspected, a test for HCV RNA (test code 25193) is suggested. For additional information please refer to http://[employer].Cardeeo/faq/CKM46q5 (This link is being provided for informational/ educational purposes only.) HEPATITIS C ANTIBODY NON-REACT TANNER NON-REACT TANNER [facility] INDEX 0.07 <1.00 [facility] Comment: HCV antibody was non-reactive. There is no laboratory evidence of HCV infection. In most cases, no further action is required. However, if recent HCV exposure is suspected, a test for HCV RNA (test code 53056) is suggested. For additional information please refer to http://[employer].Cardeeo/faq/EML80k0 (This link is being provided for informational/ educational purposes only.) 05/18/2020 11:1 6 AM EST Rahel Mesa DO HISTORICAL/NON ORDERABLE LAB S Final Result [facility] [address] * Hm Colonoscopy (08/19/2019 11:19 AM EST) Historical Provider HEALTH MAINTENANCE Final Result from Last 3 Months or Most Recently Relevant to Health Maintenance Insurance [facility] [employer] (HMO D-SNP) [place] [id number] Care Teams Patch Washer Relationship Specialty Start Date End Date Rahel Mesa DO [address] [place] [address] PCP - General Family Medicine 07/09/18 Cammy Zapata PharmD [address] [place] [phone] Pharmacist Internal Medicine 05/09/23
--- OUTSIDE RECORDS SUMMARY | 2025-03-26 16:43 | XMS_ITS | Encounter Summary ---
Author Organization [employer] Address [address] [facility] [address] [place] [address] Care Team Providers Care Safety Compliance Specialist Name Role Phone Rahel Mesa DO Primary Care Provider Cammy Zapata PharmD Unavailable Reason for Visit * Reason Onset Date Comments Prior Authorization 05/24/2023 glucose bloo d (FREESTYLE LITE) test strip Encounter Details Date Type Department Care Team (Late st Contact Info) Description 05/24/2023 Telephone [facility] [address] [place], [place] [phone] Rahel Mesa DO [address] [place], [place] [phone] Prior Authorization (glucose blood (FREESTYLE LITE) test [...] housing situation today? I have laynetello dean 04/23/[address] you [...] Component 5.6( 5 3:11 PM EDT) No Dellogono, Sam, PharmD Record your blood sugar as directed Result Component No Puia, Cammy, PharmD documented as of this encounter Visit Diagnoses Not on filedocumented in this encounter Additional Health Concerns Assessment Noted Time PHQ-9 Depression Total Score: 0 09/26/19 23 10:18 AM EDT documented as of this encounter Care Teams Safety Compliance Specialist Relationship Specialty Start Date End Date Rahel Mesa DO [address] [place] [phone] PCP - General Family Medicine 07/09/18 Cammy Zapata, LindaD [address] [place] [phone] Pharmacist Internal Medicine 05/09/23 documented as of this encounter
== END 2025-03-26 15:37 | disposition home or self-care (01) ==
LOC: HO.HPS 15:10
PROVIDERS: PCP Family Medicine; Visit Provider Internal Medicine
DX: J44.9 Chronic obstructive pulmonary disease, unspecified (principal); R91.8 Other nonspecific abnormal finding of lung field; Z87.891 Personal history of nicotine dependence
CPT/HCPCS: 99213

== ENCOUNTER → 2025-03-26 15:09 | Outpatient (BNVA) | payer OTHER, SELFPAY | PROVIDERS: PCP Family Medicine; Visit Provider Internal Medicine | DX: R91.8 Other nonspecific abnormal finding of lung field (principal); J44.9 Chronic obstructive pulmonary disease, unspecified; Z87.891 Personal history of nicotine dependence | CPT/HCPCS: 99212 ==